=== PATIENT | male | born 1970 | race Caucasian/White ===

== ENCOUNTER 2016-12-29 19:25 | Emergency (ER) | payer OTHER ==
[~2016-12-29 19:25] MED LIST: LISI-363 PO; NOVOLOGP2 SQ
[2016-12-29 19:27] VITALS: BP 177/82; PULSE 109; RESP 16; TEMP 99; O2SAT 100
[2016-12-29] MEDS ORDERED: LISI-515 PO (21:55)
[2016-12-29] MEDS ORDERED: NOVOLOGSS (21:55)
[2016-12-29] MEDS ORDERED: CLINDAMYCIN INJ 600 MG in SODIUM CHLORIDE 0.9% INJ 100 ML IV ONE (22:00)
--- NOTE | 2016-12-29 22:10 | PD ---
HPI Chief Complaint: Injury Time Seen by Provider: 22:03 Travel History International Travel<30 days: No Contact w/Intl Traveler<30days: No Traveled to known affect area: No History of Present Illness HPI 46-year-old male that presents to the ED for evaluation of injury to the right leg. Per patient his been having swelling and redness on the right lower leg from the knee down for the past couple of days. Per patient he was initially small but now is progressively getting worse. Per patient he has pain on the area as well. 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 He states that he has not had any issues with the hand since. He denies any chest pain or shortness of breath. No fevers chills or sweats. Per patient the pain is 4 out of 10. Denies any numbness, tilling, weakness. Has no allergies to medication. Has not seen anybody for this. Hasn't taken anything for this. Per patient's his sugars are well-controlled secondary to using a pump. He denies any trauma. No falls. He does have multiple bumps to his legs that appear to be old. He denies any IV drug abuse. He denies any history of surgeries or injuries to the area. No recent travel. PFSH Past Medical History Asthma: No Blood Disorders: No Anxiety: No Depression: No Heart Rhythm Problems: No Cancer: No Cardiovascular Problems: No High Cholesterol: No Chest Pain: No Congestive Heart Failure: No COPD: No Diabetes: Yes Patient Takes Glucophage: No Diminished Hearing: No Endocrine: Yes Glaucoma: No Genitourinary: No Headaches: Yes Hepatitis: No Hiatal Hernia: No Hypertension: Yes Musculoskeletal: No Neurologic: No Psychiatric: No Reproductive: No Respiratory: No Sleep Apnea: No Thyroid Disease: No Tetanus Vaccination: > 5 Years Influenza Vaccination: No Past Surgical History Abdominal Surgery: No AICD: No Cardiac Surgery: No Endocrine Surgery: No Eye Surgery: Yes (CATARAC SX L EYE ) Genitourinary Surgery: No Gynecologic Surgery: No Insulin Pump: Yes Joint Replacement: No Oral Surgery: No Pacemaker: No Thoracic Surgery: No Other Surgery: Yes (CATARACT SURG LEFT EYE AND INC AND DRAINAGE LEFT HAND) Social History Alcohol Use: No (OCCASIONALLY ) Tobacco Use: No Substance Use: No Allergies-Medications (Allergen,Severity, Reaction): Coded Allergies: No Known Allergies (Verified , 12/29/16) Reported Meds & Prescriptions Reported Meds & Active Scripts Active Bactrim DS (Sulfamethoxazole-Trimethoprim) 800-160 Mg Tab 1 Tab PO BID 14 Days Clindamycin (Clindamycin HCl) 150 Mg Cap 300 Mg PO Q6H 10 Days Reported Lisinopril 20 Mg Tab 20 Mg PO BID Novolog Inj (Insulin Aspart) 100 Unit/Ml Inj Review of Systems General / Constitutional: No: Fever, Chills, Weight Gain, Weight Loss, Other Eyes: No: Diploplia, Blurred Vision, Photophobia, Drainage, Redness, Foreign Body Sensation, Pain, Tearing, Blind Spots, Visual changes, Blindness, Other HENT: No: Headaches, Vertigo, Lightheadedness, Sore Throat, Rhinitis, Rhinorrhea, Congestion, Nosebleed, Neck Stiffness, Neck Pain, Masses, Gingival Bleeding, Dental Difficulties, Ear Discharge, Earache, Other Cardiovascular: No: Chest Pain or Discomfort, Palpitations, Irregular Rhythm, Tachycardia, Diaphoresis, Syncope, Dyspnea on exertion, Varicosities, Edema, Cyanosis, Varicosities, Phlebitis, Claudication, Other Respiratory: No: Cough, Shortness of Breath, Wheezing, Sneezing, Orthopnea, Hemoptysis, Stridor, Night Sweats, Pleuritic Pain, Other Gastrointestinal: No: Nausea, Vomiting, Diarrhea, Abdominal Pain, Hematemesis, Hematochezia, Constipation, Changes in Bowel Habits, Indigestion, Dysphagia, Loss of Appetite, Other Genitourinary: No: Urgency, Frequency, Dysuria, Nocturia, Hematuria, Decreased Urinary Output, Oliguria, Hesitancy, Dribbling, Incontinence, Pelvic Pain, Flank Pain, Dyspareunia, Discharge, Dysmenorrhea, Menorrhagia, Metorrhagia, Vaginal Bleeding, Other Musculoskeletal: Positive: Edema, Pain, No: Myalgias, Arthralgias, Limited ROM , Weakness, Cramping, Atrophy, Other Skin: Positive Rash, No Itching, No Dryness, No Lumps, No Hives, No Change in Pigmentation, No Change in nails, No Alopecia, No Lesions, No Breast Lumps, No Breast Tenderness, No Breast Swelling, No Other Neurologic: No: Weakness, Dizziness, Syncope, Focal Abnormalities, Coordination Problem, Tremor, Ataxia, Headache, Change in Mentation, Slurred Speech, Paresthesia, Incontinence, Seizures, Sensory Disturbance, Other Psychiatric: No: Anxiety, Depression, Suicidal Ideations, Disorder of Thought, Mood Disorder, Substance Abuse, Homicidal Ideation, Other Endocrine: No: Heat Intolerance, Cold Intolerance, Polyuria, Polydipsia, Other Hematologic/Lymphatic: No: Easy Bruising, Lymph Node Enlargement, Other Physical Exam Narrative GENERAL: SKIN: Warm and dry. HEAD: Atraumatic. Normocephalic. EYES: Pupils equal and round. No scleral icterus. No injection or drainage. ENT: No nasal bleeding or discharge. Mucous membranes pink and moist. Tongue is midline. No uvula deviation. NECK: Trachea midline. No JVD. CARDIOVASCULAR: Regular rate and rhythm. No murmurs, S3, S4. RESPIRATORY: No accessory muscle use. Clear to auscultation. Breath sounds equal bilaterally. GASTROINTESTINAL: Abdomen soft, non-tender, nondistended. Hepatic and splenic margins not palpable. MUSCULOSKELETAL: Extremities without clubbing, cyanosis, or edema. No obvious deformities. Full range of motion of the lower extremities. Patient does have 1+ pitting edema on the right lower extremity. Erythema noted. Warm to touch. 2+ pulses bilaterally. NEUROLOGICAL: Awake and alert. No obvious cranial nerve deficits. Motor grossly within normal limits. Five out of 5 muscle strength in the arms and legs. Normal speech. PSYCHIATRIC: Appropriate mood and affect; insight and judgment normal. Data Data Last Documented VS Vital Signs Date Time Temp Pulse Resp B/P Pulse Ox O2 Delivery O2 Flow Rate FiO2 12/29/16 19:31 18 12/29/16 19:27 99.0 109 177/82 100 Orders Complete Blood Count With Diff (12/29/16 21:51) Basic Metabolic Panel (Bmp) (12/29/16 21:51) Blood Culture (12/29/16 21:51) Magnesium (Mg) (12/29/16 21:51) Iv Access Insert/Monitor (12/29/16 21:51) Tibia/Fibula (Ap/Lat) (12/29/16 ) Clindamycin Inj (Cleocin Inj) (12/29/16 22:00) Labs Laboratory Tests Test 12/29/16 22:00 White Blood Count 5.2 TH/MM3 Red Blood Count 3.44 MIL/MM3 Hemoglobin 10.9 GM/DL Hematocrit 31.4 % Mean Corpuscular Volume 91.2 FL Mean Corpuscular Hemoglobin 31.6 PG Mean Corpuscular Hemoglobin 34.7 % Concent Red Cell Distribution Width 13.0 % Platelet Count 233 TH/MM3 Mean Platelet Volume 9.0 FL Neutrophils (%) (Auto) 66.8 % Lymphocytes (%) (Auto) 18.5 % Monocytes (%) (Auto) 13.1 % Eosinophils (%) (Auto) 1.0 % Basophils (%) (Auto) 0.6 % Neutrophils # (Auto) 3.5 TH/MM3 Lymphocytes # (Auto) 1.0 TH/MM3 Monocytes # (Auto) 0.7 TH/MM3 Eosinophils # (Auto) 0.1 TH/MM3 Basophils # (Auto) 0.0 TH/MM3 CBC Comment DIFF FINAL Differential Comment Sodium Level 137 MEQ/L Potassium Level 4.3 MEQ/L Chloride Level 99 MEQ/L Carbon Dioxide Level 30.2 MEQ/L Anion Gap 8 MEQ/L Blood Urea Nitrogen 26 MG/DL Creatinine 1.70 MG/DL Estimat Glomerular Filtration 44 ML/MIN Rate Random Glucose 91 MG/DL Calcium Level 9.1 MG/DL Magnesium Level 1.7 MG/DL MDM Medical Decision Making Medical Screen Exam Complete: Yes Emergency Medical Condition: Yes Medical Record Reviewed: Yes Interpretation(s) CBC Diagram 12/29/16 22:00 BMP Diagram 12/29/16 22:00 Differential Diagnosis Cellulitis versus osteomyelitis versus skin infection Narrative Course 46-year-old male that presents to the ED for evaluation of right leg swelling and pain. Patient was properly examined and was found to have signs and symptoms consistent with cellulitis. Appears to be early. Patient does have a history of as to malaise with colitis in the past. Patient's diabetic. At this time I recommend labs and imaging. Patient is agreeable with plan. Patient was given IV dose of clindamycin. Labs and imaging showed no sign of acute disease. Well also and was unremarkable. No sign of osteomyelitis and exam. Slight dehydration, will give 1 L of fluids. At this time recommend trial of Bactrim and clindamycin prescriptions. Patient's ago with this. Patient was told take Tylenol or Motrin for pain. Follow with PCP. See ED for any worsening symptoms. Recheck in 48 hours if not better. Diagnosis Primary Impression: Cellulitis of right leg Patient Instructions: General Instructions Additional Instructions: Motrin or Tylenol for pain. Elevate the leg. Take medications as prescribed. See ED worsening symptoms. Recheck in 48 hrs if not better. Med/Other Pt SpecificInfo: Prescription(s) given Scripts Sulfamethoxazole-Trimethoprim (Bactrim DS)800-160 Mg Tab1 Tab PO BID 14 Days Prov:Cherie Choi MD 12/29/16 Clindamycin 150 Mg [id number] Mg PO Q6H 10 Days Prov:Cherie Choi MD 12/29/16 Disposition: 01 DISCHARGE HOME Condition: Stable Arnold Marte Dec 29, 2016 22:10
--- NOTE | 2016-12-29 22:18 | RADRPT ---
EXAM DATE/TIME: 12/29/2016 22:02 [facility] COMPARISON: No previous studies available for comparison. INDICATIONS : Swelling in right leg. MEDICAL HISTORY : None. SURGICAL HISTORY : None. ENCOUNTER: Initial ACUITY: 1 day PAIN SCORE: 10/10 LOCATION: Right tib-fib FINDINGS: Mild soft-tissue swelling is noted involving the medial and lateral malleoli. There is no acute frac ture or dislocation of the right tibia or fibula. There is slight cortical irregularity involving th e lateral aspect of the right distal tibia which may be related to previous trauma or arthritic davis e. CONCLUSION: 1. No acute fracture or dislocation of the right tibia or fibula. 2. Mild soft-tissue swelling involving the medial and lateral malleoli. 3. Slight cortical irregularity involving the lateral aspect of the right distal tibia which may be related to old trauma or possible arthritic change. Justin Donahue MD on December 29, 2016 at 22:10 Board Certified Radiologist. This report was verified electronically.
[2016-12-29 22:35] LABS: AUTOMATED NEUTROPHIL # 3.5 TH/MM3 (1.8-7.7); BASOPHIL % 0.6 % (0.0-2.0); EOSINOPHIL # 0.1 TH/MM3 (0-0.4); HEMATOCRIT 31.4 % (39.0-51.0); HEMO FLAGS DIFF FINAL; LYMPH % 18.5 % (9.0-44.0); MEAN CELL VOLUME 91.2 FL (80.0-100.0); MEAN CORPUSCULAR HEMOGLOBIN 31.6 PG (27.0-34.0); MEAN CORPUSCULAR HGB CONC 34.7 % (32.0-36.0); MONO % 13.1 % (0.0-8.0); NEUT % 66.8 % (16.0-70.0); PLATELET COUNT 233 TH/MM3 (150-450); RED BLOOD COUNT 3.44 MIL/MM3 (4.50-5.90); WHITE BLOOD COUNT 5.2 TH/MM3 (4.0-11.0)
[2016-12-29] MEDS ORDERED: CLIN1CAP5 PO (22:38)
[2016-12-29] MEDS ORDERED: BACT800T5 PO (22:38)
[2016-12-29 22:43] LABS: BICARBONATE 30.2 MEQ/L (21.0-32.0); MAGNESIUM 1.7 MG/DL (1.5-2.5); POTASSIUM 4.3 MEQ/L (3.5-5.1)
[2016-12-29] MEDS ORDERED: SODIUM CHLOR 0.9% 1000 ML INJ 1,000 ML IV ONE (22:53)
== END 2016-12-30 00:10 | disposition home or self-care (01) ==
LOC: NEPE 19:25
DX: L03.115 Cellulitis of right lower limb (principal); E11.9 Type 2 diabetes mellitus without complications; Z79.4 Long term (current) use of insulin; Z79.899 Other long term (current) drug therapy
CPT/HCPCS: 73590; 80048; 83735; 85025; 87040; 96365; 99283; J7030

== ENCOUNTER 2017-01-21 11:52 | Inpatient (IN) | payer OTHER ==
[~2017-01-21] VITALS: Ht 170.2 cm; Wt 66.0 kg
[~2017-01-21 11:52] MED LIST changes: +BACT800T5 PO; +CLIN1CAP5 PO; -LISI-363 PO; +LISI-515 PO; -NOVOLOGP2 SQ; +NOVOLOGSS
[2017-01-21 11:56] VITALS: BP 178/88; PULSE 114; RESP 17; TEMP 98; O2SAT 98
--- NOTE | 2017-01-21 12:05 | PD ---
Physical Exam Time Seen by Provider: 12:03 Narrative 46yo M w/ c/o RLE cellulitis [id number]. Seen here and was given antibx. Seen by PCP and given another antibx. Reports continues symptoms despite antibx therapy and onset of pain to RLE on Wednesday. Denies fever, vomiting. Patient stable. Patient seen in triage. Awaiting bed placement. Data Data Last Documented VS Vital Signs Date Time Temp Pulse Resp B/P Pulse Ox O2 Delivery O2 Flow Rate FiO2 01/21/17 11:56 98.0 114 17 178/88 98 MDM Supervised Visit with HOWARD: Luz Marina Kruger Jan 21, 2017 12:05
[2017-01-21 12:10] VITALS: BP 181/96; PULSE 105; RESP 18; O2SAT 99
[2017-01-21] MEDS ORDERED: VANCOMYCIN INJ 1,000 MG in SODIUM CHLOR 0.9% 250 ML INJ 250 ML IV ONE (12:15)
[2017-01-21] MEDS ORDERED: SODIUM CHLORIDE 0.9% FLUSH 10 ML FLUSH IVF PRN (12:15)
--- NOTE | 2017-01-21 12:34 | PD ---
HPI . Right lower extremity swelling and pain Chief Complaint: Skin Problem Time Seen by Provider: 12:04 Travel History International Travel<30 days: No Contact w/Intl Traveler<30days: No Traveled to known affect area: No History of Present Illness HPI Patient presents complaining with swelling and pain or extremity for the past 2 days. Pain is exacerbated by standing/walking. He states that the pain is a 12 /10. It is an aching pain. He denies any associated fevers. He denies any nausea or vomiting. He denies any trauma. Patient reports that he was seen here about a month ago for same and was treated with antibiotics. He states that he was subsequently seen by his primary care physician and given a second course of antibiotics. Unfortunately , he does not know the name of any of his antibiotics. Patient's medical history is significant for insulin-dependent diabetes. PFSH Past Medical History Asthma: No Blood Disorders: No Anxiety: No Depression: No Heart Rhythm Problems: No Cancer: No Cardiovascular Problems: No High Cholesterol: No Chest Pain: No Congestive Heart Failure: No COPD: No Diabetes: Yes (INSULIN PUMP, novolog) Patient Takes Glucophage: No Diminished Hearing: No Endocrine: Yes Gastrointestinal Disorders: No Glaucoma: No Genitourinary: No Headaches: Yes Hepatitis: No Hiatal Hernia: No Hypertension: Yes Medical other: No Musculoskeletal: No Neurologic: No Psychiatric: No Reproductive: No Respiratory: No Sleep Apnea: No Thyroid Disease: No Influenza Vaccination: No Past Surgical History Abdominal Surgery: No AICD: No Cardiac Surgery: No Endocrine Surgery: No Eye Surgery: Yes (CATARAC SX L EYE ) Genitourinary Surgery: No Gynecologic Surgery: No Insulin Pump: Yes Joint Replacement: No Neurologic Surgery: No Oral Surgery: No Pacemaker: No Thoracic Surgery: No Other Surgery: Yes (CATARACT SURG LEFT EYE AND INC AND DRAINAGE LEFT HAND) Social History Alcohol Use: Yes (OCCASIONALLY ) Tobacco Use: No Substance Use: No Allergies-Medications (Allergen,Severity, Reaction): Coded Allergies: No Known Allergies (Verified , 01/21/17) Reported Meds & Prescriptions Reported Meds & Active Scripts Active Bactrim DS (Sulfamethoxazole-Trimethoprim) 800-160 Mg Tab 1 Tab PO BID 14 Days Clindamycin (Clindamycin HCl) 150 Mg Cap 300 Mg PO Q6H 10 Days Reported Lisinopril 20 Mg Tab 20 Mg PO BID Novolog Inj (Insulin Aspart) 100 Unit/Ml Inj Review of Systems Except as stated in HPI: all other systems reviewed are Neg General / Constitutional: No: Fever, Chills Gastrointestinal: No: Nausea, Vomiting Musculoskeletal: Positive: Arthralgias Skin: Positive Change in Pigmentation Physical Exam Narrative GENERAL: Awake and alert and in no acute distress. SKIN: Warm and dry. He does have redness, warmth, swelling and tenderness in the right lower extremity especially around the right ankle. I don't see any breaks in the skin. HEAD: Atraumatic. Normocephalic. EYES: Pupils equal and round. Extraocular movements are intact. NECK: Trachea midline. Neck is supple. CARDIOVASCULAR: Regular rate and rhythm. RESPIRATORY: No accessory muscle use. MUSCULOSKELETAL: No obvious deformities. Tender around the right ankle. NEUROLOGICAL: Awake and alert. No obvious cranial nerve deficits. Motor grossly within normal limits. Normal speech. PSYCHIATRIC: Appropriate mood and affect; insight and judgment normal. Data Data Last Documented VS Vital Signs Date Time Temp Pulse Resp B/P Pulse Ox O2 Delivery O2 Flow Rate FiO2 01/21/17 12:50 92 18 156/82 100 Room Air 01/21/17 11:56 98.0 Orders Basic Metabolic Panel (Bmp) (01/21/17 12:13) Complete Blood Count With Diff (01/21/17 12:13) Blood Culture (01/21/17 12:13) Iv Access Insert/Monitor (01/21/17 12:13) Sodium Chloride 0.9% Flush (Ns Flush) (01/21/17 12:15) Ankle, Limited (Ap&Lat) (01/21/17 12:13) Westergren Sedimentation Rate (01/21/17 12:13) C-Reactive Protein (Crp) (01/21/17 12:13) Vancomycin Inj (Vancomycin Inj) (01/21/17 12:15) Labs Laboratory Tests Test 01/21/17 12:33 White Blood Count 5.9 TH/MM3 Red Blood Count 3.50 MIL/MM3 Hemoglobin 10.9 GM/DL Hematocrit 31.6 % Mean Corpuscular Volume 90.2 FL Mean Corpuscular Hemoglobin 31.1 PG Mean Corpuscular Hemoglobin 34.5 % Concent Red Cell Distribution Width 12.7 % Platelet Count 259 TH/MM3 Mean Platelet Volume 9.0 FL Neutrophils (%) (Auto) 68.0 % Lymphocytes (%) (Auto) 14.6 % Monocytes (%) (Auto) 15.2 % Eosinophils (%) (Auto) 1.9 % Basophils (%) (Auto) 0.3 % Neutrophils # (Auto) 4.0 TH/MM3 Lymphocytes # (Auto) 0.9 TH/MM3 Monocytes # (Auto) 0.9 TH/MM3 Eosinophils # (Auto) 0.1 TH/MM3 Basophils # (Auto) 0.0 TH/MM3 CBC Comment DIFF FINAL Differential Comment Sodium Level 135 MEQ/L Potassium Level 4.6 MEQ/L Chloride Level 99 MEQ/L Carbon Dioxide Level 28.8 MEQ/L Anion Gap 7 MEQ/L Blood Urea Nitrogen 20 MG/DL Creatinine 1.46 MG/DL Estimat Glomerular Filtration 52 ML/MIN Rate Random Glucose 113 MG/DL Calcium Level 9.0 MG/DL C-Reactive Protein 10.50 MG/DL MDM Medical Decision Making Medical Screen Exam Complete: Yes Emergency Medical Condition: Yes Medical Record Reviewed: Yes (patient was seen here on 12/29 for the same thing. He had a white blood count at that time of 5.2. He was discharged with prescriptions for Bactrim and Cleocin.) Differential Diagnosis My differential diagnosis includes but is not limited to localized wound infection, cellulitis, abscess Narrative Course Patient presents complaining with increased pain and swelling of the right lower extremity. He has recently been treated for cellulitis in his right lower extremity. Symptoms did improve with antibiotics but recurred approximately 2 days ago. He evaluated for possible osteomyelitis. Since we know for sure that he has been recently treated with Bactrim and Cleocin, I have ordered a dose of vancomycin. CBC & BMP Diagram 01/21/17 12:33 C-reactive protein is 10.5. Last Impressions Ankle X-Ray 01/21/17 1213 Signed Impressions: Service Date/Time: January 12:33 - CONCLUSION: 1. No acute fracture or dislocation. 2. Cortical irregularity involving the lateral aspect of the right distal tibia which may be related to old trauma or possible arthritic change. Clinical correlation is recommended. 3. Mild soft tissue swelling involving the medial lateral malleoli. Justin Donahue MD I will admit the patient for IV antibiotics. Diagnosis Primary Impression: Cellulitis of right leg Admitting Information Admitting Physician Requests: Admit Condition: Stable Oeters,Carlotta Adela MD Jan 21, 2017 12:33
--- NOTE | 2017-01-21 12:40 | RADRPT ---
EXAM DATE/TIME: 01/21/2017 12:33 [facility] COMPARISON: TIBIA/FIBULA RIGHT (AP/LAT), December 29, 2016, 22:02. INDICATIONS : Right ankle pain, no trauma. MEDICAL HISTORY : None. SURGICAL HISTORY : None. ENCOUNTER: Initial ACUITY: 2 days PAIN SCORE: 10/10 LOCATION: Right posterior pain. FINDINGS: No acute fracture or dislocation. Mild soft tissue swelling is noted involving the medial lateral mal leoli. Again, there is some cortical irregularity involving the lateral aspect of the right distal ti parminder which may be related to old trauma or possible arthritic change. Clinical correlation is recommen ded. The ankle mortise is intact. CONCLUSION: 1. No acute fracture or dislocation. 2. Cortical irregularity involving the lateral aspect of the right distal tibia which may be related to old trauma or possible arthritic change. Clinical correlation is recommended. 3. Mild soft tissue swelling involving the medial lateral malleoli. Justin Donahue MD on January 21, 2017 at 12:36 Board Certified Radiologist. This report was verified electronically.
[2017-01-21 12:50] VITALS: BP 156/82; PULSE 92; RESP 18; O2SAT 100
[2017-01-21 12:54] LABS: BASOPHIL % 0.3 % (0.0-2.0); EOSINOPHIL # 0.1 TH/MM3 (0-0.4); EOSINOPHIL % 1.9 % (0.0-4.0); HEMATOCRIT 31.6 % (39.0-51.0); HEMO FLAGS DIFF FINAL; LYMPH % 14.6 % (9.0-44.0); LYMPHOCYTE # 0.9 TH/MM3 (1.0-4.8); MEAN CELL VOLUME 90.2 FL (80.0-100.0); MEAN CORPUSCULAR HEMOGLOBIN 31.1 PG (27.0-34.0); MEAN CORPUSCULAR HGB CONC 34.5 % (32.0-36.0); MONO % 15.2 % (0.0-8.0); PLATELET COUNT 259 TH/MM3 (150-450); RED CELL DISTRIBUTION WIDTH 12.7 % (11.6-17.2); WHITE BLOOD COUNT 5.9 TH/MM3 (4.0-11.0)
[2017-01-21 13:12] LABS: BICARBONATE 28.8 MEQ/L (21.0-32.0); POTASSIUM 4.6 MEQ/L (3.5-5.1)
[2017-01-21] MEDS ORDERED: VITA1000 PO (13:46)
[2017-01-21] MEDS ORDERED: CEPH-460 PO (13:48)
[2017-01-21 15:50] VITALS: BP 169/86; PULSE 92; RESP 18; O2SAT 99
--- NOTE | 2017-01-21 15:59 | HHI.HP ---
HPI [facility] Primary Care Physician Ike Emery MD Admission Diagnosis CELLULITIS Chief Complaint: right leg/foot swelling. Travel History International Travel<30 Days: No Contact w/Intl Traveler <30 Da: No Traveled to Known Affected Are: No History of Present Illness Pt is 46 yo type 1 diabetic who says his last hgba1c is 8.1. pt reports that he has been on abx for over 3 weeks after developed some mild redness of right sherman and swelling of right ankle and foot. was initially placed on bactrim and clinda for up to 2 weeks then had keflex for 10more days. The soft tissue is really not tender but bottom of foot hurts to walk on it. no fevers. denies any pain behind the knee. given vanco in ED for cellulitis concern. Review of Systems Other swelling of rle and foot. 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 hx dka. Reported Medications Keflex (Cephalexin) 500 Mg Cap 500 Mg PO TID Vitamin D-1000 (Cholecalciferol) 1,000 Unit Tab 1,000 Units PO DAILY Lisinopril 20 Mg Tab 20 Mg PO BID Novolog Inj (Insulin Aspart) 100 Unit/Ml Inj VIA INSULIN PUMP Allergies: Coded Allergies: No Known Allergies (Verified , 01/21/17) Family History colon ca Social History no tob. quit 15yrs ago social etoh Physical Exam Vital Signs nad heart reg lung cta abd s/nt ext swelling from below the right knee down to ankle and foot. not very tender and minimal pinkish color to ant tib area. no palpable cords. 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 Vital Signs Date Time Temp Pulse Resp B/P Pulse Ox O2 Delivery O2 Flow Rate FiO2 01/21/17 15:50 92 18 169/86 99 Room Air 01/21/17 12:50 92 18 156/82 100 Room Air 01/21/17 12:10 105 18 181/96 99 Room Air 01/21/17 12:07 111 18 01/21/17 11:56 98.0 114 17 178/88 98 Laboratory Laboratory Tests Test 01/21/17 01/21/17 12:30 12:33 Erythrocyte Sedimentation Rate 54 White Blood Count 5.9 Red Blood Count 3.50 Hemoglobin 10.9 Hematocrit 31.6 Mean Corpuscular Volume 90.2 Mean Corpuscular Hemoglobin 31.1 Mean Corpuscular Hemoglobin 34.5 Concent Red Cell Distribution Width 12.7 Platelet Count 259 Mean Platelet Volume 9.0 Neutrophils (%) (Auto) 68.0 Lymphocytes (%) (Auto) 14.6 Monocytes (%) (Auto) 15.2 Eosinophils (%) (Auto) 1.9 Basophils (%) (Auto) 0.3 Neutrophils # (Auto) 4.0 Lymphocytes # (Auto) 0.9 Monocytes # (Auto) 0.9 Eosinophils # (Auto) 0.1 Basophils # (Auto) 0.0 CBC Comment DIFF FINAL Differential Comment Sodium Level 135 Potassium Level 4.6 Chloride Level 99 Carbon Dioxide Level 28.8 Anion Gap 7 Blood Urea Nitrogen 20 Creatinine 1.46 Estimat Glomerular Filtration 52 Rate Random Glucose 113 Calcium Level 9.0 C-Reactive Protein 10.50 Date/Time Procedure Status Source Growth 01/21/17 12:33 Aerobic Blood Culture Received Blood Peripheral Pending 01/21/17 12:33 Anaerobic Blood Culture Received Blood Peripheral Pending Result Diagram: 01/21/17 1233 01/21/17 1233 Assessment and Plan Problem List: (1) Leg swelling Status: Acute Plan: Pt developed some mild redness of rle and swelling over 3 weeks ago. has been treated with bactrim/clinda/keflex. leg still swollen from below the right knee down to foot. Not clearly just cellulitis. will exclude underlying dvt and osteo. esr elevated. u/s and mri ordered cont insulin pump given vanc in ED..will decide on further abx after above imaging. lower gfr noted. I'm not sure of his baseline but will look in cp records... could be from recent abx use if decompensated. (2) DM type 1 (diabetes mellitus, type 1) Status: Chronic Plan: cont insulin pump ssi. (3) Hypertension Status: Chronic Plan: cont shiva. Domenico Blackburn MD Jan 21, 2017 15:59
[2017-01-21 16:00] VITALS: BP 168/85; PULSE 90; RESP 20; TEMP 98.4; O2SAT 96
[2017-01-21] MEDS: INSULIN ASPART SUPPLEMENTAL SCALE SQ SCH ×2 (16:00→21:00)
[2017-01-21] MEDS ORDERED: DEXTROSE 50% IN WATER 50 ML VIAL(D50) IV PRN (16:00)
[2017-01-21] MEDS ORDERED: GLUCAGON 1 MG/ML VIAL OTHER PRN (16:00)
[2017-01-21] MEDS ORDERED: cloNIDine HCL 0.1 MG TAB PO PRN (16:15)
[2017-01-21] MEDS ORDERED: SODIUM CHLORID 0.9% 500 ML INJ 500 ML IV ONE (16:15)
--- NOTE | 2017-01-21 17:57 | RADRPT ---
EXAM DATE/TIME: 01/21/2017 16:37 [facility] COMPARISON: No previous studies available for comparison. INDICATIONS : Right leg swelling. MEDICAL HISTORY : Hypertension. Headaches. Diabetes. SURGICAL HISTORY : Left cataract removal. Right thumb surgery. Finger amutations. Left hand incision and drainage. ENCOUNTER: Initial ACUITY: 2 weeks PAIN SCORE: 3/10 LOCATION: Right leg. TECHNIQUE: Venous ultrasound of the leg was performed from the inguinal ligament to the proximal calf. Real-elijah e, color Doppler and spectral tracing, compression and augmentation techniques were used. FINDINGS: There is normal compressibility of the deep venous system from the inguinal region to the proximal ca lf. No echogenic clot is seen in the lumen of the common femoral, femoral, popliteal, and posterior tibial veins. There is a normal response of the venous system to proximal and distal augmentation an d respiration. Small lymph nodes are present in the patient's groin. CONCLUSION: No DVT. Nelly Lacey MD on January 21, 2017 at 17:52 Board Certified Radiologist. This report was verified electronically.
[2017-01-21 20:00] VITALS: BP 156/78; PULSE 85; RESP 18; TEMP 97.8; O2SAT 98
[2017-01-21] MEDS ORDERED: GADODIAMIDE PF 287 MG/ML 5 ML VIAL (for RAD MRI) IV ONE (21:02)
--- NOTE | 2017-01-21 21:30 | RADRPT ---
EXAM DATE/TIME: 01/21/2017 19:37 [facility] COMPARISON: No previous studies available for comparison. INDICATIONS : Cellulitis. Leg swelling from right knee down to foot. CONTRAST: 13 cc Omniscan (gadodiamide) IV MEDICAL HISTORY : Hypertension. Diabetes mellitus type 2. SURGICAL HISTORY : Cataracts and amputation of first and second digit left hand. ENCOUNTER: Initial ACUITY: 1 week PAIN SCORE: 4/10 LOCATION: Right Leg. TECHNIQUE: Multiplanar multisequence MRI examination of the lower leg was performed with and without contrast. FINDINGS: There is subcutaneous edema probably result of the patient's known cellulitis without abscess formati on. The marrow signal appears intact. CONCLUSION: No evidence of osteomyelitis. Nelly Lacey MD on January 21, 2017 at 21:27 Board Certified Radiologist. This report was verified electronically.
--- NOTE | 2017-01-21 21:36 | RADRPT ---
EXAM DATE/TIME: 01/21/2017 19:37 [facility] COMPARISON: ANKLE RIGHT LIMITED (AP&LAT), January 21, 2017, 12:33. INDICATIONS : Cellulitis. Foot swelling with redness. CONTRAST: 13 cc Omniscan (gadodiamide) IV MEDICAL HISTORY : Hypertension. Diabetes mellitus type 2. SURGICAL HISTORY : Cataracts and first and second digit of left hand amputation. ENCOUNTER: Initial ACUITY: 1 week PAIN SCORE: 3/10 LOCATION: Right Foot. TECHNIQUE: Multiplanar, multisequence MRI examination was performed without contrast and after the intravenous a dministration of gadolinium. FINDINGS: There is a linear line through the anterior portion of the calcaneus has the appearance of a fra cture. There is diffuse marrow edema towards the anterior half of the calcaneus. There is also signif icant edema involving the entire cuboid and partially involving the navicular bone, lateral cuneiform . There is amputation of the fourth digit at the level of the PIP joint. There is subcutaneous edema without evidence for focal abscess formation. The postcontrast portion demonstrates inhomogeneous enh ancement the calcaneus, lateral cuneiform, cuboid, parts of the navicular bone and parts of the secon d and third proximal metatarsal bones. CONCLUSION: Findings are suspicious for a fracture of the anterior portion of the calcaneus and there is marrow e ani involving multiple tarsal bones at the tarsometatarsal junctions may be due to Charcot's phenome non as well, however underlying osteomyelitis in any of these sites is difficult to exclude. Nelly Lacey MD on January 21, 2017 at 21:29 Board Certified Radiologist. This report was verified electronically.
[2017-01-21] MEDS: LISINOPRIL 20 MG TAB PO SCH (21:44)
[2017-01-21] MEDS ORDERED: SODIUM CHLORIDE FLUSH PRN IV FLUSH (23:00)
[2017-01-21] MEDS ORDERED: ACETAMINOPHEN 500 MG CPLT PO PRN (23:00)
[2017-01-22 00:04] VITALS: BP 159/83; PULSE 85; RESP 18; TEMP 98.9; O2SAT 98
[2017-01-22 06:19] LABS: BICARBONATE 30.3 MEQ/L (21.0-32.0); POTASSIUM 4.1 MEQ/L (3.5-5.1)
[2017-01-22] MEDS: INSULIN ASPART SUPPLEMENTAL SCALE SQ SCH ×3 (07:00→21:00)
[2017-01-22 08:00] VITALS: BP 165/96; PULSE 91; RESP 17; TEMP 97.3; O2SAT 99
[2017-01-22] MEDS: CHOLECALCIFEROL (VIT D3) 1000 UNIT TAB PO SCH (08:50)
[2017-01-22] MEDS: LISINOPRIL 20 MG TAB PO SCH ×2 (08:50→20:09)
[2017-01-22] MEDS: SODIUM CHLORIDE FLUSH BID IV FLUSH SCH ×2 (08:52→20:09)
--- NOTE | 2017-01-22 09:05 | HHI.PR ---
Subjective Remarks Pt feels that he has less swelling and erythema in the RLE today Afebrile. Objective Vitals Vital Signs Date Time Temp Pulse Resp B/P Pulse Ox O2 Delivery O2 Flow Rate FiO2 01/22/17 08:00 97.3 91 17 165/96 99 01/22/17 00:04 98.9 85 18 159/83 98 01/21/17 20:00 97.8 85 18 156/78 98 01/21/17 16:00 98.4 90 20 168/85 96 01/21/17 15:50 92 18 169/86 99 Room Air 01/21/17 12:50 92 18 156/82 100 Room Air 01/21/17 12:10 105 18 181/96 99 Room Air 01/21/17 12:07 111 18 01/21/17 11:56 98.0 114 17 178/88 98 01/21/17 01/21/17 01/22/17 15:00 23:00 07:00 Intake Total 580 ml 480 ml Balance 580 ml 480 ml Intake Oral 580 ml 480 ml # Voids 2 2 Result Diagram: 01/21/17 1233 01/22/17 0504 Other Results Laboratory Tests Test 01/21/17 01/21/17 01/22/17 12:30 12:33 05:04 Erythrocyte Sedimentation Rate 54 mm/hr White Blood Count 5.9 TH/MM3 Red Blood Count 3.50 MIL/MM3 Hemoglobin 10.9 GM/DL Hematocrit 31.6 % Mean Corpuscular Volume 90.2 FL Mean Corpuscular Hemoglobin 31.1 PG Mean Corpuscular Hemoglobin 34.5 % Concent Red Cell Distribution Width 12.7 % Platelet Count 259 TH/MM3 Mean Platelet Volume 9.0 FL Neutrophils (%) (Auto) 68.0 % Lymphocytes (%) (Auto) 14.6 % Monocytes (%) (Auto) 15.2 % Eosinophils (%) (Auto) 1.9 % Basophils (%) (Auto) 0.3 % Neutrophils # (Auto) 4.0 TH/MM3 Lymphocytes # (Auto) 0.9 TH/MM3 Monocytes # (Auto) 0.9 TH/MM3 Eosinophils # (Auto) 0.1 TH/MM3 Basophils # (Auto) 0.0 TH/MM3 CBC Comment DIFF FINAL Differential Comment Sodium Level 135 MEQ/L 137 MEQ/L Potassium Level 4.6 MEQ/L 4.1 MEQ/L Chloride Level 99 MEQ/L 100 MEQ/L Carbon Dioxide Level 28.8 MEQ/L 30.3 MEQ/L Anion Gap 7 MEQ/L 7 MEQ/L Blood Urea Nitrogen 20 MG/DL 17 MG/DL Creatinine 1.46 MG/DL 1.45 MG/DL Estimat Glomerular Filtration 52 ML/MIN 53 ML/MIN Rate Random Glucose 113 MG/DL 40 MG/DL Calcium Level 9.0 MG/DL 9.0 MG/DL C-Reactive Protein 10.50 MG/DL Imaging Last Impressions Ankle X-Ray 01/21/17 1213 Signed Impressions: Service Date/Time: January 12:33 - CONCLUSION: 1. No acute fracture or dislocation. 2. Cortical irregularity involving the lateral aspect of the right distal tibia which may be related to old trauma or possible arthritic change. Clinical correlation is recommended. 3. Mild soft tissue swelling involving the medial lateral malleoli. Justin Donahue MD Lower Extremity Ultrasound 01/21/17 0000 Signed Impressions: Service Date/Time: January 16:37 - CONCLUSION: No DVT. Nelly Lacey MD Lower Extremity MRI 01/21/17 0000 Signed Impressions: Service Date/Time: January 19:37 - CONCLUSION: No evidence of osteomyelitis. Nelly Lacey MD Foot MRI 01/21/17 0000 Signed Impressions: Service Date/Time: January 19:37 - CONCLUSION: Findings are suspicious for a fracture of the anterior portion of the calcaneus and there is marrow edema involving multiple tarsal bones at the tarsometatarsal junctions may be due to Charcot's phenomenon as well, however underlying osteomyelitis in any of these sites is difficult to exclude. Nelly Lacey MD Objective Remarks General: NAD, AAOx3 Chest: CTA Cardiac: Regular Abd: +BS, soft ND/NT Ext: RLE foot and ankle edema and erythema, less swelling in the right calf A/P Problem List: (1) Leg swelling Status: Acute Plan: - Pt was admitted with complaints of erythema and swelling of the RLE which began over 3 weeks ago. - He was treated outpt with Bactrim/Clinda/Keflex. - His leg has continued to be swollen from below the right knee down to foot. - Not clearly just cellulitis. - Foot MRI --> Findings are suspicious for a fracture of the anterior portion of the calcaneus and there is marrow edema involving multiple tarsal bones at the tarsometatarsal junctions may be due to Charcot's phenomenon as well, however underlying osteomyelitis in any of these sites is difficult to exclude. - LE MRI --> Negative for osteomyelitis - LE US --> Negative for DVT - Pt was given Vancomycin in the ED. This was held at admission. - He was noted to have a lower GFR, possibly from recent abx use. His GFR from and prior to that was in the 70-80's. Labs from 01/04/17 noted Cr 1.65 and GFR of 49. - Podiatry is consulted, await their evaluation. (2) DM type 1 (diabetes mellitus, type 1) Status: Chronic Plan: - Blood sugars were quite low this morning. - Pt has an insulin pump in place. - ssi. (3) Hypertension Status: Chronic Plan: - Cont shiva. - Clonidine PRN Assessment and Plan Patient examined. Assessment and plan formulated with Jaleesa Moody PA-C. I agree with the above. mri questioning fx and osteo right foot bones..unclear. podiatry consulted. hold on further abx until clarification. wbc tagged scan ordered. pt with insulin pump. Jaleesa Moody Jan 22, 2017 09:05 Domenico Blackburn MD Jan 22, 2017 18:23
[2017-01-22 12:00] VITALS: BP 149/84; PULSE 90; RESP 16; TEMP 97.8; O2SAT 100
[2017-01-22 16:00] VITALS: BP 152/85; PULSE 93; RESP 17; TEMP 98.6; O2SAT 100
[2017-01-22 20:02] VITALS: BP 134/73; PULSE 80; RESP 18; TEMP 97.5; O2SAT 98
[2017-01-22] MEDS: TEMAZEPAM 15 MG CAP PO PRN (23:15)
[2017-01-22 23:52] VITALS: BP 123/80; PULSE 82; RESP 18; TEMP 99; O2SAT 98
[2017-01-23 04:43] LABS: AUTOMATED NEUTROPHIL # 2.4 TH/MM3 (1.8-7.7); BASOPHIL % 0.6 % (0.0-2.0); EOSINOPHIL # 0.2 TH/MM3 (0-0.4); EOSINOPHIL % 4.1 % (0.0-4.0); HEMATOCRIT 29.5 % (39.0-51.0); HEMO FLAGS DIFF FINAL; LYMPH % 23.4 % (9.0-44.0); MEAN CELL VOLUME 91.7 FL (80.0-100.0); MEAN CORPUSCULAR HEMOGLOBIN 30.4 PG (27.0-34.0); MEAN CORPUSCULAR HGB CONC 33.1 % (32.0-36.0); MONO % 16.9 % (0.0-8.0); PLATELET COUNT 197 TH/MM3 (150-450); RED BLOOD COUNT 3.22 MIL/MM3 (4.50-5.90); RED CELL DISTRIBUTION WIDTH 12.5 % (11.6-17.2); WHITE BLOOD COUNT 4.3 TH/MM3 (4.0-11.0)
[2017-01-23 05:09] LABS: BICARBONATE 28.2 MEQ/L (21.0-32.0); MAGNESIUM 1.6 MG/DL (1.5-2.5); POTASSIUM 4.1 MEQ/L (3.5-5.1)
[2017-01-23] MEDS: INSULIN ASPART SUPPLEMENTAL SCALE SQ SCH ×4 (06:24→21:00)
[2017-01-23 08:00] VITALS: BP 126/80; PULSE 84; RESP 17; TEMP 97.2; O2SAT 98
[2017-01-23] MEDS: CHOLECALCIFEROL (VIT D3) 1000 UNIT TAB PO SCH (08:52)
[2017-01-23] MEDS: LISINOPRIL 20 MG TAB PO SCH ×2 (08:52→21:25)
[2017-01-23] MEDS: SODIUM CHLORIDE FLUSH BID IV FLUSH SCH ×2 (08:52→21:00)
--- NOTE | 2017-01-23 09:42 | PD.CONS ---
History of Present Illness Service podiatry Consult Requested By Reason for Consult R foot swelling/MRI findings of fractures Primary Care Physician Ike Emery MD Diagnoses: History of Present Illness 46 yo type 1 diabetic who says his last hgba1c was in the 7s, reports no wound to R foot. He has history of R toe amputation in the past, 4th toe, due to infection. He says the swelling and pain started about 3 weeks ago to R foot. No history of trauma. Past Family Social History Allergies: Coded Allergies: No Known Allergies (Verified , 01/21/17) Past Medical History DM type 1, h/x DKA HTN Past Surgical History s/p orif of 2nd and 3rd metacarpals..relocation of 4rth cmc joint and carpal tunnel release partial amputation left index and middle finger. amputation R 4th toe Active Ordered Medications Current Medications Medications (Trade) Dose Ordered Sig/Porsche Route Start Time Stop Time Status Last Admin (D50w (Vial) Inj) 25 ml UNSCH PRN IV 01/21/17 16:00 (Glucagon Inj) 1 mg UNSCH PRN OTHER 01/21/17 16:00 (Catapres) 0.1 mg Q4H PRN PO 01/21/17 16:15 (Vitamin D3) 1,000 units DAILY PO 01/22/17 09:00 01/23/17 08:52 (Prinivil) 20 mg BID PO 01/21/17 21:00 01/23/17 08:52 (Tylenol) 500 mg Q6H PRN PO 01/21/17 23:00 01/21/17 23:49 (NS Flush) 2 ml BID IV FLUSH 01/22/17 09:00 01/23/17 08:52 (NS Flush) 2 ml UNSCH PRN IV FLUSH 01/21/17 23:00 (Restoril) 15 mg HS PRN PO 01/22/17 21:45 01/22/17 23:15 Family History Colon cancer Social History States he quit smoking 15yrs ago social etoh Physical Exam Vital Signs Vital Signs Date Time Temp Pulse Resp B/P Pulse Ox O2 Delivery O2 Flow Rate FiO2 01/23/17 08:00 97.2 84 17 126/80 98 01/23/17 08:00 97.2 84 17 126/80 98 01/22/17 23:52 99.0 82 18 123/80 98 01/22/17 20:02 97.5 80 18 134/73 98 01/22/17 16:00 98.6 93 17 152/85 100 01/22/17 12:00 97.8 90 16 149/84 100 Physical Exam R foot with mild erythema and edema that appears localized to midfoot/rearfoot region. No open wound. Diminished pedal pulses. Warm skin temperature. Sensation diminished to light touch. Laboratory Laboratory Tests Test 01/23/17 03:54 White Blood Count 4.3 Red Blood Count 3.22 Hemoglobin 9.8 Hematocrit 29.5 Mean Corpuscular Volume 91.7 Mean Corpuscular Hemoglobin 30.4 Mean Corpuscular Hemoglobin 33.1 Concent Red Cell Distribution Width 12.5 Platelet Count 197 Mean Platelet Volume 9.6 Neutrophils (%) (Auto) 55.0 Lymphocytes (%) (Auto) 23.4 Monocytes (%) (Auto) 16.9 Eosinophils (%) (Auto) 4.1 Basophils (%) (Auto) 0.6 Neutrophils # (Auto) 2.4 Lymphocytes # (Auto) 1.0 Monocytes # (Auto) 0.7 Eosinophils # (Auto) 0.2 Basophils # (Auto) 0.0 CBC Comment DIFF FINAL Differential Comment Sodium Level 136 Potassium Level 4.1 Chloride Level 99 Carbon Dioxide Level 28.2 Anion Gap 9 Blood Urea Nitrogen 14 Creatinine 1.29 Estimat Glomerular Filtration 60 Rate Random Glucose 140 Calcium Level 8.9 Magnesium Level 1.6 Date/Time Procedure Status Source Growth 01/21/17 12:33 Aerobic Blood Culture - Preliminary Resulted Blood Peripheral NO GROWTH IN 1 DAY 01/21/17 12:33 Anaerobic Blood Culture - Preliminary Resulted Blood Peripheral NO GROWTH IN 1 DAY Result Diagram: 01/23/17 0354 01/23/17 0354 Imaging Last Impressions Ankle X-Ray 01/21/17 1213 Signed Impressions: Service Date/Time: January 12:33 - CONCLUSION: 1. No acute fracture or dislocation. 2. Cortical irregularity involving the lateral aspect of the right distal tibia which may be related to old trauma or possible arthritic change. Clinical correlation is recommended. 3. Mild soft tissue swelling involving the medial lateral malleoli. Justin Donahue MD Lower Extremity Ultrasound 01/21/17 0000 Signed Impressions: Service Date/Time: January 16:37 - CONCLUSION: No DVT. Nelly Lacey MD Lower Extremity MRI 01/21/17 0000 Signed Impressions: Service Date/Time: January 19:37 - CONCLUSION: No evidence of osteomyelitis. Nelly Lacey MD Foot MRI 01/21/17 0000 Signed Impressions: Service Date/Time: January 19:37 - CONCLUSION: Findings are suspicious for a fracture of the anterior portion of the calcaneus and there is marrow edema involving multiple tarsal bones at the tarsometatarsal junctions may be due to Charcot's phenomenon as well, however underlying osteomyelitis in any of these sites is difficult to exclude. Nelly Lacey MD Assessment and Plan Assessment and Plan Charcot foot RLE Strict nonweightbearing RLE. Ordered splint be placed and crutches for assistance per PT recommendations. Patient needs to be completely NWB RLE x several months. Discussed condition with patient and risk for foot deformity and further wounds/infection if he is noncompliant. Follow up in clinic in 2-3 weeks for serial xrays and clinical evaluation to determine when protected weightbearing will be allowed. Marcos Reeder DPM Jan 23, 2017 09:42
[2017-01-23 12:00] VITALS: BP 155/96; PULSE 87; RESP 17; TEMP 97.8; O2SAT 98
--- NOTE | 2017-01-23 12:17 | HHI.PR ---
Subjective Remarks doing ok. Objective Vitals heart reg lung cta abd s/nt ext right foot splinted. Vital Signs Date Time Temp Pulse Resp B/P Pulse Ox O2 Delivery O2 Flow Rate FiO2 01/23/17 08:00 97.2 84 17 126/80 98 01/23/17 08:00 97.2 84 17 126/80 98 01/22/17 23:52 99.0 82 18 123/80 98 01/22/17 20:02 97.5 80 18 134/73 98 01/22/17 16:00 98.6 93 17 152/85 100 01/22/17 01/22/17 01/23/17 15:00 23:00 07:00 Intake Total 1660 ml 450 ml 480 ml Balance 1660 ml 450 ml 480 ml Intake Oral 1660 ml 450 ml 480 ml IV Total 0 ml # Voids 4 3 2 # Bowel Movements 2 Result Diagram: 01/23/17 0354 01/23/17 0354 Imaging Last Impressions Ankle X-Ray 01/21/17 1213 Signed Impressions: Service Date/Time: January 12:33 - CONCLUSION: 1. No acute fracture or dislocation. 2. Cortical irregularity involving the lateral aspect of the right distal tibia which may be related to old trauma or possible arthritic change. Clinical correlation is recommended. 3. Mild soft tissue swelling involving the medial lateral malleoli. Justin Donahue MD Lower Extremity Ultrasound 01/21/17 0000 Signed Impressions: Service Date/Time: January 16:37 - CONCLUSION: No DVT. Nelly Lacey MD Lower Extremity MRI 01/21/17 0000 Signed Impressions: Service Date/Time: January 19:37 - CONCLUSION: No evidence of osteomyelitis. Nelly Lacey MD Foot MRI 01/21/17 0000 Signed Impressions: Service Date/Time: January 19:37 - CONCLUSION: Findings are suspicious for a fracture of the anterior portion of the calcaneus and there is marrow edema involving multiple tarsal bones at the tarsometatarsal junctions may be due to Charcot's phenomenon as well, however underlying osteomyelitis in any of these sites is difficult to exclude. Nelly Lacey MD A/P Problem List: (1) Leg swelling Status: Acute Plan: - Pt was admitted with complaints of erythema and swelling of the RLE which began over 3 weeks ago. - He was treated outpt with Bactrim/Clinda/Keflex. - His leg has continued to be swollen from below the right knee down to foot. - Not clearly just cellulitis. - Foot MRI --> Findings are suspicious for a fracture of the anterior portion of the calcaneus and there is marrow edema involving multiple tarsal bones at the tarsometatarsal junctions may be due to Charcot's phenomenon as well, however underlying osteomyelitis in any of these sites is difficult to exclude. - LE MRI --> Negative for osteomyelitis - LE US --> Negative for DVT - Pt was given Vancomycin in the ED. This was held at admission. I discussed case with podiatry Dr Reeder...Charcot foot plus calcaneal fx. but agrees with excluding osteo with wbc scan. foot splinted and weight bearing restriction discussed. d/c home today if wbc scan neg. if positive then consult ID. (2) DM type 1 (diabetes mellitus, type 1) Status: Chronic Plan: - Blood sugars were quite low this morning. - Pt has an insulin pump in place. - ssi. (3) Hypertension Status: Chronic Plan: - Cont shiva. - Clonidine Domenico Abdul MD Jan 23, 2017 12:17
--- NOTE | 2017-01-23 15:18 | RADRPT ---
EXAM DATE/TIME: 01/22/2017 15:37 [facility] COMPARISON: No previous studies available for comparison. INDICATIONS : DOSE: 21.3 mCi Tc99m Ceretec labeled white blood cells IV PLANAR IMAGIN min, 3 hrs, 20 hrs SPECT IMAGIN hrs, 20 hrs IMAGNG: SPECT/CT imaging with fusion was performed. RADIATION DOSE: 4.25 CTDIvol (mGy) ; Multiple Day Study MEDICAL HISTORY : Diabetes mellitus type 2. Hypertension. SURGICAL HISTORY : Right finger. ENCOUNTER: Initial ACUITY: 1 day PAIN SCALE: 0/10 LOCATION: Right lower extremity. TECHNIQUE: Following the in vitro labeling of autologous white cells and reinjection, whole body scan was perfor med at the specified times. Imaging was performed at specified times in sagittal, axial and coronal planes. Attenuation correction was performed with computed tomography and both the attenuation corre ction and non-attenuation corrected data sets were reviewed. FINDINGS: There is focal localization of white cells on the early phase SPECT images along the sclerotic fractu re line in the anterior calcaneus and in the region of the tibiotalar articulation. On the 20 hour S PECT images, there is some persistent white cell accumulation along the fracture line, but the intens ity is less. No persistent uptake in the tibiotalar articulation. No abnormal white cell accumulati on in the midfoot or forefoot. Whole body scan was also performed at 30 minutes demonstrating normal biodistribution of radiotracer. Planar spot imaging was performed at 30 minutes, 3 hours, and 20 hours. There is focal localizatio n of white cells on the planar images sequentially to the calcaneal region which correlates with the findings on this SPECT scan. CONCLUSION: 1. Moderate intensity white cell accumulation in the calcaneus about the posterior facet correspond s to an area of the sclerosis about a linear lucency which is vertically oriented. The white cell sc an is therefore nonspecific with regard to osteomyelitis because a healing fracture and osteomyelitis in both accumulate white cells. To help differentiate between the 2 possibilities, a marrow scan co uld be performed (if there is congruent marrow uptake seen, but this would argue against osteomyeliti s.) 2. No abnormal white cell accumulation about the midfoot or forefoot. Trever Garsia MD on January 23, 2017 at 15:03 Board Certified Radiologist. This report was verified electronically.
[2017-01-23 16:00] VITALS: BP 147/83; PULSE 91; RESP 17; TEMP 96.5; O2SAT 100
[2017-01-23 20:00] VITALS: BP 147/82; PULSE 86; RESP 21; TEMP 96.9; O2SAT 100
[2017-01-23] MEDS: TEMAZEPAM 15 MG CAP PO PRN (21:59)
[2017-01-23 23:38] VITALS: BP 155/78; PULSE 86; RESP 21; TEMP 98.6; O2SAT 98
[2017-01-24] MEDS: INSULIN ASPART SUPPLEMENTAL SCALE SQ SCH ×4 (06:27→21:00)
[2017-01-24 08:00] VITALS: BP 133/78; PULSE 83; RESP 18; TEMP 96.1; O2SAT 99
[2017-01-24] MEDS: SODIUM CHLORIDE FLUSH BID IV FLUSH SCH ×2 (08:18→21:17)
[2017-01-24] MEDS: CHOLECALCIFEROL (VIT D3) 1000 UNIT TAB PO SCH (08:18)
[2017-01-24] MEDS: LISINOPRIL 20 MG TAB PO SCH ×2 (08:18→21:17)
[2017-01-24 12:00] VITALS: BP 140/84; PULSE 85; RESP 18; TEMP 96.4; O2SAT 99
--- NOTE | 2017-01-24 15:32 | HHI.PR ---
Subjective Remarks pt doing ok.no new complaints Objective Vitals heart reg lung cta abd s/nt ext right foot splinted. Vital Signs Date Time Temp Pulse Resp B/P Pulse Ox O2 Delivery O2 Flow Rate FiO2 01/24/17 12:00 96.4 85 18 140/84 99 01/24/17 08:00 96.1 83 18 133/78 99 01/23/17 23:38 98.6 86 21 155/78 98 01/23/17 20:00 96.9 86 21 147/82 100 01/23/17 16:00 96.5 91 17 147/83 100 01/23/17 01/23/17 01/24/17 15:00 23:00 07:00 Intake Total 720 ml 360 ml 240 ml Balance 720 ml 360 ml 240 ml Intake Oral 720 ml 360 ml 240 ml IV Total 0 ml # Voids 2 2 2 # Bowel Movements 0 0 0 Result Diagram: 01/23/17 0354 01/23/17 0354 Imaging Last Impressions Ankle X-Ray 01/21/17 1213 Signed Impressions: Service Date/Time: January 12:33 - CONCLUSION: 1. No acute fracture or dislocation. 2. Cortical irregularity involving the lateral aspect of the right distal tibia which may be related to old trauma or possible arthritic change. Clinical correlation is recommended. 3. Mild soft tissue swelling involving the medial lateral malleoli. Justin Donahue MD Lower Extremity Ultrasound 01/21/17 0000 Signed Impressions: Service Date/Time: January 16:37 - CONCLUSION: No DVT. Nelly Lacey MD Lower Extremity MRI 01/21/17 0000 Signed Impressions: Service Date/Time: January 19:37 - CONCLUSION: No evidence of osteomyelitis. Nelly Lacey MD Foot MRI 01/21/17 0000 Signed Impressions: Service Date/Time: January 19:37 - CONCLUSION: Findings are suspicious for a fracture of the anterior portion of the calcaneus and there is marrow edema involving multiple tarsal bones at the tarsometatarsal junctions may be due to Charcot's phenomenon as well, however underlying osteomyelitis in any of these sites is difficult to exclude. Nelly Lacey MD A/P Problem List: (1) Leg swelling Status: Acute Plan: - Pt was admitted with complaints of erythema and swelling of the RLE which began over 3 weeks ago. - He was treated outpt with Bactrim/Clinda/Keflex. - His leg has continued to be swollen from below the right knee down to foot. - Not clearly just cellulitis. - Foot MRI --> Findings are suspicious for a fracture of the anterior portion of the calcaneus and there is marrow edema involving multiple tarsal bones at the tarsometatarsal junctions may be due to Charcot's phenomenon as well, however underlying osteomyelitis in any of these sites is difficult to exclude. - LE MRI --> Negative for osteomyelitis - LE US --> Negative for DVT - Pt was given Vancomycin in the ED. This was held at admission. I discussed case with podiatry Dr Reeder...Charcot foot plus calcaneal fx. The wbc tagged scan was negative aside from an area of uptake in calcaneal bone...which we feel clinically is related to the fx but again the radiologist says osteo and fx can look the same and so recommended marrow scan......This can't be done until Wednesday due to the recent wbc scan. I explained to the patient it is not really necessary to do it..but he says "I would rather be safe than sorry..prefer to get it done here" foot splinted and weight bearing restriction discussed. (2) Calcaneal fracture Status: Acute Plan: see above (3) Charcot foot due to diabetes mellitus Status: Acute Plan: see above (4) DM type 1 (diabetes mellitus, type 1) Status: Chronic Plan: - Blood sugars were quite low this morning. - Pt has an insulin pump in place. - ssi. (5) Hypertension Status: Chronic Plan: - Cont shiva. - Clonidine Domenico Abdul MD Jan 24, 2017 15:32
[2017-01-24 16:00] VITALS: BP 140/77; PULSE 88; RESP 18; TEMP 98.6; O2SAT 98
[2017-01-24 20:00] VITALS: BP 156/87; PULSE 84; RESP 21; TEMP 96; O2SAT 96
[2017-01-24 23:48] VITALS: BP 163/90; PULSE 77; RESP 20; TEMP 96.4; O2SAT 100
[2017-01-25 08:00] VITALS: BP 131/77; PULSE 84; RESP 17; TEMP 97; O2SAT 99
[2017-01-25] MEDS: LISINOPRIL 20 MG TAB PO SCH (10:49)
[2017-01-25] MEDS: CHOLECALCIFEROL (VIT D3) 1000 UNIT TAB PO SCH (10:49)
[2017-01-25] MEDS: SODIUM CHLORIDE FLUSH BID IV FLUSH SCH (10:50)
[2017-01-25] MEDS: INSULIN ASPART SUPPLEMENTAL SCALE SQ SCH (11:00)
[2017-01-25 12:00] VITALS: BP 151/84; PULSE 87; RESP 19; TEMP 96.8; O2SAT 100
--- NOTE | 2017-01-25 13:42 | RADRPT ---
EXAM DATE/TIME: 01/25/2017 10:47 [facility] COMPARISON: MRI FOOT RIGHT W & W/O CONTRAST, January 21, 2017, 19:37. WBC CERETEC, WB W SPECT, January 22, 2017, 15: 37. INDICATIONS : Osteomyelitis. DOSE: 10.1 mCi Tc99m Sulfur Colloid IMAGING: SPECT/CT imaging with fusion was performed. RADIATION DOSE: 2.55 CTDIvol (mGy) IMAGIN hr MEDICAL HISTORY : Diabetes mellitus type 2. SURGICAL HISTORY : Right hand surgery. ENCOUNTER: Initial ACUITY: 4 - 6 days PAIN SCALE: 3/10 LOCATION: Right Foot. TECHNIQUE: Delayed marrow scan images demonstrate homogeneous distribution of radiotracer without any focal area s of abnormal uptake. FINDINGS: The uptake on the marrow scan is similar to the white cell scan characteristic of healing fracture. T he mid foot and forefoot demonstrate no new malady CONCLUSION: 1. Congruent activity on the marrow and white cell scan characteristic of healing fracture Nick Craft MD on January 25, 2017 at 13:18 Board Certified Radiologist. This report was verified electronically.
--- NOTE | 2017-01-25 14:01 | HHI.DCPOC ---
Discharge Care Plan Diagnosis: (1) Calcaneal fracture (2) Charcot foot due to diabetes mellitus (3) Hypertension (4) DM type 1 (diabetes mellitus, type 1) Goals to Promote Your Health - Pt is to be strict nonweightbearing on the right lower extremity. - He will need to follow up with Dr. Reeder in the clinic in 2-3 weeks for serial X-rays and clinical evaluation to determine when protected weightbearing will be allowed. Call for an appt. - Pt will need to followup with his PCP, Dr. Emery, in 1 week, call for an appt. Directions to Meet Your Goals Take your medications as prescribed Follow your dietary instruction Follow activity as directed Keep your appointments as scheduled Take your immunizations and boosters as scheduled If your symptoms worsen call your PCP, if no PCP go to Urgent Care Center or Emergency Room Smoking is Dangerous to Your Health. Avoid second hand smoke Call the 24-hour hour crisis hotline for domestic abuse at Jaleesa Moody Jan 25, 2017 14:00 Jayden Cox DO February 05, 2017 13:49
--- NOTE | 2017-01-25 14:14 | HHI.DS ---
Discharge Summary Admission Date Jan 22, 2017 at 15:37 Discharge Date: Jan 25, 2017 Admitting Diagnosis CELLULITIS (1) Leg swelling Diagnosis: Secondary (2) Calcaneal fracture Diagnosis: Principal (3) Charcot foot due to diabetes mellitus Diagnosis: Principal (4) DM type 1 (diabetes mellitus, type 1) Diagnosis: Secondary (5) Hypertension Diagnosis: Secondary Consultants Dr. Marcos Reeder - Podiatry Brief History Pt is 46 yo type 1 diabetic who says his last hgba1c is 8.1. pt reports that he has been on abx for over 3 weeks after developed some mild redness of right sherman and swelling of right ankle and foot. was initially placed on bactrim and clinda for up to 2 weeks then had keflex for 10more days. The soft tissue is really not tender but bottom of foot hurts to walk on it. no fevers. denies any pain behind the knee. given vanco in ED for cellulitis concern. CBC/BMP: 01/23/17 0354 01/23/17 0354 Significant Findings Laboratory Tests Test 01/23/17 03:54 Red Blood Count 3.22 MIL/MM3 (4.50-5.90) Hemoglobin 9.8 GM/DL (13.0-17.0) Hematocrit 29.5 % (39.0-51.0) Monocytes (%) (Auto) 16.9 % (0.0-8.0) Eosinophils (%) (Auto) 4.1 % (0.0-4.0) Estimat Glomerular Filtration 60 ML/MIN (>89) Rate Random Glucose 140 MG/DL (74-106) Imaging Last Impressions Bone Marrow Scan Nuclear Medicine 01/25/17 0000 Signed Impressions: Service Date/Time: Wednesday, January 25, 2017 10:47 - CONCLUSION: 1. Congruent activity on the marrow and white cell scan characteristic of healing fracture Nick Craft MD Tumor Localization 01/22/17 0000 Signed Impressions: Service Date/Time: Sunday, January 22, 2017 15:37 - CONCLUSION: 1. Moderate intensity white cell accumulation in the calcaneus about the posterior facet corresponds to an area of the sclerosis about a linear lucency which is vertically oriented. The white cell scan is therefore nonspecific with regard to osteomyelitis because a healing fracture and osteomyelitis in both accumulate white cells. To help differentiate between the 2 possibilities, a marrow scan could be performed (if there is congruent marrow uptake seen, but this would argue against osteomyelitis.) 2. No abnormal white cell accumulation about the midfoot or forefoot. Trever Garsia MD Ankle X-Ray 01/21/17 1213 Signed Impressions: Service Date/Time: January 12:33 - CONCLUSION: 1. No acute fracture or dislocation. 2. Cortical irregularity involving the lateral aspect of the right distal tibia which may be related to old trauma or possible arthritic change. Clinical correlation is recommended. 3. Mild soft tissue swelling involving the medial lateral malleoli. Justin Donahue MD Lower Extremity Ultrasound 01/21/17 0000 Signed Impressions: Service Date/Time: January 16:37 - CONCLUSION: No DVT. Nelly Lacey MD Lower Extremity MRI 01/21/17 0000 Signed Impressions: Service Date/Time: January 19:37 - CONCLUSION: No evidence of osteomyelitis. Nelly Lacey MD Foot MRI 01/21/17 0000 Signed Impressions: Service Date/Time: January 19:37 - CONCLUSION: Findings are suspicious for a fracture of the anterior portion of the calcaneus and there is marrow edema involving multiple tarsal bones at the tarsometatarsal junctions may be due to Charcot's phenomenon as well, however underlying osteomyelitis in any of these sites is difficult to exclude. Nelly Lacey MD Hospital Course Pt was admitted with complaints of erythema and swelling of the RLE which began over 3 weeks ago. He was treated outpt with Bactrim/Clinda/Keflex. His leg has continued to be swollen from below the right knee down to foot, not clearly just cellulitis. Foot MRI (01/21) noted findings are suspicious for a fracture of the anterior portion of the calcaneus and there is marrow edema involving multiple tarsal bones at the tarsometatarsal junctions may be due to Charcot's phenomenon as well, however underlying osteomyelitis in any of these sites is difficult to exclude. LE MRI (01/21) was negative for osteomyelitis. LE US (01/21 ) was negative for DVT. Pt was given Vancomycin in the ED. This was held at admission. Podiatry was consulted. Pt was seen by Dr Reeder and it was felt that the pt has Charcot foot plus calcaneal fx. A Tagged WBC scan was negative aside from an area of uptake in calcaneal bone which was felt clinically to be related to the fx but the radiologist said osteo and fx can look the same and so the pt was recommended to have a sabrina marrow scan. The Bone marrow scan showed activity on the marrow and white cell scan characteristic of healing fracture. The pts RLE was splinted and podiatry requesting strict nonweightbearing to the RLE x several months. The pt will need to follow up with Dr. Reeder in the clinic in 2-3 weeks for serial X-rays and clinical evaluation to determine when protected weightbearing will be allowed. Pt will need to followup with his PCP, Dr. Emery, in 1 week. Pt Condition on Discharge: Stable Discharge Disposition: Discharge Home Discharge Instructions DIET: Follow Instructions for: Diabetic Diet Activities you can perform: Non Weight Bearing (RLE nonweight bearing until cleared by Podiatry) Follow up Referrals: PCP Follow-up - [address] Emery Podiatry - 2 Weeks with Marcos Reeder DPM Continued Medications: Cholecalciferol (Vitamin D-1000) 1,000 Unit Tab 1000 UNITS PO DAILY Nutritional Supplement #1 Ref 0 BOTTLE Insulin Aspart Inj (Novolog Inj) 100 Unit/Ml Inj VIA INSULIN PUMP Lisinopril (Lisinopril) 20 Mg Tab 20 MG PO BID #30 Ref 0 TAB Discontinued Medications: Cephalexin (Keflex) 500 Mg Cap 500 MG PO TID Infection #21 Ref 0 CAP Additional Information Patient examined. Assessment and plan formulated with Jaleesa Moody PA-C. I agree with the above. Jaleesa Moody Jan 25, 2017 14:14 Jayden Cox DO February 05, 2017 13:48
== END 2017-01-25 16:02 | disposition home or self-care (01) | DRG 74 ==
LOC: NEPD 11:52 → INTOOBSV 13:32 → NEDA 13:32 → N07A 17:05 → OBSVTOIN 01-22 15:37
PROVIDERS: ADMIT Hospitalist; ATTEND Hospitalist
DX: E10.610 Type 1 diabetes mellitus with diabetic neuropathic arthropathy (principal); L03.115 Cellulitis of right lower limb; S92.024A Nondisplaced fracture of anterior process of right calcaneus, initial encounter for closed fracture; I10 Essential (primary) hypertension; Z96.41 Presence of insulin pump (external) (internal); Z79.4 Long term (current) use of insulin; Z87.891 Personal history of nicotine dependence; X58.XXXA Exposure to other specified factors, initial encounter
CPT/HCPCS: 73600; 73720; 78102; 78806; 78807; 78999; 80048; 82948; 83735; 85025; 85652; 86140; 87040; 93971; 96374; A9541; A9569; A9579; E0113; G0378; J3370; J7040; J7050

== ENCOUNTER 2017-04-07 17:58 | Observation (INO) | payer OTHER ==
[~2017-04-07] VITALS: Ht 170.2 cm; Wt 66.7 kg
[~2017-04-07 17:58] MED LIST changes: -BACT800T5 PO; -CLIN1CAP5 PO; +VITA1000 PO
[2017-04-07 18:00] VITALS: BP 169/81; PULSE 113; RESP 20; TEMP 100.5; O2SAT 98
[2017-04-07] MEDS ORDERED: SODIUM CHLOR 0.9% 1000 ML INJ 1,000 ML IV SCH (22:01)
[2017-04-07 22:19] VITALS: RESP 18; O2SAT 99
--- NOTE | 2017-04-07 22:26 | RADRPT ---
EXAM DATE/TIME: 04/07/2017 22:00 [facility] COMPARISON: No previous studies available for comparison. INDICATIONS : Right lower leg pain and swelling. No known injury. MEDICAL HISTORY : Diabetes mellitus type II. Hypertension SURGICAL HISTORY : Unknown ENCOUNTER: Initial ACUITY: 4 - 6 months PAIN SCORE: 6/10 LOCATION: Right tibia/fibula. FINDINGS: Two view examination of the right tibia demonstrates no evidence of fracture or dislocation. Bony mi neralization is normal. The soft tissue structures are intact. CONCLUSION: 1. No acute findings. Small accessory ossicle adjacent to fibular head similar to December 2016. Ghanshyam Petty MD on April 07, 2017 at 22:22 Board Certified Radiologist. This report was verified electronically.
--- NOTE | 2017-04-07 22:29 | RADRPT ---
EXAM DATE/TIME: 04/07/2017 22:04 [facility] COMPARISON: ANKLE RIGHT LIMITED (AP&LAT), January 21, 2017, 12:33. INDICATIONS : Right foot pain and swelling. No known injury. MEDICAL HISTORY : Diabetes mellitus type II. SURGICAL HISTORY : None. ENCOUNTER: Initial ACUITY: 4 - 6 months PAIN SCORE: 6/10 LOCATION: Right foot. FINDINGS: There is abnormal sclerosis of the calcaneus beneath the subtalar joint. This has developed since Jan and is most characteristic of a chronic stress fracture. 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 Moderate osteoarthritis present in the right foot. Vascular calcifications noted. CONCLUSION: 1. Development of abnormal sclerosis and lucency in the calcaneus below the subtalar joint most adilia cteristic of a chronic stress fracture. Comparison is ankle radiograph from January 2017. Ghanshyam Petty MD on April 07, 2017 at 22:24 Board Certified Radiologist. This report was verified electronically.
--- NOTE | 2017-04-07 22:35 | PD ---
HPI Chief Complaint: Musculoskeletal Complaint Time Seen by Provider: 21:55 Travel History International Travel<30 days: No Contact w/Intl Traveler<30days: No Traveled to known affect area: No History of Present Illness HPI 46-year-old male with history of type 1 diabetes presents for evaluation of right leg redness, swelling and pain. Symptoms started 1 week ago. Pain is an aching pain, constant, worse when walking. He has a low-grade fever with tachycardia here in triage. He reports that he was diagnosed with Charcot's foot in January of this year. He has been minimally ambulatory in the right foot , primarily using crutches for ambulation. No history of DVT. No other complaints. PFSH Past Medical History Asthma: No Blood Disorders: No Anxiety: No Depression: No Heart Rhythm Problems: No Cancer: No Cardiovascular Problems: No High Cholesterol: No Chest Pain: No Congestive Heart Failure: No COPD: No Diabetes: Yes Patient Takes Glucophage: No Diminished Hearing: No Endocrine: Yes Gastrointestinal Disorders: No Glaucoma: No Genitourinary: No Headaches: Yes Hepatitis: No Hiatal Hernia: No Hypertension: Yes Musculoskeletal: No Neurologic: No Psychiatric: No Reproductive: No Respiratory: No Sleep Apnea: No Thyroid Disease: No Past Surgical History Abdominal Surgery: No AICD: No Cardiac Surgery: No Endocrine Surgery: No Eye Surgery: Yes (CATARAC SX L EYE ) Genitourinary Surgery: No Gynecologic Surgery: No Insulin Pump: Yes Joint Replacement: No Neurologic Surgery: No Oral Surgery: No Pacemaker: No Thoracic Surgery: No Other Surgery: Yes (CATARACT SURG LEFT EYE AND INC AND DRAINAGE LEFT HAND) Social History Alcohol Use: Yes (OCCASIONALLY ) Tobacco Use: No Substance Use: No Allergies-Medications (Allergen,Severity, Reaction): Coded Allergies: No Known Allergies (Verified , 01/21/17) Reported Meds & Prescriptions Reported Meds & Active Scripts Active Reported Vitamin D-1000 (Cholecalciferol) 1,000 Unit Tab 1,000 Units PO DAILY Lisinopril 20 Mg Tab 20 Mg PO BID Novolog Inj (Insulin Aspart) 100 Unit/Ml Inj VIA INSULIN PUMP Review of Systems Except as stated in HPI: all other systems reviewed are Neg Physical Exam Narrative GENERAL: Well-developed well-nourished male in no acute distress. Low-grade fever, tachycardia. SKIN: Warm and dry. Erythema, edema of the right foot, ankle and pretibial region. HEAD: Atraumatic. Normocephalic. EYES: Pupils equal and round. No scleral icterus. No injection or drainage. ENT: No nasal bleeding or discharge. Mucous membranes pink and moist. NECK: Trachea midline. No JVD. CARDIOVASCULAR: Regular rate and rhythm. No murmur appreciated. RESPIRATORY: No accessory muscle use. Clear to auscultation. Breath sounds equal bilaterally. GASTROINTESTINAL: Abdomen soft, non-tender, nondistended. Hepatic and splenic margins not palpable. MUSCULOSKELETAL: No obvious deformities. Skin as noted above with 1+ pitting edema to the right leg, tender to palpation right calf. There is no inguinal lymphadenopathy. NEUROLOGICAL: Awake and alert. No obvious cranial nerve deficits. Motor grossly within normal limits. Normal speech. Data Data Last Documented VS Vital Signs Date Time Temp Pulse Resp B/P Pulse Ox O2 Delivery O2 Flow Rate FiO2 04/07/17 22:19 18 99 04/07/17 18:00 100.5 113 169/81 Room Air Orders Complete Blood Count With Diff (04/07/17 22:01) Comprehensive Metabolic Panel (04/07/17 22:01) Lactic Acid Sepsis Protocol (04/07/17 22:01) Urinalysis - C+S If Indicated (04/07/17 22:01) Blood Culture (04/07/17 22:01) Blood Glucose (04/07/17 22:01) Ecg Monitoring (04/07/17 22:01) Iv Access Insert/Monitor (04/07/17 22:01) Oximetry (04/07/17 22:01) Oxygen Administration (04/07/17 22:01) Us Leg Venous Doppler (04/07/17 22:01) Tibia/Fibula (Ap/Lat) (04/07/17 ) Foot, Complete ([id number]) (04/07/17 ) Sodium Chlor 0.9% 1000 Ml Inj (Ns 1000 M (04/07/17 22:01) Westergren Sedimentation Rate (04/07/17 22:01) C-Reactive Protein (Crp) (04/07/17 22:01) Vancomycin Inj (Vancomycin Inj) (04/07/17 23:00) Piperacil-Tazo 3.375 Gm Premix (Zosyn 3. (04/07/17 23:00) Diet Diabetic (04/08/17 Breakfast) Labs Laboratory Tests Test 04/07/17 22:05 White Blood Count 9.0 TH/MM3 Red Blood Count 3.58 MIL/MM3 Hemoglobin 10.7 GM/DL Hematocrit 32.4 % Mean Corpuscular Volume 90.6 FL Mean Corpuscular Hemoglobin 30.0 PG Mean Corpuscular Hemoglobin 33.1 % Concent Red Cell Distribution Width 13.5 % Platelet Count 292 TH/MM3 Mean Platelet Volume 9.8 FL Neutrophils (%) (Auto) 78.0 % Lymphocytes (%) (Auto) 7.4 % Monocytes (%) (Auto) 14.1 % Eosinophils (%) (Auto) 0.1 % Basophils (%) (Auto) 0.4 % Neutrophils # (Auto) 7.0 TH/MM3 Lymphocytes # (Auto) 0.7 TH/MM3 Monocytes # (Auto) 1.3 TH/MM3 Eosinophils # (Auto) 0.0 TH/MM3 Basophils # (Auto) 0.0 TH/MM3 CBC Comment DIFF FINAL Differential Comment Sodium Level 129 MEQ/L Potassium Level 4.7 MEQ/L Chloride Level 92 MEQ/L Carbon Dioxide Level 25.4 MEQ/L Anion Gap 12 MEQ/L Blood Urea Nitrogen 14 MG/DL Creatinine 1.61 MG/DL Estimat Glomerular Filtration 47 ML/MIN Rate Random Glucose 53 MG/DL Lactic Acid Level 1.2 mmol/L Calcium Level 9.3 MG/DL Total Bilirubin 1.0 MG/DL Aspartate Amino Transf 46 U/L (AST/SGOT) Alanine Aminotransferase 34 U/L (ALT/SGPT) Alkaline Phosphatase 107 U/L C-Reactive Protein 14.50 MG/DL Total Protein 8.6 GM/DL Albumin 3.4 GM/DL [facility] Medical Decision Making Medical Screen Exam Complete: Yes Emergency Medical Condition: Yes Medical Record Reviewed: Yes Differential Diagnosis Cellulitis, osteomyelitis, DVT, sepsis Narrative Course Plan is for basic lab work, x-ray imaging the right tibia-fibula, foot, ultrasound of the right leg. Ultrasound is negative. Lab work is . Given the fever, low-grade tachycardia erythema, the concern is cellulitis. He has an elevated CRP as well. The patient is given broad-spectrum antibiotics and he will be admitted. Discussed with Dr. Verma would like the patient be admitted to Dr. Bright, would like an MRI of the ankle and foot to rule out osteomyelitis. These orders have been placed. Diagnosis Primary Impression: Cellulitis of right leg Admitting Information Admitting Physician Requests: Admit Rene Mcneil Apr 07, 2017 22:35
--- NOTE | 2017-04-07 22:41 | RADRPT ---
EXAM DATE/TIME: 04/07/2017 22:12 [facility] COMPARISON: No previous studies available for comparison. INDICATIONS : Right leg pain. MEDICAL HISTORY : Hypertension. Neuropathy. SURGICAL HISTORY : Cataract surgery left eye. Right trigger thumb released. ENCOUNTER: Initial ACUITY: 2 day PAIN SCORE: 10/10 LOCATION: Right leg. TECHNIQUE: Venous ultrasound of the leg was performed from the inguinal ligament to the proximal calf. Real-elijah e, color Doppler and spectral tracing, compression and augmentation techniques were used. FINDINGS: There is normal compressibility of the deep venous system from the inguinal region to the proximal ca lf. No echogenic clot is seen in the lumen of the common femoral, femoral, popliteal, and posterior tibial veins. There is a normal response of the venous system to proximal and distal augmentation an d respiration. CONCLUSION: Normal examination. Ghanshyam Petty MD on April 07, 2017 at 22:37 Board Certified Radiologist. This report was verified electronically.
[2017-04-07 22:44] LABS: BASOPHIL % 0.4 % (0.0-2.0); EOSINOPHIL % 0.1 % (0.0-4.0); HEMATOCRIT 32.4 % (39.0-51.0); HEMO FLAGS DIFF FINAL; LYMPH % 7.4 % (9.0-44.0); LYMPHOCYTE # 0.7 TH/MM3 (1.0-4.8); MEAN CELL VOLUME 90.6 FL (80.0-100.0); MEAN CORPUSCULAR HGB CONC 33.1 % (32.0-36.0); MONO % 14.1 % (0.0-8.0); PLATELET COUNT 292 TH/MM3 (150-450); RED BLOOD COUNT 3.58 MIL/MM3 (4.50-5.90); RED CELL DISTRIBUTION WIDTH 13.5 % (11.6-17.2)
[2017-04-07 22:59] LABS: ALT (GPT) 34 U/L (12-78); ANION GAP 12 MEQ/L (5-15); AST (GOT) 46 U/L (15-37); BICARBONATE 25.4 MEQ/L (21.0-32.0); BLOOD UREA NITROGEN 14 MG/DL (7-18); CHLORIDE 92 MEQ/L (98-107); GLOMERULAR FILTRATION RATE 47 ML/MIN (>89); POTASSIUM 4.7 MEQ/L (3.5-5.1); SODIUM (NA) 129 MEQ/L (136-145)
[2017-04-07] MEDS ORDERED: VANCOMYCIN INJ 1,000 MG in SODIUM CHLOR 0.9% 250 ML INJ 250 ML IV ONE (23:00)
[2017-04-07] MEDS ORDERED: PIPERACIL-TAZO 3.375 GM PREMIX 50 ML IV ONE (23:00)
[2017-04-07 23:01] LABS: ALKALINE PHOSPHATASE 107 U/L (45-117)
[2017-04-07 23:30] LABS: BLOOD, URINE NEG (NEG); GLUCOSE,URINE NEG (NEG); HYALINE CAST, URINE 1 /lpf (RARE); KETONE, URINE 10 mg/dL (NEG); NITRITE,URINE NEG (NEG); PH, URINE 5.5 (5.0-8.5); URINE COLOR LIGHT-YELLOW (YELLW/STRAW)
[2017-04-07] MEDS ORDERED: Vancomycin Consult Pharmacy 1 EA OTHER SCH (23:30)
[2017-04-07 23:31] LABS: COMMENT (UR) CATH-CULT NOT IND; CULTURE IF INDICATED CATH CULTURE NOT IND
[2017-04-07] MEDS ORDERED: NALOXONE HCL 0.4 MG/ML AMP IV PRN (23:45)
[2017-04-07] MEDS ORDERED: GLUCAGON 1 MG/ML VIAL OTHER PRN (23:45)
[2017-04-07] MEDS ORDERED: MAGNESIUM HYDROXIDE SUSP 30 ML CUP PO PRN (23:45)
[2017-04-07] MEDS ORDERED: DEXTROSE 50% IN WATER 50 ML VIAL(D50) IV PUSH PRN (23:45)
[2017-04-07] MEDS ORDERED: LACTULOSE SYRUP 20 GM/30 ML CUP PO PRN (23:45)
[2017-04-07] MEDS ORDERED: ACETAMINOPHEN 325 MG TAB PO PRN (23:45)
[2017-04-07] MEDS ORDERED: SODIUM CHLORIDE 0.9% FLUSH 10 ML FLUSH IV FLUSH PRN (23:45)
[2017-04-07] MEDS ORDERED: SENNOSIDES 8.6 MG TAB PO PRN (23:45)
[2017-04-07] MEDS ORDERED: BISACODYL 10 MG SUPP RECTAL PRN (23:45)
[2017-04-07] MEDS ORDERED: ONDANSETRON HCL 4 MG/2 ML VIAL IVP PRN (23:45)
--- NOTE | 2017-04-07 23:45 | HHI.HP ---
HPI Service [facility] Primary Care Physician Ike Emery MD Admission Diagnosis cellulitis right lower extremity Chief Complaint: 1 week increasing edema ,reddness rt lower extremity Travel History International Travel<30 Days: No Contact w/Intl Traveler <30 Da: No Traveled to Known Affected Are: No History of Present Illness 46-year-old male with history of type 1 diabetes presents for evaluation of right leg redness, swelling and pain. Symptoms started 1 week ago. Pain is an aching pain, constant, worse when walking. He has a low-grade fever with tachycardia here in triage. He reports that he was diagnosed with Charcot's foot in January of this year. He has been minimally ambulatory in the right foot , primarily using crutches for ambulation. Patient has been followed by podiatry. No history of DVT. No other complaints. Patient had problem with rt foot in january as well with similar presentation. Review of Systems Musculoskeletal: COMPLAINS OF: Joint Swelling Other rt leg swelling Past Family Social History Past Medical History type 1 dm ,cellulitis ,hypertension Past Surgical History s/p amp left index and middle finger ,cataract Reported Medications lisinopril 20 bid insulin pump,vit d Allergies: Coded Allergies: No Known Allergies (Verified , 01/21/17) Social History NS,ND Physical Exam Vital Signs Vital Signs Date Time Temp Pulse Resp B/P Pulse Ox O2 Delivery O2 Flow Rate FiO2 04/07/17 22:19 18 99 04/07/17 21:58 16 04/07/17 18:00 100.5 113 20 169/81 98 Room Air Physical Exam GENERAL: This is a well-nourished, well-developed patient, in no apparent distress. SKIN: No rashes, ecchymoses or lesions. Cool and dry. erythema edema rt lower leg HEAD: Atraumatic. Normocephalic. No temporal or scalp tenderness. EYES: Pupils equal round and reactive. Extraocular motions intact. No scleral icterus. No injection or drainage. ENT: Nose without bleeding, purulent drainage or septal hematoma. Throat without erythema, tonsillar hypertrophy or exudate. Uvula midline. Airway patent. NECK: Trachea midline. No JVD or lymphadenopathy. Supple, nontender, no meningeal signs. CARDIOVASCULAR: Regular rate and rhythm without murmurs, gallops, or rubs. RESPIRATORY: Clear to auscultation. Breath sounds equal bilaterally. No wheezes , rales, or rhonchi. GASTROINTESTINAL: Abdomen soft, non-tender, nondistended. No hepato-splenomegaly , or palpable masses. No guarding. MUSCULOSKELETAL: Extremities without clubbing, cyanosis, plus 1 edema. rt leg No joint tenderness, effusion, or edema noted.calf tenderness. Negative Homans sign bilaterally. NEUROLOGICAL: Awake and alert. Cranial nerves II through XII intact. Motor and sensory grossly within normal limits. Five out of 5 muscle strength in all muscle groups. Normal speech. Laboratory Laboratory Tests Test 04/07/17 04/07/17 22:05 23:15 White Blood Count 9.0 Red Blood Count 3.58 Hemoglobin 10.7 Hematocrit 32.4 Mean Corpuscular Volume 90.6 Mean Corpuscular Hemoglobin 30.0 Mean Corpuscular Hemoglobin 33.1 Concent Red Cell Distribution Width 13.5 Platelet Count 292 Mean Platelet Volume 9.8 Neutrophils (%) (Auto) 78.0 Lymphocytes (%) (Auto) 7.4 Monocytes (%) (Auto) 14.1 Eosinophils (%) (Auto) 0.1 Basophils (%) (Auto) 0.4 Neutrophils # (Auto) 7.0 Lymphocytes # (Auto) 0.7 Monocytes # (Auto) 1.3 Eosinophils # (Auto) 0.0 Basophils # (Auto) 0.0 CBC Comment DIFF FINAL Differential Comment Sodium Level 129 Potassium Level 4.7 Chloride Level 92 Carbon Dioxide Level 25.4 Anion Gap 12 Blood Urea Nitrogen 14 Creatinine 1.61 Estimat Glomerular Filtration 47 Rate Random Glucose 53 Lactic Acid Level 1.2 Calcium Level 9.3 Total Bilirubin 1.0 Aspartate Amino Transf 46 (AST/SGOT) Alanine Aminotransferase 34 (ALT/SGPT) Alkaline Phosphatase 107 C-Reactive Protein 14.50 Total Protein 8.6 Albumin 3.4 Urine Color LIGHT-YELLOW Urine Turbidity CLEAR Urine pH 5.5 Urine Specific [place] 1.003 Urine Protein TRACE Urine Glucose (UA) NEG Urine Ketones 10 Urine Occult Blood NEG Urine Nitrite NEG Urine Bilirubin NEG Urine Urobilinogen LESS THAN 2.0 Urine Leukocyte Esterase NEG Urine RBC LESS THAN 1 Urine WBC 1 Urine Hyaline Casts 1 Microscopic Urinalysis Comment CATH-CULT NOT IND Date/Time Procedure Status Source Growth 04/07/17 22:05 Aerobic Blood Culture Received Blood Peripheral Pending 04/07/17 22:05 Anaerobic Blood Culture Received Blood Peripheral Pending Result Diagram: 04/07/17220404/07/172204 Imaging Last 24 hours Impressions Lower Extremity Ultrasound 04/07/172200 Signed Impressions: Service Date/Time: Friday, April 07, 2017 22:12 - CONCLUSION: Normal examination. Ghanshyam Petty MD Tibia/Fibula X-Ray 04/07/17 0000 Signed Impressions: Service Date/Time: Friday, April 07, 2017 22:00 - CONCLUSION: 1. No acute findings. Small accessory ossicle adjacent to fibular head similar to December 2016. Ghanshyam Petty MD Foot X-Ray 04/07/17 0000 Signed Impressions: Service Date/Time: Friday, April 07, 2017 22:04 - CONCLUSION: 1. Development of abnormal sclerosis and lucency in the calcaneus below the subtalar joint most characteristic of a chronic stress fracture. Comparison is ankle radiograph from January 2017. Ghanshyam Petty MD Course in er started on IV antibiotics Assessment and Plan Problem List: (1) Cellulitis of right leg Status: Acute Plan: will start vancomycin and zoysn blood cultures obtain MRI foot to r/o osteomyelitis may need posiatry consult as well (2) Type 1 diabetes mellitus Status: Acute Plan: insulin pu,p add sliding scale (3) Hypertension Status: Chronic Plan: continue shiva inhibitor Assessment and Plan further plan as case develops patient has elevated crp and bun ,cr will follow up labs Code Status full Discussed Condition With patient Physician Certification 2 Midnight Certification Type: Admission for Inpatient Services Order for Inpatient Services The services are ordered in accordance with Medicare regulations or non- Medicare payer requirements, as applicable. In the case of services not specified as inpatient-only, they are appropriately provided as inpatient services in accordance with the 2-midnight benchmark. Estimated LOS (days): 3 3 days is the estimated time the patient will need to remain in the hospital, assuming treatment plan goals are met and no additional complications. Post-Hospital Plan: Not yet determined Ike Emery MD Apr 07, 2017 23:45
[2017-04-08] VITALS (8 sets, daily range): BP systolic 134–162; BP diastolic 72–90; PULSE 87–103; RESP 16–20; TEMP 97.4–99.1; O2SAT 95–100
[2017-04-08] MEDS: ENOXAPARIN SODIUM 30 MG/0.3 ML SYRINGE SQ SCH (00:37)
[2017-04-08] MEDS: HYDROmorphone HCL PF 1 MG/ML VIAL IV PUSH PRN ×2 (00:52→08:17)
[2017-04-08] MEDS: INSULIN ASPART SUPPLEMENTAL SCALE SQ SCH ×4 (05:40→20:52)
[2017-04-08] MEDS ORDERED: PIPERACIL-TAZO 3.375 GM PREMIX 50 ML IV SCH (08:00)
[2017-04-08] MEDS: DOCUSATE SODIUM 50 MG/SENNA 8.6 MG TAB PO SCH ×2 (08:16→20:48)
[2017-04-08] MEDS: LISINOPRIL 20 MG TAB PO SCH ×2 (08:16→20:48)
[2017-04-08] MEDS: CHOLECALCIFEROL (VIT D3) 1000 UNIT TAB PO SCH (08:16)
[2017-04-08] MEDS: SODIUM CHLORIDE 0.9% FLUSH 10 ML FLUSH IV FLUSH SCH ×2 (08:17→20:48)
--- NOTE | 2017-04-08 10:57 | HHI.PR ---
Subjective Remarks Pt reports that his pain in the RLE is about the same as admission The RLE is quite swollen and tender to the touch. Pt had a low grade fever last night of 100.5 Objective Vitals Vital Signs Date Time Temp Pulse Resp B/P Pulse Ox O2 Delivery O2 Flow Rate FiO2 04/08/17 08:47 16 04/08/17 08:30 99 18 140/90 04/08/17 04:30 99.0 97 20 160/87 97 04/08/17 00:50 98.4 103 20 162/83 98 04/08/17 00:38 90 18 160/86 99 04/07/17 22:19 18 99 04/07/17 21:58 16 04/07/17 18:00 100.5 113 20 169/81 98 Room Air Result Diagram: 04/07/17220404/07/172204 Other Results Laboratory Tests Test 04/07/17 04/07/17 22:05 23:15 White Blood Count 9.0 TH/MM3 Red Blood Count 3.58 MIL/MM3 Hemoglobin 10.7 GM/DL Hematocrit 32.4 % Mean Corpuscular Volume 90.6 FL Mean Corpuscular Hemoglobin 30.0 PG Mean Corpuscular Hemoglobin 33.1 % Concent Red Cell Distribution Width 13.5 % Platelet Count 292 TH/MM3 Mean Platelet Volume 9.8 FL Neutrophils (%) (Auto) 78.0 % Lymphocytes (%) (Auto) 7.4 % Monocytes (%) (Auto) 14.1 % Eosinophils (%) (Auto) 0.1 % Basophils (%) (Auto) 0.4 % Neutrophils # (Auto) 7.0 TH/MM3 Lymphocytes # (Auto) 0.7 TH/MM3 Monocytes # (Auto) 1.3 TH/MM3 Eosinophils # (Auto) 0.0 TH/MM3 Basophils # (Auto) 0.0 TH/MM3 CBC Comment DIFF FINAL Differential Comment Sodium Level 129 MEQ/L Potassium Level 4.7 MEQ/L Chloride Level 92 MEQ/L Carbon Dioxide Level 25.4 MEQ/L Anion Gap 12 MEQ/L Blood Urea Nitrogen 14 MG/DL Creatinine 1.61 MG/DL Estimat Glomerular Filtration 47 ML/MIN Rate Random Glucose 53 MG/DL Lactic Acid Level 1.2 mmol/L Calcium Level 9.3 MG/DL Total Bilirubin 1.0 MG/DL Aspartate Amino Transf 46 U/L (AST/SGOT) Alanine Aminotransferase 34 U/L (ALT/SGPT) Alkaline Phosphatase 107 U/L C-Reactive Protein 14.50 MG/DL Total Protein 8.6 GM/DL Albumin 3.4 GM/DL Erythrocyte Sedimentation Rate 99 mm/hr Urine Color LIGHT-YELLOW Urine Turbidity CLEAR Urine pH 5.5 Urine Specific [place] 1.003 Urine Protein TRACE mg/dL Urine Glucose (UA) NEG mg/dL Urine Ketones 10 mg/dL Urine Occult Blood NEG Urine Nitrite NEG Urine Bilirubin NEG Urine Urobilinogen LESS THAN 2.0 MG/DL Urine Leukocyte Esterase NEG Urine RBC LESS THAN 1 /hpf Urine WBC 1 /hpf Urine Hyaline Casts 1 /lpf Microscopic Urinalysis Comment CATH-CULT NOT IND Imaging Last 24 hours Impressions Lower Extremity Ultrasound 04/07/171 Signed Impressions: Service Date/Time: Friday, April 07, 2017 22:12 - CONCLUSION: Normal examination. Ghanshyam Petty MD Tibia/Fibula X-Ray 04/07/17 0000 Signed Impressions: Service Date/Time: Friday, April 07, 2017 22:00 - CONCLUSION: 1. No acute findings. Small accessory ossicle adjacent to fibular head similar to December 2016. Ghanshyam Petty MD Foot X-Ray 04/07/17 0000 Signed Impressions: Service Date/Time: Friday, April 07, 2017 22:04 - CONCLUSION: 1. Development of abnormal sclerosis and lucency in the calcaneus below the subtalar joint most characteristic of a chronic stress fracture. Comparison is ankle radiograph from January 2017. Ghanshyam Petty MD Objective Remarks General: NAD, AAOx3 Chest: CTA Cardiac: Regular Abd: +BS, soft ND/NT Ext: RLE swelling below the knee to the foot, tenderness to light touch, minimal erythema A/P Problem List: (1) Cellulitis of right leg Status: Acute Plan: - Pt is a 46 y/o male with type 1 diabetes mellitus and recent hx of Charcot foot and right calcaneal fracture. - Pt follows with Dr. Reeder regarding this. - He states that he started having RLE swelling and erythema 4 days ago. He presented to the ED on 04/07/17 with complaints of erythema and swelling of the RLE. He had not been on any outpt treatment prior to presentation to the ED. - In the ED, he was given Vancomycin and Zosyn - Pt was continued on Zosyn following admission. We will also continue Vancomycin with pharmacy consult. - LE US was negative for DVT - Foot Xray (04/07) --> Development of abnormal sclerosis and lucency in the calcaneus below the subtalar joint most characteristic of a chronic stress fracture. Comparison is ankle radiograph from January 2017. - Tib/Fib Xray (04/07) --> No acute findings. Small accessory ossicle adjacent to fibular head similar to December 2016. - Blood cultures (04/07/17) are pending. - MRI of the foot and ankle are pending. - ESR elevated to 99 and CRP elevated to 14.50 - Consult podiatry - Pain control PRN, add oral pain meds today - Supportive care - DVT prophylaxis with Lovenox (2) Type 1 diabetes mellitus Status: Acute Plan: - Check Hgb A1C - Pt has insulin pump - NovoLog SSI - Accu checks (3) Hypertension Status: Chronic Plan: - continue shiva inhibitor Assessment and Plan Patient examined. Assessment and plan formulated with Jaleesa Moody PA-C. I agree with the above. Jaleesa Moody Apr 08, 2017 10:57 Jayden Cox DO Apr 09, 2017 15:42
[2017-04-08] MEDS ORDERED: GADODIAMIDE PF 287 MG/ML 5 ML VIAL (for RAD MRI) IV ONE (12:15)
[2017-04-08] MEDS ORDERED: ACETAMINOPHEN/HYDROcodone 325 MG/5 MG TAB PO PRN (13:00)
--- NOTE | 2017-04-08 13:12 | RADRPT ---
EXAM DATE/TIME: 04/08/2017 11:23 [facility] COMPARISON: FOOT RIGHT COMPLETE ([id number]), April 07, 2017, 22:04. TIBIA/FIBULA RIGHT (AP/LAT), April 07, 2017, 22: 00. INDICATIONS : Right foot swelling that is traveling up the calf. CONTRAST: 13 cc Omniscan (gadodiamide) IV MEDICAL HISTORY : Diabetes mellitus type 1. Hypertension. SURGICAL HISTORY : amputation 4th rt digit and partial lt hand, wrist surgery ENCOUNTER: Subsequent ACUITY: 2 weeks PAIN SCORE: 3/10 LOCATION: Right leg TECHNIQUE: Multiplanar, multisequence MRI examination was performed without contrast and after the intravenous a dministration of gadolinium. FINDINGS: BONE/CARTILAGE: There is abnormal bone marrow edema throughout the entire body of the calcaneus. There is a fracture line also noted involving the anterior body of the calcaneus. There is nonspecific bone marrow edema involving the anterior talus bone without a definite fracture line. There is good alignment at the mo rtise joint. There is narrowing of the mortise joint. There is normal signal within the tibia and fib ant. There is a small joint effusion at the ankle. TENDONS: All of the visualized tendons are intact. MISCELLANEOUS: The plantar aponeurosis is intact. There is nonspecific edema and soft tissue swelling and subcutaneo us soft tissues at the ankle and extending into the lower left calf. There is some edema within the p osterior muscle bundles. No loculated fluid collections are demonstrated. POST-CONTRAST: No abnormal areas of enhancement on the post-contrast images. CONCLUSION: 1. There is a nondisplaced fracture through the body of the calcaneus with diffuse bone marrow edema throughout the entire calcaneus. 2. There is nonspecific bone marrow edema in the anterior talus without a definite fracture line. Thi s could be from microfracture or bone bruising. There is a small joint effusion at the ankle joint. 3. Mild primary degenerative type changes at the mortise joint. 4. Nonspecific soft tissue swelling in the subcutaneous soft tissues as well as some nonspecific jacinda a in the posterior muscle bundles of the lower calf. Tony Gee MD on April 08, 2017 at 13:00 Board Certified Radiologist. This report was verified electronically.
--- NOTE | 2017-04-08 13:19 | RADRPT ---
EXAM DATE/TIME: 04/08/2017 11:23 [facility] COMPARISON: MRI FOOT RIGHT W & W/O CONTRAST, January 21, 2017, 19:37. INDICATIONS : Right foot swelling that is traveling up the calf. CONTRAST: 13 cc Omniscan (gadodiamide) IV MEDICAL HISTORY : Diabetes mellitus type 1. Hypertension. SURGICAL HISTORY : amputation 4th rt digit and partial lt hand, wrist surgery ENCOUNTER: Subsequent ACUITY: 2 weeks PAIN SCORE: 3/10 LOCATION: Right leg TECHNIQUE: Multiplanar, multisequence MRI examination was performed without contrast and after the intravenous a dministration of gadolinium. FINDINGS: Today's examination is compared to the prior study. There is diffuse bone marrow edema with a fractur e line through the body of the calcaneus. The bone marrow edema through the calcaneus has increased o n today's examination compared to the prior study. On the prior exam there is diffuse bone marrow chuy ma throughout the cuboid bone. This has improved compared to the prior study. It continues to be some bone marrow edema but to a lesser extent. There was bone marrow edema in the third cuneiform which h as improved on today's examination. The metatarsals all demonstrate normal signal intensity. There ar e some degenerative changes at the first metacarpal phalangeal joint. There is nonspecific bone marro w edema in the anterior talus which appears to be new compared to the prior exam. There is a small paolo int effusion at the ankle. No loculated fluid collections are seen in the soft tissues. Nonspecific e ani is noted in the subcutaneous soft tissues throughout the foot. CONCLUSION: 1. There is a fracture line with diffuse bone marrow edema involving the body of the calcaneus. The b one marrow edema in the body the calcaneus has increased compared to the prior examination. 2. The previously noted diffuse bone marrow edema involving the cuboid bone has moderately improved o n today's examination. Also the previously noted edema in the third cuneiform bone has resolved. 3. There is nonspecific edema in the anterior talus bone which is new compared to the prior examinati on. 4. There continues to be nonspecific edema in the subcutaneous soft tissues. Tony Gee MD on April 08, 2017 at 13:09 Board Certified Radiologist. This report was verified electronically.
[2017-04-08 13:32] LABS: AUTOMATED NEUTROPHIL # 4.6 TH/MM3 (1.8-7.7); BASOPHIL # 0.1 TH/MM3 (0-0.2); BASOPHIL % 0.8 % (0.0-2.0); EOSINOPHIL # 0.1 TH/MM3 (0-0.4); EOSINOPHIL % 0.9 % (0.0-4.0); HEMATOCRIT 32.1 % (39.0-51.0); HEMO FLAGS DIFF FINAL; LYMPH % 10.7 % (9.0-44.0); LYMPHOCYTE # 0.7 TH/MM3 (1.0-4.8); MEAN CELL VOLUME 91.5 FL (80.0-100.0); MEAN CORPUSCULAR HEMOGLOBIN 29.8 PG (27.0-34.0); MEAN CORPUSCULAR HGB CONC 32.6 % (32.0-36.0); MONO % 17.2 % (0.0-8.0); NEUT % 70.4 % (16.0-70.0); PLATELET COUNT 278 TH/MM3 (150-450); RED BLOOD COUNT 3.51 MIL/MM3 (4.50-5.90); RED CELL DISTRIBUTION WIDTH 13.5 % (11.6-17.2); WHITE BLOOD COUNT 6.5 TH/MM3 (4.0-11.0)
[2017-04-08 14:08] LABS: ALKALINE PHOSPHATASE 106 U/L (45-117); ALT (GPT) 27 U/L (12-78); ANION GAP 10 MEQ/L (5-15); AST (GOT) 32 U/L (15-37); BICARBONATE 26.3 MEQ/L (21.0-32.0); BLOOD UREA NITROGEN 18 MG/DL (7-18); CHLORIDE 93 MEQ/L (98-107); GLOMERULAR FILTRATION RATE 53 ML/MIN (>89); POTASSIUM 4.7 MEQ/L (3.5-5.1); SODIUM (NA) 129 MEQ/L (136-145); TOTAL BILIRUBIN ADULT 0.8 MG/DL (0.2-1.0)
[2017-04-08] MEDS: ACETAMINOPHEN/HYDROcodone 325 MG/5 MG TAB PO PRN ×2 (15:28→21:00)
[2017-04-08 17:26] LABS: HEMOGLOBIN A1a 1.9 %; HEMOGLOBIN A1b 1.5 %; HEMOGLOBIN Ao 83.3 %; HEMOGLOBIN F 0.3 %; HEMOGLOBIN LA1C 2.1 %; HEMOGLOBIN P3 3.5 %
[2017-04-08] MEDS: PIPERACIL-TAZO 3.375 GM PREMIX 50 ML IV SCH (17:37)
--- NOTE | 2017-04-08 20:55 | MB ---
cc: MICHELINE INTERIANO DPM DATE OF CONSULTATION: 04/08/2017. REASON FOR CONSULTATION: HISTORY OF PRESENT ILLNESS: The patient is a 46-year-old male with a history of diabetes mellitus type 1 with a history of red-like swelling and pain and redness. The patient notes symptoms started one week ago with aching worse with walking. History of new onset diagnosis of Charcot's in January of 2017. He has been partial weightbearing on the right foot. He has seen Dr. Sharif in the past. REVIEW OF SYSTEMS: Right leg swelling. PAST MEDICAL HISTORY: 1. Diabetes mellitus type 2. 2. Cellulitis. 3. Hypertension. PAST SURGICAL HISTORY: 1. Left index finger and middle finger amputation. 2. Cataracts. REPORTED MEDICATIONS: 1. Insulin. 2. Lisinopril. 3. Vitamin D. ALLERGIES: NO KNOWN DRUG ALLERGIES. PHYSICAL EXAMINATION: Right lower extremity with edema. Mild erythema. No streaking. No warmth. No active drainage. Patient with no pain on range of motion or calf pain. Protective sensation grossly diminished. Dorsalis pedis pulse and posterior tibial pulse +1. Muscle strength intact +5/5 in all quadrants. LABS: WBCs on 04/08/17 of 6.5, RBCs of 3.51, hemoglobin 10.5 and hematocrit 32.1. IMAGING STUDIES: Right ankle MRI on 04/08/2017 completed. Evaluating this MRI, there is and fracture to the body with some increased signal intensity on T2. soft tissue swelling into the foot. Lower extremity ultrasound completed 04/07/2017 without any evidence of DVT noted. Right foot xrays completed April 07, 2017 with lucent line in the calcaneus, subtalar joint. ASSESSMENT AND PLAN: 1. Right leg edema. 2. Charcot's right foot. 3. Calcaneal fracture with talar stress reaction related to Charcot's deformity. The plan for this patient is to complete arterial Doppler. If this is within normal limits, the patient can be discharged with a walking boot, tall. However, he will be non-weightbearing on the right side. Unna boots can be applied and change every two to three days. Additionally, would recommend a bone stimulator for his calcaneal fracture. The patient already has an established visit with Dr. Sharif on 04/14/2017 and he will plan follow up with her. Micheline Interiano DPM SR/OLIVER /8:16 PM 8:23 PM
[2017-04-08] MEDS: TEMAZEPAM 15 MG CAP PO PRN (20:59)
[2017-04-08] MEDS ORDERED: VANCOMYCIN INJ 1,000 MG in SODIUM CHLOR 0.9% 250 ML INJ 250 ML IV SCH (23:00)
[2017-04-09] VITALS (8 sets, daily range): BP systolic 101–157; BP diastolic 63–100; PULSE 74–100; RESP 16–18; TEMP 96.9–98; O2SAT 97–100
[2017-04-09] MEDS: ENOXAPARIN SODIUM 30 MG/0.3 ML SYRINGE SQ SCH ×2 (00:33→23:31)
[2017-04-09] MEDS: VANCOMYCIN 1,000 MG/NS 250 ML IV SCH ×4 (00:34→23:29)
[2017-04-09] MEDS: PIPERACIL-TAZO 3.375 GM PREMIX 50 ML IV SCH ×3 (01:56→18:06)
[2017-04-09 05:54] LABS: AUTOMATED NEUTROPHIL # 2.6 TH/MM3 (1.8-7.7); BASOPHIL % 0.5 % (0.0-2.0); EOSINOPHIL # 0.1 TH/MM3 (0-0.4); EOSINOPHIL % 3.2 % (0.0-4.0); HEMATOCRIT 29.7 % (39.0-51.0); HEMO FLAGS DIFF FINAL; LYMPH % 19.1 % (9.0-44.0); LYMPHOCYTE # 0.8 TH/MM3 (1.0-4.8); MEAN CELL VOLUME 90.1 FL (80.0-100.0); MEAN CORPUSCULAR HGB CONC 33.3 % (32.0-36.0); MONO % 19.2 % (0.0-8.0); PLATELET COUNT 278 TH/MM3 (150-450); RED CELL DISTRIBUTION WIDTH 13.8 % (11.6-17.2); WHITE BLOOD COUNT 4.4 TH/MM3 (4.0-11.0)
[2017-04-09 06:27] LABS: BICARBONATE 26.9 MEQ/L (21.0-32.0); MAGNESIUM 1.4 MG/DL (1.5-2.5); POTASSIUM 3.8 MEQ/L (3.5-5.1)
[2017-04-09] MEDS: INSULIN ASPART SUPPLEMENTAL SCALE SQ SCH ×4 (07:00→23:41)
--- NOTE | 2017-04-09 09:43 | HHI.PR ---
Subjective Remarks No new complaints. Objective Vitals Vital Signs Date Time Temp Pulse Resp B/P Pulse Ox O2 Delivery O2 Flow Rate FiO2 04/09/17 08:00 97.2 78 16 141/74 100 04/09/17 05:00 97.3 74 16 136/79 98 04/09/17 00:00 97.1 78 16 138/77 98 04/08/17 22:00 16 04/08/17 20:00 97.4 87 18 154/85 100 04/08/17 16:00 98.2 91 18 153/72 04/08/17 13:00 99.1 90 18 134/78 95 04/08/17 04/08/17 04/09/17 15:00 23:00 07:00 Intake Total 480 ml 720 ml 600 ml Balance 480 ml 720 ml 600 ml Intake Oral 480 ml 720 ml 600 ml # Voids 2 2 2 # Bowel Movements 2 Result Diagram: 04/09/17 0521 04/09/17 0521 Imaging Last Impressions Foot MRI 04/08/17 0000 Signed Impressions: Service Date/Time: April 11:23 - CONCLUSION: 1. There is a fracture line with diffuse bone marrow edema involving the body of the calcaneus. The bone marrow edema in the body the calcaneus has increased compared to the prior examination. 2. The previously noted diffuse bone marrow edema involving the cuboid bone has moderately improved on today's examination. Also the previously noted edema in the third cuneiform bone has resolved. 3. There is nonspecific edema in the anterior talus bone which is new compared to the prior examination. 4. There continues to be nonspecific edema in the subcutaneous soft tissues. Tony Gee MD Ankle MRI 04/08/17 0000 Signed Impressions: Service Date/Time: April 11:23 - CONCLUSION: 1. There is a nondisplaced fracture through the body of the calcaneus with diffuse bone marrow edema throughout the entire calcaneus. 2. There is nonspecific bone marrow edema in the anterior talus without a definite fracture line. This could be from microfracture or bone bruising. There is a small joint effusion at the ankle joint. 3. Mild primary degenerative type changes at the mortise joint. 4. Nonspecific soft tissue swelling in the subcutaneous soft tissues as well as some nonspecific edema in the posterior muscle bundles of the lower calf. Tony Gee MD Lower Extremity Ultrasound 04/07/172200 Signed Impressions: Service Date/Time: Friday, April 07, 2017 22:12 - CONCLUSION: Normal examination. Ghanshyam Petty MD Tibia/Fibula X-Ray 04/07/17 0000 Signed Impressions: Service Date/Time: Friday, April 07, 2017 22:00 - CONCLUSION: 1. No acute findings. Small accessory ossicle adjacent to fibular head similar to December 2016. Ghanshyam Petty MD Foot X-Ray 04/07/17 0000 Signed Impressions: Service Date/Time: Friday, April 07, 2017 22:04 - CONCLUSION: 1. Development of abnormal sclerosis and lucency in the calcaneus below the subtalar joint most characteristic of a chronic stress fracture. Comparison is ankle radiograph from January 2017. Ghanshyam Petty MD Last 24 hours Impressions Lower Extremity Ultrasound 04/07/172200 Signed Impressions: Service Date/Time: Friday, April 07, 2017 22:12 - CONCLUSION: Normal examination. Ghanshyam Petty MD Tibia/Fibula X-Ray 04/07/17 0000 Signed Impressions: Service Date/Time: Friday, April 07, 2017 22:00 - CONCLUSION: 1. No acute findings. Small accessory ossicle adjacent to fibular head similar to December 2016. Ghanshyam Petty MD Foot X-Ray 04/07/17 0000 Signed Impressions: Service Date/Time: Friday, April 07, 2017 22:04 - CONCLUSION: 1. Development of abnormal sclerosis and lucency in the calcaneus below the subtalar joint most characteristic of a chronic stress fracture. Comparison is ankle radiograph from January 2017. Ghanshyam Petty MD Objective Remarks General: NAD, AAOx3 Chest: CTA Cardiac: Regular Abd: +BS, soft ND/NT Ext: RLE swelling below the knee to the foot, tenderness to light touch, minimal erythema A/P Problem List: (1) Cellulitis of right leg Status: Acute Plan: - Pt is a 46 y/o male with type 1 diabetes mellitus and recent hx of Charcot foot and right calcaneal fracture. - Pt follows with Dr. Reeder regarding this. - He states that he started having RLE swelling and erythema 4 days ago. He presented to the ED on 04/07/17 with complaints of erythema and swelling of the RLE. He had not been on any outpt treatment prior to presentation to the ED. - In the ED, he was given Vancomycin and Zosyn - Pt was continued on Zosyn following admission. We will also continue Vancomycin with pharmacy consult. - LE US was negative for DVT - Foot Xray (04/07) --> Development of abnormal sclerosis and lucency in the calcaneus below the subtalar joint most characteristic of a chronic stress fracture. Comparison is ankle radiograph from January 2017. - Tib/Fib Xray (04/07) --> No acute findings. Small accessory ossicle adjacent to fibular head similar to December 2016. - Blood cultures (04/07/17) with no growth x 1 day. - MRI right foot (04/08/17) --> There is a fracture line with diffuse bone marrow edema involving the body of the calcaneus. The bone marrow edema in the body the calcaneus has increased compared to the prior examination. The previously noted diffuse bone marrow edema involving the cuboid bone has moderately improved on today's examination. Also the previously noted edema in the third cuneiform bone has resolved. There is nonspecific edema in the anterior talus bone which is new compared to the prior examination. There continues to be nonspecific edema in the subcutaneous soft tissues. - MRI right ankle (04/08/17) --> There is a nondisplaced fracture through the body of the calcaneus with diffuse bone marrow edema throughout the entire calcaneus. There is nonspecific bone marrow edema in the anterior talus without a definite fracture line. This could be from microfracture or bone bruising. There is a small joint effusion at the ankle joint. Mild primary degenerative type changes at the mortise joint. Nonspecific soft tissue swelling in the subcutaneous soft tissues as well as some nonspecific edema in the posterior muscle bundles of the lower calf. - ESR elevated to 99 and CRP elevated to 14.50, repeat these today - Appreciate podiatry consult - Pt to have arterial Doppler today. - Podiatry has recommended patient be discharged with a walking boot, tall and will be non-weightbearing on the right side. Unna boots can be applied and change every two to three days. Additionally, recommended a bone stimulator for his calcaneal fracture. - The patient already has an followup visit scheduled with Dr. Sharif on 2016. - Pain control PRN - Supportive care - DVT prophylaxis with Lovenox (2) Type 1 diabetes mellitus Status: Acute Plan: - Hgb A1C 7.1% - Pt has insulin pump with NovoLog, continue on insulin pump - Accu checks (3) Hypertension Status: Chronic Plan: - continue shiva inhibitor Assessment and Plan Patient examined. Assessment and plan formulated with Jaleesa Moody PA-C. I agree with the above. Segmental Doppler study (04/09/17) --> b/l inflow disease c/w aortoiliac stenosis Obtain CTA with runoff Obtain Vascular Surgery Consult Per Podiatry recommendations - NO weight bearing at RLE - walking boot, tall, for RLE - apply unna boot q2-3d (outpt) Jaleesa Moody Apr 09, 2017 09:43 Jayden Cox DO Apr 09, 2017 15:42
[2017-04-09] MEDS: CHOLECALCIFEROL (VIT D3) 1000 UNIT TAB PO SCH (09:55)
[2017-04-09] MEDS: SODIUM CHLORIDE 0.9% FLUSH 10 ML FLUSH IV FLUSH SCH ×2 (09:56→20:00)
[2017-04-09] MEDS: LISINOPRIL 20 MG TAB PO SCH ×2 (09:56→20:00)
[2017-04-09] MEDS: DOCUSATE SODIUM 50 MG/SENNA 8.6 MG TAB PO SCH ×2 (09:56→20:02)
--- NOTE | 2017-04-09 10:35 | RADRPT ---
EXAM DATE/TIME: 04/08/2017 00:00 [facility] COMPARISON: No previous studies available for comparison. INDICATIONS : Cellulitis Right Lower Extremity TECHNIQUE: Five-station segmental examination of the lower extremities was performed. Pulsed-cuff waveform tracings and pressures were recorded. Ankle-brachial indices and toe-brachial indices were calculated. PRESSURES (mmHg): Brachial (arm): Right IV SITE Left 164 Lower Thigh: Right 181 Left 191 Calf: Right 193 Left 218 Ankle: Right 192 Left 199 Toe: Right 135 Left 199 CELINE: Right 1.17 Left 1.21 TBI: Right 0.82 Left 1.21 PULSED CUFF WAVEFORMS: Decreased waveforms in the thighs bilaterally with delayed systolic rise time and rounded systolic pe ak consistent with inflow stenosis. CONCLUSION: 1. Findings suggestive of bilateral inflow disease consistent with aortoiliac stenoses. Further evalu ation may be performed with MRA or CTA examination as indicated. Martin Bermeo MD on April 09, 2017 at 10:24 Board Certified Radiologist. This report was verified electronically.
[2017-04-09] MEDS: MAGNESIUM SULFATE 1 GM PREMIX 100 ML IV SCH ×2 (11:48→14:12)
[2017-04-09] MEDS ORDERED: CEPH-460 PO (13:18)
--- NOTE | 2017-04-09 13:19 | HHI.DCPOC ---
Discharge Care Plan Diagnosis: (1) Cellulitis of right leg (2) Charcot foot due to diabetes mellitus (3) Calcaneal fracture (4) Type 1 diabetes mellitus (5) Hypertension Goals to Promote Your Health * To prevent worsening of your condition and complications * To maintain your health at the optimal level Directions to Meet Your Goals Take your medications as prescribed Follow your dietary instruction Follow activity as directed Keep your appointments as scheduled Take your immunizations and boosters as scheduled If your symptoms worsen call your PCP, if no PCP go to Urgent Care Center or Emergency Room Smoking is Dangerous to Your Health. Avoid second hand smoke Call the 24-hour hour crisis hotline for domestic abuse at Jaleesa Moody Apr 09, 2017 13:19 Jayden Cox DO Apr 09, 2017 15:41
[2017-04-09] MEDS: ACETAMINOPHEN/HYDROcodone 325 MG/5 MG TAB PO PRN (16:20)
[2017-04-09] MEDS ORDERED: NS + KCL 20 MEQ INJ 1,000 ML IV SCH (17:00)
[2017-04-09] MEDS ORDERED: IOHEXOL 350 MG/ML 10 ML VIAL (for RAD DIAG) IV ONE (17:47)
--- NOTE | 2017-04-09 20:08 | RADRPT ---
EXAM DATE/TIME: 04/09/2017 17:27 [facility] COMPARISON: ARTERIAL SEGMENTAL DOPPLER COMP W/TBI, April 08, 2017, 0:00. INDICATIONS : Cellulitus right lower extremity. IV CONTRAST: 100 cc Omnipaque 350 (iohexol) IV RADIATION DOSE: 13.99 CTDIvol (mGy) MEDICAL HISTORY : Hypertension. Diabetes mellitus type 1. SURGICAL HISTORY : None. ENCOUNTER: Initial ACUITY: 1 week PAIN SCALE: 0/10 LOCATION: Right leg TECHNIQUE: Volumetric scanning was performed using a multi-row detector CT scanner. The data was post processed with a variety of visualization algorithms including full volume maximum intensity projection, multi -planar sliding thin slab reformation, curved planar reformation, and surface rendering techniques. Using automated exposure control and adjustment of the mA and/or kV according to patient size, radiat ion dose was kept as low as reasonably achievable to obtain optimal diagnostic quality images. DICO M format image data is available electronically for review and comparison. FINDINGS: ABDOMINAL AORTA: The lumen is smooth without significant narrowing or aneurysmal dilation. The proximal celiac and cheng perior mesenteric arteries are patent and normal in diameter. There are solitary renal arteries bila terally without gross abnormality. The distal femoral and popliteal arteries are patent without luminal irregularity. RIGHT LEG: The right common iliac, external iliac and common femoral artery widely patent. The superficial femo ral artery is widely patent. There is three-vessel trifurcation identified with 2 vessels at the ank le. LEFT LEG: The left common iliac, external and common femoral are widely patent. The superficial femoral artery is patent. There is large posterior tibial artery provides straight line run off to the right foot. The peroneal and anterior tibial reconstitute segments the dorsalis pedis at the ankle. Source data reveals calcific gallstones without mass or adenopathy. There is minimal angle adenopath y on the right with enlarged node measuring 2 cm. CONCLUSION: There is no significant inflow disease. Calcified gallstones. Izaiah Singh MD FACR on April 09, 2017 at 20:01 Board Certified Radiologist. This report was verified electronically.
[2017-04-09] MEDS: TEMAZEPAM 15 MG CAP PO PRN (23:30)
[2017-04-10] MEDS: PIPERACIL-TAZO 3.375 GM PREMIX 50 ML IV SCH ×2 (02:10→08:39)
[2017-04-10 04:00] VITALS: BP 153/86; PULSE 86; RESP 18; TEMP 97.2; O2SAT 100
[2017-04-10] MEDS: INSULIN ASPART SUPPLEMENTAL SCALE SQ SCH ×2 (06:30→11:00)
[2017-04-10] MEDS: DOCUSATE SODIUM 50 MG/SENNA 8.6 MG TAB PO SCH (08:39)
[2017-04-10] MEDS: CHOLECALCIFEROL (VIT D3) 1000 UNIT TAB PO SCH (08:39)
[2017-04-10] MEDS: LISINOPRIL 20 MG TAB PO SCH (08:39)
[2017-04-10 08:41] VITALS: BP 138/74; PULSE 90; RESP 16; TEMP 98.7; O2SAT 97
[2017-04-10] MEDS: SODIUM CHLORIDE 0.9% FLUSH 10 ML FLUSH IV FLUSH SCH (09:00)
--- NOTE | 2017-04-10 10:50 | PD.VS.CON ---
History of Present Illness Chief Complaint: Hx of right leg swelling and discomfort for about a week. Consult Requested by: History of Present Illness 46 year old with longstanding diabetes with swelling and discomfort of his right foot for about a week. Worse with ambulation. No previous hx of claudication. Past/Family/Social History Past Medical History Past Medical History type 1 dm ,cellulitis ,hypertension Past Surgical History s/p amp left index and middle finger ,cataract Reported Medications lisinopril 20 bid insulin pump,vit d Allergies: Coded Allergies: No Known Allergies (Verified , 01/21/17) Social History NS,ND Home Medications Reported Medications Cholecalciferol (Vitamin D-1000)1,000 Unit Tab1,000 Units PO DAILY #1 BOTTLE Ref 0 01/21/17 Lisinopril 20 Mg Tab20 Mg PO BID #30 TAB Ref 0 12/29/16 Insulin Aspart Inj (Novolog Inj)100 Unit/Ml Inj VIA INSULIN PUMP 12/29/16 Coded Allergies: No Known Allergies (Verified , 01/21/17) Review of Systems Integumentary: COMPLAINS OF: Rash (Right leg with swelling and induration.) Physical Exam Vitals/I&O Date Time Temp Pulse Resp B/P Pulse Ox O2 Delivery O2 Flow Rate FiO2 04/10/17 08:41 98.7 90 16 138/74 97 04/10/17 04:00 97.2 86 18 153/86 100 04/09/17 23:51 96.9 90 18 157/100 100 04/09/17 20:00 96.9 85 18 142/92 100 04/09/17 16:59 98.0 100 16 143/85 97 04/09/17 12:32 98.0 95 16 153/71 100 04/10/17 04/10/17 04/10/17 07:00 15:00 23:00 Intake Total 1318 ml Balance 1318 ml Neuro: A&Ox3 HEENT: midline trachea Neck: no carotid bruits Heart: regular Lungs: No wheezing Abdomen: soft and ND. Vascular: Left dp and pt Triphasic. Right DP palpable and PT triphasic Extremities: right calf swollen with mild skin color change. No aden erythema. Laboratory Tests Test 04/10/17 05:44 Creatinine 1.52 Estimat Glomerular Filtration 50 Rate Random Glucose 33 Date/Time Procedure Status Source Growth 04/07/17 22:05 Aerobic Blood Culture - Preliminary Resulted Blood Peripheral NO GROWTH IN 2 DAYS 04/07/17 22:05 Anaerobic Blood Culture - Preliminary Resulted Blood Peripheral NO GROWTH IN 2 DAYS Last 48 hours Impressions Aorta w/Runoff CTA 04/09/17 0000 Signed Impressions: Service Date/Time: Sunday, April 09, 2017 17:27 - CONCLUSION: There is no significant inflow disease. Calcified gallstones. Izaiah Singh MD FACR Assessment and Plan Assessment: (1) Charcot foot due to diabetes mellitus Status: Acute Plan This is a 46 year old male with long standing diabetes and charcot's foot. He has appropriate arterial supply to this extremity by exam, Arterial non- invasive study and by CTA. Continued control of his diabetes with avoidance of pressure to this extremity while healing. Consultation appreciated. Can follow up with us in office in a month. Parveen Harden DO, FACS [employer] Parveen Harden DO Apr 10, 2017 10:50
[2017-04-10 12:00] VITALS: BP 166/82; PULSE 92; RESP 16; TEMP 97.8; O2SAT 97
--- NOTE | 2017-04-10 12:42 | PD.POD ---
Subjective Podiatric Problems DM R Calcaneal fx with Charcot foot. R LE edema. Pain scale used: 0-10 numeric scale Past Med/Surg/Social History Past Medical History Endocrine: REPORTS HX OF: Diabetes mellitus (type 1) Cardiovascular: REPORTS HX OF: Hypertension Musculoskeletal: REPORTS HX OF: Fractures Infectious disease: REPORTS HX OF: Chickenpox Past Surgical History HEENT: REPORTS HX OF: Cataract extraction (left eye) Musculoskeletal: REPORTS HX OF: Other musculoskeletal srg (right trigger thumb release, left IF and MF tip amputations; multiple scars) Social History Smoking Status: Former Smoker Objective Vital Signs Vital Signs Date Time Temp Pulse Resp B/P Pulse Ox O2 Delivery O2 Flow Rate FiO2 04/10/17 08:41 98.7 90 16 138/74 97 04/10/17 04:00 97.2 86 18 153/86 100 04/09/17 23:51 96.9 90 18 157/100 100 04/09/17 20:00 96.9 85 18 142/92 100 04/09/17 16:59 98.0 100 16 143/85 97 Coded Allergies: No Known Allergies (Verified , 01/21/17) Other Results Last Impressions Aorta w/Runoff CTA 04/09/17 0000 Signed Impressions: Service Date/Time: Sunday, April 09, 2017 17:27 - CONCLUSION: There is no significant inflow disease. Calcified gallstones. Izaiah Singh MD FACR Foot MRI 04/08/17 0000 Signed Impressions: Service Date/Time: April 11:23 - CONCLUSION: 1. There is a fracture line with diffuse bone marrow edema involving the body of the calcaneus. The bone marrow edema in the body the calcaneus has increased compared to the prior examination. 2. The previously noted diffuse bone marrow edema involving the cuboid bone has moderately improved on today's examination. Also the previously noted edema in the third cuneiform bone has resolved. 3. There is nonspecific edema in the anterior talus bone which is new compared to the prior examination. 4. There continues to be nonspecific edema in the subcutaneous soft tissues. Tony Gee MD Ankle MRI 04/08/17 0000 Signed Impressions: Service Date/Time: April 11:23 - CONCLUSION: 1. There is a nondisplaced fracture through the body of the calcaneus with diffuse bone marrow edema throughout the entire calcaneus. 2. There is nonspecific bone marrow edema in the anterior talus without a definite fracture line. This could be from microfracture or bone bruising. There is a small joint effusion at the ankle joint. 3. Mild primary degenerative type changes at the mortise joint. 4. Nonspecific soft tissue swelling in the subcutaneous soft tissues as well as some nonspecific edema in the posterior muscle bundles of the lower calf. Tony Gee MD Lower Extremity Ultrasound 04/07/17 2201 Signed Impressions: Service Date/Time: Friday, April 07, 2017 22:12 - CONCLUSION: Normal examination. Ghanshyam Petty MD Tibia/Fibula X-Ray 04/07/17 0000 Signed Impressions: Service Date/Time: Friday, April 07, 2017 22:00 - CONCLUSION: 1. No acute findings. Small accessory ossicle adjacent to fibular head similar to December 2016. Ghanshyam Petty MD Foot X-Ray 04/07/17 0000 Signed Impressions: Service Date/Time: Friday, April 07, 2017 22:04 - CONCLUSION: 1. Development of abnormal sclerosis and lucency in the calcaneus below the subtalar joint most characteristic of a chronic stress fracture. Comparison is ankle radiograph from January 2017. Ghanshyam Petty MD Physical Exam Details RLE + decreased edema and no erythema. NO pain and no palpable cords. Muscle strength is intact + 5/5 Protective sensation is absent. Assessment & Plan Diagnosis: (1) Charcot foot due to diabetes mellitus Status: Acute (2) Calcaneal fracture Status: Acute (3) Leg swelling Status: Acute A/P OK to dc per Podiatry. F/U with Dr Davsi as scheduled. Recommend Bone stimulator: high risk patient with charcot/ calcaneal fx and DM. NWB R Tall CAM , right. Keep elevated. No interception per Vascular. Micheline Interiano DPM Apr 10, 2017 12:42
[2017-04-10] MEDS: ACETAMINOPHEN/HYDROcodone 325 MG/5 MG TAB PO PRN (12:58)
--- NOTE | 2017-04-10 14:21 | HHI.DS ---
Discharge Summary Admission Date Apr 07, 2017 at 23:06 Discharge Date: Apr 10, 2017 Admitting Diagnosis cellulitis right lower extremity (1) Cellulitis of right leg Diagnosis: Principal (2) Type 1 diabetes mellitus Diagnosis: Secondary (3) Hypertension Diagnosis: Secondary Consultants Dr. Harris, Vascular Surgery Dr. Interiano, Podiatry Brief History 46-year-old male with history of type 1 diabetes presents for evaluation of right leg redness, swelling and pain. Symptoms started 1 week ago. Pain is an aching pain, constant, worse when walking. He has a low-grade fever with tachycardia here in triage. He reports that he was diagnosed with Charcot's foot in January of this year. He has been minimally ambulatory in the right foot , primarily using crutches for ambulation. Patient has been followed by podiatry. No history of DVT. No other complaints. Patient had problem with rt foot in january as well with similar presentation. CBC/BMP: 04/09/17 0521 04/10/17 0544 Significant Findings Laboratory Tests Test 04/07/17 04/07/17 04/08/17 04/09/17 22:05 23:15 12:38 05:21 Red Blood Count 3.58 MIL/MM3 3.51 MIL/MM3 3.30 MIL/MM3 (4.50-5.90) (4.50-5.90) (4.50-5.90) Hemoglobin 10.7 GM/DL 10.5 GM/DL 9.9 GM/DL (13.0-17.0) (13.0-17.0) (13.0-17.0) Hematocrit 32.4 % 32.1 % 29.7 % (39.0-51.0) (39.0-51.0) (39.0-51.0) Neutrophils (%) (Auto) 78.0 % 70.4 % (16.0-70.0) (16.0-70.0) Lymphocytes (%) (Auto) 7.4 % (9.0-44.0) Monocytes (%) (Auto) 14.1 % 17.2 % 19.2 % (0.0-8.0) (0.0-8.0) (0.0-8.0) Lymphocytes # (Auto) 0.7 TH/MM3 0.7 TH/MM3 0.8 TH/MM3 (1.0-4.8) (1.0-4.8) (1.0-4.8) Monocytes # (Auto) 1.3 TH/MM3 1.1 TH/MM3 (0-0.9) (0-0.9) Sodium Level 129 MEQ/L 129 MEQ/L 132 MEQ/L (136-145) (136-145) (136-145) Chloride Level 92 MEQ/L 93 MEQ/L 97 MEQ/L (98-107) (98-107) (98-107) Creatinine 1.61 MG/DL 1.43 MG/DL 1.37 MG/DL (0.60-1.30) (0.60-1.30) (0.60-1.30) Estimat Glomerular Filtration 47 ML/MIN (>89) 53 ML/MIN (>89) 56 ML/MIN (>89) Rate Random Glucose 53 MG/DL 151 MG/DL 108 MG/DL (74-106) (74-106) (74-106) Aspartate Amino Transf 46 U/L (15-37) (AST/SGOT) C-Reactive Protein 14.50 MG/DL (0.00-0.30) Total Protein 8.6 GM/DL (6.4-8.2) Erythrocyte Sedimentation Rate 99 mm/hr (0-15) Urine Ketones 10 mg/dL (NEG) Hemoglobin A1c 7.1 % (4.3-6.0) Calcium Level 8.4 MG/DL (8.5-10.1) Albumin 2.9 GM/DL (3.4-5.0) Magnesium Level 1.4 MG/DL (1.5-2.5) Test 04/09/17 04/10/17 10:15 05:44 Erythrocyte Sedimentation Rate 68 mm/hr (0-15) C-Reactive Protein 11.00 MG/DL (0.00-0.30) Creatinine 1.52 MG/DL (0.60-1.30) Estimat Glomerular Filtration 50 ML/MIN (>89) Rate Random Glucose 33 MG/DL (74-106) PE at Discharge General: NAD, AAOx3 Chest: CTA Cardiac: Regular Abd: +BS, soft ND/NT Ext: RLE swelling below the knee to the foot, tenderness to light touch, minimal erythema Hospital Course 1) Cellulitis of right leg - comgmt with Podiatry and Vascular Surgery - Pt is a 46 y/o male with type 1 diabetes mellitus and recent hx of Charcot foot and right calcaneal fracture. - Pt follows with Dr. Reeder regarding this. - He states that he started having RLE swelling and erythema 4 days ago. He presented to the ED on 04/07/17 with complaints of erythema and swelling of the RLE. He had not been on any outpt treatment prior to presentation to the ED. - In the ED, he was given Vancomycin and Zosyn - Pt was continued on Zosyn following admission. We will also continue Vancomycin with pharmacy consult. (04/07 - 04/10/17) - will discharge on keflex 500mg TID x 5d - LE US was negative for DVT - Foot Xray (04/07) --> Development of abnormal sclerosis and lucency in the calcaneus below the subtalar joint most characteristic of a chronic stress fracture. Comparison is ankle radiograph from January 2017. - Tib/Fib Xray (04/07) --> No acute findings. Small accessory ossicle adjacent to fibular head similar to December 2016. - Blood cultures (04/07/17) with no growth x 1 day. - MRI right foot (04/08/17) --> There is a fracture line with diffuse bone marrow edema involving the body of the calcaneus. The bone marrow edema in the body the calcaneus has increased compared to the prior examination. The previously noted diffuse bone marrow edema involving the cuboid bone has moderately improved on today's examination. Also the previously noted edema in the third cuneiform bone has resolved. There is nonspecific edema in the anterior talus bone which is new compared to the prior examination. There continues to be nonspecific edema in the subcutaneous soft tissues. - MRI right ankle (04/08/17) --> There is a nondisplaced fracture through the body of the calcaneus with diffuse bone marrow edema throughout the entire calcaneus. There is nonspecific bone marrow edema in the anterior talus without a definite fracture line. This could be from microfracture or bone bruising. There is a small joint effusion at the ankle joint. Mild primary degenerative type changes at the mortise joint. Nonspecific soft tissue swelling in the subcutaneous soft tissues as well as some nonspecific edema in the posterior muscle bundles of the lower calf. - ESR elevated to 99 and CRP elevated to 14.50, repeat these today - Segmental Doppler (04/08/17) --> abnormal - CTA with runoff (04/09/17) --> NO significant inflow disease - Podiatry has recommended patient be discharged with a walking boot, tall and will be non-weightbearing on the right side. Additionally, recommended a bone stimulator calcaneal fracture. - The patient already has an followup visit scheduled with Dr. Sharif on 2016. - Pain control PRN - Case d/w Dr. Hardne (04/10/17). Okay to discharge today. F/u with Dr. Harden in 1 month. - Case d/w Dr. Interiano (04/10/17). Okay to discharge today. F/u with Dr. Reeder in 1 week (2) Type 1 diabetes mellitus Status: Acute Plan: - Hgb A1C 7.1% - Pt has insulin pump with NovoLog, continue on insulin pump - Accu checks (3) Hypertension Status: Chronic Plan: - continue shiva inhibitor Pt Condition on Discharge: Stable Discharge Disposition: Discharge Home Discharge Instructions DIET: Follow Instructions for: Heart Healthy Diet, Diabetic Diet Speech Therapy-Diet Recommends: Regular Activities you can perform: Partial Weight Bearing Other Activity Instructions: Pt is non-weight bearing for RLE Follow up Referrals: Podiatry - 04/14/17 with Marcos Reeder DPM New Medications: Cephalexin (Keflex) 500 Mg Cap 500 MG PO Q8H Infection #15 Ref 0 CAP Continued Medications: Cholecalciferol (Vitamin D-1000) 1,000 Unit Tab 1000 UNITS PO DAILY Nutritional Supplement #1 Ref 0 BOTTLE Insulin Aspart Inj (Novolog Inj) 100 Unit/Ml Inj VIA INSULIN PUMP Lisinopril (Lisinopril) 20 Mg Tab 20 MG PO BID #30 Ref 0 TAB Jayden Cox DO Apr 10, 2017 14:20 Jayden Cox DO Apr 10, 2017 14:20
[2017-04-10] MEDS ORDERED: HYDR-3516 PO (14:26)
[2017-04-10] MEDS ORDERED: PHARMACY ORDERED LAB ONE (22:45)
== END 2017-04-10 16:55 | disposition home or self-care (01) ==
LOC: NEPC 17:58 → INTOOBSV 23:06 → NEDA 23:06 → HOCB 04-08 00:45
PROVIDERS: ADMIT Hospitalist; ATTEND Hospitalist
DX: L03.115 Cellulitis of right lower limb (principal); R79.82 Elevated C-reactive protein (CRP); R50.9 Fever, unspecified; R00.0 Tachycardia, unspecified; M25.471 Effusion, right ankle; K80.20 Calculus of gallbladder without cholecystitis without obstruction; R60.0 Localized edema; M84.374A Stress fracture, right foot, initial encounter for fracture; I10 Essential (primary) hypertension; E10.9 Type 1 diabetes mellitus without complications; G62.9 Polyneuropathy, unspecified; M14.679 Charcot's joint, unspecified ankle and foot; M19.071 Primary osteoarthritis, right ankle and foot; Z87.891 Personal history of nicotine dependence; Z89.421 Acquired absence of other right toe(s); Z79.899 Other long term (current) drug therapy; X58.XXXA Exposure to other specified factors, initial encounter
CPT/HCPCS: 73590; 73630; 73720; 73723; 75635; 80048; 80053; 81001; 82565; 82947; 82948; 83036; 83605; 83735; 85025; 85652; 86140; 87040; 93923; 93971; 99285; A9579; G0378; J1170; J1650; J1815; J2543; J3370; J3475; J3480; J7030; J7050; L2114; Q9967

== ENCOUNTER 2017-05-27 10:24 | Emergency (ER) | payer OTHER ==
[~2017-05-27] VITALS: Ht 170.2 cm; Wt 65.0 kg
[~2017-05-27 10:24] MED LIST changes: +CEPH-460 PO; +HYDR-3516 PO
[2017-05-27 10:26] VITALS: BP 175/96; PULSE 84; RESP 15; TEMP 98.4; O2SAT 99
--- NOTE | 2017-05-27 11:41 | PD ---
HPI Chief Complaint: Skin Problem Time Seen by Provider: 11:40 Travel History International Travel<30 days: No Contact w/Intl Traveler<30days: No Traveled to known affect area: No History of Present Illness HPI 46-year-old male with history of Charcot foot and diabetes presents to the emergency Department with pressure sore to the right great toe status post recent ankle hairline fracture being treated by Dr. Reeder, top lift compresser. Patient currently is in a walking [employer] boot, but due to his toe deformity he is having a pressure sore develop under the right great toe. Is currently no signs of infection. He has no significant pain. He is not scheduled to see Dr. Reeder for another 2 weeks. He has no known drug allergies. PFSH Past Medical History Asthma: No Blood Disorders: No Anxiety: No Depression: No Heart Rhythm Problems: No Cancer: No Cardiovascular Problems: No High Cholesterol: No Chest Pain: No Congestive Heart Failure: No COPD: No Diabetes: Yes Diminished Hearing: No Endocrine: Yes Gastrointestinal Disorders: No Glaucoma: No Genitourinary: No Headaches: Yes Hepatitis: No Hiatal Hernia: No Hypertension: Yes Musculoskeletal: Yes (CHARCOT IN RIGHT FOOT) Neurologic: No Psychiatric: No Reproductive: No Respiratory: No Sleep Apnea: No Thyroid Disease: No Past Surgical History Abdominal Surgery: No AICD: No Cardiac Surgery: No Endocrine Surgery: No Eye Surgery: Yes (CATARAC SX L EYE ) Genitourinary Surgery: No Gynecologic Surgery: No Insulin Pump: Yes Joint Replacement: No Neurologic Surgery: No Oral Surgery: No Pacemaker: No Thoracic Surgery: No Other Surgery: Yes (CATARACT SURG LEFT EYE AND INC AND DRAINAGE LEFT HAND) Social History Alcohol Use: Yes (OCCASIONALLY ) Tobacco Use: No Substance Use: No Allergies-Medications (Allergen,Severity, Reaction): Coded Allergies: No Known Allergies (Verified , 01/21/17) Reported Meds & Prescriptions Reported Meds & Active Scripts Active Reported Vitamin D-1000 (Cholecalciferol) 1,000 Unit Tab 1,000 Units PO DAILY Lisinopril 20 Mg Tab 20 Mg PO BID Novolog Inj (Insulin Aspart) 100 Unit/Ml Inj VIA INSULIN PUMP Review of Systems Except as stated in HPI: all other systems reviewed are Neg General / Constitutional: No: Fever Eyes: No: Visual changes HENT: No: Headaches Cardiovascular: No: Chest Pain or Discomfort Respiratory: No: Shortness of Breath Gastrointestinal: No: Abdominal Pain Genitourinary: No: Dysuria Musculoskeletal: Positive: Arthralgias, Limited ROM (see history present illness ), No: Pain Skin: Positive Lesions (see history present illness), No Rash Neurologic: No: Weakness Psychiatric: No: Depression Endocrine: No: Polydipsia Hematologic/Lymphatic: No: Easy Bruising Physical Exam Narrative GENERAL: Patient appears normal distress. SKIN: Warm and dry. Normal color. Normal turgor. Patient has a quarter-sized pressure sore which is not quite full thickness of the skin to the right volar surface of the right great toe. No significant signs of infection are noted. HEAD: Atraumatic. Normocephalic. EYES: Pupils equal and round. No scleral icterus. No injection or drainage. ENT: No nasal bleeding or discharge. Mucous membranes pink and moist. NECK: Trachea midline. No JVD. CARDIOVASCULAR: Regular rate and rhythm. RESPIRATORY: No accessory muscle use. Clear to auscultation. Breath sounds equal bilaterally. GASTROINTESTINAL: Abdomen soft, non-tender, nondistended. Hepatic and splenic margins not palpable. MUSCULOSKELETAL: Extremities without clubbing, cyanosis, or edema. Patient is generalized deformities of the hands and feet consistent with Charcot deformity. NEUROLOGICAL: Awake and alert. No obvious cranial nerve deficits. Motor grossly within normal limits. Five out of 5 muscle strength in the arms and legs. Normal speech. PSYCHIATRIC: Appropriate mood and affect; insight and judgment normal. Data Data Last Documented VS Vital Signs Date Time Temp Pulse Resp B/P (MAP) Pulse Ox O2 Delivery O2 Flow Rate FiO2 05/27/17 10:26 98.4 84 15 175/96 (122) 99 Orders Orders Splinting (05/27/17 ) [facility] Medical Decision Making Medical Screen Exam Complete: Yes Emergency Medical Condition: Yes Differential Diagnosis Charcot foot deformity. Superficial pressure sore to the volar right great toe. Type 1 diabetes. Narrative Course Patient does not appear to have active infection at this time. The wound was cleansed and dressed by nursing staff. Also boot was modified with wedging under the MIP joints of the right foot to alleviate pressure to the right great toe. Call was placed to Dr. Reeder, and the patient was discussed. Patient will be covered with Bactrim. The rest twice a day 7 days. Recommend crutches with limited weightbearing on the right foot until seen by Dr. Reeder. Recommend follow-up with top lift compresser in the next week. Patient to follow up here if symptoms worsen as needed. Diagnosis Primary Impression: Superficial injury of right foot and one or more toes Qualified Codes: S90.921A - Unspecified superficial injury of right foot, initial encounter; S90.934A - Unspecified superficial injury of right lesser toe (s), initial encounter Additional Impression: Charcot foot due to diabetes mellitus Referrals: Marcos Reeder DPM call for appointment Patient Instructions: Chronic Wound Care (DC), General Instructions Additional Instructions: Patient does not appear to have active infection at this time. The wound was cleansed and dressed by nursing staff. Also boot was modified with wedging under the MIP joints of the right foot to alleviate pressure to the right great toe. Call was placed to Dr. Reeder, and the patient was discussed. Patient will be covered with Bactrim. The rest twice a day 7 days. Recommend crutches with limited weightbearing on the right foot until seen by Dr. Reeder. Recommend follow-up with top lift compresser in the next week. Patient to follow up here if symptoms worsen as needed. Disposition: 01 DISCHARGE HOME Condition: Stable Jay Shah May 27, 2017 11:41
[2017-05-27] MEDS ORDERED: BACT800T5 PO (12:35)
== END 2017-05-27 13:21 | disposition home or self-care (01) ==
LOC: NEPA 10:24
DX: E10.610 Type 1 diabetes mellitus with diabetic neuropathic arthropathy (principal); S90.921A Unspecified superficial injury of right foot, initial encounter; S90.934A Unspecified superficial injury of right lesser toe(s), initial encounter; I10 Essential (primary) hypertension; X58.XXXA Exposure to other specified factors, initial encounter
CPT/HCPCS: 99283; L6386

== ENCOUNTER 2017-10-15 21:56 | Emergency (ER) | payer OTHER ==
[~2017-10-15 21:56] MED LIST changes: +BACT800T5 PO; -CEPH-460 PO; -HYDR-3516 PO
[2017-10-15 21:58] VITALS: BP 164/98; PULSE 104; RESP 16; TEMP 98.5; O2SAT 99
[2017-10-16] MEDS ORDERED: SODIUM CHLORIDE 0.9% FLUSH 10 ML FLUSH IVF PRN (02:30)
[2017-10-16] MEDS ORDERED: CLINDAMYCIN INJ 900 MG in SODIUM CHLORIDE 0.9% INJ 100 ML IV ONE (02:30)
[2017-10-16 02:35] VITALS: BP 132/83; PULSE 83; RESP 18; O2SAT 99
[2017-10-16 02:51] LABS: AUTOMATED NEUTROPHIL # 3.1 TH/MM3 (1.8-7.7); BASOPHIL % 0.4 % (0.0-2.0); EOSINOPHIL # 0.2 TH/MM3 (0-0.4); EOSINOPHIL % 4.4 % (0.0-4.0); HEMATOCRIT 34.4 % (39.0-51.0); HEMOGLOBIN 11.5 GM/DL (13.0-17.0); LYMPH % 25.4 % (9.0-44.0); LYMPHOCYTE # 1.3 TH/MM3 (1.0-4.8); MEAN CELL VOLUME 87.9 FL (80.0-100.0); MEAN CORPUSCULAR HEMOGLOBIN 29.5 PG (27.0-34.0); MEAN CORPUSCULAR HGB CONC 33.6 % (32.0-36.0); MEAN PLATELET VOLUME 9.4 FL (7.0-11.0); MONO % 6.7 % (0.0-8.0); MONOCYTE # 0.3 TH/MM3 (0-0.9); NEUT % 63.1 % (16.0-70.0); PLATELET COUNT 238 TH/MM3 (150-450); RED BLOOD COUNT 3.91 MIL/MM3 (4.50-5.90); RED CELL DISTRIBUTION WIDTH 14.1 % (11.6-17.2); WHITE BLOOD COUNT 4.9 TH/MM3 (4.0-11.0)
--- NOTE | 2017-10-16 02:59 | RADRPT ---
EXAM DATE/TIME: 10/16/2017 02:35 [place] COMPARISON: No previous studies available for comparison. INDICATIONS : Ulcer on the right heel developing when patient was rehabbing from a left leg fracture. MEDICAL HISTORY : Diabetes mellitus type I. Hypertension SURGICAL HISTORY : None. ENCOUNTER: Initial ACUITY: 1 day PAIN SCORE: 0/10 LOCATION: Right heel FINDINGS: Two view examination of the right heel demonstrates the trabecula to be intact with no evidence of fr acture. No evidence of cortical erosion or bony destruction. The soft tissues are of normal thicknes s. There are some vascular calcifications in the soft tissues. CONCLUSION: Unremarkable examination. Tony Gee MD on October 16, 2017 at 2:56 Board Certified Radiologist. This report was verified electronically.
[2017-10-16 03:09] LABS: BICARBONATE 29.3 MEQ/L (21.0-32.0); CALCIUM 8.7 MG/DL (8.5-10.1); CREATININE 1.26 MG/DL (0.60-1.30)
[2017-10-16] MEDS ORDERED: CLINDAMYCIN 900 MG/NS PREMIX 50 ML IV ONE ×2 (03:15→05:00)
[2017-10-16] MEDS ORDERED: CLIN150C14 PO (04:58)
--- NOTE | 2017-10-16 04:59 | PD ---
HPI Chief Complaint: Skin Problem Time Seen by Provider: 02:16 Travel History International Travel<30 days: No Contact w/Intl Traveler<30days: No Traveled to known affect area: No History of Present Illness HPI 47-year-old male presents to the emergency department for complaint of ulcer and redness to the plantar surface of his right heel. Patient states that he thinks it might be getting a little bigger. Patient is been changing dressings over the day. Patient has not contacted his primary care provider regarding his heel redness. Patient's had no fever or chills. Patient is diabetic. Patient rates pain 0/10 in intensity does not report diabetic neuropathy. Patient states that over the past 2 days she's noted some drainage on the dressing gauze and thought he should be evaluated. Patient has not been on antibiotic recently. Patient denies any known foreign body or puncture wound. Patient states that he has been using crutches to assist ambulation. Patient sustained a fracture to his left lower extremity and has been attempting to avoid any weightbearing on the left lower extremity causing him to put increased pressure on the right foot. Patient is not established with a local orthopedist or mortician investigator has appointments but has not been seen by them. Patient denies other concerns or complaints. No ascending erythema. No right groin lymphadenopathy or tenderness. No fever chills no nausea or vomiting. Blood sugars have been well-controlled. [facility] Past Medical History Narrative Medical Diabetes, Charcot foot, cataract surgery; patient alcohol use; nursing notes reviewed Asthma: No Blood Disorders: No Anxiety: No Depression: No Heart Rhythm Problems: No Cancer: No Cardiovascular Problems: No High Cholesterol: No Chest Pain: No Congestive Heart Failure: No COPD: No Diabetes: Yes Patient Takes Glucophage: No Diminished Hearing: No Endocrine: Yes Gastrointestinal Disorders: No Glaucoma: No Genitourinary: No Headaches: Yes Hepatitis: No Hiatal Hernia: No Hypertension: Yes Musculoskeletal: Yes (CHARCOT IN RIGHT FOOT) Neurologic: No Psychiatric: No Reproductive: No Respiratory: No Sleep Apnea: No Thyroid Disease: No Past Surgical History Abdominal Surgery: No AICD: No Cardiac Surgery: No Endocrine Surgery: No Eye Surgery: Yes (CATARAC SX L EYE ) Genitourinary Surgery: No Gynecologic Surgery: No Insulin Pump: Yes Joint Replacement: No Neurologic Surgery: No Oral Surgery: No Pacemaker: No Thoracic Surgery: No Other Surgery: Yes (CATARACT SURG LEFT EYE) Social History Alcohol Use: Yes (OCCASIONALLY ) Tobacco Use: No Substance Use: No Allergies-Medications (Allergen,Severity, Reaction): Coded Allergies: No Known Allergies (Verified , 01/21/17) Reported Meds & Prescriptions Reported Meds & Active Scripts Active Clindamycin (Clindamycin HCl) 150 Mg Cap 300 Mg PO Q6H Bactrim DS (Sulfamethoxazole-Trimethoprim) 800-160 Mg Tab 1 Tab PO BID Reported Vitamin D-1000 (Cholecalciferol) 1,000 Unit Tab 1,000 Units PO DAILY Lisinopril 20 Mg Tab 20 Mg PO BID Novolog Inj (Insulin Aspart) 100 Unit/Ml Inj VIA INSULIN PUMP Review of Systems Except as stated in HPI: all other systems reviewed are Neg Physical Exam Narrative GENERAL: Well developed well-nourished female in acute distress no respiratory distress SKIN: Warm and dry. HEAD: Normocephalic. EYES: No scleral icterus. No injection or drainage. NECK: Supple, trachea midline. No JVD or lymphadenopathy. CARDIOVASCULAR: Regular rate and rhythm without murmurs, gallops, or rubs. RESPIRATORY: Breath sounds equal bilaterally. No accessory muscle use. GASTROINTESTINAL: Abdomen soft, non-tender, nondistended. MUSCULOSKELETAL: No cyanosis, or edema. Attention right heel plantar surface 2.5 cm x 1.5 cm superficial ulcer of the right heel with focal area of erythema without induration and mild warmth serous drainage noted. No puncture wound no obvious foreign body identified no ecchymosis capillary refill is brisk and less than 2 seconds per digit and dorsalis pedis pulses 2+ to palpation no sending erythema no right groin lymphadenopathy. BACK: Nontender without obvious deformity. No CVA tenderness. Data Data Last Documented VS Vital Signs Date Time Temp Pulse Resp B/P (MAP) Pulse Ox O2 Delivery O2 Flow Rate FiO2 10/16/17 05:23 10/16/17 02:35 83 18 99 Room Air 10/15/17 21:58 98.5 Orders Orders Basic Metabolic Panel (Bmp) (10/16/17 02:16) Complete Blood Count With Diff (10/16/17 02:16) Blood Culture (10/16/17 02:16) Wound Culture And Gram Stain (10/16/17 02:16) Iv Access Insert/Monitor (10/16/17 02:16) Wound Care (10/16/17 02:16) Sodium Chloride 0.9% Flush (Ns Flush) (10/16/17 02:30) Foot, Heel Only (Pyj1tgr) (10/16/17 ) Clindamycin 900 Mg/Ns Premix (Cleocin 90 (10/16/17 03:15) Ketorolac Inj (Toradol Inj) (10/16/17 05:00) Ed Discharge Order (10/16/17 05:02) Labs Laboratory Tests Test 10/16/17 02:34 White Blood Count 4.9 TH/MM3 Red Blood Count 3.91 MIL/MM3 Hemoglobin 11.5 GM/DL Hematocrit 34.4 % Mean Corpuscular Volume 87.9 FL Mean Corpuscular Hemoglobin 29.5 PG Mean Corpuscular Hemoglobin Concent 33.6 % Red Cell Distribution Width 14.1 % Platelet Count 238 TH/MM3 Mean Platelet Volume 9.4 FL Neutrophils (%) (Auto) 63.1 % Lymphocytes (%) (Auto) 25.4 % Monocytes (%) (Auto) 6.7 % Eosinophils (%) (Auto) 4.4 % Basophils (%) (Auto) 0.4 % Neutrophils # (Auto) 3.1 TH/MM3 Lymphocytes # (Auto) 1.3 TH/MM3 Monocytes # (Auto) 0.3 TH/MM3 Eosinophils # (Auto) 0.2 TH/MM3 Basophils # (Auto) 0.0 TH/MM3 CBC Comment DIFF FINAL Differential Comment Blood Urea Nitrogen 15 MG/DL Creatinine 1.26 MG/DL Random Glucose 108 MG/DL Calcium Level 8.7 MG/DL Sodium Level 134 MEQ/L Potassium Level 4.6 MEQ/L Chloride Level 99 MEQ/L Carbon Dioxide Level 29.3 MEQ/L Anion Gap 6 MEQ/L Estimat Glomerular Filtration Rate 62 ML/MIN MDM Medical Decision Making Medical Screen Exam Complete: Yes Emergency Medical Condition: Yes Medical Record Reviewed: Yes Interpretation(s) Last Impressions Foot X-Ray 10/16/17 0000 Signed Impressions: Service Date/Time: Monday, October 16, 2017 02:35 - CONCLUSION: Unremarkable examination. Tony Gee MD CBC & BMP Diagram 10/16/17 02:34 Calcium Level 8.7 Vital Signs Date Time Temp Pulse Resp B/P (MAP) Pulse Ox O2 Delivery O2 Flow Rate FiO2 10/16/17 02:35 83 18 132/83 (99) 99 Room Air 10/15/17 21:58 98.5 104 16 164/98 (120) 99 Differential Diagnosis Cellulitis abscess infected diabetic ulcer: Also to consider necrotizing fasciitis Narrative Course Well-developed well-nourished female in no acute distress no respiratory distress reports good control of blood sugars has seen his primary care provider as recently as 09/23/17 but states he has not followed up in the past few days when he thinks that the area of the ulcer might be somewhat worse. Patient is been changing dressings every other day instead of daily. Patient's had no fever chills.; IV access obtained specimens collected and sent for resulting imaging study order Imaging study reveals no acute abnormality no subcutaneous air no retained radiopaque foreign body Diagnosis Primary Impression: Cellulitis of heel, right Additional Impression: Diabetic ulcer of right foot Referrals: Housekeeping Manager 2 days Primary Care Physician 2 days Patient Instructions: General Instructions Additional Instructions: Follow-up with your primary care provider on Wednesday call office to schedule appointment Follow up with mortician investigator on Wednesday call office to schedule follow-up appointment instructor business education mortician investigator is Complete course of antibiotic as prescribed Elevate right foot Change dressing twice daily Monitor blood sugars closely Return to the emergency department for fever pain or any concerns Med/Other Pt SpecificInfo: Prescription(s) given Scripts Clindamycin (Clindamycin) 150 Mg Cap 300 MG PO Q6H for Infection, #7 CAP 0 Refills Prov: Didi Jerry MD 10/16/17 Disposition: 01 DISCHARGE HOME Condition: Stable Didi Jerry MD Oct 16, 2017 04:59
[2017-10-16] MEDS ORDERED: KETOROLAC TROMETHAMINE 30 MG/ML (IVP) VIAL IV PUSH ONE (05:00)
== END 2017-10-16 05:24 | disposition home or self-care (01) ==
LOC: NEPC 21:56
DX: L03.115 Cellulitis of right lower limb (principal); E11.621 Type 2 diabetes mellitus with foot ulcer; L97.411 Non-pressure chronic ulcer of right heel and midfoot limited to breakdown of skin; B96.5 Pseudomonas (aeruginosa) (mallei) (pseudomallei) as the cause of diseases classified elsewhere; I10 Essential (primary) hypertension; Z79.4 Long term (current) use of insulin; Z96.41 Presence of insulin pump (external) (internal)
CPT/HCPCS: 73650; 80048; 85025; 86403; 87040; 87070; 87077; 87186; 96365; 96366; 96375; 99284; J1885

== ENCOUNTER 2018-01-12 16:29 | Emergency (ER) | payer SELFPAY ==
[~2018-01-12] VITALS: Ht 170.2 cm; Wt 66.0 kg
[~2018-01-12 16:29] MED LIST changes: +CLIN150C14 PO
[2018-01-12 16:40] VITALS: BP 145/74; PULSE 109; RESP 16; TEMP 98.1; O2SAT 100
[2018-01-12] MEDS ORDERED: LIDOCAINE 1%/EPINEPHrine 1:100,000 SOLN 20 ML VIAL INFIL ONE (17:15)
--- NOTE | 2018-01-12 17:35 | PD ---
HPI Chief Complaint: Laceration/Skin Injury Time Seen by Provider: 16:48 Travel History International Travel<30 days: No Contact w/Intl Traveler<30days: No Traveled to known affect area: No History of Present Illness HPI 47-year-old type I diabetic since age of 4 presents emergency department with laceration to the dorsal left ring finger, secondary to a glass breaking while doing dishes. Patient is noted to have Dupuytren's contractures. He states he has some sensation in his fingers, but denies new numbness. There does not appear to be any new loss of function. Tetanus is up-to-date. Pain is minimal. Bleeding is minimal. He has no known drug allergies. PFSH Past Medical History Asthma: No Blood Disorders: No Anxiety: No Depression: No Heart Rhythm Problems: No Cancer: No Cardiovascular Problems: No High Cholesterol: No Chest Pain: No Congestive Heart Failure: No COPD: No Diabetes: Yes Patient Takes Glucophage: No Diminished Hearing: No Endocrine: Yes Gastrointestinal Disorders: No Glaucoma: No Genitourinary: No Headaches: Yes Hepatitis: No Hiatal Hernia: No Hypertension: Yes Musculoskeletal: Yes (CHARCOT IN RIGHT FOOT) Neurologic: No Psychiatric: No Reproductive: No Respiratory: No Sleep Apnea: No Thyroid Disease: No Tetanus Vaccination: < 5 Years Past Surgical History Abdominal Surgery: No AICD: No Cardiac Surgery: No Endocrine Surgery: No Eye Surgery: Yes (CATARAC SX L EYE ) Genitourinary Surgery: No Gynecologic Surgery: No Insulin Pump: Yes Joint Replacement: No Neurologic Surgery: No Oral Surgery: No Pacemaker: No Thoracic Surgery: No Other Surgery: Yes (CATARACT SURG LEFT EYE) Social History Alcohol Use: Yes (OCCASIONALLY ) Tobacco Use: No Substance Use: No Allergies-Medications (Allergen,Severity, Reaction): Coded Allergies: No Known Allergies (Verified Adverse Reaction, Unknown, 01/12/18) Reported Meds & Prescriptions Reported Meds & Active Scripts Active Reported Lisinopril 20 Mg Tab 20 Mg PO BID Novolog Inj (Insulin Aspart) 100 Unit/Ml Inj VIA INSULIN PUMP Review of Systems Except as stated in HPI: all other systems reviewed are Neg General / Constitutional: No: Fever Eyes: No: Visual changes HENT: No: Headaches Cardiovascular: No: Chest Pain or Discomfort Respiratory: No: Shortness of Breath Gastrointestinal: No: Abdominal Pain Genitourinary: No: Dysuria Musculoskeletal: No: Pain Skin: Positive Lesions, No Rash Neurologic: No: Weakness Psychiatric: No: Depression Endocrine: No: Polydipsia Hematologic/Lymphatic: No: Easy Bruising Physical Exam Narrative GENERAL: Patient is in no acute distress per SKIN: Warm and dry. Normal color. Normal turgor. Patient has 1.5 cm linear laceration to the dorsal surface of the left proximal ring finger. It does not involve tendons or knuckles. HEAD: Atraumatic. Normocephalic. EYES: Pupils equal and round. No scleral icterus. No injection or drainage. ENT: No nasal bleeding or discharge. Mucous membranes pink and moist. Pharynx is clear. Airways patent NECK: Trachea midline. Supple and nontender CARDIOVASCULAR: Regular rate and rhythm. RESPIRATORY: No accessory muscle use. Clear to auscultation. Breath sounds equal bilaterally. MUSCULOSKELETAL: Extremities without clubbing, cyanosis, or edema. Bilateral Dupuytren's contractures. No obvious acute loss of function. NEUROLOGICAL: Awake and alert. No obvious cranial nerve deficits. Motor grossly within normal limits. Five out of 5 muscle strength in the arms and legs. Normal speech. PSYCHIATRIC: Appropriate mood and affect; insight and judgment normal. Data Data Last Documented VS Vital Signs Date Time Temp Pulse Resp B/P (MAP) Pulse Ox O2 Delivery O2 Flow Rate FiO2 01/12/18 16:40 98.1 109 16 145/74 (97) 100 Orders Orders Lidocai-Epi 1%-1:100,000 Inj (Xylocaine- (01/12/18 17:15) MDM Medical Decision Making Medical Screen Exam Complete: Yes Emergency Medical Condition: Yes Differential Diagnosis Laceration. Finger injury. Need for sutures. type 1 diabetes. Narrative Course Laceration is repaired. Wound care is reviewed. Patient is placed on Keflex 500 mg 3 times daily for 5 days. Patient is to return in 7 days for suture removal. Patient to return sooner as needed. Procedures Procedure Narrative LACERATION LOCATION: Proximal dorsal left ring finger LENGTH: 1.57 NUMBER OF STITCHES/BABAK: 7 simple interrupted REPAIR: The area of the laceration was prepped with Betadine and sterilely draped. The laceration was infiltrated with 2.5 mL's 1% lidocaine. The wound was copiously irrigated and explored without evidence of foreign body, tendon injury or neurovascular injury. The wound was closed using 5-0 Prolene. This was a single layer repair. A sterile dressing was applied. The patient was advised to keep the dressing clean and dry. Patient tolerated the procedure well. Diagnosis Primary Impression: Laceration of left ring finger Qualified Codes: S61.215A - Laceration without foreign body of left ring finger without damage to nail, initial encounter Patient Instructions: Care For Your Stitches (ED), General Instructions Additional Instructions: Laceration is repaired. Wound care is reviewed. Patient is placed on Keflex 500 mg 3 times daily for 5 days. Patient is to return in 7 days for suture removal. Patient to return sooner as needed. Med/Other Pt SpecificInfo: Wound Care Disposition: DISCHARGE HOME Condition: Stable Jay Shah Jan 12, 2018 17:35
[2018-01-12] MEDS ORDERED: CEPH-460 PO (17:36)
== END 2018-01-12 19:01 | disposition home or self-care (01) ==
LOC: NEPK 16:29
DX: S61.215A Laceration without foreign body of left ring finger without damage to nail, initial encounter (principal); M72.0 Palmar fascial fibromatosis [Dupuytren]; E10.610 Type 1 diabetes mellitus with diabetic neuropathic arthropathy; I10 Essential (primary) hypertension; W25.XXXA Contact with sharp glass, initial encounter; Y93.G1 Activity, food preparation and clean up; Z79.4 Long term (current) use of insulin; Z79.899 Other long term (current) drug therapy
CPT/HCPCS: 12001

== ENCOUNTER 2018-01-13 13:27 | Emergency (ER) | payer SELFPAY ==
[~2018-01-13] VITALS: Ht 170.2 cm; Wt 65.0 kg
[~2018-01-13 13:27] MED LIST changes: +CEPH-460 PO
[2018-01-13 14:09] VITALS: BP 160/83; PULSE 114; RESP 18; TEMP 98.5; O2SAT 99
--- NOTE | 2018-01-13 14:25 | PD ---
HPI Chief Complaint: Medical Clearance Time Seen by Provider: 14:15 Travel History International Travel<30 days: No Contact w/Intl Traveler<30days: No Traveled to known affect area: No History of Present Illness HPI 47-year-old male patient here yesterday with laceration to the dorsal left ring finger, returns for wound check in Worker's Comp. note with restrictions. Patient states he tried to go to work today and was told he needed a note to return. He has no other complaints currently. Laceration still covered, with no obvious signs of infection noted. He has no known drug allergies. PFSH Past Medical History Asthma: No Blood Disorders: No Anxiety: No Depression: No Heart Rhythm Problems: No Cancer: No Cardiovascular Problems: No High Cholesterol: No Chest Pain: No Congestive Heart Failure: No COPD: No Diabetes: Yes Patient Takes Glucophage: No Diminished Hearing: No Endocrine: Yes Gastrointestinal Disorders: No Glaucoma: No Genitourinary: No Headaches: Yes Hepatitis: No Hiatal Hernia: No Hypertension: Yes Musculoskeletal: Yes (CHARCOT IN RIGHT FOOT) Neurologic: No Psychiatric: No Reproductive: No Respiratory: No Sleep Apnea: No Thyroid Disease: No ?: Not Past Surgical History Abdominal Surgery: No AICD: No Cardiac Surgery: No Endocrine Surgery: No Eye Surgery: Yes (CATARAC SX L EYE ) Genitourinary Surgery: No Gynecologic Surgery: No Insulin Pump: Yes Joint Replacement: No Neurologic Surgery: No Oral Surgery: No Pacemaker: No Thoracic Surgery: No Other Surgery: Yes (CATARACT SURG LEFT EYE) Social History Alcohol Use: Yes (OCCASIONALLY ) Tobacco Use: No Substance Use: No Allergies-Medications (Allergen,Severity, Reaction): Coded Allergies: No Known Allergies (Verified Adverse Reaction, Unknown, 01/12/18) Reported Meds & Prescriptions Reported Meds & Active Scripts Active Keflex (Cephalexin) 500 Mg Cap 500 Mg PO Q8H 5 Days Reported Lisinopril 20 Mg Tab 20 Mg PO BID Novolog Inj (Insulin Aspart) 100 Unit/Ml Inj VIA INSULIN PUMP Review of Systems Except as stated in HPI: all other systems reviewed are Neg General / Constitutional: No: Fever Eyes: No: Visual changes HENT: No: Headaches Cardiovascular: No: Chest Pain or Discomfort Respiratory: No: Shortness of Breath Gastrointestinal: No: Abdominal Pain Genitourinary: No: Dysuria Musculoskeletal: No: Pain Skin: No Rash Neurologic: No: Weakness Psychiatric: No: Depression Endocrine: No: Polydipsia Hematologic/Lymphatic: No: Easy Bruising Physical Exam Narrative GENERAL: Patient is in no acute distress per SKIN: Warm and dry. Normal color. Normal turgor. Wound site appears to be healing well with sutures in place. There is a small amount of ecchymosis noted , but no signs of erythema or increased warmth or wound dehiscence HEAD: Atraumatic. Normocephalic. EYES: Pupils equal and round. No scleral icterus. No injection or drainage. ENT: No nasal bleeding or discharge. Mucous membranes pink and moist. Pharynx is clear. NECK: Trachea midline. Supple CARDIOVASCULAR: Regular rate and rhythm. RESPIRATORY: No accessory muscle use. GASTROINTESTINAL: Abdomen soft, non-tender, nondistended. Hepatic and splenic margins not palpable. MUSCULOSKELETAL: Extremities without clubbing, cyanosis, or edema. No obvious deformities. NEUROLOGICAL: Awake and alert. No obvious cranial nerve deficits. Motor grossly within normal limits. Five out of 5 muscle strength in the arms and legs. Normal speech. PSYCHIATRIC: Appropriate mood and affect; insight and judgment normal. Data Data Last Documented VS Vital Signs Date Time Temp Pulse Resp B/P (MAP) Pulse Ox O2 Delivery O2 Flow Rate FiO2 01/13/18 14:09 98.5 114 18 160/83 (108) 99 MDM Medical Decision Making Medical Screen Exam Complete: Yes Emergency Medical Condition: Yes Differential Diagnosis Workplace injury. Laceration dorsal left ring finger. Work release. Narrative Course Patient is medically stable at time of exam. Workers comp forms are filled out with restrictions. Patient is to continue Keflex as previously prescribed. Patient to follow-up in 1 week for suture removal. Diagnosis Primary Impression: Work related injury Additional Impression: Laceration of left ring finger Qualified Codes: S61.215D - Laceration without foreign body of left ring finger without damage to nail, subsequent encounter Patient Instructions: Care For Your Stitches (ED), General Instructions Additional Instructions: Patient is medically stable at time of exam. Workers comp forms are filled out with restrictions. Patient is to continue Keflex as previously prescribed. Patient to follow-up in 1 week for suture removal. Med/Other Pt SpecificInfo: No Change to Meds Disposition: 01 DISCHARGE HOME Condition: Stable Jay Shah Jan 13, 2018 14:25
== END 2018-01-13 14:46 | disposition home or self-care (01) ==
LOC: NEPK 13:27
DX: S61.215D Laceration without foreign body of left ring finger without damage to nail, subsequent encounter (principal); X58.XXXD Exposure to other specified factors, subsequent encounter
CPT/HCPCS: 99281

== ENCOUNTER 2018-01-23 12:39 | Emergency (ER) | payer SELFPAY ==
[~2018-01-23] VITALS: Ht 170.2 cm; Wt 66.0 kg
[~2018-01-23 12:39] MED LIST changes: -BACT800T5 PO; -CLIN150C14 PO; -VITA1000 PO
[2018-01-23 12:56] VITALS: BP 159/87; PULSE 108; RESP 14; TEMP 98.5; O2SAT 99
[2018-01-23] MEDS ORDERED: BACT800T5 PO (13:58)
[2018-01-23] MEDS ORDERED: AMOX875T PO (13:58)
--- NOTE | 2018-01-23 13:59 | PD ---
HPI Chief Complaint: Skin Problem Time Seen by Provider: 13:17 Travel History International Travel<30 days: No Contact w/Intl Traveler<30days: No Traveled to known affect area: No History of Present Illness HPI Patient is a 47 year old male who comes in for suture removal. He had stitches place in his hand on January 12. He denies any issues with the wound. He denies any pain to the hand, oozing from the wound. He is also concerned about a chronic wound to his left heel which he says is a bedsore that has been healing. He is a diabetic and is concerned about infection. He denies any fever or chills. He says when he has a bandage on his wound there is always some fluid on it when it comes off. He is also concerned about running out of his insulin. Currently he still has insulin, but he is without insurance and cannot afford insulin going further. Severity is mild. PFSH Past Medical History Asthma: No Blood Disorders: No Anxiety: No Depression: No Heart Rhythm Problems: No Cancer: No Cardiovascular Problems: No High Cholesterol: No Chest Pain: No Congestive Heart Failure: No COPD: No Diabetes: Yes Patient Takes Glucophage: No Diminished Hearing: No Endocrine: Yes Gastrointestinal Disorders: No Glaucoma: No Genitourinary: No Headaches: Yes Hepatitis: No Hiatal Hernia: No Hypertension: Yes Musculoskeletal: Yes (CHARCOT IN RIGHT FOOT) Neurologic: No Psychiatric: No Reproductive: No Respiratory: No Integumentary: Yes (chronic wound right heel ) Sleep Apnea: No Thyroid Disease: No Tetanus Vaccination: < 5 Years Influenza Vaccination: No Past Surgical History Abdominal Surgery: No AICD: No Cardiac Surgery: No Endocrine Surgery: No Eye Surgery: Yes (CATARAC SX L EYE ) Genitourinary Surgery: No Gynecologic Surgery: No Insulin Pump: Yes Joint Replacement: No Neurologic Surgery: No Oral Surgery: No Pacemaker: No Thoracic Surgery: No Other Surgery: Yes (CATARACT SURG LEFT EYE) Social History Alcohol Use: Yes (OCCASIONALLY ) Tobacco Use: No Substance Use: No Allergies-Medications (Allergen,Severity, Reaction): Coded Allergies: No Known Allergies (Verified Adverse Reaction, Unknown, 01/23/18) Reported Meds & Prescriptions Reported Meds & Active Scripts Active Reported Lisinopril 20 Mg Tab 20 Mg PO BID Novolog Inj (Insulin Aspart) 100 Unit/Ml Inj VIA INSULIN PUMP Review of Systems General / Constitutional: No: Fever, Chills HENT: No: Headaches, Lightheadedness Cardiovascular: No: Chest Pain or Discomfort Respiratory: No: Shortness of Breath Musculoskeletal: No: Myalgias Skin: Positive Lesions, No Change in Pigmentation Neurologic: No: Weakness, Dizziness Physical Exam Narrative GENERAL: Awake and alert, in no acute distress. SKIN: Well-healed wound to the left hand, sutures in place. There is no bruising, warmth, signs of infection. Pressure ulcer to the left heel, about 1 cm in diameter. There are no signs of infection. HEAD: Atraumatic. Normocephalic. EYES: Pupils equal and round. No scleral icterus. No injection or drainage. ENT: Mucous membranes pink and moist. NECK: Trachea midline. No JVD. CARDIOVASCULAR: Regular rate and rhythm. No murmur appreciated. RESPIRATORY: No accessory muscle use. Clear to auscultation. Breath sounds equal bilaterally. MUSCULOSKELETAL: No obvious deformities. No clubbing. No cyanosis. No edema. NEUROLOGICAL: Awake and alert. No obvious cranial nerve deficits. Motor grossly within normal limits. Normal speech. Data Data Last Documented VS Vital Signs Date Time Temp Pulse Resp B/P (MAP) Pulse Ox O2 Delivery O2 Flow Rate FiO2 01/23/18 12:56 98.5 108 14 159/87 (111) 99 MDM Medical Decision Making Medical Screen Exam Complete: Yes Emergency Medical Condition: Yes Medical Record Reviewed: Yes Differential Diagnosis Suture removal versus cellulitis versus wound infection Narrative Course Patient is a 47-year-old male comes in for suture removal in due to concerns about a wound on his foot. Exam shows a well-healed wound to his hand. There is a pressure ulcer on his foot, without overt evidence of infection. Patient is very concerned due to his diabetes. He will be given prescriptions for amoxicillin and Bactrim, which are free at 2C2P. Advised return anytime for any worsening symptoms. Advised follow-up with the [facility]. Given information about patient assistance. Diagnosis Primary Impression: Visit for suture removal Additional Impression: Pressure ulcer Qualified Codes: L89.629 - Pressure ulcer of left heel, unspecified stage Referrals: [facility] call for appointment Patient Instructions: Acute Wound Care (GEN), General Instructions Additional Instructions: Take all of the antibiotic. Follow-up with the [facility]. Return anytime for any worsening symptoms. Scripts Sulfamethoxazole-Trimethoprim (Bactrim DS) 800-160 Mg Tab 1 TAB PO BID for Infection, #14 TAB 0 Refills Prov: Monique Gaitan MD 01/23/18 Amoxicillin (Amoxicillin) 875 Mg Tab 875 MG PO BID for Infection for 7 Days, #14 TAB 0 Refills Prov: Monique Gaitan MD 01/23/18 Disposition: 01 DISCHARGE HOME Condition: Stable Monique Gaitan MD Jan 23, 2018 13:58
== END 2018-01-23 14:07 | disposition home or self-care (01) ==
LOC: NEPD 12:39
DX: Z48.02 Encounter for removal of sutures (principal); L89.629 Pressure ulcer of left heel, unspecified stage; I10 Essential (primary) hypertension; E11.9 Type 2 diabetes mellitus without complications; Z79.4 Long term (current) use of insulin
CPT/HCPCS: 99283

== ENCOUNTER 2018-03-09 11:09 | Emergency (ER) | payer SELFPAY ==
[~2018-03-09] VITALS: Ht 170.2 cm; Wt 66.0 kg
[~2018-03-09 11:09] MED LIST changes: +AMOX875T PO; +BACT800T5 PO; -CEPH-460 PO
[2018-03-09 11:17] VITALS: BP 184/101; PULSE 103; RESP 20; TEMP 98.6; O2SAT 100
[2018-03-09 11:52] VITALS: BP 187/98; PULSE 96
[2018-03-09] MEDS ORDERED: SODIUM CHLORIDE 0.9% FLUSH 10 ML FLUSH IV FLUSH PRN (12:30)
[2018-03-09 12:45] VITALS: O2SAT 99
[2018-03-09 13:08] LABS: AUTOMATED NEUTROPHIL # 1.5 TH/MM3 (1.8-7.7); BASOPHIL % 0.5 % (0.0-2.0); EOSINOPHIL # 0.1 TH/MM3 (0-0.4); EOSINOPHIL % 2.9 % (0.0-4.0); HEMATOCRIT 34.5 % (39.0-51.0); HEMOGLOBIN 11.6 GM/DL (13.0-17.0); LYMPH % 38.8 % (9.0-44.0); LYMPHOCYTE # 1.4 TH/MM3 (1.0-4.8); MEAN CELL VOLUME 93.1 FL (80.0-100.0); MEAN CORPUSCULAR HEMOGLOBIN 31.4 PG (27.0-34.0); MEAN CORPUSCULAR HGB CONC 33.7 % (32.0-36.0); MEAN PLATELET VOLUME 9.4 FL (7.0-11.0); MONO % 14.9 % (0.0-8.0); MONOCYTE # 0.5 TH/MM3 (0-0.9); NEUT % 42.9 % (16.0-70.0); PLATELET COUNT 215 TH/MM3 (150-450); RED BLOOD COUNT 3.71 MIL/MM3 (4.50-5.90); RED CELL DISTRIBUTION WIDTH 13.9 % (11.6-17.2); WHITE BLOOD COUNT 3.6 TH/MM3 (4.0-11.0)
[2018-03-09 13:23] LABS: ALBUMIN 3.7 GM/DL (3.4-5.0); AST (GOT) 58 U/L (15-37); BICARBONATE 27.9 MEQ/L (21.0-32.0); BLOOD UREA NITROGEN 9 MG/DL (7-18); CHLORIDE 100 MEQ/L (98-107); CREATININE 1.21 MG/DL (0.60-1.30); GLOMERULAR FILTRATION RATE 65 ML/MIN (>89); GLUCOSE,RANDOM 93 MG/DL (74-106); SODIUM (NA) 137 MEQ/L (136-145)
[2018-03-09 13:24] LABS: ALT (GPT) 31 U/L (12-78)
[2018-03-09 13:27] LABS: ALKALINE PHOSPHATASE 146 U/L (45-117); TOTAL BILIRUBIN ADULT 0.5 MG/DL (0.2-1.0); TOTAL PROTEIN 7.7 GM/DL (6.4-8.2)
--- NOTE | 2018-03-09 13:28 | RADRPT ---
EXAM DATE: 03/09/2018 1:09 PM EDT AGE/SEX: 47 years / Male INDICATIONS: Right ankle pain on both medial and lateral malleoli. CLINICAL DATA: This is the patient's initial encounter. Patient reports that signs and symptoms have been present for 1 week and indicates a pain score of 8/10. MEDICAL/SURGICAL HISTORY: Diabetes mellitus type I. Charcot foot. . Right toe, 4th digit amput ation. COMPAR[place] [facility] [place] 04/07/2017. . FINDINGS: No definite fractures, or dislocations are identified. No definite lytic or sclerotic les ion is seen. Soft tissue swelling is seen. There is cortical irregularity of the distal fibula and t he lateral malleolus chronic in nature not significantly changed since 2017 probably due to old traum a. Chronic vascular calcifications are seen. CONCLUSION: Unremarkable study except for soft tissue swelling. Electronically signed by: Maira Lacey MD 03/09/2018 1:26 PM EDT
--- NOTE | 2018-03-09 13:59 | PD ---
HPI Chief Complaint: Injury Time Seen by Provider: 12:14 Travel History International Travel<30 days: No Contact w/Intl Traveler<30days: No Traveled to known affect area: No History of Present Illness HPI 47-year-old type I diabetic presented to the emergency department with pain and swelling in the right foot. Patient denies any significant injury history. Patient denies fever or chills. Patient states she had similar episode about a year ago, and was diagnosed with Charcot foot. Patient states he woke up with this a couple of days ago. Patient has diabetic neuropathy, with decreased sensation in the toes and feet, however he can feel the pain in the right ankle at this time. He rates the pain at about an 8 out of 10. He states it is worsened in the last 24 hours. He has no other acute complaints. No known drug allergies. PFSH Past Medical History Asthma: No Blood Disorders: No Anxiety: No Depression: No Heart Rhythm Problems: No Cancer: No Cardiovascular Problems: No High Cholesterol: No Chest Pain: No Congestive Heart Failure: No COPD: No Diabetes: Yes Patient Takes Glucophage: No Diminished Hearing: No Endocrine: Yes Gastrointestinal Disorders: No Glaucoma: No Genitourinary: No Headaches: Yes Hepatitis: No Hiatal Hernia: No Hypertension: Yes Medical other: No Musculoskeletal: Yes (CHARCOT IN RIGHT FOOT) Neurologic: No Psychiatric: No Reproductive: No Respiratory: No Integumentary: Yes (chronic wound right heel ) Sleep Apnea: No Thyroid Disease: No Influenza Vaccination: No Past Surgical History Abdominal Surgery: No AICD: No Cardiac Surgery: No Endocrine Surgery: No Eye Surgery: Yes (CATARAC SX L EYE ) Genitourinary Surgery: No Gynecologic Surgery: No Insulin Pump: Yes Joint Replacement: No Neurologic Surgery: No Oral Surgery: No Pacemaker: No Thoracic Surgery: No Other Surgery: Yes (CATARACT SURG LEFT EYE) Social History Alcohol Use: Yes (daily 3 mixed drinks) Tobacco Use: No Substance Use: No Allergies-Medications (Allergen,Severity, Reaction): Coded Allergies: No Known Allergies (Verified Adverse Reaction, Unknown, 03/09/18) Reported Meds & Prescriptions Reported Meds & Active Scripts Active Reported Lisinopril 20 Mg Tab 20 Mg PO BID Novolog Inj (Insulin Aspart) 100 Unit/Ml Inj VIA INSULIN PUMP Review of Systems Except as stated in HPI: all other systems reviewed are Neg General / Constitutional: No: Fever, Chills Eyes: No: Visual changes HENT: No: Headaches Cardiovascular: No: Chest Pain or Discomfort Respiratory: No: Shortness of Breath Gastrointestinal: No: Abdominal Pain Genitourinary: No: Dysuria Musculoskeletal: Positive: Arthralgias, Limited ROM, Pain, Other (Swelling.) Skin: No Rash Neurologic: No: Weakness Psychiatric: No: Depression Endocrine: No: Polydipsia Hematologic/Lymphatic: No: Easy Bruising Physical Exam Narrative GENERAL: Patient appears in no obvious distress per SKIN: Warm and dry. Normal color. Normal turgor. Patient does have some superficial abrasions to the right lateral foot, without any increased erythema , warmth, or other signs of cellulitis. The right foot and ankle do appear to be swollen, but without ecchymosis HEAD: Atraumatic. Normocephalic. EYES: Pupils equal and round. No scleral icterus. No injection or drainage. ENT: No nasal bleeding or discharge. Mucous membranes pink and moist. Pharynx is clear. Airways patent. NECK: Trachea midline. Supple and nontender. CARDIOVASCULAR: Regular rate and rhythm. RESPIRATORY: No accessory muscle use. Clear to auscultation. Breath sounds equal bilaterally. MUSCULOSKELETAL: Extremities without clubbing, cyanosis, or edema. No obvious deformities. Right foot and ankle appears swollen consistent with patient's history. Range of motion is intact. No crepitus is appreciated. NEUROLOGICAL: Awake and alert. No obvious cranial nerve deficits. Motor grossly within normal limits. Five out of 5 muscle strength in the arms and legs. Normal speech. Patient reports decreased sensation in all of his toes and bilateral distal feet. He states normal sensation just above both ankles. PSYCHIATRIC: Appropriate mood and affect; insight and judgment normal. Data Data Last Documented VS Vital Signs Date Time Temp Pulse Resp B/P (MAP) Pulse Ox O2 Delivery O2 Flow Rate FiO2 03/09/18 12:45 99 03/09/18 11:52 96 03/09/18 11:17 98.6 20 Orders Orders Complete Blood Count With Diff (03/09/18 12:22) Comprehensive Metabolic Panel (03/09/18 12:22) Iv Access Insert/Monitor (03/09/18 12:22) Ecg Monitoring (03/09/18 12:22) Oximetry (03/09/18 12:22) Sodium Chloride 0.9% Flush (Ns Flush) (03/09/18 12:30) Ankle, Complete ([id number]) (03/09/18 12:22) Foot, Complete ([id number]) (03/09/18 12:22) Labs Laboratory Tests Test 03/09/18 12:35 White Blood Count 3.6 TH/MM3 Red Blood Count 3.71 MIL/MM3 Hemoglobin 11.6 GM/DL Hematocrit 34.5 % Mean Corpuscular Volume 93.1 FL Mean Corpuscular Hemoglobin 31.4 PG Mean Corpuscular Hemoglobin Concent 33.7 % Red Cell Distribution Width 13.9 % Platelet Count 215 TH/MM3 Mean Platelet Volume 9.4 FL Neutrophils (%) (Auto) 42.9 % Lymphocytes (%) (Auto) 38.8 % Monocytes (%) (Auto) 14.9 % Eosinophils (%) (Auto) 2.9 % Basophils (%) (Auto) 0.5 % Neutrophils # (Auto) 1.5 TH/MM3 Lymphocytes # (Auto) 1.4 TH/MM3 Monocytes # (Auto) 0.5 TH/MM3 Eosinophils # (Auto) 0.1 TH/MM3 Basophils # (Auto) 0.0 TH/MM3 CBC Comment DIFF FINAL Differential Comment Blood Urea Nitrogen 9 MG/DL Creatinine 1.21 MG/DL Random Glucose 93 MG/DL Total Protein 7.7 GM/DL Albumin 3.7 GM/DL Calcium Level 9.0 MG/DL Alkaline Phosphatase 146 U/L Aspartate Amino Transf (AST/SGOT) 58 U/L Alanine Aminotransferase (ALT/SGPT) 31 U/L Total Bilirubin 0.5 MG/DL Sodium Level 137 MEQ/L Potassium Level 4.1 MEQ/L Chloride Level 100 MEQ/L Carbon Dioxide Level 27.9 MEQ/L Anion Gap 9 MEQ/L Estimat Glomerular Filtration Rate 65 ML/MIN MDM Medical Decision Making Medical Screen Exam Complete: Yes Emergency Medical Condition: Yes Medical Record Reviewed: Yes Differential Diagnosis Right ankle pain. Right ankle swelling. Right foot pain. Right foot swelling. Stress fractures. Cellulitis. Narrative Course Labs ordered including CBC, CMP. X-rays of the right foot are ordered. IV access is obtained. CBC showed WBC count of 3.6, RBCs of 3.71. Hemoglobin is 11.6, hematocrit is 34.4. Chemistries unremarkable, with a sugar of 93, normal BUN and creatinine, AST slightly elevated at 58, and alk phos is 146. Right foot x-ray shows: There is evidence for amputation of the fourth digit the level of the distal portion of the proximal phalanx. 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 No definite fractures, or dislocations are identified. No definite lytic or sclerotic lesion is seen. Slight osteopenia is seen. Right ankle x-ray shows: No definite fractures, or dislocations are identified. No definite lytic or sclerotic lesion is seen. Soft tissue swelling is seen. There is cortical irregularity of the distal fibula and the lateral malleolus chronic in nature not significantly changed since 2017 probably due to old trauma. Chronic vascular calcifications are seen. Patient is felt to be having a flare of his Charcot foot. Patient has crutches at home and is instructed to be nonweightbearing as much as possible until seen in follow-up with podiatry. Patient is given tramadol 50 mg 1 every 6 hours as needed pain #20. Patient to follow-up with Dr. Reeder, who is seen in the past for further evaluation and treatment. Diagnosis Primary Impression: Charcot foot due to diabetes mellitus Referrals: Marcos Reeder DPM call for appointment Patient Instructions: Crutch Instructions (ED), General Instructions Additional Instructions: CBC showed WBC count of 3.6, RBCs of 3.71. Hemoglobin is 11.6, hematocrit is 34.4. Chemistries unremarkable, with a sugar of 93, normal BUN and creatinine, AST slightly elevated at 58, and alk phos is 146. Right foot x-ray shows: There is evidence for amputation of the fourth digit the level of the distal portion of the proximal phalanx. 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 No definite fractures, or dislocations are identified. No definite lytic or sclerotic lesion is seen. Slight osteopenia is seen. Right ankle x-ray shows: No definite fractures, or dislocations are identified. No definite lytic or sclerotic lesion is seen. Soft tissue swelling is seen. There is cortical irregularity of the distal fibula and the lateral malleolus chronic in nature not significantly changed since 2017 probably due to old trauma. Chronic vascular calcifications are seen. Patient is felt to be having a flare of his Charcot foot. Patient has crutches at home and is instructed to be nonweightbearing as much as possible until seen in follow-up with podiatry. Patient is given tramadol 50 mg 1 every 6 hours as needed pain #20. Patient to follow-up with Dr. Reeder, who is seen in the past for further evaluation and treatment. Med/Other Pt SpecificInfo: Prescription(s) given Disposition: 01 DISCHARGE HOME Condition: Stable Jay Shah Mar 09, 2018 13:59
--- NOTE | 2018-03-09 14:14 | RADRPT ---
EXAM DATE: 03/09/2018 1:15 PM EDT AGE/SEX: 47 years / Male INDICATIONS: Right foot pain, no known injury. CLINICAL DATA: This is the patient's initial encounter. Patient reports that signs and symptoms have been present for 1 week and indicates a pain score of 0/10. MEDICAL/SURGICAL HISTORY: Diabetes mellitus type I. Charcot foot. . Right foot,4th digit amput ation. COMPARISON: No prior [facility] exams available for comparison. FINDINGS: There is evidence for amputation of the fourth digit the level of the distal portion of the proximal phalanx. Degenerative osteoarthritis is present within multiple interphalangeal joints and first meta tarsophalangeal joint worse involving the first metatarsophalangeal joint to a slight degree. No def inite fractures, or dislocations are identified. No definite lytic or sclerotic lesion is seen. Sli ght osteopenia is seen. CONCLUSION: Chronic changes and no definite fracture for technique. Electronically signed by: Maira Lacey MD 03/09/2018 2:13 PM EDT
[2018-03-09] MEDS ORDERED: TRAM50TA PO (14:36)
[2018-03-09] MEDS ORDERED: HYDR-3516 PO (14:40)
== END 2018-03-09 14:54 | disposition home or self-care (01) ==
LOC: NEPD 11:09
DX: E11.610 Type 2 diabetes mellitus with diabetic neuropathic arthropathy (principal); Z79.4 Long term (current) use of insulin
CPT/HCPCS: 73610; 73630; 80053; 85025; 99284

== ENCOUNTER 2018-06-23 22:51 | Inpatient (IN) ==
--- NOTE | 2018-06-24 00:01 | XR ---
EXAM DATE: 06/23/2018 11:55 PM EDT AGE/SEX: 47 years / Male INDICATIONS: Trauma to knee. CLINICAL DATA: This is the patient's initial encounter. Patient reports that signs and symptoms have been present for 1 day and indicates a pain score of 10/10. MEDICAL/SURGICAL HISTORY: Diabetes mellitus type I. Hypertension. . Right foot,4th digit amput ation. Right femur. Left eye. Right hand. COMPARISON: No prior exams available for comparison. FINDINGS: There is a nonacute appearing, oblique fracture in the distal metadiaphyseal region of the left femur . A very slight degree of posterior angulation is noted. Otherwise no significant displacement. No ot her fractures are seen. Articular surfaces are intact. No subluxations. There is a large lipohemarthrosis. There is an intramedullary rebecca of the left femur. The fracture is approximately 1.7 cm below the dist al tip of the rebecca. CONCLUSION: Minimally displaced distal metadiaphyseal fracture of the left femur with a large left knee lipohemar throsis. Electronically signed by: Daljit Guaman MD 06/24/2018 12:00 AM EDT
[2018-06-24] MEDS ORDERED: Morphine Inj 4 MG/ML Vial IV.PUSH ONE (00:02)
[2018-06-24] MEDS ORDERED: Bisacodyl 10 MG Supp RECTAL PRN (00:58)
[2018-06-24] MEDS ORDERED: Acetaminophen 325 MG Tablet PO PRN (00:58)
--- NOTE | 2018-06-24 01:05 | ED ---
HPI General Chief Complaint: Extremity Injury, Lower Stated Complaint: Evac/L Knee Complaint Time Seen by Provider: 06/23/18 23:00 Source: patient Mode of arrival: EMS Limitations: no limitations History of Present Illness MD complaint: knee injury Onset (ago): minute(s) Type of Injury: blunt Place: home Severity: moderate Severity scale (1-10): 6 Relieving factors: nothing Exacerbating factors: movement Context: fall Associated symptoms: swelling and unable to bear weight Other symptoms: none Related Data Allergies Allergy/AdvReac Type Severity Reaction Status Date / Time No Known Allergies AdvReac Unknown Uncoded 03/09/18 11:44 Review of Systems ROS: all other systems reviewed are negative [facility] Medical History Medical History Hypertension (Acute) Hypertension (Acute) Surgical History Surgical History History of cataract surgery (Acute) History of partial amputation of toe (Acute) Status post trigger finger release (Acute) Family History Family History Other CVA (cerebral vascular accident) Colon cancer Hypertension Social History Social History Second Hand Smoke Exposure: Yes Smoking Status: Current every day smoker Tobacco Type: Cigarettes How Often Do You Have a Drink Containing Alcohol: Monthly or less Recent Travel in [facility] within the Last 8 Weeks: No Recent Out of Country Travel within the Last 8 Weeks: No Immunization History Tetanus Immunization: Unsure Hx Influenza Vaccine This Season: No Exam Const General: cooperative, comfortable, no acute distress, well developed, well groomed and other (Chronically ill-appearing) Orientation: alert, awake and oriented x3 HENMT Head: normal to inspection, normocephalic and atraumatic Eyes Alignment and Position: alignment normal Conjunctivae: conjunctivae normal Sclera: sclerae normal EOM: EOM intact bilaterally Neck Neck: normal visual inspection and full ROM Chest Chest: normal inspection of the chest Resp Effort & Inspection: normal respiratory effort and able to speak in complete sentences Cardio Rate: regular rate Rhythm: regular rhythm Back/Spine/Pelvis Cervical Spine: cervical ROM normal Thoracic/Lumbar Spine: thoraco-lumbar ROM normal Skin General: no rashes or lesions noted, turgor normal and other (intact) Neuro General: alert, awake, oriented x3, moves all extremities and CN's II-XI intact bilaterally Extrem Right upper extremity: hand Left upper extremity: hand (Amputations of the distal aspect of most fingers) Left lower extremity: knee Details: abnormal to inspection (Effusion), tenderness, swelling and abnormal ROM Psych Appearance: grossly normal Mental Status: mental status grossly normal Speech and Movement: speech and movement normal Mood: congruent mood Affect: normal affect Attitude: cooperative Thought Process: normal Thought Content: normal Judgment: judgment good Course Consultations Consultation #1: Dr. Israel Time: 12:21 Initial Documented Vital Signs Temperature 98.5 F 06/23/18 23:00 Pulse Rate 101 H 06/23/18 23:00 Respiratory Rate 16 06/23/18 23:00 Blood Pressure 177/93 H 06/23/18 23:00 Pulse Oximetry 99 06/23/18 23:00 Last Documented Vital Signs Temperature 98.5 F 06/23/18 23:00 Pulse Rate 91 H 06/24/18 00:38 Respiratory Rate 16 06/24/18 00:53 Blood Pressure 153/80 H 06/24/18 00:38 Pulse Oximetry 99 06/24/18 00:38 Medical Decision Making [facility] Narrative Medical decision making narrative: This patient presents to us via [facility] following a slip and fall at home. He fell on a flexed left knee. He has had previous trauma to his left femur secondary to another slip and fall which occurred in August. He had a proximal femur fracture and is status post an IM rebecca. He did have pictures on his phone from that previous injury. That injury occurred in [place]. On exam, he has a left knee effusion with diffuse tenderness to palpation. He is distally neurovascularly intact. Medical Screen Exam Complete: Yes Emergency Medical Condition: Yes Differential Diagnosis Differential Diagnosis: Differential diagnosis of extremity trauma includes but is not limited to fracture, sprain or strain, dislocation, contusion Imaging Data Attestation: I personally reviewed and interpreted this imaging study as follows : Radiologist's impression: Knee X-Ray 06/23/18 23:01 CONCLUSION: Minimally displaced distal metadiaphyseal fracture of the left femur with a large left knee lipohemarthrosis. Discharge Plan Discharge Disposition Patient Disposition: 30 Still Patient Discharge Details Diagnosis: Closed fracture of left distal femur Physicians Team ED Provider: Carlotta Choe Primary Care Provider: Primary Care Physici,No Attending Provider: Jaleesa Israel Other Providers: Jaime Marte Discharge Interventions Interventions: Vital Signs Last Done: 06/24/18 00:38 Status ED Status: Admitted Patient
--- NOTE | 2018-06-24 01:06 | P.HP ---
History of Present Illness Service: [facility] Primary Care Physician: No Primary Care Physician History of Present Illness: 47-year-old male with a past medical history significant for type 1 diabetes mellitus with insulin pump and hypertension presents to the emergency department after suffering a fall. The patient reports he was walking on his linoleum kitchen floor when he slipped and fell and placed all of his weight on his left knee. He has a distal femur fracture. He denies any loss of consciousness or head trauma. No other injuries. No chest pain or shortness of breath. No abdominal pain. No nausea/vomiting/diarrhea. No fever/chills. Review of Systems All other systems reviewed negative except as stated in HPI [facility] - History History Provided By: Patient - Medical History Medical History: Medical History (Last Updated 06/24/18 @ 01:03 by Jaleesa Israel MD) Diabetes mellitus History of amputation of finger Hypertension - Surgical History Surgical History: Surgical History (Last Updated 06/24/18 @ 01:03 by Jaleesa Israel MD) History of cataract surgery History of partial amputation of toe Status post trigger finger release - Family History Family History: Family History (Last Updated 06/24/18 @ 01:04 by Jaleesa Israel MD) Other CVA (cerebral vascular accident) Colon cancer Hypertension - Tobacco History Second Hand Smoke Exposure: Yes Tobacco Use In Past 30 Days: Yes Smoking Status: Current every day smoker Tobacco Type: Cigarettes - Alcohol History How Often Do You Have a Drink Containing Alcohol: Monthly or less - Travel History Recent Travel in the [facility] Within the Last 8 Weeks: No Recent Travel Out of the Country Within the Last 8 Weeks: No - Immunization History Tetanus Immunization: Unsure Hx Influenza Vaccine This Season: No Medications and Allergies Allergies Allergy/AdvReac Type Severity Reaction Status Date / Time No Known Allergies AdvReac Unknown Uncoded 03/09/18 11:44 Exam Vital signs: Vital Signs 06/23/18 23:00 06/23/18 23:02 06/24/18 00:38 Temperature 98.5 F Pulse Rate 101 H 91 H Respiratory Rate 16 16 16 Blood Pressure 177/93 H 153/80 H Pulse Oximetry 99 99 06/24/18 00:53 Temperature Pulse Rate Respiratory Rate 16 Blood Pressure Pulse Oximetry Intake & Output 06/23/18 06/23/18 06/24/18 06:59 18:59 06:59 Weight 76 kg Narrative: Gen.: No acute distress Head: Normocephalic. Atraumatic. EENT: Pupils equal round and reactive to light. Nose without drainage. Airway intact. Throat without injection. Cardiovascular: Regular rate and rhythm. No murmurs, rubs or gallops. Respiratory: Lungs clear to auscultation bilaterally. No wheezes or rhonchi. Abdomen: Soft, nontender, nondistended. No peritoneal signs. Musculoskeletal: No gross deformities. No edema. Skin: No obvious rashes or erythema. Neuro: Sensory and motor grossly intact. Cranial nerves II through XII grossly intact. Results - Imaging Impressions Knee X-Ray 06/23/18 23:01 CONCLUSION: Minimally displaced distal metadiaphyseal fracture of the left femur with a large left knee lipohemarthrosis. Caprini VTE Risk Assessment Caprini VTE Risk Assessment: No/Low Risk (score <= 1) Caprini Risk Assessment Model: Point Value = 1 Point Value = 2 Point Value = 3 Point Value = 5 Age 41-60 Minor surgery BMI > 25 kg/m2 Swollen legs Varicose veins or History of unexplained or recurrent spontaneous Oral contraceptives or hormone replacement Sepsis (< 1 month) Serious lung disease, including pneumonia (< 1 month) Abnormal pulmonary function Acute myocardial infarction Congestive heart failure (< 1 month) History of inflammatory bowel disease Medical patient at bed rest Age 61-74 Arthroscopic surgery Major open surgery (> 45 min) Laparoscopic surgery (> 45 min) Malignancy Confined to bed (> 72 hours) Immobilizing plaster cast Central venous access Age >= 75 History of VTE Family history of VTE Factor V Leiden Prothrombin [id number] Lupus anticoagulant Anticardiolipin antibodies Elevated serum homocysteine Heparin-induced thrombocytopenia Other congenital or acquired thrombophilia Stroke (< 1 month) Elective arthroplasty Hip, pelvis, or leg fracture Acute spinal cord injury (< 1 month) Prophylaxis Regimen: Total Risk Factor Score Risk Level Prophylaxis Regimen 0-1 Low Early ambulation 2 Moderate Order ONE of the following: *Sequential Compression Device (SCD) *Heparin 5000 units SQ BID 3-4 Higher Order ONE of the following medications: *Heparin 5000 units SQ TID *Enoxaparin/Lovenox 40 mg SQ daily (WT < 150 kg, CrCl > 30 mL/min) *Enoxaparin/Lovenox 30 mg SQ daily (WT < 150 kg, CrCl > 10-29 mL/min) *Enoxaparin/Lovenox 30 mg SQ BID (WT < 150 kg, CrCl > 30 mL/min) AND/OR *Sequential Compression Device (SCD) 5 or more Highest Order ONE of the following medications: *Heparin 5000 units SQ TID (Preferred with Epidurals) *Enoxaparin/Lovenox 40 mg SQ daily (WT < 150 kg, CrCl > 30 mL/min) *Enoxaparin/Lovenox 30 mg SQ daily (WT < 150 kg, CrCl > 10-29 mL/min) *Enoxaparin/Lovenox 30 mg SQ BID (WT < 150 kg, CrCl > 30 mL/min) AND *Sequential Compression Device (SCD) Assessment and Plan - Plan Assessment/plan: 1. Distal femur fracture X-ray of the left knee significant for minimally displaced distal Metadiaphyseal fracture of the left femur Orthopedic surgery consulted, appreciate recommendations N.p.o. Morphine for pain 2. Diabetes mellitus Patient with insulin pump which he will leave on until the morning Accu-Cheks every 6 hours as patient n.p.o. 3. Hypertension Continue home lisinopril FEN N.p.o. Electrolytes: Pending
[2018-06-24] MEDS: Sod Chloride 0.9% Inj 1,000 ML IV.CONT SCH ×3 (01:10→19:27)
[2018-06-24 01:35] LABS: Baso % (Auto) 0.6 % (0.0-2.0); Eos # (Auto) 0.1 th/mm3 (0.0-0.4); Eos % (Auto) 1.8 % (0.0-4.0); Hematocrit 33.2 % (39.0-51.0); Hemoglobin 11.6 gm/dL (13.0-17.0); Lymph # (Auto) 1.1 th/mm3 (1.0-4.8); Lymph % (Auto) 22.2 % (9.0-44.0); Mean Corpuscular HGB Conc 34.9 % (32.0-36.0); Mean Corpuscular Hemoglobin 31.9 pg (27.0-34.0); Mean Corpuscular Volume 91.4 fL (80.0-100.0); Mean Platelet Volume 9.7 fL (7.0-11.0); Mono # (Auto) 0.5 th/mm3 (0.0-0.9); Mono % (Auto) 9.7 % (0.0-8.0); Neut # (Auto) 3.2 th/mm3 (1.8-7.7); Neut % (Auto) 65.7 % (16.0-70.0); Platelet Count 228 th/mm3 (150-450); Red Blood Count 3.63 mil/mm3 (4.50-5.90); Red Cell Distribution Width 13.1 % (11.6-17.2); White Blood Count 4.9 th/mm3 (4.0-11.0)
[2018-06-24 01:43] LABS: Activated Partial Thrombo Time 28.8 sec (24.3-30.1)
[2018-06-24 01:45] LABS: Calcium 8.8 mg/dL (8.5-10.1); Carbon Dioxide 28.7 meq/L (21.0-32.0); Potassium 4.3 meq/L (3.5-5.1)
[2018-06-24] MEDS ORDERED: Chlorhexidine Gluconate 2% 1 Pack (2 Cloths) TOPICAL ONE (02:21)
[2018-06-24] MEDS: Morphine Inj 4 MG/ML Vial IV.PUSH PRN ×5 (02:38→20:19)
[2018-06-24] MEDS ORDERED: Sodium Chlor 0.9% Inj 500 ML IV.SIG SCH (03:00)
[2018-06-24] MEDS: Lisinopril 20 MG Tablet PO SCH (08:41)
[2018-06-24] MEDS: Senna/Docusate Sodium 8.6/50 MG Tablet PO SCH ×2 (08:42→20:19)
--- NOTE | 2018-06-24 08:57 | P.PNOP ---
Subjective Interval history: Fracture approximately 1 year ago to left femur. Patient is a diabetic. He had a trip and fall in the bathtub with significant left knee pain. He was diagnosed with some minimally displaced supracondylar femur fracture distal to the intramedullary rebecca Physical Exam Vital signs: Vital Signs 06/23/18 23:00 06/23/18 23:02 06/24/18 00:38 Temperature 98.5 F Pulse Rate 101 H 91 H Respiratory Rate 16 16 16 Blood Pressure 177/93 H 153/80 H Pulse Oximetry 99 99 06/24/18 00:53 06/24/18 04:00 06/24/18 08:00 Temperature 98.4 F 98.2 F Pulse Rate 87 91 H Respiratory Rate 16 18 18 Blood Pressure 155/82 H 147/91 H Pulse Oximetry 96 98 Intake & Output 06/23/18 06/24/18 06/24/18 18:59 06:59 18:59 Output Total 900 / 900 Balance -900 / -900 Weight 76.1 kg Output: Urine 900 / 900 Other: Date of Last Bowel Movement 06/23/18 Weight On Admission 76 kg Narrative: Left lower extremity: No pain to palpation of hip or ankle. Distally intact distal pulses. He has neuropathy with minimal sensation over his foot. His pain to palpation of the knee. He has mild swelling. His knee is at 30 on a pillow with no knee immobilizer Results - Labs CBC & Chem 7: 06/24/18 01:15 06/24/18 01:15 Laboratory Results - last 24 hr 06/24/18 06/24/18 06/24/18 01:15 01:15 01:15 WBC 4.9 RBC 3.63 L Hgb 11.6 L Hct 33.2 L MCV 91.4 MCH 31.9 MCHC 34.9 RDW 13.1 Plt Count 228 MPV 9.7 Neut % (Auto) 65.7 Lymph % (Auto) 22.2 [place] % (Auto) 9.7 H Eos % (Auto) 1.8 Baso % (Auto) 0.6 Neut # (Auto) 3.2 Lymph # (Auto) 1.1 [place] # (Auto) 0.5 Eos # (Auto) 0.1 Baso # (Auto) 0.0 WBC Differential . Differential Comment Auto diff final PT 10.0 INR 1.0 APTT 28.8 Sodium 125 L Potassium 4.3 Chloride 87 L Carbon Dioxide 28.7 Anion Gap 9 BUN 12 Creatinine 1.24 Estimated GFR 63 L POC Glucose Random Glucose 137 H Calcium 8.8 06/24/18 06:28 WBC RBC Hgb Hct MCV MCH MCHC RDW Plt Count MPV Neut % (Auto) Lymph % (Auto) [place] % (Auto) Eos % (Auto) Baso % (Auto) Neut # (Auto) Lymph # (Auto) [place] # (Auto) Eos # (Auto) Baso # (Auto) WBC Differential Differential Comment PT INR APTT Sodium Potassium Chloride Carbon Dioxide Anion Gap BUN Creatinine Estimated GFR POC Glucose 79 Random Glucose Calcium - Imaging Impressions Knee X-Ray 06/23/18 23:01 CONCLUSION: Minimally displaced distal metadiaphyseal fracture of the left femur with a large left knee lipohemarthrosis. Assessment and Plan - Assessment and Plan Nondisplaced left supracondylar femur fracture We will treat this nonoperatively. [employer] will apply the immobilizer to the left lower extremity. He will be nonweightbearing on the left lower extremity They will avoid any active leg lifts or quad sets or flexion of the knee We will do repeat x-rays in approximately 1 week in office Is explained to the patient that if the fracture continue to maintain his position his knee will function well. If he puts weight on it or uses the leg he could displace the fracture. Any surgical intervention does pose a higher risk for wound complications due to his diabetes and if we are able to avoid surgery it is his best interest. Follow-up with Dr. Madrigal or EDGAR in 7-10 days Case management for discharge placement
--- NOTE | 2018-06-24 12:14 | P.CONOP ---
[facility] Orthopedics Consult Note - [facility] Consult date: 06/24/18 Requesting physician: Jaleesa Israel Consult reason: fracture Chief complaint: Distal Lt Femur Fx, Prev Prox Lt Femur Fx s/p Cash Narrative: 47-year-old male with a past medical history significant for type 1 diabetes mellitus with insulin pump and hypertension presents to the emergency department after suffering a fall. He had a previous fracture to his left femur with intramedullary cash fixation approximately a year ago. The patient reports he was walking on his linoleum kitchen floor when he slipped and fell and placed all of his weight on his left knee. He was brought to the emergency room and diagnosed with a distal femur fracture. He denies any loss of consciousness or head trauma. No other injuries. No chest pain or shortness of breath. No abdominal pain. No nausea/vomiting/diarrhea. No fever/chills <Charles Ziegler - Last Filed: 06/24/18 12:03> Review of Systems Constitutional: Denies fever(s), Denies headache(s), Denies weight loss Eyes: Denies blurry vision, Denies double vision, Denies loss of vision Ears, Nose, Mouth, and Throat: Denies hearing loss, Denies throat swelling Cardiovascular: Denies chest pain, Denies lightheadedness, Denies shortness of breath Respiratory: Denies pain on inspiration, Denies shortness of breath, Denies wheezing Gastrointestinal: Denies abdominal pain, Denies difficulty swallowing Genitourinary: Denies difficulty urinating, Denies urinary incontinence Musculoskeletal: Reports joint pain Skin/Breast: Denies lesions, Denies unusual bruising Neurologic: Denies behavioral changes Psychiatric: Denies anxiety, Denies behavioral changes, Denies change in appetite, Denies irritability Endocrine: Denies cold intolerance, Denies heat intolerance Hematologic/Lymphatic: Denies easy bleeding, Denies easy bruising Allergic/Immunologic: Denies GI upset with certain foods, Denies throat swelling <Charles Ziegler - Last Filed: 06/24/18 12:03> PMFSH - History History Provided By: Patient - Medical History Medical History: Medical History (Last Reviewed 06/24/18 @ 12:09 by EDGAR Huston) Diabetes mellitus History of amputation of finger Hypertension Neuropathy - Surgical History Surgical History: Surgical History (Last Reviewed 06/24/18 @ 12:09 by EDGAR Huston) History of cataract surgery History of partial amputation of toe Status post trigger finger release - Family History Family History: Family History (Last Reviewed 06/24/18 @ 12:09 by EDGAR Huston) Other CVA (cerebral vascular accident) Colon cancer Hypertension - Social History I have reviewed the patient's Social History: Yes - Tobacco History Second Hand Smoke Exposure: No Tobacco Use In Past 30 Days: No Smoking Status: Former smoker Tobacco Type: Cigarettes - Alcohol History How Often Do You Have a Drink Containing Alcohol: Monthly or less - Substance Use History Substance History: No History of Abuse - Travel History Recent Travel in the [place] Within the Last 8 Weeks: No Recent Travel Out of the Country Within the Last 8 Weeks: No - Immunization History Tetanus Immunization: >5 Years Hx Influenza Vaccine This Season: No <Charles Ziegler - Last Filed: 06/24/18 12:03> - Medical History Medical History: Medical History (Last Reviewed 06/24/18 @ 12:09 by EDGAR Huston) Diabetes mellitus History of amputation of finger Hypertension Neuropathy - Surgical History Surgical History: Surgical History (Last Reviewed 06/24/18 @ 12:09 by EDGAR Huston) History of cataract surgery History of partial amputation of toe Status post trigger finger release - Family History Family History: Family History (Last Reviewed 06/24/18 @ 12:09 by EDGAR Huston) Other CVA (cerebral vascular accident) Colon cancer Hypertension <Mauricio Madrigal - Last Filed: 06/28/18 12:49> Medications and Allergies Active Medications: Active Medications Acetaminophen (Tylenol) 650 mg PO Q4H PRN PRN Reason: Temp > 100.4 Last Admin: 06/24/18 08:44 Dose: 650 mg Al Hydroxide/Mg Hydroxide (Milk Of Bon Liq) 30 ml PO Q12H PRN PRN Reason: Mild Constipation Bisacodyl (Dulcolax Supp) 10 mg RECTAL DAILY PRN PRN Reason: SEVERE CONSITIPATION Sodium Chloride (Ns Inj) 1,000 mls @ 100 mls/hr IV.CONT .Q10H [facility] Last Admin: 06/24/18 01:10 Dose: 100 mls/hr Lactated Ringer's (Lr 1000 Ml Inj) 1,000 mls @ 30 mls/hr IV.SIG .Q24H [facility] Stop: 06/25/18 02:29 Last Admin: 06/24/18 07:35 Dose: Not Given Sodium Chloride (Ns Inj) 500 mls @ 30 mls/hr IV.SIG .Q10H [facility] Last Admin: 06/24/18 07:35 Dose: Not Given Lactulose (Lactulose Liq) 30 ml PO DAILY PRN PRN Reason: SEVERE CONSITIPATION Lisinopril (Prinivil) 20 mg PO DAILY [facility] Last Admin: 06/24/18 08:41 Dose: 20 mg Morphine Sulfate (Morphine Inj) 4 mg IV.PUSH Q4H PRN PRN Reason: pain 6-10 Last Admin: 06/24/18 10:43 Dose: 4 mg Ondansetron HCl (Zofran Inj) 4 mg IV.PUSH Q6H PRN PRN Reason: NAUSEA OR VOMITING Last Admin: 06/24/18 10:10 Dose: 4 mg Senna/Docusate Sodium (Dayna-Colace) 1 tab PO BID [facility] Last Admin: 06/24/18 08:42 Dose: 1 tab Sennosides (Senokot) 17.2 mg PO Q12H PRN PRN Reason: Moderate Constipation <Charles Ziegler - Last Filed: 06/24/18 12:03> Active Medications: Active Medications Acetaminophen (Tylenol) 650 mg PO Q4H PRN PRN Reason: Temp > 100.4 Last Admin: 06/24/18 08:44 Dose: 650 mg Al Hydroxide/Mg Hydroxide (Milk Of Magnesia Liq) 30 ml PO Q12H PRN PRN Reason: Mild Constipation Bisacodyl (Dulcolax Supp) 10 mg RECTAL DAILY PRN PRN Reason: SEVERE CONSITIPATION Dextrose (D50w Vial) 50 ml IV.PUSH UNSCH PRN PRN Reason: PER HYPOGLYCEMIA PROTOCOL Ferrous Sulfate (Ferosul) 325 mg PO BID [facility] Last Admin: 06/28/18 09:25 Dose: 325 mg Glucagon (Glucagon Inj) 1 mg OTHER UNSCH PRN PRN Reason: for Hypoglycemia Protocol Sodium Chloride (Ns Inj) 500 mls @ 30 mls/hr IV.SIG .Q10H [facility] Last Admin: 06/24/18 07:35 Dose: Not Given Sodium Chloride (Ns Inj) 1,000 mls @ 100 mls/hr IV.CONT .Q10H [facility] Last Admin: 06/28/18 07:14 Dose: Not Given Insulin Human Regular (Novolin R Correctional Sugar Inj) 0 units SQ [facility]; Protocol Last Admin: 06/28/18 12:37 Dose: Not Given Lactulose (Lactulose Liq) 30 ml PO DAILY PRN PRN Reason: SEVERE CONSITIPATION Last Admin: 06/27/18 08:56 Dose: 30 ml Lisinopril (Prinivil) 20 mg PO DAILY [facility] Last Admin: 06/28/18 09:25 Dose: 20 mg Miscellaneous (Pill Splitter) 1 each OTHER [facility] Morphine Sulfate (Morphine Inj) 4 mg IV.PUSH Q4H PRN PRN Reason: pain 6-10 Last Admin: 06/26/18 14:20 Dose: 4 mg Ondansetron HCl (Zofran Inj) 4 mg IV.PUSH Q6H PRN PRN Reason: NAUSEA OR VOMITING Last Admin: 06/24/18 10:10 Dose: 4 mg Oxycodone HCl (Roxicodone) 5 mg PO Q6H PRN PRN Reason: PAIN 1-10 AND/OR FEVER >101F Last Admin: 06/28/18 12:38 Dose: 5 mg Promethazine HCl (Phenergan) 12.5 mg PO Q6H PRN PRN Reason: NAUSEA Senna/Docusate Sodium (Dayna-Colace) 1 tab PO BID [facility] Last Admin: 06/28/18 09:25 Dose: 1 tab Sennosides (Senokot) 17.2 mg PO Q12H PRN PRN Reason: Moderate Constipation <Mauricio Madrigal - Last Filed: 06/28/18 12:49> Allergies Allergy/AdvReac Type Severity Reaction Status Date / Time No Known Allergies Allergy Verified 06/24/18 02:29 Home Medications Medication Instructions Recorded Confirmed Type insulin pump cartridge 06/24/18 06/24/18 History lisinopril 20 mg PO BID 06/24/18 06/24/18 History Exam Vital signs: Vital Signs 06/23/18 23:00 06/23/18 23:02 06/24/18 00:38 Temperature 98.5 F Pulse Rate 101 H 91 H Respiratory Rate 16 16 16 Blood Pressure 177/93 H 153/80 H Pulse Oximetry 99 99 06/24/18 00:53 06/24/18 04:00 06/24/18 08:00 Temperature 98.4 F 98.2 F Pulse Rate 87 91 H Respiratory Rate 16 18 18 Blood Pressure 155/82 H 147/91 H Pulse Oximetry 96 98 Intake & Output 06/23/18 06/24/18 06/24/18 18:59 06:59 18:59 Output Total 900 / 900 Balance -900 / -900 Weight 76.1 kg Output: Urine 900 / 900 Other: Date of Last Bowel Movement 06/23/18 06/23/18 Weight On Admission 76 kg - Constitutional no acute distress - Routine HEENT Exam Head: Present: normocephalic, atraumatic Eye: Present: EOMI - Routine Neck Exam Present: supple. Absent: lymphadenopathy - Routine Chest/Breast/Axilla Exam Chest wall: Absent: tenderness - Routine Respiratory Exam Absent: accessory muscle use, respiratory distress - Routine Cardiovascular Exam Present: RRR - Routine Abdominal Exam Present: soft. Absent: distended - Routine Extremities Exam Present: pulses intact Comments: Examination of bilateral upper extremities reveals no pain with shoulder elbow or wrist range of motion. He has contractures of bilateral hands and neuropathy of long distributions over the fingertips. He has intact distal pulses and good capillary refills Examination of the right lower extremity reveals no pain with hip or knee range of motion. He has intact distal pulses but has minimal sensation over his foot and toes. Examination of the left lower extremity reveals no pain with hip palpation. He has pain to palpation over the distal femur. Skin is intact. He has mild swelling over the knee. Distally he has intact distal pulses but has minimal small sensation due to chronic neuropathy - Routine Skin Exam Present: intact. Absent: cyanosis - Routine Neurological Exam Present: oriented X3, CN II-XII intact <Charles Ziegler - Last Filed: 06/24/18 12:03> Vital signs: Vital Signs 06/27/18 17:31 06/27/18 20:00 06/28/18 00:00 Temperature 98.2 F 99.2 F 98.6 F Pulse Rate 93 H 98 H 90 Respiratory Rate 15 16 16 Blood Pressure 162/86 H 153/75 H 148/88 H Pulse Oximetry 95 96 98 06/28/18 06:26 06/28/18 08:00 Temperature 98.1 F Pulse Rate 104 H Respiratory Rate 17 18 Blood Pressure 120/70 Pulse Oximetry 18 L Intake & Output 06/27/18 06/28/18 06/28/18 18:59 06:59 18:59 Intake Total 480 / 480 Balance 480 / 480 Weight 68.3 kg Intake: Oral 480 / 480 Other: # Voids 3 Date of Last Bowel Movement 06/27/18 06/27/18 06/26/18 <Mauricio Madrigal - Last Filed: 06/28/18 12:49> Results - Labs Result Diagrams: 06/24/18 01:15 06/24/18 01:15 Labs: Laboratory Results - last 24 hr 06/24/18 06/24/18 06/24/18 01:15 01:15 01:15 WBC 4.9 RBC 3.63 L Hgb 11.6 L Hct 33.2 L MCV 91.4 MCH 31.9 MCHC 34.9 RDW 13.1 Plt Count 228 MPV 9.7 Neut % (Auto) 65.7 Lymph % (Auto) 22.2 [place] % (Auto) 9.7 H Eos % (Auto) 1.8 Baso % (Auto) 0.6 Neut # (Auto) 3.2 Lymph # (Auto) 1.1 [place] # (Auto) 0.5 Eos # (Auto) 0.1 Baso # (Auto) 0.0 WBC Differential . Differential Comment Auto diff final PT 10.0 INR 1.0 APTT 28.8 Sodium 125 L Potassium 4.3 Chloride 87 L Carbon Dioxide 28.7 Anion Gap 9 BUN 12 Creatinine 1.24 Estimated GFR 63 L POC Glucose Random Glucose 137 H Calcium 8.8 06/24/18 06:28 WBC RBC Hgb Hct MCV MCH MCHC RDW Plt Count MPV Neut % (Auto) Lymph % (Auto) [place] % (Auto) Eos % (Auto) Baso % (Auto) Neut # (Auto) Lymph # (Auto) [place] # (Auto) Eos # (Auto) Baso # (Auto) WBC Differential Differential Comment PT INR APTT Sodium Potassium Chloride Carbon Dioxide Anion Gap BUN Creatinine Estimated GFR POC Glucose 79 Random Glucose Calcium - Diagnostic results Imaging: Impressions Knee X-Ray 06/23/18 23:01 CONCLUSION: Minimally displaced distal metadiaphyseal fracture of the left femur with a large left knee lipohemarthrosis. <Charles Ziegler - Last Filed: 06/24/18 12:03> - Labs Result Diagrams: 06/27/18 03:40 06/27/18 03:40 Labs: Laboratory Results - last 24 hr 06/27/18 06/27/18 06/27/18 03:40 17:33 20:58 POC Glucose 229 H 408 H Hemoglobin A1c 8.7 H 06/28/18 08:34 POC Glucose 129 H Hemoglobin A1c <Mauricio Madrigal - Last Filed: 06/28/18 12:49> Assessment and Plan - Problem List (1) Closed fracture of left distal femur Code(s): S72.402A - Unspecified fracture of lower end of left femur, initial encounter for closed fracture Status: Acute Qualifiers: Encounter type: initial encounter Fracture morphology: unspecified fracture morphology Qualified Code(s): S72.402A - Unspecified fracture of lower end of left femur, initial encounter for closed fracture - Assessment and Plan Nondisplaced left supracondylar femur fracture We will treat this nonoperatively. [employer] will apply the immobilizer to the left lower extremity. He will be nonweightbearing on the left lower extremity They will avoid any active leg lifts or quad sets or flexion of the knee We will do repeat x-rays in approximately 1 week in office Is explained to the patient that if the fracture continue to maintain his position his knee will function well. If he puts weight on it or uses the leg he could displace the fracture. Any surgical intervention does pose a higher risk for wound complications due to his diabetes and if we are able to avoid surgery it is his best interest. Follow-up with Dr. Madrigal or PA in 7-10 days Case management for discharge placement <Charles Ziegler - Last Filed: 06/24/18 12:03> - Problem List (1) Closed fracture of left distal femur Code(s): S72.402A - Unspecified fracture of lower end of left femur, initial encounter for closed fracture Status: Acute Qualifiers: Encounter type: initial encounter Fracture morphology: unspecified fracture morphology Qualified Code(s): S72.402A - Unspecified fracture of lower end of left femur, initial encounter for closed fracture - Assessment and Plan I also saw and examined this patient. History, past medical history, social history, review of systems, physical exam, radiographs, assessment, and plan were reviewed. Plan of care was discussed and established. Plan on nonoperative treatment. A mid-level provider in my office (nurse practitioner or physician assistant at surgery) may see this patient on follow-up visits and continue to implement the objectives of this plan including: Starting or adjusting medications, injections, cast application, orthotics, brace application, physical therapy, radiological studies (including x-ray, MRI, CT, ultrasound, bone scan), vascular studies, neurologic studies, specialist consultation, and proceeding with surgical management, as appropriate. <Mauricio Madrigal - Last Filed: 06/28/18 12:49>
--- NOTE | 2018-06-24 12:36 | P.PN ---
Subjective Interval history: Patient doing well, reports that he is feeling improved pain with pain meds, tolerating PO. No overnight concerns. Physical Exam Vital signs: Vital Signs 06/23/18 23:00 06/23/18 23:02 06/24/18 00:38 Temperature 98.5 F Pulse Rate 101 H 91 H Respiratory Rate 16 16 16 Blood Pressure 177/93 H 153/80 H Pulse Oximetry 99 99 06/24/18 00:53 06/24/18 04:00 06/24/18 08:00 Temperature 98.4 F 98.2 F Pulse Rate 87 91 H Respiratory Rate 16 18 18 Blood Pressure 155/82 H 147/91 H Pulse Oximetry 96 98 Intake & Output 06/23/18 06/24/18 06/24/18 18:59 06:59 18:59 Output Total 900 / 900 120 / 120 Balance -900 / -900 -120 / -120 Weight 76.1 kg Output: Urine 900 / 900 Emesis 120 / 120 Other: Date of Last Bowel Movement 06/23/18 06/23/18 # Emeses 1 Weight On Admission 76 kg Narrative: GENERAL: well nourished male, in NAD. SKIN: Warm and dry. HEAD: Normocephalic. EYES: No scleral icterus. No injection or drainage. NECK: Supple, trachea midline. No JVD or lymphadenopathy. CARDIOVASCULAR: Regular rate and rhythm without murmurs, gallops, or rubs. RESPIRATORY: Breath sounds equal bilaterally. No accessory muscle use. GASTROINTESTINAL: Abdomen soft, non-tender, nondistended. MUSCULOSKELETAL: No cyanosis, or edema. BACK: Nontender without obvious deformity. No CVA tenderness. EXTREMITIES: Left immobilizer in place. Distally intact distal pulses. He has neuropathy with minimal sensation over his foot. Results - Labs CBC & Chem 7: 06/24/18 01:15 06/24/18 01:15 Laboratory Results - last 24 hr 06/24/18 06/24/18 06/24/18 01:15 01:15 01:15 WBC 4.9 RBC 3.63 L Hgb 11.6 L Hct 33.2 L MCV 91.4 MCH 31.9 MCHC 34.9 RDW 13.1 Plt Count 228 MPV 9.7 Neut % (Auto) 65.7 Lymph % (Auto) 22.2 Hand % (Auto) 9.7 H Eos % (Auto) 1.8 Baso % (Auto) 0.6 Neut # (Auto) 3.2 Lymph # (Auto) 1.1 Hand # (Auto) 0.5 Eos # (Auto) 0.1 Baso # (Auto) 0.0 WBC Differential . Differential Comment Auto diff final PT 10.0 INR 1.0 APTT 28.8 Sodium 125 L Potassium 4.3 Chloride 87 L Carbon Dioxide 28.7 Anion Gap 9 BUN 12 Creatinine 1.24 Estimated GFR 63 L POC Glucose Random Glucose 137 H Calcium 8.8 06/24/18 06:28 WBC RBC Hgb Hct MCV MCH MCHC RDW Plt Count MPV Neut % (Auto) Lymph % (Auto) Hand % (Auto) Eos % (Auto) Baso % (Auto) Neut # (Auto) Lymph # (Auto) Hand # (Auto) Eos # (Auto) Baso # (Auto) WBC Differential Differential Comment PT INR APTT Sodium Potassium Chloride Carbon Dioxide Anion Gap BUN Creatinine Estimated GFR POC Glucose 79 Random Glucose Calcium - Imaging Impressions Knee X-Ray 06/23/18 23:01 CONCLUSION: Minimally displaced distal metadiaphyseal fracture of the left femur with a large left knee lipohemarthrosis. Assessment and Plan - Assessment (1) Closed fracture of left distal femur Code(s): S72.402A - Unspecified fracture of lower end of left femur, initial encounter for closed fracture Status: Acute (2) Hypertension Code(s): I10 - Essential (primary) hypertension Status: Chronic (3) Hyponatremia Code(s): E87.1 - Hypo-osmolality and hyponatremia Status: Acute - Plan 47 y/o CM with PMHX of IDDM Type I with insulin pump admitted for IP mgmt of L femur fx, managed non-operatively, HD#1 1. Distal femur fracture X-ray of the left knee significant for minimally displaced distal Metadiaphyseal fracture of the left femur Orthopedic surgery consulted- per reccs nonsurgical mgmt Morphine PRN pain PT/OT Leg immobilizer to the left lower extremity placed Repeat x-rays in approximately 1 week in office Follow-up with Dr. Madrigal or PA in 7-10 days Case management for discharge placement likely rehab 2. Diabetes mellitus Patient with insulin pump and SSI, BS AC/HS 3. Hypertension: stable Continue home Lisinopril 4. Hyponatremia- Na 125 on NS Recheck BMP in AM 6. DVT PPX: Heparin 7. Dispo: F/U BMP and likely rehab for placement, case mgmt on board Code Status: full Discussed Condition With: patient (1) Closed fracture of left distal femur Qualifiers: Encounter type: initial encounter Fracture morphology: unspecified fracture morphology Qualified Code(s): S72.402A - Unspecified fracture of lower end of left femur, initial encounter for closed fracture
[2018-06-25] MEDS: Morphine Inj 4 MG/ML Vial IV.PUSH PRN ×6 (00:35→20:23)
[2018-06-25] MEDS: Sod Chloride 0.9% Inj 1,000 ML IV.CONT SCH ×3 (02:18→20:21)
[2018-06-25 05:04] LABS: Hemoglobin 10.6 gm/dL (13.0-17.0); Mean Corpuscular HGB Conc 34.2 % (32.0-36.0); Mean Corpuscular Hemoglobin 31.8 pg (27.0-34.0); Mean Corpuscular Volume 92.9 fL (80.0-100.0); Mean Platelet Volume 10.3 fL (7.0-11.0); Platelet Count 181 th/mm3 (150-450); Red Blood Count 3.33 mil/mm3 (4.50-5.90); Red Cell Distribution Width 13.1 % (11.6-17.2); White Blood Count 4.5 th/mm3 (4.0-11.0)
[2018-06-25 05:30] LABS: Calcium 8.8 mg/dL (8.5-10.1); Potassium 5.3 meq/L (3.5-5.1)
--- NOTE | 2018-06-25 07:16 | P.PNOP ---
Subjective Interval history: pt states his left leg is quite painful otherwise no complaints, no chest pain, no SOB Physical Exam Vital signs: Vital Signs 06/24/18 08:00 06/24/18 12:00 06/24/18 16:00 Temperature 98.2 F 98.4 F Pulse Rate 91 H 99 H 90 Respiratory Rate 18 16 16 Blood Pressure 147/91 H 163/83 H 134/75 Pulse Oximetry 98 98 06/24/18 20:00 06/25/18 00:00 06/25/18 05:47 Temperature 97.9 F 97.8 F Pulse Rate 83 88 Respiratory Rate 18 18 16 Blood Pressure 145/82 H 147/79 H Pulse Oximetry 98 99 Intake & Output 06/24/18 06/25/18 06/25/18 18:59 06:59 18:59 Intake Total 1000 / 1000 Output Total 170 / 170 Balance 830 / 830 Weight 70.1 kg Intake: IV 1000 / 1000 NS Inj 1,000 ML @ 100 mls/hr IV 1000 / 1000 .CONT .Q10H MARK Rx#:[id number] Output: Emesis 170 / 170 Other: # Voids 750 Date of Last Bowel Movement 06/23/18 06/23/18 # Emeses 1 Narrative: also seen and examined by Dr. Patrice Jarrett left lower extremity in immobilizer +NVI Results - Labs CBC & Chem 7: 06/25/18 03:30 06/25/18 03:30 Laboratory Results - last 24 hr 06/24/18 06/25/18 06/25/18 20:32 00:48 03:30 WBC RBC Hgb Hct MCV MCH MCHC RDW Plt Count MPV Sodium 134 L Potassium 5.3 H D Chloride 95 L D Carbon Dioxide 31.0 Anion Gap 8 BUN 10 Creatinine 1.24 Estimated GFR 63 L POC Glucose 100 84 Random Glucose 89 Calcium 8.8 06/25/18 06/25/18 03:30 06:54 WBC 4.5 RBC 3.33 L Hgb 10.6 L Hct 31.0 L MCV 92.9 MCH 31.8 MCHC 34.2 RDW 13.1 Plt Count 181 MPV 10.3 Sodium Potassium Chloride Carbon Dioxide Anion Gap BUN Creatinine Estimated GFR POC Glucose 221 H Random Glucose Calcium Assessment and Plan - Problem List (1) Closed fracture of left distal femur Code(s): S72.402A - Unspecified fracture of lower end of left femur, initial encounter for closed fracture Status: Acute Qualifiers: Encounter type: initial encounter Fracture morphology: unspecified fracture morphology Qualified Code(s): S72.402A - Unspecified fracture of lower end of left femur, initial encounter for closed fracture - Assessment and Plan Nondisplaced left supracondylar femur fracture - non-operative care maintain immobilizer to the left lower extremity NWB LLE No active leg lifts or quad sets or flexion of the knee [facility] team will f/u with pt in 1 week for repeat x-raysWe will do repeat x- rays in approximately 1 week in office Case management for discharge placement
[2018-06-25] MEDS: Lisinopril 20 MG Tablet PO SCH (08:16)
[2018-06-25] MEDS: Senna/Docusate Sodium 8.6/50 MG Tablet PO SCH ×2 (08:16→20:21)
[2018-06-25] MEDS ORDERED: Dextrose 50% in Water 50 ML Vial IV.PUSH PRN (08:55)
--- NOTE | 2018-06-25 09:10 | P.PN ---
Subjective Interval history: Patient doing well overnight. Patient is feeding, voiding, stooling well. Patient reports that his insulin pump was removed accidentally yesterday but that he plans on replacing it today. Patient states that this happens frequently at home. No overnight concerns. Physical Exam Vital signs: Vital Signs 06/24/18 12:00 06/24/18 16:00 06/24/18 20:00 Temperature 98.4 F 97.9 F Pulse Rate 99 H 90 83 Respiratory Rate 18 Blood Pressure 163/83 H 134/75 145/82 H Pulse Oximetry 98 98 06/25/18 00:00 06/25/18 05:47 06/25/18 08:00 Temperature 97.8 F 98.8 F Pulse Rate 88 97 H Respiratory Rate 18 Blood Pressure 147/79 H 149/81 H Pulse Oximetry 99 97 Intake & Output 06/24/18 06/25/18 06/25/18 18:59 06:59 18:59 Intake Total 1000 / 1000 Output Total 170 / 170 950 / 950 Balance 830 / 830 -950 / -950 Weight 70.1 kg Intake: IV 1000 / 1000 NS Inj 1,000 ML @ 100 mls/hr IV 1000 / 1000 .CONT .Q10H MAKR Rx#:[id number] Output: Urine 950 / 950 Emesis 170 / 170 Other: # Voids 750 Date of Last Bowel Movement 06/23/18 06/23/18 # Emeses 1 Narrative: GENERAL: well nourished male, in NAD. SKIN: Warm and dry. HEAD: Normocephalic. EYES: No scleral icterus. No injection or drainage. NECK: Supple, trachea midline. No JVD or lymphadenopathy. CARDIOVASCULAR: Regular rate and rhythm without murmurs, gallops, or rubs. RESPIRATORY: Breath sounds equal bilaterally. No accessory muscle use. GASTROINTESTINAL: Abdomen soft, non-tender, nondistended. MUSCULOSKELETAL: No cyanosis, or edema. BACK: Nontender without obvious deformity. No CVA tenderness. EXTREMITIES: Left LE immobilizer in place. Distally intact distal pulses. He has neuropathy with minimal sensation over his foot. Contractures of BL hands noted, chronic per patient. Results - Labs CBC & Chem 7: 06/25/18 03:30 06/25/18 03:30 Laboratory Results - last 24 hr 06/24/18 06/25/18 06/25/18 20:32 00:48 03:30 WBC RBC Hgb Hct MCV MCH MCHC RDW Plt Count MPV Sodium 134 L Potassium 5.3 H D Chloride 95 L D Carbon Dioxide 31.0 Anion Gap 8 BUN 10 Creatinine 1.24 Estimated GFR 63 L POC Glucose 100 84 Random Glucose 89 Calcium 8.8 06/25/18 06/25/18 03:30 06:54 WBC 4.5 RBC 3.33 L Hgb 10.6 L Hct 31.0 L MCV 92.9 MCH 31.8 MCHC 34.2 RDW 13.1 Plt Count 181 MPV 10.3 Sodium Potassium Chloride Carbon Dioxide Anion Gap BUN Creatinine Estimated GFR POC Glucose 221 H Random Glucose Calcium Assessment and Plan - Assessment (1) Closed fracture of left distal femur Code(s): S72.402A - Unspecified fracture of lower end of left femur, initial encounter for closed fracture Status: Acute (2) Hypertension Code(s): I10 - Essential (primary) hypertension Status: Chronic (3) Hyponatremia Code(s): E87.1 - Hypo-osmolality and hyponatremia Status: Resolved - Plan 47 y/o CM with PMHX of IDDM Type I with insulin pump admitted for IP mgmt of L femur fx, managed non-operatively, HD#2 1. Distal femur fracture X-ray of the left knee significant for minimally displaced distal Metadiaphyseal fracture of the left femur Orthopedic surgery consulted- per reccs nonsurgical mgmt Oxycodone PRN pain PT/OT Leg immobilizer to the left lower extremity placed Repeat x-rays in approximately 1 week in office Follow-up with Dr. Madrigal or PA in 7-10 days Case management for discharge placement, rehab 2. Diabetes mellitus Insulin pump accidently removed overnight, on SSI AC/HS BS 221, 100, 79 Insulin pump will be replaced today, patient states this occurs at home and he replaces it without difficulty 3. Hypertension: stable Continue home Lisinopril 4. Hyponatremia- Na 134 from 125 yesterday on NS Recheck BMP in AM 5. Anemia- Hgb 10.6, in FeSulfate. 6. Hyperkalemia: K5.3, F/U BMP in AM. 7. DVT PPX: Heparin 8. Dispo: Pending rehab placement, case mgmt on board Code Status: full Discussed Condition With: patient and meter installer Planning: pending rehab placement (1) Closed fracture of left distal femur Qualifiers: Encounter type: initial encounter Fracture morphology: unspecified fracture morphology Qualified Code(s): S72.402A - Unspecified fracture of lower end of left femur, initial encounter for closed fracture
[2018-06-25] MEDS: Ferrous Sulfate 325 MG Tablet PO SCH ×2 (11:46→20:21)
[2018-06-25] MEDS: Insulin NovoLIN Regular Correctional Sugar Inj SQ SCH ×3 (12:37→20:39)
[2018-06-26] MEDS: Sod Chloride 0.9% Inj 1,000 ML IV.CONT SCH ×2 (04:59→15:24)
[2018-06-26 05:31] LABS: Hematocrit 29.8 % (39.0-51.0); Hemoglobin 10.3 gm/dL (13.0-17.0); Mean Corpuscular HGB Conc 34.6 % (32.0-36.0); Mean Corpuscular Hemoglobin 31.8 pg (27.0-34.0); Mean Platelet Volume 10.2 fL (7.0-11.0); Platelet Count 199 th/mm3 (150-450); Red Blood Count 3.24 mil/mm3 (4.50-5.90); Red Cell Distribution Width 13.1 % (11.6-17.2); White Blood Count 6.9 th/mm3 (4.0-11.0)
[2018-06-26 06:10] LABS: Alanine Aminotransferase 27 U/L (12-78); Albumin 3.4 g/dL (3.4-5.0); Alkaline Phosphatase 80 U/L (45-117); Anion Gap 8 meq/L (5-15); Aspartate Aminotransferase 27 U/L (15-37); Blood Urea Nitrogen 21 mg/dL (7-18); Calcium 8.6 mg/dL (8.5-10.1); Carbon Dioxide 30.6 meq/L (21.0-32.0); Chloride 87 meq/L (98-107); Glomerular Filtration Rate 43 mL/min (>89); Glucose,Random 79 mg/dL (74-106); Potassium 4.6 meq/L (3.5-5.1); Sodium 126 meq/L (136-145); Total Protein 7.4 g/dL (6.4-8.2)
[2018-06-26] MEDS: Ferrous Sulfate 325 MG Tablet PO SCH ×2 (08:32→21:36)
[2018-06-26] MEDS: Lisinopril 20 MG Tablet PO SCH (08:32)
[2018-06-26] MEDS: Senna/Docusate Sodium 8.6/50 MG Tablet PO SCH ×2 (08:32→21:35)
[2018-06-26] MEDS: Insulin NovoLIN Regular Correctional Sugar Inj SQ SCH ×4 (09:24→21:40)
--- NOTE | 2018-06-26 11:05 | P.PNIM ---
Subjective Interval history: 47-year-old male with a past medical history significant for type 1 diabetes mellitus with insulin pump and hypertension presents to the emergency department after suffering a fall. The patient reports he was walking on his linoleum kitchen floor when he slipped and fell and placed all of his weight on his left knee. He has a distal femur fracture. He denies any loss of consciousness or head trauma. No other injuries. No chest pain or shortness of breath. No abdominal pain. No nausea/vomiting/diarrhea. No fever/chills. Patient doing well, reports that he is feeling improved pain with pain meds, tolerating PO. No overnight concerns. 06-25 Patient doing well overnight. Patient is feeding, voiding, stooling well. Patient reports that his insulin pump was removed accidentally yesterday but that he plans on replacing it today. Patient states that this happens frequently at home. No overnight concerns. 06-26 still not very mobile sugars better controlled dw RN AND PT AND CM HOPEFULLY HOME NEXT 24 TO 48 HOURS Physical Exam Vital signs: Vital Signs 06/25/18 12:32 06/25/18 14:04 06/25/18 20:00 Temperature 98.6 F 98.6 F 98.3 F Pulse Rate 114 H 101 H 103 H Respiratory Rate 18 18 18 Blood Pressure 130/65 122/59 L 101/57 L Pulse Oximetry 96 95 97 06/26/18 00:00 06/26/18 08:00 Temperature 97.9 F 98.7 F Pulse Rate 93 H 97 H Respiratory Rate 16 16 Blood Pressure 141/74 H 128/64 Pulse Oximetry 98 Intake & Output 06/25/18 06/26/18 06/26/18 18:59 06:59 18:59 Intake Total 240 / 240 Output Total 1400 / 1400 475 / 475 Balance -1160 / -1160 -475 / -475 Weight 70.1 kg Intake: Oral 240 / 240 Output: Urine 1400 / 1400 475 / 475 Other: Date of Last Bowel Movement 06/23/18 06/23/18 06/22/18 Narrative: GENERAL: well nourished male, in NAD. SKIN: Warm and dry. HEAD: Normocephalic. EYES: No scleral icterus. No injection or drainage. NECK: Supple, trachea midline. No JVD or lymphadenopathy. CARDIOVASCULAR: Regular rate and rhythm without murmurs, gallops, or rubs. RESPIRATORY: Breath sounds equal bilaterally. No accessory muscle use. GASTROINTESTINAL: Abdomen soft, non-tender, nondistended. MUSCULOSKELETAL: No cyanosis, or edema. BACK: Nontender without obvious deformity. No CVA tenderness. EXTREMITIES: Left LE immobilizer in place. Distally intact distal pulses. He has neuropathy with minimal sensation over his foot. Contractures of BL hands noted, chronic per patient. Results - Labs CBC & Chem 7: 06/26/18 04:00 06/26/18 04:10 Laboratory Results - last 24 hr 06/25/18 06/25/18 06/25/18 11:39 16:59 20:20 WBC RBC Hgb Hct MCV MCH MCHC RDW Plt Count MPV Sodium Potassium Chloride Carbon Dioxide Anion Gap BUN Creatinine Estimated GFR POC Glucose 417 H 442 H 353 H Random Glucose Calcium Total Bilirubin AST ALT Alkaline Phosphatase Total Protein Albumin 06/26/18 06/26/18 06/26/18 04:00 04:10 08:49 WBC 6.9 RBC 3.24 L Hgb 10.3 L Hct 29.8 L MCV 92.0 MCH 31.8 MCHC 34.6 RDW 13.1 Plt Count 199 MPV 10.2 Sodium 126 L Potassium 4.6 Chloride 87 L D Carbon Dioxide 30.6 Anion Gap 8 BUN 21 H Creatinine 1.71 H Estimated GFR 43 L POC Glucose 197 H Random Glucose 79 Calcium 8.6 Total Bilirubin 0.7 AST 27 ALT 27 Alkaline Phosphatase 80 Total Protein 7.4 Albumin 3.4 - Imaging ITS Impressions Knee X-Ray 06/23/18 23:01 CONCLUSION: Minimally displaced distal metadiaphyseal fracture of the left femur with a large left knee lipohemarthrosis. - Procedures NONE Assessment and Plan - Assessment (1) Closed fracture of left distal femur Code(s): S72.402A - Unspecified fracture of lower end of left femur, initial encounter for closed fracture Status: Acute (2) Hypertension Code(s): I10 - Essential (primary) hypertension Status: Chronic (3) Hyponatremia Code(s): E87.1 - Hypo-osmolality and hyponatremia Status: Resolved - Plan 47 y/o CM with PMHX of IDDM Type I with insulin pump admitted for IP mgmt of L femur fx, managed non-operatively, HD#2 1. Distal femur fracture X-ray of the left knee significant for minimally displaced distal Metadiaphyseal fracture of the left femur Orthopedic surgery consulted- per reccs nonsurgical mgmt Oxycodone PRN pain PT/OT Leg immobilizer to the left lower extremity placed Repeat x-rays in approximately 1 week in office Follow-up with Dr. Madrigal or [place] in 7-10 days Case management for discharge placement, PATIENT DOES NOT HAVE OPTION FOR REHAB FACILITY POSSIBLE OUTPT PT 2. Diabetes mellitus Insulin pump accidently removed overnight, on SSI AC/HS BS 221, 100, 79 Insulin pump will be replaced today, patient states this occurs at home and he replaces it without difficulty 3. Hypertension: stable Continue home Lisinopril 4. Hyponatremia- Na 134 from 125 yesterday on NS Recheck BMP in AM WILL RECHECK AM LABS 5. Anemia- Hgb 10.6, in FeSulfate. 6. Hyperkalemia: K5.3, F/U BMP in AM. 7. DVT PPX: Heparin 8. Dispo: Pending IMPROVED MOBILITY, case mgmt on board Code Status: FULL CODE Discussed Condition With: RN AND PT AND CM Discharge Planning: INCREASE ACTIVITY (1) Closed fracture of left distal femur Qualifiers: Encounter type: initial encounter Fracture morphology: unspecified fracture morphology Qualified Code(s): S72.402A - Unspecified fracture of lower end of left femur, initial encounter for closed fracture
[2018-06-26] MEDS: Morphine Inj 4 MG/ML Vial IV.PUSH PRN (14:20)
[2018-06-27] MEDS: Sod Chloride 0.9% Inj 1,000 ML IV.CONT SCH ×3 (02:29→23:50)
[2018-06-27 05:01] LABS: Baso % (Auto) 0.4 % (0.0-2.0); Eos # (Auto) 0.1 th/mm3 (0.0-0.4); Eos % (Auto) 3.1 % (0.0-4.0); Hematocrit 31.6 % (39.0-51.0); Hemoglobin 10.7 gm/dL (13.0-17.0); Lymph # (Auto) 1.3 th/mm3 (1.0-4.8); Lymph % (Auto) 27.3 % (9.0-44.0); Mean Corpuscular HGB Conc 33.8 % (32.0-36.0); Mean Corpuscular Hemoglobin 31.8 pg (27.0-34.0); Mean Corpuscular Volume 94.1 fL (80.0-100.0); Mean Platelet Volume 10.3 fL (7.0-11.0); Mono # (Auto) 0.6 th/mm3 (0.0-0.9); Mono % (Auto) 13.5 % (0.0-8.0); Neut # (Auto) 2.6 th/mm3 (1.8-7.7); Neut % (Auto) 55.7 % (16.0-70.0); Platelet Count 201 th/mm3 (150-450); Red Blood Count 3.36 mil/mm3 (4.50-5.90); White Blood Count 4.6 th/mm3 (4.0-11.0)
[2018-06-27 05:35] LABS: Alanine Aminotransferase 26 U/L (12-78); Albumin 3.3 g/dL (3.4-5.0); Alkaline Phosphatase 76 U/L (45-117); Anion Gap 9 meq/L (5-15); Aspartate Aminotransferase 40 U/L (15-37); Blood Urea Nitrogen 17 mg/dL (7-18); Calcium 8.7 mg/dL (8.5-10.1); Carbon Dioxide 28.8 meq/L (21.0-32.0); Chloride 88 meq/L (98-107); Free T4 (Free Thyroxine) 1.36 ng/dL (0.76-1.46); Glomerular Filtration Rate 53 mL/min (>89); Glucose,Random 212 mg/dL (74-106); Magnesium 1.2 mg/dL (1.5-2.5); Phosphorus 3.6 mg/dL (2.5-4.9); Sodium 126 meq/L (136-145); Thyroid Stimulating Hormone 0.825 uIU/mL (0.358-3.740); Total Protein 7.1 g/dL (6.4-8.2)
--- NOTE | 2018-06-27 06:39 | P.PNOP ---
Subjective Interval history: s/p left periprosthetic distal femur fx doing well. improving. states pain better. reports has been using walker Physical Exam Vital signs: Vital Signs 06/26/18 08:00 06/26/18 12:00 06/26/18 16:55 Temperature 98.7 F 98.6 F 98.1 F Pulse Rate 97 H 98 H 89 Respiratory Rate 16 18 16 Blood Pressure 128/64 129/63 141/72 H Pulse Oximetry 96 99 06/26/18 20:00 06/27/18 00:00 Temperature 98.5 F 97.1 F L Pulse Rate 88 86 Respiratory Rate 17 17 Blood Pressure 125/63 129/79 Pulse Oximetry 97 95 Intake & Output 06/26/18 06/26/18 06/27/18 06:59 18:59 06:59 Intake Total 240 / 240 Output Total 475 / 475 1150 / 1150 Balance -475 / -475 240 / 240 -1150 / -1150 Weight 70.1 kg 70 kg Intake: Oral 240 / 240 Output: Urine 475 / 475 1150 / 1150 Other: # Voids 1 Date of Last Bowel Movement 06/23/18 06/22/18 06/23/18 Narrative: LLE: NVI. +CKS. Results - Labs CBC & Chem 7: 06/27/18 03:40 06/27/18 03:40 Laboratory Results - last 24 hr 06/26/18 06/26/18 06/26/18 08:49 12:05 17:36 WBC RBC Hgb Hct MCV MCH MCHC RDW Plt Count MPV Neut % (Auto) Lymph % (Auto) [place] % (Auto) Eos % (Auto) Baso % (Auto) Neut # (Auto) Lymph # (Auto) [place] # (Auto) Eos # (Auto) Baso # (Auto) WBC Differential Differential Comment Sodium Potassium Chloride Carbon Dioxide Anion Gap BUN Creatinine Estimated GFR POC Glucose 197 H 162 H 113 H Random Glucose Calcium Phosphorus Magnesium Total Bilirubin AST ALT Alkaline Phosphatase Total Protein Albumin TSH Free T4 06/26/18 06/27/18 06/27/18 21:35 03:40 03:40 WBC 4.6 RBC 3.36 L Hgb 10.7 L Hct 31.6 L MCV 94.1 MCH 31.8 MCHC 33.8 RDW 13.0 Plt Count 201 MPV 10.3 Neut % (Auto) 55.7 Lymph % (Auto) 27.3 [place] % (Auto) 13.5 H Eos % (Auto) 3.1 Baso % (Auto) 0.4 Neut # (Auto) 2.6 Lymph # (Auto) 1.3 [place] # (Auto) 0.6 Eos # (Auto) 0.1 Baso # (Auto) 0.0 WBC Differential . Differential Comment Auto diff final Sodium 126 L Potassium 4.0 Chloride 88 L Carbon Dioxide 28.8 Anion Gap 9 BUN 17 Creatinine 1.43 H Estimated GFR 53 L POC Glucose 190 H Random Glucose 212 H D Calcium 8.7 Phosphorus 3.6 Magnesium 1.2 L Total Bilirubin 0.5 AST 40 H ALT 26 Alkaline Phosphatase 76 Total Protein 7.1 Albumin 3.3 L TSH 0.825 Free T4 1.36 - Procedures NONE Assessment and Plan - Problem List (1) Closed fracture of left distal femur Code(s): S72.402A - Unspecified fracture of lower end of left femur, initial encounter for closed fracture Status: Acute Qualifiers: Encounter type: initial encounter Fracture morphology: unspecified fracture morphology Qualified Code(s): S72.402A - Unspecified fracture of lower end of left femur, initial encounter for closed fracture - Assessment and Plan Nondisplaced left supracondylar femur fracture - non-operative care maintain immobilizer to the left lower extremity NWB LLE No active leg lifts or quad sets or flexion of the knee will re-order xrays today to eval fx alignment
[2018-06-27] MEDS: Lisinopril 20 MG Tablet PO SCH (08:55)
[2018-06-27] MEDS: Senna/Docusate Sodium 8.6/50 MG Tablet PO SCH ×2 (08:55→20:14)
[2018-06-27] MEDS: Ferrous Sulfate 325 MG Tablet PO SCH ×2 (08:55→20:14)
[2018-06-27] MEDS: Insulin NovoLIN Regular Correctional Sugar Inj SQ SCH ×4 (08:56→21:02)
--- NOTE | 2018-06-27 10:30 | XR ---
EXAM DATE: 06/27/2018 10:21 AM EDT AGE/SEX: 47 years / Male INDICATIONS: Left femur pain, post op CLINICAL DATA: This is the patient's subsequent encounter. Patient reports that signs and symptoms h ave been present for 4 - 6 days and indicates a pain score of 4/10. MEDICAL/SURGICAL HISTORY: Diabetes mellitus type I. . Orif left femur. Fourth toe rt amputation COMPARISON: [facility] – [place], KNEE COMPLETE LEFT 4V, 06/23/2018. . FINDINGS: Compression screw and intramedullary rebecca fixation of the left femur with cerclage wires proximally. H ardware appears intact. Prominent heterotopic bone formation and bony remodeling in the proximal femu r. Distal metaphyseal fracture is again noted and is less well defined. Osseous structures are otherw ise intact. Remainder of the exam is unchanged. CONCLUSION: 1. Redemonstration of distal femoral metaphyseal fracture with intact hardware, as above. Electronically signed by: Martin Bermeo MD 06/27/2018 10:29 AM EDT
--- NOTE | 2018-06-27 11:46 | P.PNIM ---
Subjective Interval history: 47-year-old male with a past medical history significant for type 1 diabetes mellitus with insulin pump and hypertension presents to the emergency department after suffering a fall. The patient reports he was walking on his linoleum kitchen floor when he slipped and fell and placed all of his weight on his left knee. He has a distal femur fracture. He denies any loss of consciousness or head trauma. No other injuries. No chest pain or shortness of breath. No abdominal pain. No nausea/vomiting/diarrhea. No fever/chills. Patient doing well, reports that he is feeling improved pain with pain meds, tolerating PO. No overnight concerns. 06-25 Patient doing well overnight. Patient is feeding, voiding, stooling well. Patient reports that his insulin pump was removed accidentally yesterday but that he plans on replacing it today. Patient states that this happens frequently at home. No overnight concerns. 06-26 still not very mobile sugars better controlled dw RN AND PT AND CM HOPEFULLY HOME NEXT 24 TO 48 HOURS 06-27 PATIENT CONTINUES TO WORK WITH PT AND OT NONWEIGHT BEARING ON LEFT LEG STILL NOT VERY MOBILE BLOOD SUGARS A LITTLE BETTER ON PUMP DW RN AND PT AND CM XRAY OF LEG IS STABLE Physical Exam Vital signs: Vital Signs 06/26/18 12:00 06/26/18 16:55 06/26/18 20:00 Temperature 98.6 F 98.1 F 98.5 F Pulse Rate 98 H 89 88 Respiratory Rate 18 16 17 Blood Pressure 129/63 141/72 H 125/63 Pulse Oximetry 96 99 97 06/27/18 00:00 06/27/18 08:00 Temperature 97.1 F L 98 F Pulse Rate 86 112 H Respiratory Rate 17 18 Blood Pressure 129/79 188/95 H Pulse Oximetry 95 96 Intake & Output 06/26/18 06/27/18 06/27/18 18:59 06:59 18:59 Intake Total 240 / 240 Output Total 1150 / 1150 Balance 240 / 240 -1150 / -1150 Weight 70 kg Intake: Oral 240 / 240 Output: Urine 1150 / 1150 Other: # Voids 1 Date of Last Bowel Movement 06/22/18 06/23/18 Narrative: GENERAL: well nourished male, in NAD. SKIN: Warm and dry. HEAD: Normocephalic. EYES: No scleral icterus. No injection or drainage. NECK: Supple, trachea midline. No JVD or lymphadenopathy. CARDIOVASCULAR: Regular rate and rhythm without murmurs, gallops, or rubs. RESPIRATORY: Breath sounds equal bilaterally. No accessory muscle use. GASTROINTESTINAL: Abdomen soft, non-tender, nondistended. MUSCULOSKELETAL: No cyanosis, or edema. BACK: Nontender without obvious deformity. No CVA tenderness. EXTREMITIES: Left LE immobilizer in place. Distally intact distal pulses. He has neuropathy with minimal sensation over his foot. Contractures of BL hands noted, chronic per patient. Results - Labs CBC & Chem 7: 06/27/18 03:40 06/27/18 03:40 Laboratory Results - last 24 hr 06/26/18 06/26/18 06/26/18 12:05 17:36 21:35 WBC RBC Hgb Hct MCV MCH MCHC RDW Plt Count MPV Neut % (Auto) Lymph % (Auto) [place] % (Auto) Eos % (Auto) Baso % (Auto) Neut # (Auto) Lymph # (Auto) [place] # (Auto) Eos # (Auto) Baso # (Auto) WBC Differential Differential Comment Sodium Potassium Chloride Carbon Dioxide Anion Gap BUN Creatinine Estimated GFR POC Glucose 162 H 113 H 190 H Random Glucose Calcium Phosphorus Magnesium Total Bilirubin AST ALT Alkaline Phosphatase Total Protein Albumin TSH Free T4 06/27/18 06/27/18 06/27/18 03:40 03:40 08:55 WBC 4.6 RBC 3.36 L Hgb 10.7 L Hct 31.6 L MCV 94.1 MCH 31.8 MCHC 33.8 RDW 13.0 Plt Count 201 MPV 10.3 Neut % (Auto) 55.7 Lymph % (Auto) 27.3 [place] % (Auto) 13.5 H Eos % (Auto) 3.1 Baso % (Auto) 0.4 Neut # (Auto) 2.6 Lymph # (Auto) 1.3 [place] # (Auto) 0.6 Eos # (Auto) 0.1 Baso # (Auto) 0.0 WBC Differential . Differential Comment Auto diff final Sodium 126 L Potassium 4.0 Chloride 88 L Carbon Dioxide 28.8 Anion Gap 9 BUN 17 Creatinine 1.43 H Estimated GFR 53 L POC Glucose 265 H Random Glucose 212 H D Calcium 8.7 Phosphorus 3.6 Magnesium 1.2 L Total Bilirubin 0.5 AST 40 H ALT 26 Alkaline Phosphatase 76 Total Protein 7.1 Albumin 3.3 L TSH 0.825 Free T4 1.36 - Imaging Impressions Femur X-Ray 06/27/18 00:00 CONCLUSION: 1. Redemonstration of distal femoral metaphyseal fracture with intact hardware , as above. - Procedures NONE Assessment and Plan - Assessment (1) Closed fracture of left distal femur Code(s): S72.402A - Unspecified fracture of lower end of left femur, initial encounter for closed fracture Status: Acute (2) Hypertension Code(s): I10 - Essential (primary) hypertension Status: Chronic (3) Hyponatremia Code(s): E87.1 - Hypo-osmolality and hyponatremia Status: Resolved - Plan 47 y/o CM with PMHX of IDDM Type I with insulin pump admitted for IP mgmt of L femur fx, managed non-operatively, HD#2 1. Distal femur fracture X-ray of the left knee significant for minimally displaced distal Metadiaphyseal fracture of the left femur Orthopedic surgery consulted- per reccs nonsurgical mgmt Oxycodone PRN pain PT/OT Leg immobilizer to the left lower extremity placed Repeat x-rays in approximately 1 week in office Follow-up with Dr. Madrigal or [place] in 7-10 days Case management for discharge placement, PATIENT DOES NOT HAVE OPTION FOR REHAB FACILITY POSSIBLE OUTPT PT 2. Diabetes mellitus Insulin pump accidently removed overnight, on SSI AC/HS BS 221, 100, 79 Insulin pump will be replaced today, patient states this occurs at home and he replaces it without difficulty 3. Hypertension: stable Continue home Lisinopril 4. Hyponatremia- Na 134 from 125 yesterday on NS Recheck BMP in AM WILL RECHECK AM LABS 5. Anemia- Hgb 10.6, in FeSulfate. 6. Hyperkalemia: K5.3, F/U BMP in AM. 7. DVT PPX: Heparin 8. Dispo: Pending IMPROVED MOBILITY, case mgmt on board Code Status: FULL CODE Discussed Condition With: RN AND PT AND CM Discharge Planning: INCREASE ACTIVITY (1) Closed fracture of left distal femur Qualifiers: Encounter type: initial encounter Fracture morphology: unspecified fracture morphology Qualified Code(s): S72.402A - Unspecified fracture of lower end of left femur, initial encounter for closed fracture
[2018-06-27 15:48] LABS: Hemoglobin A1c 8.7 % (4.3-6.0)
--- NOTE | 2018-06-28 06:27 | P.PNOP ---
Subjective Interval history: Resting comfortably. No new complaints Physical Exam Vital signs: Vital Signs 06/27/18 08:00 06/27/18 12:00 06/27/18 17:31 Temperature 98 F 98 F 98.2 F Pulse Rate 112 H 118 H 93 H Respiratory Rate 18 16 15 Blood Pressure 188/95 H 163/92 H 162/86 H Pulse Oximetry 96 16 L 95 06/27/18 20:00 06/28/18 00:00 Temperature 99.2 F 98.6 F Pulse Rate 98 H 90 Respiratory Rate 16 16 Blood Pressure 153/75 H 148/88 H Pulse Oximetry 96 98 Intake & Output 06/27/18 06/27/18 06/28/18 06:59 18:59 06:59 Output Total 1150 / 1150 Balance -1150 / -1150 Weight 70 kg Output: Urine 1150 / 1150 Other: Date of Last Bowel Movement 06/23/18 06/27/18 06/27/18 Narrative: Left lower extremity: Knee immobilizer in place. Mild swelling of her knee. Distally good capillary refills decreased sensation over the plantar surface of dorsum of the foot. Results - Labs CBC & Chem 7: 06/27/18 03:40 06/27/18 03:40 Laboratory Results - last 24 hr 06/27/18 06/27/18 06/27/18 03:40 08:55 11:55 POC Glucose 265 H 181 H Hemoglobin A1c 8.7 H 06/27/18 06/27/18 17:33 20:58 POC Glucose 229 H 408 H Hemoglobin A1c - Imaging Impressions Femur X-Ray 06/27/18 00:00 CONCLUSION: 1. Redemonstration of distal femoral metaphyseal fracture with intact hardware , as above. - Procedures NONE Assessment and Plan - Problem List (1) Closed fracture of left distal femur Code(s): S72.402A - Unspecified fracture of lower end of left femur, initial encounter for closed fracture Status: Acute Qualifiers: Encounter type: initial encounter Fracture morphology: unspecified fracture morphology Qualified Code(s): S72.402A - Unspecified fracture of lower end of left femur, initial encounter for closed fracture - Assessment and Plan Nondisplaced left supracondylar femur fracture - non-operative care maintain immobilizer to the left lower extremity NWB LLE No active leg lifts or quad sets or flexion of the knee X-rays confirm maintained alignment of fracture. Follow-up x-rays will be performed in approximately 2 weeks Case management for discharge plan-orthopedically cleared for discharge Follow-up with Dr. Madrigal or EDGAR in 2 weeks
[2018-06-28] MEDS: Sod Chloride 0.9% Inj 1,000 ML IV.CONT SCH ×2 (07:14→17:24)
[2018-06-28] MEDS: Insulin NovoLIN Regular Correctional Sugar Inj SQ SCH ×3 (09:24→17:24)
[2018-06-28] MEDS: Lisinopril 20 MG Tablet PO SCH (09:25)
[2018-06-28] MEDS: Ferrous Sulfate 325 MG Tablet PO SCH (09:25)
[2018-06-28] MEDS: Senna/Docusate Sodium 8.6/50 MG Tablet PO SCH (09:25)
--- NOTE | 2018-06-28 14:30 | P.PNIM ---
Subjective Interval history: 47-year-old male with a past medical history significant for type 1 diabetes mellitus with insulin pump and hypertension presents to the emergency department after suffering a fall. The patient reports he was walking on his linoleum kitchen floor when he slipped and fell and placed all of his weight on his left knee. He has a distal femur fracture. He denies any loss of consciousness or head trauma. No other injuries. No chest pain or shortness of breath. No abdominal pain. No nausea/vomiting/diarrhea. No fever/chills. Patient doing well, reports that he is feeling improved pain with pain meds, tolerating PO. No overnight concerns. 06-25 Patient doing well overnight. Patient is feeding, voiding, stooling well. Patient reports that his insulin pump was removed accidentally yesterday but that he plans on replacing it today. Patient states that this happens frequently at home. No overnight concerns. 06-26 still not very mobile sugars better controlled dw RN AND PT AND CM HOPEFULLY HOME NEXT 24 TO 48 HOURS 06-27 PATIENT CONTINUES TO WORK WITH PT AND OT NONWEIGHT BEARING ON LEFT LEG STILL NOT VERY MOBILE BLOOD SUGARS A LITTLE BETTER ON PUMP DW RN AND PT AND CM XRAY OF LEG IS STABLE 06-28 CAN BE DCED TO HOME TODAY DW RN AND PT AND CM WILL GIVE WALKER Physical Exam Vital signs: Vital Signs 06/27/18 17:31 06/27/18 20:00 06/28/18 00:00 Temperature 98.2 F 99.2 F 98.6 F Pulse Rate 93 H 98 H 90 Respiratory Rate 15 16 16 Blood Pressure 162/86 H 153/75 H 148/88 H Pulse Oximetry 95 96 98 06/28/18 06:26 06/28/18 08:00 Temperature 98.1 F Pulse Rate 104 H Respiratory Rate 17 18 Blood Pressure 120/70 Pulse Oximetry 18 L Intake & Output 06/27/18 06/28/18 06/28/18 18:59 06:59 18:59 Intake Total 480 / 480 Balance 480 / 480 Weight 68.3 kg Intake: Oral 480 / 480 Other: # Voids 3 Date of Last Bowel Movement 06/27/18 06/27/18 06/26/18 Narrative: GENERAL: well nourished male, in NAD. SKIN: Warm and dry. HEAD: Normocephalic. EYES: No scleral icterus. No injection or drainage. NECK: Supple, trachea midline. No JVD or lymphadenopathy. CARDIOVASCULAR: Regular rate and rhythm without murmurs, gallops, or rubs. RESPIRATORY: Breath sounds equal bilaterally. No accessory muscle use. GASTROINTESTINAL: Abdomen soft, non-tender, nondistended. MUSCULOSKELETAL: No cyanosis, or edema. BACK: Nontender without obvious deformity. No CVA tenderness. EXTREMITIES: Left LE immobilizer in place. Distally intact distal pulses. He has neuropathy with minimal sensation over his foot. Contractures of BL hands noted, chronic per patient. Results - Labs CBC & Chem 7: 06/27/18 03:40 06/27/18 03:40 Laboratory Results - last 24 hr 06/27/18 06/27/18 06/27/18 03:40 17:33 20:58 POC Glucose 229 H 408 H Hemoglobin A1c 8.7 H 06/28/18 06/28/18 06/28/18 08:34 12:41 12:43 POC Glucose 129 H 57 L 54 L Hemoglobin A1c 06/28/18 13:06 POC Glucose 102 Hemoglobin A1c - Imaging ITS Impressions Knee X-Ray 06/23/18 23:01 CONCLUSION: Minimally displaced distal metadiaphyseal fracture of the left femur with a large left knee lipohemarthrosis. Femur X-Ray 06/27/18 00:00 CONCLUSION: 1. Redemonstration of distal femoral metaphyseal fracture with intact hardware , as above. - Procedures NONE Assessment and Plan - Assessment (1) Closed fracture of left distal femur Code(s): S72.402A - Unspecified fracture of lower end of left femur, initial encounter for closed fracture Status: Acute (2) Hypertension Code(s): I10 - Essential (primary) hypertension Status: Chronic (3) Hyponatremia Code(s): E87.1 - Hypo-osmolality and hyponatremia Status: Resolved - Plan 47 y/o CM with PMHX of IDDM Type I with insulin pump admitted for IP mgmt of L femur fx, managed non-operatively, HD#2 1. Distal femur fracture X-ray of the left knee significant for minimally displaced distal Metadiaphyseal fracture of the left femur Orthopedic surgery consulted- per reccs nonsurgical mgmt Oxycodone PRN pain PT/OT Leg immobilizer to the left lower extremity placed Repeat x-rays in approximately 1 week in office Follow-up with Dr. Madrigal or PA in 7-10 days Case management for discharge placement, PATIENT DOES NOT HAVE OPTION FOR REHAB FACILITY POSSIBLE OUTPT PT 2. Diabetes mellitus Insulin pump accidently removed overnight, on SSI AC/HS BS 221, 100, 79 Insulin pump will be replaced today, patient states this occurs at home and he replaces it without difficulty 3. Hypertension: stable Continue home Lisinopril 4. Hyponatremia- Na 134 from 125 yesterday on NS Recheck BMP in AM WILL RECHECK AM LABS RENAL INSUFFICIENCY- CHRONIC SUSPECT DUE TO DM 5. Anemia- Hgb 10.6, in FeSulfate. 6. Hyperkalemia: K5.3, F/U BMP in AM. 7. DVT PPX: Heparin 8. Dispo: Pending IMPROVED MOBILITY, case mgmt on board Code Status: FULL CODE Discussed Condition With: RN AND PT AND CM Discharge Planning: DC TO TODAY (1) Closed fracture of left distal femur Qualifiers: Encounter type: initial encounter Fracture morphology: unspecified fracture morphology Qualified Code(s): S72.402A - Unspecified fracture of lower end of left femur, initial encounter for closed fracture
--- NOTE | 2018-06-28 14:46 | P.DS ---
Date of admission: 06/24/18 00:59 Primary care physician: No Primary Care Physician Attending physician on discharge: Izaiah Childress Anticipated date of discharge: 06/28/18 Brief History from admission: 47-year-old male with a past medical history significant for type 1 diabetes mellitus with insulin pump and hypertension presents to the emergency department after suffering a fall. The patient reports he was walking on his linoleum kitchen floor when he slipped and fell and placed all of his weight on his left knee. He has a distal femur fracture. He denies any loss of consciousness or head trauma. No other injuries. No chest pain or shortness of breath. No abdominal pain. No nausea/vomiting/diarrhea. No fever/chills. Patient update on day of discharge: 47-year-old male with a past medical history significant for type 1 diabetes mellitus with insulin pump and hypertension presents to the emergency department after suffering a fall. The patient reports he was walking on his linoleum kitchen floor when he slipped and fell and placed all of his weight on his left knee. He has a distal femur fracture. He denies any loss of consciousness or head trauma. No other injuries. No chest pain or shortness of breath. No abdominal pain. No nausea/vomiting/diarrhea. No fever/chills. Patient doing well, reports that he is feeling improved pain with pain meds, tolerating PO. No overnight concerns. 06-25 Patient doing well overnight. Patient is feeding, voiding, stooling well. Patient reports that his insulin pump was removed accidentally yesterday but that he plans on replacing it today. Patient states that this happens frequently at home. No overnight concerns. 06-26 still not very mobile sugars better controlled dw RN AND PT AND CM HOPEFULLY HOME NEXT 24 TO 48 HOURS 06-27 PATIENT CONTINUES TO WORK WITH PT AND OT NONWEIGHT BEARING ON LEFT LEG STILL NOT VERY MOBILE BLOOD SUGARS A LITTLE BETTER ON PUMP DW RN AND PT AND CM XRAY OF LEG IS STABLE 06-28 CAN BE DCED TO HOME TODAY DW RN AND PT AND CM WILL GIVE WALKER DS: Diagnosis - Discharge Diagnosis (1) Closed fracture of left distal femur Status: Acute (2) Hypertension Status: Chronic (3) Hyponatremia Status: Resolved DS: Medications - Discharge Medications Prescriptions: ferrous sulfate [FeroSul] 325 mg PO BID #60 tab hydrocodone-acetaminophen [[place]] 1 tab PO Q4-6H PRN #40 tab PRN Reason: Acute Pain lisinopril 20 mg PO DAILY #30 tab rivaroxaban [Xarelto] 10 mg PO DAILY #14 tab sennosides-docusate sodium [Senna Plus] 2 tab PO BID #120 tab DS: Summary Hospital Course: 47-year-old male with a past medical history significant for type 1 diabetes mellitus with insulin pump and hypertension presents to the emergency department after suffering a fall. The patient reports he was walking on his linoleum kitchen floor when he slipped and fell and placed all of his weight on his left knee. He has a distal femur fracture. He denies any loss of consciousness or head trauma. No other injuries. No chest pain or shortness of breath. No abdominal pain. No nausea/vomiting/diarrhea. No fever/chills. Patient doing well, reports that he is feeling improved pain with pain meds, tolerating PO. No overnight concerns. 9 Patient doing well overnight. Patient is feeding, voiding, stooling well. Patient reports that his insulin pump was removed accidentally yesterday but that he plans on replacing it today. Patient states that this happens frequently at home. No overnight concerns. 06-26 still not very mobile sugars better controlled dw RN AND PT AND CM HOPEFULLY HOME NEXT 24 TO 48 HOURS 06-27 PATIENT CONTINUES TO WORK WITH PT AND OT NONWEIGHT BEARING ON LEFT LEG STILL NOT VERY MOBILE BLOOD SUGARS A LITTLE BETTER ON PUMP DW RN AND PT AND CM XRAY OF LEG IS STABLE 06-28 CAN BE DCED TO HOME TODAY DW RN AND PT AND CM WILL GIVE WALKER - Time Spent with Patient Total time spent providing and/or coordinating discharge services: Greater than 30 minutes - Quality: VTE Deep Vein Thrombosis/Pulmonary Embolism Present on Admission: No Exam Vital signs: Vital Signs 06/27/18 17:31 06/27/18 20:00 06/28/18 00:00 Temperature 98.2 F 99.2 F 98.6 F Pulse Rate 93 H 98 H 90 Respiratory Rate 15 16 16 Blood Pressure 162/86 H 153/75 H 148/88 H Pulse Oximetry 95 96 98 06/28/18 06:26 06/28/18 08:00 Temperature 98.1 F Pulse Rate 104 H Respiratory Rate 17 18 Blood Pressure 120/70 Pulse Oximetry 18 L Intake & Output 06/27/18 06/28/18 06/28/18 18:59 06:59 18:59 Intake Total 480 / 480 Balance 480 / 480 Weight 68.3 kg Intake: Oral 480 / 480 Other: # Voids 3 Date of Last Bowel Movement 06/27/18 06/27/18 06/26/18 Narrative: 47-year-old male with a past medical history significant for type 1 diabetes mellitus with insulin pump and hypertension presents to the emergency department after suffering a fall. The patient reports he was walking on his linoleum kitchen floor when he slipped and fell and placed all of his weight on his left knee. He has a distal femur fracture. He denies any loss of consciousness or head trauma. No other injuries. No chest pain or shortness of breath. No abdominal pain. No nausea/vomiting/diarrhea. No fever/chills. Patient doing well, reports that he is feeling improved pain with pain meds, tolerating PO. No overnight concerns. 06-25 Patient doing well overnight. Patient is feeding, voiding, stooling well. Patient reports that his insulin pump was removed accidentally yesterday but that he plans on replacing it today. Patient states that this happens frequently at home. No overnight concerns. 06-26 still not very mobile sugars better controlled dw RN AND PT AND CM HOPEFULLY HOME NEXT 24 TO 48 HOURS 06-27 PATIENT CONTINUES TO WORK WITH PT AND OT NONWEIGHT BEARING ON LEFT LEG STILL NOT VERY MOBILE BLOOD SUGARS A LITTLE BETTER ON PUMP DW RN AND PT AND CM XRAY OF LEG IS STABLE 06-28 CAN BE DCED TO HOME TODAY DW RN AND PT AND CM WILL GIVE WALKER Results Procedures completed during hospitalization: NONE Completed studies during hospitalization: Laboratory Results WBC 4.6 th/mm3 (4.0-11.0) 06/27/18 03:40 RBC 3.36 mil/mm3 (4.50-5.90) L 06/27/18 03:40 Hgb 10.7 gm/dL (13.0-17.0) L 06/27/18 03:40 Hct 31.6 % (39.0-51.0) L 06/27/18 03:40 MCV 94.1 fL (80.0-100.0) 06/27/18 03:40 MCH 31.8 pg (27.0-34.0) 06/27/18 03:40 MCHC 33.8 % (32.0-36.0) 06/27/18 03:40 RDW 13.0 % (11.6-17.2) 06/27/18 03:40 Plt Count 201 th/mm3 (150-450) 06/27/18 03:40 MPV 10.3 fL (7.0-11.0) 06/27/18 03:40 Neut % (Auto) 55.7 % (16.0-70.0) 06/27/18 03:40 Lymph % (Auto) 27.3 % (9.0-44.0) 06/27/18 03:40 Antelope % (Auto) 13.5 % (0.0-8.0) H 06/27/18 03:40 Eos % (Auto) 3.1 % (0.0-4.0) 06/27/18 03:40 Baso % (Auto) 0.4 % (0.0-2.0) 06/27/18 03:40 Neut # (Auto) 2.6 th/mm3 (1.8-7.7) 06/27/18 03:40 Lymph # (Auto) 1.3 th/mm3 (1.0-4.8) 06/27/18 03:40 Antelope # (Auto) 0.6 th/mm3 (0.0-0.9) 06/27/18 03:40 Eos # (Auto) 0.1 th/mm3 (0.0-0.4) 06/27/18 03:40 Baso # (Auto) 0.0 th/mm3 (0.0-0.2) 06/27/18 03:40 WBC Differential . 06/27/18 03:40 Differential Comment Auto diff final 06/27/18 03:40 PT 10.0 sec (9.8-11.6) 06/24/18 01:15 INR 1.0 Ratio 06/24/18 01:15 APTT 28.8 sec (24.3-30.1) 06/24/18 01:15 Sodium 126 meq/L (136-145) L 06/27/18 03:40 Potassium 4.0 meq/L (3.5-5.1) 06/27/18 03:40 Chloride 88 meq/L (98-107) L 06/27/18 03:40 Carbon Dioxide 28.8 meq/L (21.0-32.0) 06/27/18 03:40 Anion Gap 9 meq/L (5-15) 06/27/18 03:40 BUN 17 mg/dL (7-18) 06/27/18 03:40 Creatinine 1.43 mg/dL (0.60-1.30) H 06/27/18 03:40 Estimated GFR 53 mL/min (>89) L 06/27/18 03:40 POC Glucose 102 mg/dl (68-110) 06/28/18 13:06 Random Glucose 212 mg/dL (74-106) H D 06/27/18 03:40 Hemoglobin A1c 8.7 % (4.3-6.0) H 06/27/18 03:40 Calcium 8.7 mg/dL (8.5-10.1) 06/27/18 03:40 Phosphorus 3.6 mg/dL (2.5-4.9) 06/27/18 03:40 Magnesium 1.2 mg/dL (1.5-2.5) L 06/27/18 03:40 Total Bilirubin 0.5 mg/dL (0.2-1.0) 06/27/18 03:40 AST 40 U/L (15-37) H 06/27/18 03:40 ALT 26 U/L (12-78) 06/27/18 03:40 Alkaline Phosphatase 76 U/L (45-117) 06/27/18 03:40 Total Protein 7.1 g/dL (6.4-8.2) 06/27/18 03:40 Albumin 3.3 g/dL (3.4-5.0) L 06/27/18 03:40 TSH 0.825 uIU/mL (0.358-3.740) 06/27/18 03:40 Free T4 1.36 ng/dL (0.76-1.46) 06/27/18 03:40 Impressions Knee X-Ray 06/23/18 23:01 CONCLUSION: Minimally displaced distal metadiaphyseal fracture of the left femur with a large left knee lipohemarthrosis. Femur X-Ray 06/27/18 00:00 CONCLUSION: 1. Redemonstration of distal femoral metaphyseal fracture with intact hardware , as above. Labs on day of discharge: Labs from last 24 hours 06/28/18 06/28/18 06/28/18 13:06 12:43 12:41 POC Glucose 102 54 L 57 L Hemoglobin A1c 06/28/18 06/27/18 06/27/18 08:34 20:58 17:33 POC Glucose 129 H 408 H 229 H Hemoglobin A1c 06/27/18 03:40 POC Glucose Hemoglobin A1c 8.7 H - Impressions ITS Impressions Knee X-Ray 06/23/18 23:01 CONCLUSION: Minimally displaced distal metadiaphyseal fracture of the left femur with a large left knee lipohemarthrosis. Femur X-Ray 06/27/18 00:00 CONCLUSION: 1. Redemonstration of distal femoral metaphyseal fracture with intact hardware , as above. Discharge Plan - Discharge Disposition Patient Disposition: 01 Discharge Home - Discharge Condition Condition: Good - Discharge Order Discharge Orders: Discharge Order (Routine); Ordered 06/28/18 Ordered By: Izaiah Childress Orthopedic Clear for Discharge (Routine); Ordered 06/28/18 Ordered By: Charles Ziegler - Discharge Details Anticipated Discharge Date: 06/28/18 Discharge Comment: DC TO HOME TODAY - Physicians Team Primary Care Provider: Primary Care Physici,No Attending Provider: Izaiah Childress Other Providers: Jaime Marte MD ; Mauricio Marinelli MD
[2018-06-28 17:41] VITALS: BP 166/95; PULSE 98; RESP 15; TEMP 97.8; O2SAT 97
== END 2018-06-28 18:55 | disposition home or self-care (01) ==
LOC: NEPE 22:51 → NEDA 06-24 00:59 → N06 06-24 01:20
PROVIDERS: ADMIT Hospitalist; ATTEND Hospitalist

== ENCOUNTER 2018-11-13 21:09 | Inpatient (IN) ==
[2018-11-13 21:46] LABS: Hematocrit 37.9 % (39.0-51.0); Mean Corpuscular HGB Conc 31.6 % (32.0-36.0); Mean Corpuscular Hemoglobin 32.1 pg (27.0-34.0); Mean Corpuscular Volume 101.7 fL (80.0-100.0); Mean Platelet Volume 9.8 fL (7.0-11.0); Platelet Count 190 th/mm3 (150-450); Red Blood Count 3.73 mil/mm3 (4.50-5.90); Red Cell Distribution Width 15.6 % (11.6-17.2); White Blood Count 17.7 th/mm3 (4.0-11.0)
[2018-11-13 22:07] LABS: Calcium 8.6 mg/dL (8.5-10.1); Carbon Dioxide 7.8 meq/L (21.0-32.0); Potassium 4.9 meq/L (3.5-5.1)
[2018-11-13] MEDS ORDERED: Dextrose 50% in Water 50 ML Vial IV.PUSH PRN (22:11)
[2018-11-13] MEDS ORDERED: Insulin Human-R 100 UNIT/100ML 100 UNIT/100 ML BAG IV.CONT ONE (22:11)
[2018-11-13] MEDS: Sod Chloride 0.9% Inj 1,000 ML IV.SIG SCH (22:39)
--- NOTE | 2018-11-13 22:46 | ED ---
HPI General Chief complaint: Diabetic Stated complaint: High blood sugar Time Seen by Provider: 11/13/18 22:11 Source: patient Mode of arrival: EMS Limitations: no limitations History of Present Illness HPI narrative: 48-year-old male came to the emergency room brought by EMS for possible DKA. Patient is an insulin-dependent diabetic and says that there is a stomach bug going around in his household. He caught it yesterday and has been vomiting. He tried to stay caught up with his blood sugar and insulin but today he continued to have nonstop vomiting and finally got extremely tired and called 911. His blood glucose level was in the 400s by EMS. Patient is tachycardic upon arrival. He says that he has had multiple times DKA and knows that he feels as if he is currently having DKA as well. No diarrhea. No blood in his vomit. No history of fever or chills. Related Data Home Medications Medication Instructions Recorded Confirmed insulin pump cartridge 06/24/18 11/13/18 insulin glargine [Lantus U-100 50 unit SUBCUT DAILY 11/13/18 11/13/18 Insulin] insulin regular human [Novolin R 1 sliding scale dose SUBCUT UD 11/13/18 Regular U-100 Insuln] Previous Rx's Medication Instructions Recorded lisinopril 20 mg PO DAILY #30 tab 06/28/18 Allergies Allergy/AdvReac Type Severity Reaction Status Date / Time No Known Allergies Allergy Verified 11/13/18 21:34 Review of Systems ROS: all other systems reviewed are negative [facility] Medical History Medical History Diabetes mellitus (Acute) History of amputation of finger (Acute) Hypertension (Acute) Neuropathy (Acute) Surgical History Surgical History History of cataract surgery (Acute) History of partial amputation of toe (Acute) Status post trigger finger release (Acute) Family History Family History Other CVA (cerebral vascular accident) Colon cancer Hypertension Social History Social History Substance History: No History of Abuse Second Hand Smoke Exposure: No Smoking Status: Former smoker Tobacco Type: Cigarettes How Often Do You Have a Drink Containing Alcohol: 2 to 3 times a week [facility] within the Last 8 Weeks: No Immunization History Tetanus Immunization: >5 Years Exam Narrative Exam Narrative: GENERAL: Awake, alert, moderate distress SKIN: Focused skin assessment warm/dry. HEAD: Atraumatic. Normocephalic. EYES: Pupils equal and round. No scleral icterus. No injection or drainage. ENT: No nasal bleeding or discharge. Dry mucous membrane and coated NECK: Trachea midline. No JVD. CARDIOVASCULAR: Regular rate and rhythm. Tachycardia. No murmur appreciated. RESPIRATORY: No accessory muscle use. Clear to auscultation. Breath sounds equal bilaterally. GASTROINTESTINAL: Abdomen soft, non-tender, nondistended. Hepatic and splenic margins not palpable. MUSCULOSKELETAL: No obvious deformities. No clubbing. No cyanosis. No edema. Dupytren's contracture. NEUROLOGICAL: Awake and alert. No obvious cranial nerve deficits. Motor grossly within normal limits. Normal speech. PSYCHIATRIC: Appropriate mood and affect; insight and judgment normal. Course Initial Documented Vital Signs Temperature 97.7 F 11/13/18 21:26 Pulse Rate 135 H 11/13/18 21:26 Respiratory Rate 30 H 11/13/18 21:26 Blood Pressure 122/51 L 11/13/18 21:26 Pulse Oximetry 100 11/13/18 21:26 Last Documented Vital Signs Temperature 99.7 F H 11/16/18 16:00 Pulse Rate 79 11/16/18 19:00 Respiratory Rate 19 11/16/18 19:00 Blood Pressure 129/70 11/16/18 19:00 Pulse Oximetry 96 11/16/18 19:00 Critical Care Time Critical Care Time: Yes Total Critical Care Time: 30 Attestation: Aggregate critical care time was 30 minutes. Time to perform other separately billable procedures was not included in the critical care time. My time did not include minutes spent treating any other patients simultaneously or on activities that did not directly contribute to the patient's treatment. The services I provided to this patient were to treat and/or prevent clinically significant deterioration that could result in: DKA, insulin drip I provided critical care services requiring my management, as noted below: Chart data review, documentation time, medication orders and management, vital sign assessments/reviewing monitor data, ordering and reviewing lab tests, ordering and interpreting/reviewing x-rays and diagnostic studies, care of the patient and discussion of the patient with the admitting physicians. Medical Decision Making MDM Narrative Medical decision making narrative: 10:44 PM CBC and chemistry is back. Patient has significant metabolic acidosis based on the bicarb and elevated anion gap. Blood glucose is in 400s which probably is from the fact that patient has been taking his insulin. I am giving him 2 L of IV fluid bolus in addition to 1 L that he is received from EMS. I have ordered an insulin drip. Awaiting for a VBG. Patient will require admission Medical Screen Exam Complete: Yes Emergency Medical Condition: Yes Lab Data Result diagrams: 11/15/18 05:44 11/16/18 07:01 Lab Results 11/13/18 11/13/18 11/13/18 Range/Units 21:30 21:30 21:30 WBC 17.7 H (4.0-11.0) th/mm3 RBC 3.73 L (4.50-5.90) mil/mm3 Hgb 12.0 L (13.0-17.0) gm/dL Hct 37.9 L (39.0-51.0) % MCV 101.7 H (80.0-100.0) fL MCH 32.1 (27.0-34.0) pg MCHC 31.6 L (32.0-36.0) % RDW 15.6 (11.6-17.2) % Plt Count 190 (150-450) th/mm3 MPV 9.8 (7.0-11.0) fL Neut % (Auto) (16.0-70.0) % Lymph % (Auto) (9.0-44.0) % [place] % (Auto) (0.0-8.0) % Eos % (Auto) (0.0-4.0) % Baso % (Auto) (0.0-2.0) % Neut # (Auto) (1.8-7.7) th/mm3 Lymph # (Auto) (1.0-4.8) th/mm3 [place] # (Auto) (0.0-0.9) th/mm3 Eos # (Auto) (0.0-0.4) th/mm3 Baso # (Auto) (0.0-0.2) th/mm3 WBC Differential Differential Comment PT (9.8-11.6) sec INR Ratio APTT (23.4-31.7) sec Puncture Site Patient Temperature VBG pH (7.360-7.400) VBG pCO2 (44-48) mmHG VBG pO2 (35-40) mmHG VBG HCO3 (22-26) mmol/L VBG O2 Saturation (70-76) % VBG O2 Content (9.0-17.0) Vol % VBG Base Excess (-2-2) mmol/L VBG Carboxyhemoglobin (0-4) % VBG Methemoglobin (0-2) % Hemoglobin (12.0-16.0) G/DL O2 Delivery Device Inspired O2 % Critical Value Sodium 135 L 137 (136-145) meq/L Potassium 4.9 5.0 (3.5-5.1) meq/L Chloride 91 L 91 L (98-107) meq/L Carbon Dioxide 7.8 L Less than 5.0 L (21.0-32.0) meq/L Anion Gap 36 H 41 H (5-15) meq/L BUN 26 H 26 H (7-18) mg/dL Creatinine 3.53 H 3.53 H (0.60-1.30) mg/dL Estimated GFR 19 L 19 L (>89) mL/min POC Glucose (68-110) mg/dl Random Glucose 402 H 414 H (74-106) mg/dL Hemoglobin A1c (4.3-6.0) % Lactic Acid (0.4-2.0) mmol/L Calcium 8.6 8.5 (8.5-10.1) mg/dL Calcium Adj for Albumin (8.5-10.1) mg/dL Phosphorus (2.5-4.9) mg/dL Magnesium (1.5-2.5) mg/dL Total Bilirubin 1.0 (0.2-1.0) mg/dL AST 90 H (15-37) U/L ALT 34 (12-78) U/L Alkaline Phosphatase 100 (45-117) U/L Total Creatine Kinase (39-308) U/L CK-MB (CK-2) (0.5-3.6) ng/mL Troponin I (0.02-0.05) ng/mL Total Protein 7.4 (6.4-8.2) g/dL Albumin 3.5 (3.4-5.0) g/dL Triglycerides (42-150) mg/dL Cholesterol (120-200) mg/dL LDL Cholesterol, Calc (0-99) mg/dL HDL Cholesterol (40.0-60.0) mg/dL Cholesterol/HDL Ratio Ratio Beta-Hydroxybutyric Acd 9.04 H (0.00-0.39) mmol/L Urine Color (Yellw/Straw) Urine Clarity (Clear) Urine pH (5.0-8.5) Ur Specific [place] (1.002-1.035) Urine Protein (Neg-Trace) mg/dL Urine Glucose (UA) (Negative) mg/dL Urine Ketones (Negative) mg/dL Urine Occult Blood (Negative) Urine Nitrate (Negative) Urine Bilirubin (Negative) Urine Urobilinogen (Less than 2) mg/dL Ur Leukocyte Esterase (Negative) Urine RBC (0-3) /hpf Urine WBC (0-5) /hpf Urine Bacteria (None) /hpf Hyaline Casts (0-3) /lpf Urine Mucus (Occasional) /lpf Micro UA Comment Ur Microscopic Review Urine Culture Comments Urine Osmolality (300-1300) mosm/kg Ur Random Creatinine (27-300) mg/dL Ur Random Sodium meq/L Nasal Screen MRSA (PCR) (Negative) [place] Screen (Neg) Complement C3 (90-180) mg/dL Complement C4 (10-40) mg/dL 11/13/18 11/13/18 11/13/18 Range/Units 22:45 22:45 23:52 WBC (4.0-11.0) th/mm3 RBC (4.50-5.90) mil/mm3 Hgb (13.0-17.0) gm/dL Hct (39.0-51.0) % MCV (80.0-100.0) fL MCH (27.0-34.0) pg MCHC (32.0-36.0) % RDW (11.6-17.2) % Plt Count (150-450) th/mm3 MPV (7.0-11.0) fL Neut % (Auto) (16.0-70.0) % Lymph % (Auto) (9.0-44.0) % [place] % (Auto) (0.0-8.0) % Eos % (Auto) (0.0-4.0) % Baso % (Auto) (0.0-2.0) % Neut # (Auto) (1.8-7.7) th/mm3 Lymph # (Auto) (1.0-4.8) th/mm3 [place] # (Auto) (0.0-0.9) th/mm3 Eos # (Auto) (0.0-0.4) th/mm3 Baso # (Auto) (0.0-0.2) th/mm3 WBC Differential Differential Comment PT (9.8-11.6) sec INR Ratio APTT (23.4-31.7) sec Puncture Site Iv Patient Temperature 98.6 VBG pH 7.10 L* (7.360-7.400) VBG pCO2 22 L (44-48) mmHG VBG pO2 57 H (35-40) mmHG VBG HCO3 6 L* (22-26) mmol/L VBG O2 Saturation 79 H (70-76) % VBG O2 Content 11.9 (9.0-17.0) Vol % VBG Base Excess -21.5 L (-2-2) mmol/L VBG Carboxyhemoglobin 0.9 (0-4) % VBG Methemoglobin 0.9 (0-2) % Hemoglobin 10.7 L (12.0-16.0) G/DL O2 Delivery Device Room air Inspired O2 21 % Critical Value Yes Sodium (136-145) meq/L Potassium (3.5-5.1) meq/L Chloride (98-107) meq/L Carbon Dioxide (21.0-32.0) meq/L Anion Gap (5-15) meq/L BUN (7-18) mg/dL Creatinine (0.60-1.30) mg/dL Estimated GFR (>89) mL/min POC Glucose 440 H 393 H (68-110) mg/dl Random Glucose (74-106) mg/dL Hemoglobin A1c (4.3-6.0) % Lactic Acid (0.4-2.0) mmol/L Calcium (8.5-10.1) mg/dL Calcium Adj for Albumin (8.5-10.1) mg/dL Phosphorus (2.5-4.9) mg/dL Magnesium (1.5-2.5) mg/dL Total Bilirubin (0.2-1.0) mg/dL AST (15-37) U/L ALT (12-78) U/L Alkaline Phosphatase (45-117) U/L Total Creatine Kinase (39-308) U/L CK-MB (CK-2) (0.5-3.6) ng/mL Troponin I (0.02-0.05) ng/mL Total Protein (6.4-8.2) g/dL Albumin (3.4-5.0) g/dL Triglycerides (42-150) mg/dL Cholesterol (120-200) mg/dL LDL Cholesterol, Calc (0-99) mg/dL HDL Cholesterol (40.0-60.0) mg/dL Cholesterol/HDL Ratio Ratio Beta-Hydroxybutyric Acd (0.00-0.39) mmol/L Urine Color (Yellw/Straw) Urine Clarity (Clear) Urine pH (5.0-8.5) Ur Specific [place] (1.002-1.035) Urine Protein (Neg-Trace) mg/dL Urine Glucose (UA) (Negative) mg/dL Urine Ketones (Negative) mg/dL Urine Occult Blood (Negative) Urine Nitrate (Negative) Urine Bilirubin (Negative) Urine Urobilinogen (Less than 2) mg/dL Ur Leukocyte Esterase (Negative) Urine RBC (0-3) /hpf Urine WBC (0-5) /hpf Urine Bacteria (None) /hpf Hyaline Casts (0-3) /lpf Urine Mucus (Occasional) /lpf Micro UA Comment Ur Microscopic Review Urine Culture Comments Urine Osmolality (300-1300) mosm/kg Ur Random Creatinine (27-300) mg/dL Ur Random Sodium meq/L Nasal Screen MRSA (PCR) (Negative) [place] Screen (Neg) Complement C3 (90-180) mg/dL Complement C4 (10-40) mg/dL 11/14/18 11/14/18 11/14/18 Range/Units 00:05 00:56 01:49 WBC (4.0-11.0) th/mm3 RBC (4.50-5.90) mil/mm3 Hgb (13.0-17.0) gm/dL Hct (39.0-51.0) % MCV (80.0-100.0) fL MCH (27.0-34.0) pg MCHC (32.0-36.0) % RDW (11.6-17.2) % Plt Count (150-450) th/mm3 MPV (7.0-11.0) fL Neut % (Auto) (16.0-70.0) % Lymph % (Auto) (9.0-44.0) % [place] % (Auto) (0.0-8.0) % Eos % (Auto) (0.0-4.0) % Baso % (Auto) (0.0-2.0) % Neut # (Auto) (1.8-7.7) th/mm3 Lymph # (Auto) (1.0-4.8) th/mm3 [place] # (Auto) (0.0-0.9) th/mm3 Eos # (Auto) (0.0-0.4) th/mm3 Baso # (Auto) (0.0-0.2) th/mm3 WBC Differential Differential Comment PT (9.8-11.6) sec INR Ratio APTT (23.4-31.7) sec Puncture Site Patient Temperature VBG pH (7.360-7.400) VBG pCO2 (44-48) mmHG VBG pO2 (35-40) mmHG VBG HCO3 (22-26) mmol/L VBG O2 Saturation (70-76) % VBG O2 Content (9.0-17.0) Vol % VBG Base Excess (-2-2) mmol/L VBG Carboxyhemoglobin (0-4) % VBG Methemoglobin (0-2) % Hemoglobin (12.0-16.0) G/DL O2 Delivery Device Inspired O2 % Critical Value Sodium 139 (136-145) meq/L Potassium 4.7 (3.5-5.1) meq/L Chloride 98 (98-107) meq/L Carbon Dioxide 8.5 L (21.0-32.0) meq/L Anion Gap 33 H (5-15) meq/L BUN 28 H (7-18) mg/dL Creatinine 3.75 H (0.60-1.30) mg/dL Estimated GFR 17 L (>89) mL/min POC Glucose 340 H 269 H (68-110) mg/dl Random Glucose 375 H (74-106) mg/dL Hemoglobin A1c (4.3-6.0) % Lactic Acid (0.4-2.0) mmol/L Calcium 7.2 L* D (8.5-10.1) mg/dL Calcium Adj for Albumin 7.8 L (8.5-10.1) mg/dL Phosphorus (2.5-4.9) mg/dL Magnesium (1.5-2.5) mg/dL Total Bilirubin (0.2-1.0) mg/dL AST (15-37) U/L ALT (12-78) U/L Alkaline Phosphatase (45-117) U/L Total Creatine Kinase (39-308) U/L CK-MB (CK-2) (0.5-3.6) ng/mL Troponin I 0.11 H (0.02-0.05) ng/mL Total Protein (6.4-8.2) g/dL Albumin 3.3 L (3.4-5.0) g/dL Triglycerides (42-150) mg/dL Cholesterol (120-200) mg/dL LDL Cholesterol, Calc (0-99) mg/dL HDL Cholesterol (40.0-60.0) mg/dL Cholesterol/HDL Ratio Ratio Beta-Hydroxybutyric Acd (0.00-0.39) mmol/L Urine Color (Yellw/Straw) Urine Clarity (Clear) Urine pH (5.0-8.5) Ur Specific [place] (1.002-1.035) Urine Protein (Neg-Trace) mg/dL Urine Glucose (UA) (Negative) mg/dL Urine Ketones (Negative) mg/dL Urine Occult Blood (Negative) Urine Nitrate (Negative) Urine Bilirubin (Negative) Urine Urobilinogen (Less than 2) mg/dL Ur Leukocyte Esterase (Negative) Urine RBC (0-3) /hpf Urine WBC (0-5) /hpf Urine Bacteria (None) /hpf Hyaline Casts (0-3) /lpf Urine Mucus (Occasional) /lpf Micro UA Comment Ur Microscopic Review Urine Culture Comments Urine Osmolality (300-1300) mosm/kg Ur Random Creatinine (27-300) mg/dL Ur Random Sodium meq/L Nasal Screen MRSA (PCR) (Negative) [place] Screen (Neg) Complement C3 (90-180) mg/dL Complement C4 (10-40) mg/dL 11/14/18 11/14/18 11/14/18 Range/Units 02:05 02:56 03:20 WBC 10.5 (4.0-11.0) th/mm3 RBC 3.32 L (4.50-5.90) mil/mm3 Hgb 11.2 L (13.0-17.0) gm/dL Hct 32.1 L (39.0-51.0) % MCV 96.7 D (80.0-100.0) fL MCH 33.7 (27.0-34.0) pg MCHC 34.8 (32.0-36.0) % RDW 14.7 (11.6-17.2) % Plt Count 132 L D (150-450) th/mm3 MPV 9.2 (7.0-11.0) fL Neut % (Auto) 89.6 H (16.0-70.0) % Lymph % (Auto) 4.0 L (9.0-44.0) % [place] % (Auto) 6.3 (0.0-8.0) % Eos % (Auto) 0.1 (0.0-4.0) % Baso % (Auto) 0.0 (0.0-2.0) % Neut # (Auto) 9.4 H (1.8-7.7) th/mm3 Lymph # (Auto) 0.4 L (1.0-4.8) th/mm3 [place] # (Auto) 0.7 (0.0-0.9) th/mm3 Eos # (Auto) 0.0 (0.0-0.4) th/mm3 Baso # (Auto) 0.0 (0.0-0.2) th/mm3 WBC Differential . Differential Comment Auto diff final PT (9.8-11.6) sec INR Ratio APTT (23.4-31.7) sec Puncture Site Patient Temperature VBG pH (7.360-7.400) VBG pCO2 (44-48) mmHG VBG pO2 (35-40) mmHG VBG HCO3 (22-26) mmol/L VBG O2 Saturation (70-76) % VBG O2 Content (9.0-17.0) Vol % VBG Base Excess (-2-2) mmol/L VBG Carboxyhemoglobin (0-4) % VBG Methemoglobin (0-2) % Hemoglobin (12.0-16.0) G/DL O2 Delivery Device Inspired O2 % Critical Value Sodium (136-145) meq/L Potassium (3.5-5.1) meq/L Chloride (98-107) meq/L Carbon Dioxide (21.0-32.0) meq/L Anion Gap (5-15) meq/L BUN (7-18) mg/dL Creatinine (0.60-1.30) mg/dL Estimated GFR (>89) mL/min POC Glucose 220 H (68-110) mg/dl Random Glucose (74-106) mg/dL Hemoglobin A1c (4.3-6.0) % Lactic Acid (0.4-2.0) mmol/L Calcium (8.5-10.1) mg/dL Calcium Adj for Albumin (8.5-10.1) mg/dL Phosphorus (2.5-4.9) mg/dL Magnesium (1.5-2.5) mg/dL Total Bilirubin (0.2-1.0) mg/dL AST (15-37) U/L ALT (12-78) U/L Alkaline Phosphatase (45-117) U/L Total Creatine Kinase (39-308) U/L CK-MB (CK-2) (0.5-3.6) ng/mL Troponin I (0.02-0.05) ng/mL Total Protein (6.4-8.2) g/dL Albumin (3.4-5.0) g/dL Triglycerides (42-150) mg/dL Cholesterol (120-200) mg/dL LDL Cholesterol, Calc (0-99) mg/dL HDL Cholesterol (40.0-60.0) mg/dL Cholesterol/HDL Ratio Ratio Beta-Hydroxybutyric Acd (0.00-0.39) mmol/L Urine Color (Yellw/Straw) Urine Clarity (Clear) Urine pH (5.0-8.5) Ur Specific [place] (1.002-1.035) Urine Protein (Neg-Trace) mg/dL Urine Glucose (UA) (Negative) mg/dL Urine Ketones (Negative) mg/dL Urine Occult Blood (Negative) Urine Nitrate (Negative) Urine Bilirubin (Negative) Urine Urobilinogen (Less than 2) mg/dL Ur Leukocyte Esterase (Negative) Urine RBC (0-3) /hpf Urine WBC (0-5) /hpf Urine Bacteria (None) /hpf Hyaline Casts (0-3) /lpf Urine Mucus (Occasional) /lpf Micro UA Comment Ur Microscopic Review Urine Culture Comments Urine Osmolality (300-1300) mosm/kg Ur Random Creatinine (27-300) mg/dL Ur Random Sodium meq/L Nasal Screen MRSA (PCR) Not detected (Negative) [place] Screen (Neg) Complement C3 (90-180) mg/dL Complement C4 (10-40) mg/dL 11/14/18 11/14/18 11/14/18 Range/Units 03:20 03:20 03:20 WBC (4.0-11.0) th/mm3 RBC (4.50-5.90) mil/mm3 Hgb (13.0-17.0) gm/dL Hct (39.0-51.0) % MCV (80.0-100.0) fL MCH (27.0-34.0) pg MCHC (32.0-36.0) % RDW (11.6-17.2) % Plt Count (150-450) th/mm3 MPV (7.0-11.0) fL Neut % (Auto) (16.0-70.0) % Lymph % (Auto) (9.0-44.0) % [place] % (Auto) (0.0-8.0) % Eos % (Auto) (0.0-4.0) % Baso % (Auto) (0.0-2.0) % Neut # (Auto) (1.8-7.7) th/mm3 Lymph # (Auto) (1.0-4.8) th/mm3 [place] # (Auto) (0.0-0.9) th/mm3 Eos # (Auto) (0.0-0.4) th/mm3 Baso # (Auto) (0.0-0.2) th/mm3 WBC Differential Differential Comment PT 10.7 (9.8-11.6) sec INR 1.1 Ratio APTT 27.5 (23.4-31.7) sec Puncture Site Patient Temperature VBG pH (7.360-7.400) VBG pCO2 (44-48) mmHG VBG pO2 (35-40) mmHG VBG HCO3 (22-26) mmol/L VBG O2 Saturation (70-76) % VBG O2 Content (9.0-17.0) Vol % VBG Base Excess (-2-2) mmol/L VBG Carboxyhemoglobin (0-4) % VBG Methemoglobin (0-2) % Hemoglobin (12.0-16.0) G/DL O2 Delivery Device Inspired O2 % Critical Value Sodium 142 (136-145) meq/L Potassium 4.0 (3.5-5.1) meq/L Chloride 103 (98-107) meq/L Carbon Dioxide 24.1 D (21.0-32.0) meq/L Anion Gap 15 (5-15) meq/L BUN 29 H (7-18) mg/dL Creatinine 3.35 H (0.60-1.30) mg/dL Estimated GFR 20 L (>89) mL/min POC Glucose (68-110) mg/dl Random Glucose 204 H D (74-106) mg/dL Hemoglobin A1c (4.3-6.0) % Lactic Acid 4.3 H* (0.4-2.0) mmol/L Calcium 7.2 L* (8.5-10.1) mg/dL Calcium Adj for Albumin 8.0 L (8.5-10.1) mg/dL Phosphorus 1.4 L (2.5-4.9) mg/dL Magnesium 1.4 L (1.5-2.5) mg/dL Total Bilirubin 0.6 (0.2-1.0) mg/dL AST 84 H (15-37) U/L ALT 34 (12-78) U/L Alkaline Phosphatase 78 (45-117) U/L Total Creatine Kinase (39-308) U/L CK-MB (CK-2) (0.5-3.6) ng/mL Troponin I 1.85 H* (0.02-0.05) ng/mL Total Protein 6.7 D (6.4-8.2) g/dL Albumin 3.0 L (3.4-5.0) g/dL Triglycerides (42-150) mg/dL Cholesterol (120-200) mg/dL LDL Cholesterol, Calc (0-99) mg/dL HDL Cholesterol (40.0-60.0) mg/dL Cholesterol/HDL Ratio Ratio Beta-Hydroxybutyric Acd (0.00-0.39) mmol/L Urine Color (Yellw/Straw) Urine Clarity (Clear) Urine pH (5.0-8.5) Ur Specific [place] (1.002-1.035) Urine Protein (Neg-Trace) mg/dL Urine Glucose (UA) (Negative) mg/dL Urine Ketones (Negative) mg/dL Urine Occult Blood (Negative) Urine Nitrate (Negative) Urine Bilirubin (Negative) Urine Urobilinogen (Less than 2) mg/dL Ur Leukocyte Esterase (Negative) Urine RBC (0-3) /hpf Urine WBC (0-5) /hpf Urine Bacteria (None) /hpf Hyaline Casts (0-3) /lpf Urine Mucus (Occasional) /lpf Micro UA Comment Ur Microscopic Review Urine Culture Comments Urine Osmolality (300-1300) mosm/kg Ur Random Creatinine (27-300) mg/dL Ur Random Sodium meq/L Nasal Screen MRSA (PCR) (Negative) [place] Screen (Neg) Complement C3 (90-180) mg/dL Complement C4 (10-40) mg/dL 11/14/18 11/14/18 11/14/18 Range/Units 04:00 04:04 05:07 WBC (4.0-11.0) th/mm3 RBC (4.50-5.90) mil/mm3 Hgb (13.0-17.0) gm/dL Hct (39.0-51.0) % MCV (80.0-100.0) fL MCH (27.0-34.0) pg MCHC (32.0-36.0) % RDW (11.6-17.2) % Plt Count (150-450) th/mm3 MPV (7.0-11.0) fL Neut % (Auto) (16.0-70.0) % Lymph % (Auto) (9.0-44.0) % [place] % (Auto) (0.0-8.0) % Eos % (Auto) (0.0-4.0) % Baso % (Auto) (0.0-2.0) % Neut # (Auto) (1.8-7.7) th/mm3 Lymph # (Auto) (1.0-4.8) th/mm3 [place] # (Auto) (0.0-0.9) th/mm3 Eos # (Auto) (0.0-0.4) th/mm3 Baso # (Auto) (0.0-0.2) th/mm3 WBC Differential Differential Comment PT (9.8-11.6) sec INR Ratio APTT (23.4-31.7) sec Puncture Site Patient Temperature VBG pH (7.360-7.400) VBG pCO2 (44-48) mmHG VBG pO2 (35-40) mmHG VBG HCO3 (22-26) mmol/L VBG O2 Saturation (70-76) % VBG O2 Content (9.0-17.0) Vol % VBG Base Excess (-2-2) mmol/L VBG Carboxyhemoglobin (0-4) % VBG Methemoglobin (0-2) % Hemoglobin (12.0-16.0) G/DL O2 Delivery Device Inspired O2 % Critical Value Sodium (136-145) meq/L Potassium (3.5-5.1) meq/L Chloride (98-107) meq/L Carbon Dioxide (21.0-32.0) meq/L Anion Gap (5-15) meq/L BUN (7-18) mg/dL Creatinine (0.60-1.30) mg/dL Estimated GFR (>89) mL/min POC Glucose 163 H 127 H (68-110) mg/dl Random Glucose (74-106) mg/dL Hemoglobin A1c (4.3-6.0) % Lactic Acid (0.4-2.0) mmol/L Calcium (8.5-10.1) mg/dL Calcium Adj for Albumin (8.5-10.1) mg/dL Phosphorus (2.5-4.9) mg/dL Magnesium (1.5-2.5) mg/dL Total Bilirubin (0.2-1.0) mg/dL AST (15-37) U/L ALT (12-78) U/L Alkaline Phosphatase (45-117) U/L Total Creatine Kinase (39-308) U/L CK-MB (CK-2) (0.5-3.6) ng/mL Troponin I (0.02-0.05) ng/mL Total Protein (6.4-8.2) g/dL Albumin (3.4-5.0) g/dL Triglycerides (42-150) mg/dL Cholesterol (120-200) mg/dL LDL Cholesterol, Calc (0-99) mg/dL HDL Cholesterol (40.0-60.0) mg/dL Cholesterol/HDL Ratio Ratio Beta-Hydroxybutyric Acd (0.00-0.39) mmol/L Urine Color Yellow (Yellw/Straw) Urine Clarity Hazy H (Clear) Urine pH 5.0 (5.0-8.5) Ur Specific [place] 1.009 (1.002-1.035) Urine Protein 30 H (Neg-Trace) mg/dL Urine Glucose (UA) 500 or greater (Negative) mg/dL Urine Ketones Trace H (Negative) mg/dL Urine Occult Blood Small H (Negative) Urine Nitrate Negative (Negative) Urine Bilirubin Negative (Negative) Urine Urobilinogen Less than 2 (Less than 2) mg/dL Ur Leukocyte Esterase Negative (Negative) Urine RBC 1 (0-3) /hpf Urine WBC 10 H (0-5) /hpf Urine Bacteria Occasional H (None) /hpf Hyaline Casts 61 (0-3) /lpf Urine Mucus Few H (Occasional) /lpf Micro UA Comment Culture indicated Ur Microscopic Review Not Reportable Urine Culture Comments Culture indicated Urine Osmolality (300-1300) mosm/kg Ur Random Creatinine (27-300) mg/dL Ur Random Sodium meq/L Nasal Screen MRSA (PCR) (Negative) [place] Screen (Neg) Complement C3 (90-180) mg/dL Complement C4 (10-40) mg/dL 11/14/18 11/14/18 11/14/18 Range/Units 05:32 06:14 06:17 WBC (4.0-11.0) th/mm3 RBC (4.50-5.90) mil/mm3 Hgb (13.0-17.0) gm/dL Hct (39.0-51.0) % MCV (80.0-100.0) fL MCH (27.0-34.0) pg MCHC (32.0-36.0) % RDW (11.6-17.2) % Plt Count (150-450) th/mm3 MPV (7.0-11.0) fL Neut % (Auto) (16.0-70.0) % Lymph % (Auto) (9.0-44.0) % [place] % (Auto) (0.0-8.0) % Eos % (Auto) (0.0-4.0) % Baso % (Auto) (0.0-2.0) % Neut # (Auto) (1.8-7.7) th/mm3 Lymph # (Auto) (1.0-4.8) th/mm3 [place] # (Auto) (0.0-0.9) th/mm3 Eos # (Auto) (0.0-0.4) th/mm3 Baso # (Auto) (0.0-0.2) th/mm3 WBC Differential Differential Comment PT (9.8-11.6) sec INR Ratio APTT (23.4-31.7) sec Puncture Site Patient Temperature VBG pH (7.360-7.400) VBG pCO2 (44-48) mmHG VBG pO2 (35-40) mmHG VBG HCO3 (22-26) mmol/L VBG O2 Saturation (70-76) % VBG O2 Content (9.0-17.0) Vol % VBG Base Excess (-2-2) mmol/L VBG Carboxyhemoglobin (0-4) % VBG Methemoglobin (0-2) % Hemoglobin (12.0-16.0) G/DL O2 Delivery Device Inspired O2 % Critical Value Sodium 143 (136-145) meq/L Potassium 3.7 (3.5-5.1) meq/L Chloride 107 (98-107) meq/L Carbon Dioxide 28.3 (21.0-32.0) meq/L Anion Gap 8 (5-15) meq/L BUN 30 H (7-18) mg/dL Creatinine 3.11 H (0.60-1.30) mg/dL Estimated GFR 22 L (>89) mL/min POC Glucose 94 73 (68-110) mg/dl Random Glucose 74 D (74-106) mg/dL Hemoglobin A1c (4.3-6.0) % Lactic Acid (0.4-2.0) mmol/L Calcium 7.4 L* (8.5-10.1) mg/dL Calcium Adj for Albumin 8.2 L (8.5-10.1) mg/dL Phosphorus (2.5-4.9) mg/dL Magnesium (1.5-2.5) mg/dL Total Bilirubin (0.2-1.0) mg/dL AST (15-37) U/L ALT (12-78) U/L Alkaline Phosphatase (45-117) U/L Total Creatine Kinase (39-308) U/L CK-MB (CK-2) (0.5-3.6) ng/mL Troponin I (0.02-0.05) ng/mL Total Protein (6.4-8.2) g/dL Albumin 3.0 L (3.4-5.0) g/dL Triglycerides (42-150) mg/dL Cholesterol (120-200) mg/dL LDL Cholesterol, Calc (0-99) mg/dL HDL Cholesterol (40.0-60.0) mg/dL Cholesterol/HDL Ratio Ratio Beta-Hydroxybutyric Acd (0.00-0.39) mmol/L Urine Color (Yellw/Straw) Urine Clarity (Clear) Urine pH (5.0-8.5) Ur Specific [place] (1.002-1.035) Urine Protein (Neg-Trace) mg/dL Urine Glucose (UA) (Negative) mg/dL Urine Ketones (Negative) mg/dL Urine Occult Blood (Negative) Urine Nitrate (Negative) Urine Bilirubin (Negative) Urine Urobilinogen (Less than 2) mg/dL Ur Leukocyte Esterase (Negative) Urine RBC (0-3) /hpf Urine WBC (0-5) /hpf Urine Bacteria (None) /hpf Hyaline Casts (0-3) /lpf Urine Mucus (Occasional) /lpf Micro UA Comment Ur Microscopic Review Urine Culture Comments Urine Osmolality (300-1300) mosm/kg Ur Random Creatinine (27-300) mg/dL Ur Random Sodium meq/L Nasal Screen MRSA (PCR) (Negative) [place] Screen (Neg) Complement C3 (90-180) mg/dL Complement C4 (10-40) mg/dL 11/14/18 11/14/18 11/14/18 Range/Units 06:31 06:53 07:05 WBC (4.0-11.0) th/mm3 RBC (4.50-5.90) mil/mm3 Hgb (13.0-17.0) gm/dL Hct (39.0-51.0) % MCV (80.0-100.0) fL MCH (27.0-34.0) pg MCHC (32.0-36.0) % RDW (11.6-17.2) % Plt Count (150-450) th/mm3 MPV (7.0-11.0) fL Neut % (Auto) (16.0-70.0) % Lymph % (Auto) (9.0-44.0) % [place] % (Auto) (0.0-8.0) % Eos % (Auto) (0.0-4.0) % Baso % (Auto) (0.0-2.0) % Neut # (Auto) (1.8-7.7) th/mm3 Lymph # (Auto) (1.0-4.8) th/mm3 [place] # (Auto) (0.0-0.9) th/mm3 Eos # (Auto) (0.0-0.4) th/mm3 Baso # (Auto) (0.0-0.2) th/mm3 WBC Differential Differential Comment PT (9.8-11.6) sec INR Ratio APTT (23.4-31.7) sec Puncture Site Patient Temperature VBG pH (7.360-7.400) VBG pCO2 (44-48) mmHG VBG pO2 (35-40) mmHG VBG HCO3 (22-26) mmol/L VBG O2 Saturation (70-76) % VBG O2 Content (9.0-17.0) Vol % VBG Base Excess (-2-2) mmol/L VBG Carboxyhemoglobin (0-4) % VBG Methemoglobin (0-2) % Hemoglobin (12.0-16.0) G/DL O2 Delivery Device Inspired O2 % Critical Value Sodium (136-145) meq/L Potassium (3.5-5.1) meq/L Chloride (98-107) meq/L Carbon Dioxide (21.0-32.0) meq/L Anion Gap (5-15) meq/L BUN (7-18) mg/dL Creatinine (0.60-1.30) mg/dL Estimated GFR (>89) mL/min POC Glucose 88 74 66 L (68-110) mg/dl Random Glucose (74-106) mg/dL Hemoglobin A1c (4.3-6.0) % Lactic Acid (0.4-2.0) mmol/L Calcium (8.5-10.1) mg/dL Calcium Adj for Albumin (8.5-10.1) mg/dL Phosphorus (2.5-4.9) mg/dL Magnesium (1.5-2.5) mg/dL Total Bilirubin (0.2-1.0) mg/dL AST (15-37) U/L ALT (12-78) U/L Alkaline Phosphatase (45-117) U/L Total Creatine Kinase (39-308) U/L CK-MB (CK-2) (0.5-3.6) ng/mL Troponin I (0.02-0.05) ng/mL Total Protein (6.4-8.2) g/dL Albumin (3.4-5.0) g/dL Triglycerides (42-150) mg/dL Cholesterol (120-200) mg/dL LDL Cholesterol, Calc (0-99) mg/dL HDL Cholesterol (40.0-60.0) mg/dL Cholesterol/HDL Ratio Ratio Beta-Hydroxybutyric Acd (0.00-0.39) mmol/L Urine Color (Yellw/Straw) Urine Clarity (Clear) Urine pH (5.0-8.5) Ur Specific [place] (1.002-1.035) Urine Protein (Neg-Trace) mg/dL Urine Glucose (UA) (Negative) mg/dL Urine Ketones (Negative) mg/dL Urine Occult Blood (Negative) Urine Nitrate (Negative) Urine Bilirubin (Negative) Urine Urobilinogen (Less than 2) mg/dL Ur Leukocyte Esterase (Negative) Urine RBC (0-3) /hpf Urine WBC (0-5) /hpf Urine Bacteria (None) /hpf Hyaline Casts (0-3) /lpf Urine Mucus (Occasional) /lpf Micro UA Comment Ur Microscopic Review Urine Culture Comments Urine Osmolality (300-1300) mosm/kg Ur Random Creatinine (27-300) mg/dL Ur Random Sodium meq/L Nasal Screen MRSA (PCR) (Negative) [place] Screen (Neg) Complement C3 (90-180) mg/dL Complement C4 (10-40) mg/dL 11/14/18 11/14/18 11/14/18 Range/Units 07:18 07:47 08:19 WBC (4.0-11.0) th/mm3 RBC (4.50-5.90) mil/mm3 Hgb (13.0-17.0) gm/dL Hct (39.0-51.0) % MCV (80.0-100.0) fL MCH (27.0-34.0) pg MCHC (32.0-36.0) % RDW (11.6-17.2) % Plt Count (150-450) th/mm3 MPV (7.0-11.0) fL Neut % (Auto) (16.0-70.0) % Lymph % (Auto) (9.0-44.0) % [place] % (Auto) (0.0-8.0) % Eos % (Auto) (0.0-4.0) % Baso % (Auto) (0.0-2.0) % Neut # (Auto) (1.8-7.7) th/mm3 Lymph # (Auto) (1.0-4.8) th/mm3 [place] # (Auto) (0.0-0.9) th/mm3 Eos # (Auto) (0.0-0.4) th/mm3 Baso # (Auto) (0.0-0.2) th/mm3 WBC Differential Differential Comment PT (9.8-11.6) sec INR Ratio APTT (23.4-31.7) sec Puncture Site Patient Temperature VBG pH (7.360-7.400) VBG pCO2 (44-48) mmHG VBG pO2 (35-40) mmHG VBG HCO3 (22-26) mmol/L VBG O2 Saturation (70-76) % VBG O2 Content (9.0-17.0) Vol % VBG Base Excess (-2-2) mmol/L VBG Carboxyhemoglobin (0-4) % VBG Methemoglobin (0-2) % Hemoglobin (12.0-16.0) G/DL O2 Delivery Device Inspired O2 % Critical Value Sodium (136-145) meq/L Potassium (3.5-5.1) meq/L Chloride (98-107) meq/L Carbon Dioxide (21.0-32.0) meq/L Anion Gap (5-15) meq/L BUN (7-18) mg/dL Creatinine (0.60-1.30) mg/dL Estimated GFR (>89) mL/min POC Glucose 185 H 137 H 125 H (68-110) mg/dl Random Glucose (74-106) mg/dL Hemoglobin A1c (4.3-6.0) % Lactic Acid (0.4-2.0) mmol/L Calcium (8.5-10.1) mg/dL Calcium Adj for Albumin (8.5-10.1) mg/dL Phosphorus (2.5-4.9) mg/dL Magnesium (1.5-2.5) mg/dL Total Bilirubin (0.2-1.0) mg/dL AST (15-37) U/L ALT (12-78) U/L Alkaline Phosphatase (45-117) U/L Total Creatine Kinase (39-308) U/L CK-MB (CK-2) (0.5-3.6) ng/mL Troponin I (0.02-0.05) ng/mL Total Protein (6.4-8.2) g/dL Albumin (3.4-5.0) g/dL Triglycerides (42-150) mg/dL Cholesterol (120-200) mg/dL LDL Cholesterol, Calc (0-99) mg/dL HDL Cholesterol (40.0-60.0) mg/dL Cholesterol/HDL Ratio Ratio Beta-Hydroxybutyric Acd (0.00-0.39) mmol/L Urine Color (Yellw/Straw) Urine Clarity (Clear) Urine pH (5.0-8.5) Ur Specific [place] (1.002-1.035) Urine Protein (Neg-Trace) mg/dL Urine Glucose (UA) (Negative) mg/dL Urine Ketones (Negative) mg/dL Urine Occult Blood (Negative) Urine Nitrate (Negative) Urine Bilirubin (Negative) Urine Urobilinogen (Less than 2) mg/dL Ur Leukocyte Esterase (Negative) Urine RBC (0-3) /hpf Urine WBC (0-5) /hpf Urine Bacteria (None) /hpf Hyaline Casts (0-3) /lpf Urine Mucus (Occasional) /lpf Micro UA Comment Ur Microscopic Review Urine Culture Comments Urine Osmolality (300-1300) mosm/kg Ur Random Creatinine (27-300) mg/dL Ur Random Sodium meq/L Nasal Screen MRSA (PCR) (Negative) [place] Screen (Neg) Complement C3 (90-180) mg/dL Complement C4 (10-40) mg/dL 11/14/18 11/14/18 11/14/18 Range/Units 08:51 10:31 10:31 WBC (4.0-11.0) th/mm3 RBC (4.50-5.90) mil/mm3 Hgb (13.0-17.0) gm/dL Hct (39.0-51.0) % MCV (80.0-100.0) fL MCH (27.0-34.0) pg MCHC (32.0-36.0) % RDW (11.6-17.2) % Plt Count (150-450) th/mm3 MPV (7.0-11.0) fL Neut % (Auto) (16.0-70.0) % Lymph % (Auto) (9.0-44.0) % [place] % (Auto) (0.0-8.0) % Eos % (Auto) (0.0-4.0) % Baso % (Auto) (0.0-2.0) % Neut # (Auto) (1.8-7.7) th/mm3 Lymph # (Auto) (1.0-4.8) th/mm3 [place] # (Auto) (0.0-0.9) th/mm3 Eos # (Auto) (0.0-0.4) th/mm3 Baso # (Auto) (0.0-0.2) th/mm3 WBC Differential Differential Comment PT (9.8-11.6) sec INR Ratio APTT (23.4-31.7) sec Puncture Site Patient Temperature VBG pH (7.360-7.400) VBG pCO2 (44-48) mmHG VBG pO2 (35-40) mmHG VBG HCO3 (22-26) mmol/L VBG O2 Saturation (70-76) % VBG O2 Content (9.0-17.0) Vol % VBG Base Excess (-2-2) mmol/L VBG Carboxyhemoglobin (0-4) % VBG Methemoglobin (0-2) % Hemoglobin (12.0-16.0) G/DL O2 Delivery Device Inspired O2 % Critical Value Sodium (136-145) meq/L Potassium (3.5-5.1) meq/L Chloride (98-107) meq/L Carbon Dioxide (21.0-32.0) meq/L Anion Gap (5-15) meq/L BUN (7-18) mg/dL Creatinine (0.60-1.30) mg/dL Estimated GFR (>89) mL/min POC Glucose 132 H (68-110) mg/dl Random Glucose (74-106) mg/dL Hemoglobin A1c (4.3-6.0) % Lactic Acid (0.4-2.0) mmol/L Calcium (8.5-10.1) mg/dL Calcium Adj for Albumin (8.5-10.1) mg/dL Phosphorus (2.5-4.9) mg/dL Magnesium (1.5-2.5) mg/dL Total Bilirubin (0.2-1.0) mg/dL AST (15-37) U/L ALT (12-78) U/L Alkaline Phosphatase (45-117) U/L Total Creatine Kinase 164 (39-308) U/L CK-MB (CK-2) 10.6 H (0.5-3.6) ng/mL Troponin I 6.56 H* (0.02-0.05) ng/mL Total Protein (6.4-8.2) g/dL Albumin (3.4-5.0) g/dL Triglycerides (42-150) mg/dL Cholesterol (120-200) mg/dL LDL Cholesterol, Calc (0-99) mg/dL HDL Cholesterol (40.0-60.0) mg/dL Cholesterol/HDL Ratio Ratio Beta-Hydroxybutyric Acd (0.00-0.39) mmol/L Urine Color (Yellw/Straw) Urine Clarity (Clear) Urine pH (5.0-8.5) Ur Specific [place] (1.002-1.035) Urine Protein (Neg-Trace) mg/dL Urine Glucose (UA) (Negative) mg/dL Urine Ketones (Negative) mg/dL Urine Occult Blood (Negative) Urine Nitrate (Negative) Urine Bilirubin (Negative) Urine Urobilinogen (Less than 2) mg/dL Ur Leukocyte Esterase (Negative) Urine RBC (0-3) /hpf Urine WBC (0-5) /hpf Urine Bacteria (None) /hpf Hyaline Casts (0-3) /lpf Urine Mucus (Occasional) /lpf Micro UA Comment Ur Microscopic Review Urine Culture Comments Urine Osmolality (300-1300) mosm/kg Ur Random Creatinine (27-300) mg/dL Ur Random Sodium meq/L Nasal Screen MRSA (PCR) (Negative) [place] Screen (Neg) Complement C3 (90-180) mg/dL Complement C4 (10-40) mg/dL 11/14/18 11/14/18 11/14/18 Range/Units 11:35 11:58 11:58 WBC (4.0-11.0) th/mm3 RBC (4.50-5.90) mil/mm3 Hgb (13.0-17.0) gm/dL Hct (39.0-51.0) % MCV (80.0-100.0) fL MCH (27.0-34.0) pg MCHC (32.0-36.0) % RDW (11.6-17.2) % Plt Count (150-450) th/mm3 MPV (7.0-11.0) fL Neut % (Auto) (16.0-70.0) % Lymph % (Auto) (9.0-44.0) % [place] % (Auto) (0.0-8.0) % Eos % (Auto) (0.0-4.0) % Baso % (Auto) (0.0-2.0) % Neut # (Auto) (1.8-7.7) th/mm3 Lymph # (Auto) (1.0-4.8) th/mm3 [place] # (Auto) (0.0-0.9) th/mm3 Eos # (Auto) (0.0-0.4) th/mm3 Baso # (Auto) (0.0-0.2) th/mm3 WBC Differential Differential Comment PT (9.8-11.6) sec INR Ratio APTT (23.4-31.7) sec Puncture Site Patient Temperature VBG pH (7.360-7.400) VBG pCO2 (44-48) mmHG VBG pO2 (35-40) mmHG VBG HCO3 (22-26) mmol/L VBG O2 Saturation (70-76) % VBG O2 Content (9.0-17.0) Vol % VBG Base Excess (-2-2) mmol/L VBG Carboxyhemoglobin (0-4) % VBG Methemoglobin (0-2) % Hemoglobin (12.0-16.0) G/DL O2 Delivery Device Inspired O2 % Critical Value Sodium (136-145) meq/L Potassium (3.5-5.1) meq/L Chloride (98-107) meq/L Carbon Dioxide (21.0-32.0) meq/L Anion Gap (5-15) meq/L BUN (7-18) mg/dL Creatinine (0.60-1.30) mg/dL Estimated GFR (>89) mL/min POC Glucose 181 H (68-110) mg/dl Random Glucose (74-106) mg/dL Hemoglobin A1c (4.3-6.0) % Lactic Acid (0.4-2.0) mmol/L Calcium (8.5-10.1) mg/dL Calcium Adj for Albumin (8.5-10.1) mg/dL Phosphorus (2.5-4.9) mg/dL Magnesium (1.5-2.5) mg/dL Total Bilirubin (0.2-1.0) mg/dL AST (15-37) U/L ALT (12-78) U/L Alkaline Phosphatase (45-117) U/L Total Creatine Kinase (39-308) U/L CK-MB (CK-2) (0.5-3.6) ng/mL Troponin I (0.02-0.05) ng/mL Total Protein (6.4-8.2) g/dL Albumin (3.4-5.0) g/dL Triglycerides (42-150) mg/dL Cholesterol (120-200) mg/dL LDL Cholesterol, Calc (0-99) mg/dL HDL Cholesterol (40.0-60.0) mg/dL Cholesterol/HDL Ratio Ratio Beta-Hydroxybutyric Acd (0.00-0.39) mmol/L Urine Color (Yellw/Straw) Urine Clarity (Clear) Urine pH (5.0-8.5) Ur Specific [place] (1.002-1.035) Urine Protein (Neg-Trace) mg/dL Urine Glucose (UA) (Negative) mg/dL Urine Ketones (Negative) mg/dL Urine Occult Blood (Negative) Urine Nitrate (Negative) Urine Bilirubin (Negative) Urine Urobilinogen (Less than 2) mg/dL Ur Leukocyte Esterase (Negative) Urine RBC (0-3) /hpf Urine WBC (0-5) /hpf Urine Bacteria (None) /hpf Hyaline Casts (0-3) /lpf Urine Mucus (Occasional) /lpf Micro UA Comment Ur Microscopic Review Urine Culture Comments Urine Osmolality 385 (300-1300) mosm/kg Ur Random Creatinine 123 (27-300) mg/dL Ur Random Sodium 45 meq/L Nasal Screen MRSA (PCR) (Negative) [place] Screen (Neg) Complement C3 (90-180) mg/dL Complement C4 (10-40) mg/dL 11/14/18 11/14/18 11/14/18 Range/Units 16:25 17:05 21:21 WBC (4.0-11.0) th/mm3 RBC (4.50-5.90) mil/mm3 Hgb (13.0-17.0) gm/dL Hct (39.0-51.0) % MCV (80.0-100.0) fL MCH (27.0-34.0) pg MCHC (32.0-36.0) % RDW (11.6-17.2) % Plt Count (150-450) th/mm3 MPV (7.0-11.0) fL Neut % (Auto) (16.0-70.0) % Lymph % (Auto) (9.0-44.0) % [place] % (Auto) (0.0-8.0) % Eos % (Auto) (0.0-4.0) % Baso % (Auto) (0.0-2.0) % Neut # (Auto) (1.8-7.7) th/mm3 Lymph # (Auto) (1.0-4.8) th/mm3 [place] # (Auto) (0.0-0.9) th/mm3 Eos # (Auto) (0.0-0.4) th/mm3 Baso # (Auto) (0.0-0.2) th/mm3 WBC Differential Differential Comment PT (9.8-11.6) sec INR Ratio APTT (23.4-31.7) sec Puncture Site Patient Temperature VBG pH (7.360-7.400) VBG pCO2 (44-48) mmHG VBG pO2 (35-40) mmHG VBG HCO3 (22-26) mmol/L VBG O2 Saturation (70-76) % VBG O2 Content (9.0-17.0) Vol % VBG Base Excess (-2-2) mmol/L VBG Carboxyhemoglobin (0-4) % VBG Methemoglobin (0-2) % Hemoglobin (12.0-16.0) G/DL O2 Delivery Device Inspired O2 % Critical Value Sodium 140 (136-145) meq/L Potassium 4.2 (3.5-5.1) meq/L Chloride 105 (98-107) meq/L Carbon Dioxide 27.8 (21.0-32.0) meq/L Anion Gap 7 (5-15) meq/L BUN 29 H (7-18) mg/dL Creatinine 2.61 H (0.60-1.30) mg/dL Estimated GFR 26 L (>89) mL/min POC Glucose 180 H 130 H (68-110) mg/dl Random Glucose 158 H (74-106) mg/dL Hemoglobin A1c (4.3-6.0) % Lactic Acid (0.4-2.0) mmol/L Calcium 6.9 L* (8.5-10.1) mg/dL Calcium Adj for Albumin 7.9 L (8.5-10.1) mg/dL Phosphorus (2.5-4.9) mg/dL Magnesium (1.5-2.5) mg/dL Total Bilirubin (0.2-1.0) mg/dL AST (15-37) U/L ALT (12-78) U/L Alkaline Phosphatase (45-117) U/L Total Creatine Kinase (39-308) U/L CK-MB (CK-2) (0.5-3.6) ng/mL Troponin I 4.45 H* (0.02-0.05) ng/mL Total Protein (6.4-8.2) g/dL Albumin 2.7 L (3.4-5.0) g/dL Triglycerides 96 (42-150) mg/dL Cholesterol 145 (120-200) mg/dL LDL Cholesterol, Calc 16 (0-99) mg/dL HDL Cholesterol 109.7 H (40.0-60.0) mg/dL Cholesterol/HDL Ratio 1.32 Ratio Beta-Hydroxybutyric Acd (0.00-0.39) mmol/L Urine Color (Yellw/Straw) Urine Clarity (Clear) Urine pH (5.0-8.5) Ur Specific [place] (1.002-1.035) Urine Protein (Neg-Trace) mg/dL Urine Glucose (UA) (Negative) mg/dL Urine Ketones (Negative) mg/dL Urine Occult Blood (Negative) Urine Nitrate (Negative) Urine Bilirubin (Negative) Urine Urobilinogen (Less than 2) mg/dL Ur Leukocyte Esterase (Negative) Urine RBC (0-3) /hpf Urine WBC (0-5) /hpf Urine Bacteria (None) /hpf Hyaline Casts (0-3) /lpf Urine Mucus (Occasional) /lpf Micro UA Comment Ur Microscopic Review Urine Culture Comments Urine Osmolality (300-1300) mosm/kg Ur Random Creatinine (27-300) mg/dL Ur Random Sodium meq/L Nasal Screen MRSA (PCR) (Negative) [place] Screen (Neg) Complement C3 (90-180) mg/dL Complement C4 (10-40) mg/dL 11/14/18 11/15/18 11/15/18 Range/Units 22:50 05:44 05:44 WBC 12.6 H (4.0-11.0) th/mm3 RBC 3.28 L (4.50-5.90) mil/mm3 Hgb 10.7 L (13.0-17.0) gm/dL Hct 32.4 L (39.0-51.0) % MCV 98.8 (80.0-100.0) fL MCH 32.7 (27.0-34.0) pg MCHC 33.1 (32.0-36.0) % RDW 14.9 (11.6-17.2) % Plt Count 111 L (150-450) th/mm3 MPV 9.7 (7.0-11.0) fL Neut % (Auto) 83.0 H (16.0-70.0) % Lymph % (Auto) 9.2 (9.0-44.0) % [place] % (Auto) 7.5 (0.0-8.0) % Eos % (Auto) 0.1 (0.0-4.0) % Baso % (Auto) 0.2 (0.0-2.0) % Neut # (Auto) 10.5 H (1.8-7.7) th/mm3 Lymph # (Auto) 1.2 (1.0-4.8) th/mm3 [place] # (Auto) 0.9 (0.0-0.9) th/mm3 Eos # (Auto) 0.0 (0.0-0.4) th/mm3 Baso # (Auto) 0.0 (0.0-0.2) th/mm3 WBC Differential . Differential Comment Auto diff final PT (9.8-11.6) sec INR Ratio APTT (23.4-31.7) sec Puncture Site Patient Temperature VBG pH (7.360-7.400) VBG pCO2 (44-48) mmHG VBG pO2 (35-40) mmHG VBG HCO3 (22-26) mmol/L VBG O2 Saturation (70-76) % VBG O2 Content (9.0-17.0) Vol % VBG Base Excess (-2-2) mmol/L VBG Carboxyhemoglobin (0-4) % VBG Methemoglobin (0-2) % Hemoglobin (12.0-16.0) G/DL O2 Delivery Device Inspired O2 % Critical Value Sodium 136 (136-145) meq/L Potassium 4.2 (3.5-5.1) meq/L Chloride 102 (98-107) meq/L Carbon Dioxide 19.8 L (21.0-32.0) meq/L Anion Gap 14 (5-15) meq/L BUN 26 H (7-18) mg/dL Creatinine 2.11 H (0.60-1.30) mg/dL Estimated GFR 34 L (>89) mL/min POC Glucose (68-110) mg/dl Random Glucose 362 H D (74-106) mg/dL Hemoglobin A1c (4.3-6.0) % Lactic Acid (0.4-2.0) mmol/L Calcium 7.4 L* (8.5-10.1) mg/dL Calcium Adj for Albumin (8.5-10.1) mg/dL Phosphorus 1.8 L (2.5-4.9) mg/dL Magnesium (1.5-2.5) mg/dL Total Bilirubin (0.2-1.0) mg/dL AST (15-37) U/L ALT (12-78) U/L Alkaline Phosphatase (45-117) U/L Total Creatine Kinase (39-308) U/L CK-MB (CK-2) (0.5-3.6) ng/mL Troponin I 3.21 H* (0.02-0.05) ng/mL Total Protein (6.4-8.2) g/dL Albumin 2.7 L (3.4-5.0) g/dL Triglycerides (42-150) mg/dL Cholesterol (120-200) mg/dL LDL Cholesterol, Calc (0-99) mg/dL HDL Cholesterol (40.0-60.0) mg/dL Cholesterol/HDL Ratio Ratio Beta-Hydroxybutyric Acd (0.00-0.39) mmol/L Urine Color (Yellw/Straw) Urine Clarity (Clear) Urine pH (5.0-8.5) Ur Specific [place] (1.002-1.035) Urine Protein (Neg-Trace) mg/dL Urine Glucose (UA) (Negative) mg/dL Urine Ketones (Negative) mg/dL Urine Occult Blood (Negative) Urine Nitrate (Negative) Urine Bilirubin (Negative) Urine Urobilinogen (Less than 2) mg/dL Ur Leukocyte Esterase (Negative) Urine RBC (0-3) /hpf Urine WBC (0-5) /hpf Urine Bacteria (None) /hpf Hyaline Casts (0-3) /lpf Urine Mucus (Occasional) /lpf Micro UA Comment Ur Microscopic Review Urine Culture Comments Urine Osmolality (300-1300) mosm/kg Ur Random Creatinine (27-300) mg/dL Ur Random Sodium meq/L Nasal Screen MRSA (PCR) (Negative) [place] Screen (Neg) Complement C3 54 L (90-180) mg/dL Complement C4 16 (10-40) mg/dL 11/15/18 11/15/18 11/15/18 Range/Units 05:44 07:27 07:54 WBC (4.0-11.0) th/mm3 RBC (4.50-5.90) mil/mm3 Hgb (13.0-17.0) gm/dL Hct (39.0-51.0) % MCV (80.0-100.0) fL MCH (27.0-34.0) pg MCHC (32.0-36.0) % RDW (11.6-17.2) % Plt Count (150-450) th/mm3 MPV (7.0-11.0) fL Neut % (Auto) (16.0-70.0) % Lymph % (Auto) (9.0-44.0) % [place] % (Auto) (0.0-8.0) % Eos % (Auto) (0.0-4.0) % Baso % (Auto) (0.0-2.0) % Neut # (Auto) (1.8-7.7) th/mm3 Lymph # (Auto) (1.0-4.8) th/mm3 [place] # (Auto) (0.0-0.9) th/mm3 Eos # (Auto) (0.0-0.4) th/mm3 Baso # (Auto) (0.0-0.2) th/mm3 WBC Differential Differential Comment PT (9.8-11.6) sec INR Ratio APTT (23.4-31.7) sec Puncture Site Patient Temperature VBG pH (7.360-7.400) VBG pCO2 (44-48) mmHG VBG pO2 (35-40) mmHG VBG HCO3 (22-26) mmol/L VBG O2 Saturation (70-76) % VBG O2 Content (9.0-17.0) Vol % VBG Base Excess (-2-2) mmol/L VBG Carboxyhemoglobin (0-4) % VBG Methemoglobin (0-2) % Hemoglobin (12.0-16.0) G/DL O2 Delivery Device Inspired O2 % Critical Value Sodium (136-145) meq/L Potassium (3.5-5.1) meq/L Chloride (98-107) meq/L Carbon Dioxide (21.0-32.0) meq/L Anion Gap (5-15) meq/L BUN (7-18) mg/dL Creatinine (0.60-1.30) mg/dL Estimated GFR (>89) mL/min POC Glucose 455 H* 470 H* (68-110) mg/dl Random Glucose (74-106) mg/dL Hemoglobin A1c (4.3-6.0) % Lactic Acid (0.4-2.0) mmol/L Calcium (8.5-10.1) mg/dL Calcium Adj for Albumin (8.5-10.1) mg/dL Phosphorus (2.5-4.9) mg/dL Magnesium (1.5-2.5) mg/dL Total Bilirubin (0.2-1.0) mg/dL AST (15-37) U/L ALT (12-78) U/L Alkaline Phosphatase (45-117) U/L Total Creatine Kinase (39-308) U/L CK-MB (CK-2) (0.5-3.6) ng/mL Troponin I (0.02-0.05) ng/mL Total Protein (6.4-8.2) g/dL Albumin (3.4-5.0) g/dL Triglycerides (42-150) mg/dL Cholesterol (120-200) mg/dL LDL Cholesterol, Calc (0-99) mg/dL HDL Cholesterol (40.0-60.0) mg/dL Cholesterol/HDL Ratio Ratio Beta-Hydroxybutyric Acd (0.00-0.39) mmol/L Urine Color (Yellw/Straw) Urine Clarity (Clear) Urine pH (5.0-8.5) Ur Specific [place] (1.002-1.035) Urine Protein (Neg-Trace) mg/dL Urine Glucose (UA) (Negative) mg/dL Urine Ketones (Negative) mg/dL Urine Occult Blood (Negative) Urine Nitrate (Negative) Urine Bilirubin (Negative) Urine Urobilinogen (Less than 2) mg/dL Ur Leukocyte Esterase (Negative) Urine RBC (0-3) /hpf Urine WBC (0-5) /hpf Urine Bacteria (None) /hpf Hyaline Casts (0-3) /lpf Urine Mucus (Occasional) /lpf Micro UA Comment Ur Microscopic Review Urine Culture Comments Urine Osmolality (300-1300) mosm/kg Ur Random Creatinine (27-300) mg/dL Ur Random Sodium meq/L Nasal Screen MRSA (PCR) (Negative) [place] Screen Pos H (Neg) Complement C3 (90-180) mg/dL Complement C4 (10-40) mg/dL 11/15/18 11/15/18 11/15/18 Range/Units 08:12 08:23 09:40 WBC (4.0-11.0) th/mm3 RBC (4.50-5.90) mil/mm3 Hgb (13.0-17.0) gm/dL Hct (39.0-51.0) % MCV (80.0-100.0) fL MCH (27.0-34.0) pg MCHC (32.0-36.0) % RDW (11.6-17.2) % Plt Count (150-450) th/mm3 MPV (7.0-11.0) fL Neut % (Auto) (16.0-70.0) % Lymph % (Auto) (9.0-44.0) % [place] % (Auto) (0.0-8.0) % Eos % (Auto) (0.0-4.0) % Baso % (Auto) (0.0-2.0) % Neut # (Auto) (1.8-7.7) th/mm3 Lymph # (Auto) (1.0-4.8) th/mm3 [place] # (Auto) (0.0-0.9) th/mm3 Eos # (Auto) (0.0-0.4) th/mm3 Baso # (Auto) (0.0-0.2) th/mm3 WBC Differential Differential Comment PT (9.8-11.6) sec INR Ratio APTT (23.4-31.7) sec Puncture Site Patient Temperature VBG pH (7.360-7.400) VBG pCO2 (44-48) mmHG VBG pO2 (35-40) mmHG VBG HCO3 (22-26) mmol/L VBG O2 Saturation (70-76) % VBG O2 Content (9.0-17.0) Vol % VBG Base Excess (-2-2) mmol/L VBG Carboxyhemoglobin (0-4) % VBG Methemoglobin (0-2) % Hemoglobin (12.0-16.0) G/DL O2 Delivery Device Inspired O2 % Critical Value Sodium (136-145) meq/L Potassium (3.5-5.1) meq/L Chloride (98-107) meq/L Carbon Dioxide (21.0-32.0) meq/L Anion Gap (5-15) meq/L BUN (7-18) mg/dL Creatinine (0.60-1.30) mg/dL Estimated GFR (>89) mL/min POC Glucose 424 H 427 H 316 H (68-110) mg/dl Random Glucose (74-106) mg/dL Hemoglobin A1c (4.3-6.0) % Lactic Acid (0.4-2.0) mmol/L Calcium (8.5-10.1) mg/dL Calcium Adj for Albumin (8.5-10.1) mg/dL Phosphorus (2.5-4.9) mg/dL Magnesium (1.5-2.5) mg/dL Total Bilirubin (0.2-1.0) mg/dL AST (15-37) U/L ALT (12-78) U/L Alkaline Phosphatase (45-117) U/L Total Creatine Kinase (39-308) U/L CK-MB (CK-2) (0.5-3.6) ng/mL Troponin I (0.02-0.05) ng/mL Total Protein (6.4-8.2) g/dL Albumin (3.4-5.0) g/dL Triglycerides (42-150) mg/dL Cholesterol (120-200) mg/dL LDL Cholesterol, Calc (0-99) mg/dL HDL Cholesterol (40.0-60.0) mg/dL Cholesterol/HDL Ratio Ratio Beta-Hydroxybutyric Acd (0.00-0.39) mmol/L Urine Color (Yellw/Straw) Urine Clarity (Clear) Urine pH (5.0-8.5) Ur Specific [place] (1.002-1.035) Urine Protein (Neg-Trace) mg/dL Urine Glucose (UA) (Negative) mg/dL Urine Ketones (Negative) mg/dL Urine Occult Blood (Negative) Urine Nitrate (Negative) Urine Bilirubin (Negative) Urine Urobilinogen (Less than 2) mg/dL Ur Leukocyte Esterase (Negative) Urine RBC (0-3) /hpf Urine WBC (0-5) /hpf Urine Bacteria (None) /hpf Hyaline Casts (0-3) /lpf Urine Mucus (Occasional) /lpf Micro UA Comment Ur Microscopic Review Urine Culture Comments Urine Osmolality (300-1300) mosm/kg Ur Random Creatinine (27-300) mg/dL Ur Random Sodium meq/L Nasal Screen MRSA (PCR) (Negative) [place] Screen (Neg) Complement C3 (90-180) mg/dL Complement C4 (10-40) mg/dL 11/15/18 11/15/18 11/15/18 Range/Units 11:30 17:00 20:52 WBC (4.0-11.0) th/mm3 RBC (4.50-5.90) mil/mm3 Hgb (13.0-17.0) gm/dL Hct (39.0-51.0) % MCV (80.0-100.0) fL MCH (27.0-34.0) pg MCHC (32.0-36.0) % RDW (11.6-17.2) % Plt Count (150-450) th/mm3 MPV (7.0-11.0) fL Neut % (Auto) (16.0-70.0) % Lymph % (Auto) (9.0-44.0) % [place] % (Auto) (0.0-8.0) % Eos % (Auto) (0.0-4.0) % Baso % (Auto) (0.0-2.0) % Neut # (Auto) (1.8-7.7) th/mm3 Lymph # (Auto) (1.0-4.8) th/mm3 [place] # (Auto) (0.0-0.9) th/mm3 Eos # (Auto) (0.0-0.4) th/mm3 Baso # (Auto) (0.0-0.2) th/mm3 WBC Differential Differential Comment PT (9.8-11.6) sec INR Ratio APTT (23.4-31.7) sec Puncture Site Patient Temperature VBG pH (7.360-7.400) VBG pCO2 (44-48) mmHG VBG pO2 (35-40) mmHG VBG HCO3 (22-26) mmol/L VBG O2 Saturation (70-76) % VBG O2 Content (9.0-17.0) Vol % VBG Base Excess (-2-2) mmol/L VBG Carboxyhemoglobin (0-4) % VBG Methemoglobin (0-2) % Hemoglobin (12.0-16.0) G/DL O2 Delivery Device Inspired O2 % Critical Value Sodium (136-145) meq/L Potassium (3.5-5.1) meq/L Chloride (98-107) meq/L Carbon Dioxide (21.0-32.0) meq/L Anion Gap (5-15) meq/L BUN (7-18) mg/dL Creatinine (0.60-1.30) mg/dL Estimated GFR (>89) mL/min POC Glucose 258 H 160 H 78 (68-110) mg/dl Random Glucose (74-106) mg/dL Hemoglobin A1c (4.3-6.0) % Lactic Acid (0.4-2.0) mmol/L Calcium (8.5-10.1) mg/dL Calcium Adj for Albumin (8.5-10.1) mg/dL Phosphorus (2.5-4.9) mg/dL Magnesium (1.5-2.5) mg/dL Total Bilirubin (0.2-1.0) mg/dL AST (15-37) U/L ALT (12-78) U/L Alkaline Phosphatase (45-117) U/L Total Creatine Kinase (39-308) U/L CK-MB (CK-2) (0.5-3.6) ng/mL Troponin I (0.02-0.05) ng/mL Total Protein (6.4-8.2) g/dL Albumin (3.4-5.0) g/dL Triglycerides (42-150) mg/dL Cholesterol (120-200) mg/dL LDL Cholesterol, Calc (0-99) mg/dL HDL Cholesterol (40.0-60.0) mg/dL Cholesterol/HDL Ratio Ratio Beta-Hydroxybutyric Acd (0.00-0.39) mmol/L Urine Color (Yellw/Straw) Urine Clarity (Clear) Urine pH (5.0-8.5) Ur Specific [place] (1.002-1.035) Urine Protein (Neg-Trace) mg/dL Urine Glucose (UA) (Negative) mg/dL Urine Ketones (Negative) mg/dL Urine Occult Blood (Negative) Urine Nitrate (Negative) Urine Bilirubin (Negative) Urine Urobilinogen (Less than 2) mg/dL Ur Leukocyte Esterase (Negative) Urine RBC (0-3) /hpf Urine WBC (0-5) /hpf Urine Bacteria (None) /hpf Hyaline Casts (0-3) /lpf Urine Mucus (Occasional) /lpf Micro UA Comment Ur Microscopic Review Urine Culture Comments Urine Osmolality (300-1300) mosm/kg Ur Random Creatinine (27-300) mg/dL Ur Random Sodium meq/L Nasal Screen MRSA (PCR) (Negative) CORNELIA Screen (Neg) Complement C3 (90-180) mg/dL Complement C4 (10-40) mg/dL 11/16/18 11/16/18 11/16/18 Range/Units 03:10 07:01 08:54 WBC (4.0-11.0) th/mm3 RBC (4.50-5.90) mil/mm3 Hgb (13.0-17.0) gm/dL Hct (39.0-51.0) % MCV (80.0-100.0) fL MCH (27.0-34.0) pg MCHC (32.0-36.0) % RDW (11.6-17.2) % Plt Count (150-450) th/mm3 MPV (7.0-11.0) fL Neut % (Auto) (16.0-70.0) % Lymph % (Auto) (9.0-44.0) % [place] % (Auto) (0.0-8.0) % Eos % (Auto) (0.0-4.0) % Baso % (Auto) (0.0-2.0) % Neut # (Auto) (1.8-7.7) th/mm3 Lymph # (Auto) (1.0-4.8) th/mm3 [place] # (Auto) (0.0-0.9) th/mm3 Eos # (Auto) (0.0-0.4) th/mm3 Baso # (Auto) (0.0-0.2) th/mm3 WBC Differential Differential Comment PT (9.8-11.6) sec INR Ratio APTT (23.4-31.7) sec Puncture Site Patient Temperature VBG pH (7.360-7.400) VBG pCO2 (44-48) mmHG VBG pO2 (35-40) mmHG VBG HCO3 (22-26) mmol/L VBG O2 Saturation (70-76) % VBG O2 Content (9.0-17.0) Vol % VBG Base Excess (-2-2) mmol/L VBG Carboxyhemoglobin (0-4) % VBG Methemoglobin (0-2) % Hemoglobin (12.0-16.0) G/DL O2 Delivery Device Inspired O2 % Critical Value Sodium 141 (136-145) meq/L Potassium 3.3 L D (3.5-5.1) meq/L Chloride 107 (98-107) meq/L Carbon Dioxide 25.1 (21.0-32.0) meq/L Anion Gap 9 (5-15) meq/L BUN 14 (7-18) mg/dL Creatinine 1.38 H (0.60-1.30) mg/dL Estimated GFR 55 L (>89) mL/min POC Glucose 59 L 49 L* (68-110) mg/dl Random Glucose 70 L D (74-106) mg/dL Hemoglobin A1c (4.3-6.0) % Lactic Acid (0.4-2.0) mmol/L Calcium 7.2 L* (8.5-10.1) mg/dL Calcium Adj for Albumin (8.5-10.1) mg/dL Phosphorus 1.6 L (2.5-4.9) mg/dL Magnesium (1.5-2.5) mg/dL Total Bilirubin (0.2-1.0) mg/dL AST (15-37) U/L ALT (12-78) U/L Alkaline Phosphatase (45-117) U/L Total Creatine Kinase (39-308) U/L CK-MB (CK-2) (0.5-3.6) ng/mL Troponin I (0.02-0.05) ng/mL Total Protein (6.4-8.2) g/dL Albumin 2.8 L (3.4-5.0) g/dL Triglycerides (42-150) mg/dL Cholesterol (120-200) mg/dL LDL Cholesterol, Calc (0-99) mg/dL HDL Cholesterol (40.0-60.0) mg/dL Cholesterol/HDL Ratio Ratio Beta-Hydroxybutyric Acd (0.00-0.39) mmol/L Urine Color (Yellw/Straw) Urine Clarity (Clear) Urine pH (5.0-8.5) Ur Specific [place] (1.002-1.035) Urine Protein (Neg-Trace) mg/dL Urine Glucose (UA) (Negative) mg/dL Urine Ketones (Negative) mg/dL Urine Occult Blood (Negative) Urine Nitrate (Negative) Urine Bilirubin (Negative) Urine Urobilinogen (Less than 2) mg/dL Ur Leukocyte Esterase (Negative) Urine RBC (0-3) /hpf Urine WBC (0-5) /hpf Urine Bacteria (None) /hpf Hyaline Casts (0-3) /lpf Urine Mucus (Occasional) /lpf Micro UA Comment Ur Microscopic Review Urine Culture Comments Urine Osmolality (300-1300) mosm/kg Ur Random Creatinine (27-300) mg/dL Ur Random Sodium meq/L Nasal Screen MRSA (PCR) (Negative) CORNELIA Screen (Neg) Complement C3 (90-180) mg/dL Complement C4 (10-40) mg/dL 11/16/18 11/16/18 11/16/18 Range/Units 08:57 10:30 13:05 WBC (4.0-11.0) th/mm3 RBC (4.50-5.90) mil/mm3 Hgb (13.0-17.0) gm/dL Hct (39.0-51.0) % MCV (80.0-100.0) fL MCH (27.0-34.0) pg MCHC (32.0-36.0) % RDW (11.6-17.2) % Plt Count (150-450) th/mm3 MPV (7.0-11.0) fL Neut % (Auto) (16.0-70.0) % Lymph % (Auto) (9.0-44.0) % [place] % (Auto) (0.0-8.0) % Eos % (Auto) (0.0-4.0) % Baso % (Auto) (0.0-2.0) % Neut # (Auto) (1.8-7.7) th/mm3 Lymph # (Auto) (1.0-4.8) th/mm3 [place] # (Auto) (0.0-0.9) th/mm3 Eos # (Auto) (0.0-0.4) th/mm3 Baso # (Auto) (0.0-0.2) th/mm3 WBC Differential Differential Comment PT (9.8-11.6) sec INR Ratio APTT (23.4-31.7) sec Puncture Site Patient Temperature VBG pH (7.360-7.400) VBG pCO2 (44-48) mmHG VBG pO2 (35-40) mmHG VBG HCO3 (22-26) mmol/L VBG O2 Saturation (70-76) % VBG O2 Content (9.0-17.0) Vol % VBG Base Excess (-2-2) mmol/L VBG Carboxyhemoglobin (0-4) % VBG Methemoglobin (0-2) % Hemoglobin (12.0-16.0) G/DL O2 Delivery Device Inspired O2 % Critical Value Sodium (136-145) meq/L Potassium (3.5-5.1) meq/L Chloride (98-107) meq/L Carbon Dioxide (21.0-32.0) meq/L Anion Gap (5-15) meq/L BUN (7-18) mg/dL Creatinine (0.60-1.30) mg/dL Estimated GFR (>89) mL/min POC Glucose 47 L* 197 H (68-110) mg/dl Random Glucose (74-106) mg/dL Hemoglobin A1c 8.1 H (4.3-6.0) % Lactic Acid (0.4-2.0) mmol/L Calcium (8.5-10.1) mg/dL Calcium Adj for Albumin (8.5-10.1) mg/dL Phosphorus (2.5-4.9) mg/dL Magnesium (1.5-2.5) mg/dL Total Bilirubin (0.2-1.0) mg/dL AST (15-37) U/L ALT (12-78) U/L Alkaline Phosphatase (45-117) U/L Total Creatine Kinase (39-308) U/L CK-MB (CK-2) (0.5-3.6) ng/mL Troponin I (0.02-0.05) ng/mL Total Protein (6.4-8.2) g/dL Albumin (3.4-5.0) g/dL Triglycerides (42-150) mg/dL Cholesterol (120-200) mg/dL LDL Cholesterol, Calc (0-99) mg/dL HDL Cholesterol (40.0-60.0) mg/dL Cholesterol/HDL Ratio Ratio Beta-Hydroxybutyric Acd (0.00-0.39) mmol/L Urine Color (Yellw/Straw) Urine Clarity (Clear) Urine pH (5.0-8.5) Ur Specific [place] (1.002-1.035) Urine Protein (Neg-Trace) mg/dL Urine Glucose (UA) (Negative) mg/dL Urine Ketones (Negative) mg/dL Urine Occult Blood (Negative) Urine Nitrate (Negative) Urine Bilirubin (Negative) Urine Urobilinogen (Less than 2) mg/dL Ur Leukocyte Esterase (Negative) Urine RBC (0-3) /hpf Urine WBC (0-5) /hpf Urine Bacteria (None) /hpf Hyaline Casts (0-3) /lpf Urine Mucus (Occasional) /lpf Micro UA Comment Ur Microscopic Review Urine Culture Comments Urine Osmolality (300-1300) mosm/kg Ur Random Creatinine (27-300) mg/dL Ur Random Sodium meq/L Nasal Screen MRSA (PCR) (Negative) [place] Screen (Neg) Complement C3 (90-180) mg/dL Complement C4 (10-40) mg/dL 11/16/18 11/16/18 Range/Units 13:11 18:04 WBC (4.0-11.0) th/mm3 RBC (4.50-5.90) mil/mm3 Hgb (13.0-17.0) gm/dL Hct (39.0-51.0) % MCV (80.0-100.0) fL MCH (27.0-34.0) pg MCHC (32.0-36.0) % RDW (11.6-17.2) % Plt Count (150-450) th/mm3 MPV (7.0-11.0) fL Neut % (Auto) (16.0-70.0) % Lymph % (Auto) (9.0-44.0) % [place] % (Auto) (0.0-8.0) % Eos % (Auto) (0.0-4.0) % Baso % (Auto) (0.0-2.0) % Neut # (Auto) (1.8-7.7) th/mm3 Lymph # (Auto) (1.0-4.8) th/mm3 [place] # (Auto) (0.0-0.9) th/mm3 Eos # (Auto) (0.0-0.4) th/mm3 Baso # (Auto) (0.0-0.2) th/mm3 WBC Differential Differential Comment PT (9.8-11.6) sec INR Ratio APTT (23.4-31.7) sec Puncture Site Patient Temperature VBG pH (7.360-7.400) VBG pCO2 (44-48) mmHG VBG pO2 (35-40) mmHG VBG HCO3 (22-26) mmol/L VBG O2 Saturation (70-76) % VBG O2 Content (9.0-17.0) Vol % VBG Base Excess (-2-2) mmol/L VBG Carboxyhemoglobin (0-4) % VBG Methemoglobin (0-2) % Hemoglobin (12.0-16.0) G/DL O2 Delivery Device Inspired O2 % Critical Value Sodium (136-145) meq/L Potassium (3.5-5.1) meq/L Chloride (98-107) meq/L Carbon Dioxide (21.0-32.0) meq/L Anion Gap (5-15) meq/L BUN (7-18) mg/dL Creatinine (0.60-1.30) mg/dL Estimated GFR (>89) mL/min POC Glucose 256 H 191 H (68-110) mg/dl Random Glucose (74-106) mg/dL Hemoglobin A1c (4.3-6.0) % Lactic Acid (0.4-2.0) mmol/L Calcium (8.5-10.1) mg/dL Calcium Adj for Albumin (8.5-10.1) mg/dL Phosphorus (2.5-4.9) mg/dL Magnesium (1.5-2.5) mg/dL Total Bilirubin (0.2-1.0) mg/dL AST (15-37) U/L ALT (12-78) U/L Alkaline Phosphatase (45-117) U/L Total Creatine Kinase (39-308) U/L CK-MB (CK-2) (0.5-3.6) ng/mL Troponin I (0.02-0.05) ng/mL Total Protein (6.4-8.2) g/dL Albumin (3.4-5.0) g/dL Triglycerides (42-150) mg/dL Cholesterol (120-200) mg/dL LDL Cholesterol, Calc (0-99) mg/dL HDL Cholesterol (40.0-60.0) mg/dL Cholesterol/HDL Ratio Ratio Beta-Hydroxybutyric Acd (0.00-0.39) mmol/L Urine Color (Yellw/Straw) Urine Clarity (Clear) Urine pH (5.0-8.5) Ur Specific [place] (1.002-1.035) Urine Protein (Neg-Trace) mg/dL Urine Glucose (UA) (Negative) mg/dL Urine Ketones (Negative) mg/dL Urine Occult Blood (Negative) Urine Nitrate (Negative) Urine Bilirubin (Negative) Urine Urobilinogen (Less than 2) mg/dL Ur Leukocyte Esterase (Negative) Urine RBC (0-3) /hpf Urine WBC (0-5) /hpf Urine Bacteria (None) /hpf Hyaline Casts (0-3) /lpf Urine Mucus (Occasional) /lpf Micro UA Comment Ur Microscopic Review Urine Culture Comments Urine Osmolality (300-1300) mosm/kg Ur Random Creatinine (27-300) mg/dL Ur Random Sodium meq/L Nasal Screen MRSA (PCR) (Negative) [place] Screen (Neg) Complement C3 (90-180) mg/dL Complement C4 (10-40) mg/dL Imaging Data Radiologist's impression: Abdomen/Bladder Ultrasound 11/14/18 00:00 CONCLUSION: 1. Mild dilatation upper pole calyx without obvious stone otherwise normal kidneys 2. Multiple gallstones. Chest X-Ray 11/14/18 00:00 CONCLUSION: Mild diffuse symmetric interstitial thickening Myocardial Perfusion Scan Nuc Med 11/15/18 00:00 CONCLUSION: 1. No evidence of stress-induced ischemia. 2. Intact wall motion with 62% ejection fraction. Discharge Plan Discharge Disposition Patient Disposition: ED Admit(ED Internal Use Only) Discharge Order Discharge Orders: ED Use Only Admit Order (Routine); Ordered 11/13/18 Ordered By: Greta Melendrez Physicians Team ED Provider: Greta Melendrez Primary Care Provider: Nannette Benjamin, Attending Provider: Ángel Nath Other Providers: Dorcas Emmanuel Vance E Status ED Status: Left Department Discharge Information Discharge Date/Time: 11/14/18 01:35
[2018-11-13 22:55] LABS: VBG Base Excess -21.5 mmol/L (-2-2); VBG Blood Gas Oxygen Content 11.9 Vol % (9.0-17.0); VBG PCO2 22 mmHG (44-48); VBG PO2 57 mmHG (35-40)
[2018-11-13] MEDS ORDERED: Sodium Chlor 0.9% Inj 500 ML IV.SIG SCH (23:00)
[2018-11-13 23:03] LABS: Alanine Aminotransferase 34 U/L (12-78); Albumin 3.5 g/dL (3.4-5.0); Anion Gap 41 meq/L (5-15); Aspartate Aminotransferase 90 U/L (15-37); Blood Urea Nitrogen 26 mg/dL (7-18); Calcium 8.5 mg/dL (8.5-10.1); Chloride 91 meq/L (98-107); Glomerular Filtration Rate 19 mL/min (>89); Glucose,Random 414 mg/dL (74-106); Sodium 137 meq/L (136-145)
[2018-11-13 23:17] LABS: Alkaline Phosphatase 100 U/L (45-117); Beta Hydroxybutyric Acid 9.04 mmol/L (0.00-0.39); Total Protein 7.4 g/dL (6.4-8.2)
--- NOTE | 2018-11-13 23:42 | P.HPCC ---
History of Present Illness Primary Care Physician: Nannette Benjamin History of Present Illness: 48-year-old male came to the emergency room brought by EMS for possible DKA. Patient is an insulin-dependent diabetic and says that there is a stomach bug going around in his household. He caught it yesterday and has been vomiting since. He tried to stay caught up with his blood sugar and insulin but today he continued to have nonstop vomiting and finally got extremely tired and called 911. His blood glucose level was in the 400s by EMS. Patient is tachycardic upon arrival. He says that he has had multiple times DKA and knows that he feels as if he is currently having DKA as well. No diarrhea. No blood in his vomit. No history of fever or chills. Inpatient Certification: I certify that the inpatient services were ordered in accordance with Medicare regulations governing the order. This includes certification that hospital inpatient services are reasonable and necessary and in the case of services not specified as inpatient-only under 42 CFR 419.22(n), that they are appropriately provided as inpatient services in accordance to with the 2-midnight benchmark under 43 CFR 412.3(e) Review of Systems All other systems reviewed negative except as stated in HPI PMFSH - History History Provided By: Patient - Medical History Medical History: Medical History (Last Reviewed 11/13/18 @ 22:44 by Greta Melendrez MD) Diabetes mellitus History of amputation of finger Hypertension Neuropathy - Surgical History Surgical History: Surgical History (Last Reviewed 11/13/18 @ 22:44 by Greta Melendrez MD) History of cataract surgery History of partial amputation of toe Status post trigger finger release - Family History Family History: Family History (Last Reviewed 11/13/18 @ 22:44 by Greta Melendrez MD) Other CVA (cerebral vascular accident) Colon cancer Hypertension - Tobacco History Second Hand Smoke Exposure: No Tobacco Use In Past 30 Days: No Smoking Status: Former smoker Tobacco Type: Cigarettes - Alcohol History How Often Do You Have a Drink Containing Alcohol: 2 to 3 times a week - Substance Use History Substance History: No History of Abuse - Travel History Recent Travel in the [facility] Within the Last 8 Weeks: No - Immunization History Tetanus Immunization: >5 Years Medications and Allergies Active Medications: Active Medications Dextrose (D50w Vial) 50 ml IV.PUSH UNSCH PRN PRN Reason: PER HYPOGLYCEMIA PROTOCOL Sodium Chloride (Ns Flush) 2 ml IV.FLUSH PRN PRN PRN Reason: FLUSH AFTER USING IV ACCESS Current Medications Acetaminophen (Tylenol) 650 mg PO Q6H PRN PRN Reason: PAIN 1-5 AND/OR FEVER >101F Al Hydroxide/Mg Hydroxide (Milk Of Magnteresa Liq) 30 ml PO Q12H PRN PRN Reason: Mild Constipation Albuterol (Duoneb Neb (Prn)) 1 ampul NEB Q2HR NEB PRN PRN Reason: WHEEZING Bisacodyl (Dulcolax Supp) 10 mg RECTAL DAILY PRN PRN Reason: SEVERE CONSITIPATION Chlorhexidine Gluconate (Chlorhexidine 2% Cloth) 3 pack TOPICAL DAILY@0400 MARK Stop: 11/19/18 03:59 Chlorhexidine Gluconate (Chlorhexidine 2% Cloth) 3 pack TOPICAL DAILY@0400 PRN PRN Reason: Extra cloth needed Stop: 11/19/18 03:59 Dextrose (D50w Vial) 50 ml IV.PUSH UNSCH PRN PRN Reason: PER HYPOGLYCEMIA PROTOCOL Enoxaparin Sodium (Lovenox Inj) 40 mg SQ Q24H [facility] Dextrose/Sodium Chloride (D5w/Normal Saline Inj) 1,000 mls @ 200 mls/hr IV.CONT .Q5H [facility] Insulin Human Regular 100 unit (/ Sodium Chloride) 100 mls @ 0 mls/hr IV.CONT TITRATE PRN; Protocol PRN Reason: Per Protocol Sodium Chloride (Ns Inj) 1,000 mls @ 250 mls/hr IV.CONT .Q4H [facility] Last Admin: 11/14/18 00:57 Dose: 250 mls/hr Potassium Chloride (Kcl 40 Meq Premix Inj) 40 meq in 100 mls @ 100 mls/hr IV.SIG Q1H PRN PRN Reason: for Initial K+ ONLY < 3.5 Potassium Chloride (Kcl 40 Meq Premix Inj) 40 meq in 100 mls @ 50 mls/hr IV.SIG Q2H PRN PRN Reason: for Subsequent K+ < 3.5 Potassium Chloride (Kcl 20 Meq Premix Inj) 20 meq in 100 mls @ 100 mls/hr IV.SIG Q1H PRN PRN Reason: for K+ 4.5 to 5 Potassium Chloride (Kcl 20 Meq Premix Inj) 20 meq in 100 mls @ 50 mls/hr IV.SIG Q2H PRN PRN Reason: for Initial K+ ONLY < 3.5 Potassium Chloride (Kcl 20 Meq Premix Inj) 20 meq in 100 mls @ 50 mls/hr IV.SIG Q2H PRN PRN Reason: for Subsequent K+ < 3.5 Potassium Chloride (Kcl 20 Meq Premix Inj) 20 meq in 100 mls @ 50 mls/hr IV.SIG Q2H PRN PRN Reason: for K+ 3.5 to 4.4 Potassium Chloride (Kcl 20 Meq Premix Inj) 20 meq in 100 mls @ 50 mls/hr IV.SIG Q2H PRN PRN Reason: for K+ 4.5 to 5 Last Admin: 11/14/18 00:57 Dose: 50 mls/hr Potassium Chloride (Kcl 20 Meq Premix Inj) 20 meq in 100 mls @ 100 mls/hr IV.SIG Q1H PRN PRN Reason: for K+ 3.5 to 4.4 Sodium Phosphate 15 mmol/ (Sodium Chloride) 105 mls @ 25 mls/hr IV.SIG UNSCH PRN PRN Reason: for Phosphate Level < 1.0 Lactulose (Lactulose Liq) 30 ml PO DAILY PRN PRN Reason: SEVERE CONSITIPATION Lisinopril (Prinivil) 20 mg PO DAILY [facility] Morphine Sulfate (Morphine Inj) 2 mg IV.PUSH Q2H PRN PRN Reason: PAIN SCALE 6 TO 10 Ondansetron HCl (Zofran Inj) 4 mg IV.PUSH Q6H PRN PRN Reason: NAUSEA OR VOMITING Senna/Docusate Sodium (Dayna-Colace) 1 tab PO BID [facility] Sennosides (Senokot) 17.2 mg PO Q12H PRN PRN Reason: Moderate Constipation Sodium Bicarbonate (Sodium Bicarbonate 8.4% Inj) 50 meq IV.PUSH UNSCH PRN PRN Reason: for pH 6.9 to 7.0 Sodium Bicarbonate (Sodium Bicarbonate 8.4% Inj) 100 meq IV.PUSH UNSCH PRN PRN Reason: for pH less than 6.9 Sodium Chloride (Ns Flush) 2 ml IV.FLUSH PRN PRN PRN Reason: FLUSH AFTER USING IV ACCESS Sodium Chloride (Ns Flush) 2 ml IV.FLUSH BID MARK Sodium Chloride (Ns Flush) 2 ml IV.FLUSH PRN PRN PRN Reason: FLUSH AFTER USING IV ACCESS Temazepam (Restoril) 15 mg PO HS PRN PRN Reason: INSOMNIA Allergies Allergy/AdvReac Type Severity Reaction Status Date / Time No Known Allergies Allergy Verified 11/13/18 21:34 Home Medications Medication Instructions Recorded Confirmed Type insulin pump cartridge 06/24/18 11/13/18 History insulin glargine [Lantus U-100 50 unit SUBCUT DAILY 11/13/18 11/13/18 History Insulin] insulin regular human [Novolin R 1 sliding scale dose SUBCUT UD 11/13/18 History Regular U-100 Insuln] Results - Labs CBC & Chem 7: 11/14/18 03:20 11/14/18 00:05 Labs: Short CBC 11/13/18 Range/Units 21:30 WBC 17.7 H (4.0-11.0) th/mm3 Hgb 12.0 L (13.0-17.0) gm/dL Hct 37.9 L (39.0-51.0) % Plt Count 190 (150-450) th/mm3 BMP 11/13/18 11/13/18 21:30 21:30 Sodium 135 L 137 Potassium 4.9 5.0 Chloride 91 L 91 L Carbon Dioxide 7.8 L Less than 5.0 L BUN 26 H 26 H Creatinine 3.53 H 3.53 H Calcium 8.6 8.5 Liver Function 11/13/18 Range/Units 21:30 Total Bilirubin 1.0 (0.2-1.0) mg/dL AST 90 H (15-37) U/L ALT 34 (12-78) U/L Alkaline Phosphatase 100 (45-117) U/L Albumin 3.5 (3.4-5.0) g/dL Exam Vital signs: Vital Signs 11/13/18 21:26 11/13/18 21:59 Temperature 97.7 F Pulse Rate 135 H 130 H Respiratory Rate 30 H 18 Blood Pressure 122/51 L 103/51 L Pulse Oximetry 100 99 - Constitutional moderate distress - Routine HEENT Exam Head: Present: normocephalic, atraumatic Eye: Present: PERRL, normal accommodation ENT: Present: mucous membranes dry - Routine Neck Exam Present: supple, full ROM. Absent: JVD, carotid bruit - Routine Respiratory Exam Absent: accessory muscle use, wheezes, crackles - Routine Cardiovascular Exam Present: RRR, S1, S2 - Routine Abdominal Exam Present: soft, normoactive bowel sounds, tenderness. Absent: distended, rebound - Routine Extremities Exam Absent: cyanosis, clubbing, edema - Routine Skin Exam Present: intact. Absent: cyanosis, erythema - Routine Neurological Exam Present: alert, oriented X3, moving all extremities Septic Shock Reassessment Septic shock perfusion: reassessment completed Caprini VTE Risk Assessment Caprini VTE Risk Assessment: Moderate/High Risk (score >= 2) Caprini Risk Assessment Model: Point Value = 1 Point Value = 2 Point Value = 3 Point Value = 5 Age 41-60 Minor surgery BMI > 25 kg/m2 Swollen legs Varicose veins or History of unexplained or recurrent spontaneous Oral contraceptives or hormone replacement Sepsis (< 1 month) Serious lung disease, including pneumonia (< 1 month) Abnormal pulmonary function Acute myocardial infarction Congestive heart failure (< 1 month) History of inflammatory bowel disease Medical patient at bed rest Age 61-74 Arthroscopic surgery Major open surgery (> 45 min) Laparoscopic surgery (> 45 min) Malignancy Confined to bed (> 72 hours) Immobilizing plaster cast Central venous access Age >= 75 History of VTE Family history of VTE Factor V Leiden Prothrombin [id number] Lupus anticoagulant Anticardiolipin antibodies Elevated serum homocysteine Heparin-induced thrombocytopenia Other congenital or acquired thrombophilia Stroke (< 1 month) Elective arthroplasty Hip, pelvis, or leg fracture Acute spinal cord injury (< 1 month) Prophylaxis Regimen: Total Risk Factor Score Risk Level Prophylaxis Regimen 0-1 Low Early ambulation 2 Moderate Order ONE of the following: *Sequential Compression Device (SCD) *Heparin 5000 units SQ BID 3-4 Higher Order ONE of the following medications: *Heparin 5000 units SQ TID *Enoxaparin/Lovenox 40 mg SQ daily (WT < 150 kg, CrCl > 30 mL/min) *Enoxaparin/Lovenox 30 mg SQ daily (WT < 150 kg, CrCl > 10-29 mL/min) *Enoxaparin/Lovenox 30 mg SQ BID (WT < 150 kg, CrCl > 30 mL/min) AND/OR *Sequential Compression Device (SCD) 5 or more Highest Order ONE of the following medications: *Heparin 5000 units SQ TID (Preferred with Epidurals) *Enoxaparin/Lovenox 40 mg SQ daily (WT < 150 kg, CrCl > 30 mL/min) *Enoxaparin/Lovenox 30 mg SQ daily (WT < 150 kg, CrCl > 10-29 mL/min) *Enoxaparin/Lovenox 30 mg SQ BID (WT < 150 kg, CrCl > 30 mL/min) AND *Sequential Compression Device (SCD) Assessment and Plan - Assessment and Plan Plan: DKA -Insulin drip per ICU protocol -Frequent labs -Monitor BMP for anion gap -IV hydration -N.p.o. -Infectious and cardiac workup to rule out underlying condition Hypertension -Lisinopril Neuropathy -Gabapentin as needed DVT GI prophylaxis -Teds SCDs -Lovenox -1800 ADA diet 35 minutes of critical care
[2018-11-13] MEDS ORDERED: Sodium Phosphate Inj 15 MMOL in Sodium Chlor 0.9% Inj 100 ML IV.SIG PRN (23:52)
[2018-11-13] MEDS ORDERED: Bisacodyl 10 MG Supp RECTAL PRN (23:52)
[2018-11-13] MEDS ORDERED: Potassium Chlor 40 mEq Premix 40 MEQ/100 ML PIGGYBACK IV.SIG PRN ×2 (23:52)
[2018-11-13] MEDS ORDERED: Potassium Chlor 20 mEq Premix 20 MEQ/100 ML PIGGYBACK IV.SIG PRN ×3 (23:52)
[2018-11-13] MEDS ORDERED: Acetaminophen 325 MG Tablet PO PRN (23:52)
[2018-11-13] MEDS ORDERED: Temazepam 15 MG Capsule PO PRN (23:52)
[2018-11-13] MEDS ORDERED: Morphine Sulfate Inj 2 MG/ML Vial IV.PUSH PRN (23:52)
[2018-11-14] MEDS: Sod Chloride 0.9% Inj 1,000 ML IV.SIG SCH (00:01)
[2018-11-14 00:55] LABS: Calcium 7.2 mg/dL (8.5-10.1); Carbon Dioxide 8.5 meq/L (21.0-32.0); Potassium 4.7 meq/L (3.5-5.1); Troponin I 0.11 ng/mL (0.02-0.05)
[2018-11-14] MEDS: Sod Chloride 0.9% Inj 1,000 ML IV.CONT SCH ×5 (00:57→16:34)
[2018-11-14 01:02] LABS: Albumin 3.3 g/dL (3.4-5.0); Calcium-Albumin Corrected 7.8 mg/dL (8.5-10.1)
--- NOTE | 2018-11-14 01:27 | XR ---
EXAM DATE: 11/14/2018 12:38 AM EST AGE/SEX: 48 years / Male INDICATIONS: Shortness of breath. CLINICAL DATA: This is the patient's initial encounter. Patient reports that signs and symptoms have been present for 1 day and indicates a pain score of 0/10. MEDICAL/SURGICAL HISTORY: Diabetes. . . Orif left femur. Fourth toe rt amputation COMPARISON: [facility] [place], 06/17/2012. . FINDINGS: Mild symmetric nodular interstitial infiltrate. No evidence of alveolar consolidation or pleural effu niko. Cardiac contours are unchanged CONCLUSION: Mild diffuse symmetric interstitial thickening Electronically signed by: Daljit Larry MD Board Certified Radiologist 11/14/2018 1:25 AM EST
[2018-11-14] MEDS: Insulin Regular (For Infusion) 100 UNIT in Sodium Chlor 0.9% Inj 99 ML IV.CONT PRN ×2 (02:05→08:00)
[2018-11-14] MEDS ORDERED: Chlorhexidine Gluconate 2% 1 Pack (2 Cloths) TOPICAL PRN (04:00)
[2018-11-14] MEDS: Chlorhexidine Gluconate 2% 1 Pack (2 Cloths) TOPICAL SCH (04:28)
[2018-11-14 04:41] LABS: Bacteria,Urine Occasional /hpf; Bilirubin,Urine Negative (Negative); Clarity,Urine Hazy (Clear); Color,Urine Yellow (Yellw/Straw); Glucose,Urine (UA) 500 or Greater mg/dL (Negative); Hyaline Casts,Urine 61 /lpf (0-3); Leukocyte Esterase,Urine Negative (Negative); Mucus,Urine Few /lpf (Occasional); Nitrite,Urine Negative (Negative); Specific Gravity,Urine 1.009 (1.002-1.035)
[2018-11-14 04:46] LABS: Eos % (Auto) 0.1 % (0.0-4.0); Hematocrit 32.1 % (39.0-51.0); Hemoglobin 11.2 gm/dL (13.0-17.0); Lymph # (Auto) 0.4 th/mm3 (1.0-4.8); Mean Corpuscular HGB Conc 34.8 % (32.0-36.0); Mean Corpuscular Hemoglobin 33.7 pg (27.0-34.0); Mean Corpuscular Volume 96.7 fL (80.0-100.0); Mean Platelet Volume 9.2 fL (7.0-11.0); Mono # (Auto) 0.7 th/mm3 (0.0-0.9); Mono % (Auto) 6.3 % (0.0-8.0); Neut # (Auto) 9.4 th/mm3 (1.8-7.7); Neut % (Auto) 89.6 % (16.0-70.0); Platelet Count 132 th/mm3 (150-450); Red Blood Count 3.32 mil/mm3 (4.50-5.90); Red Cell Distribution Width 14.7 % (11.6-17.2); White Blood Count 10.5 th/mm3 (4.0-11.0)
[2018-11-14 04:56] LABS: Activated Partial Thrombo Time 27.5 sec (23.4-31.7); INR 1.1 Ratio; Prothrombin Time 10.7 sec (9.8-11.6)
[2018-11-14 05:20] LABS: Calcium 7.2 mg/dL (8.5-10.1); Carbon Dioxide 24.1 meq/L (21.0-32.0); Magnesium 1.4 mg/dL (1.5-2.5); Phosphorus 1.4 mg/dL (2.5-4.9); Total Protein 6.7 g/dL (6.4-8.2)
[2018-11-14 05:29] LABS: Troponin I 1.85 ng/mL (0.02-0.05)
[2018-11-14 06:51] LABS: Calcium 7.4 mg/dL (8.5-10.1); Carbon Dioxide 28.3 meq/L (21.0-32.0); Potassium 3.7 meq/L (3.5-5.1)
[2018-11-14 07:14] LABS: Calcium-Albumin Corrected 8.2 mg/dL (8.5-10.1)
[2018-11-14] MEDS: Dextrose 5%/NaCl 0.9% Inj 1,000 ML IV.CONT SCH ×3 (07:43→16:31)
[2018-11-14] MEDS: Senna/Docusate Sodium 8.6/50 MG Tablet PO SCH ×3 (08:45→22:38)
[2018-11-14] MEDS ORDERED: Dextrose 50% in Water 50 ML Vial IV.PUSH PRN (08:46)
--- NOTE | 2018-11-14 08:51 | P.PNIM ---
Subjective Interval history: f/u; DKA in no acute distress. denies pain. no sob. had a fever earlier. insulin drip currently on hold. blood sugar trend noted. d/w the RN. Physical Exam Vital signs: Vital Signs 11/13/18 21:26 11/13/18 21:59 11/14/18 01:56 Temperature 97.7 F Pulse Rate 135 H 130 H Respiratory Rate 30 H 18 Blood Pressure 122/51 L 103/51 L 119/58 L Pulse Oximetry 100 99 11/14/18 01:58 11/14/18 02:00 11/14/18 03:00 Temperature 101.0 F H 101.0 F H Pulse Rate 122 H 122 H 118 H Respiratory Rate 22 23 29 H Blood Pressure 119/58 L Pulse Oximetry 98 98 98 11/14/18 03:29 11/14/18 04:00 11/14/18 04:32 Temperature Pulse Rate 122 H 118 H 113 H Respiratory Rate 29 H 24 26 H Blood Pressure 119/66 119/66 124/61 Pulse Oximetry 98 98 98 11/14/18 05:00 11/14/18 05:32 11/14/18 06:00 Temperature Pulse Rate 112 H 111 H 107 H Respiratory Rate 28 H 18 23 Blood Pressure 123/73 Pulse Oximetry 96 97 96 Intake & Output 11/13/18 11/14/18 11/14/18 18:59 06:59 18:59 Intake Total 1100 / 1100 1100 / 1100 Output Total 400 / 400 Balance 700 / 700 1100 / 1100 Weight 61.2 kg Intake: IV 1100 / 1100 1100 / 1100 NovoLIN R (IV Infusion) 100 100 / 100 UNIT In NS Inj 99 ML @ Per Protocol IV.CONT TITRATE PRN Rx #:[id number] NS Inj 1,000 ML @ 250 mls/hr IV 1000 / 1000 .CONT .Q4H MARK Rx#:[id number] KCl 20 mEq Premix Inj 20 meq In 100 / 100 100 ml @ 50 mls/hr IV.SIG Q2H PRN Rx#:[id number] NS Inj 1,000 ML @ 2000 mls/hr 1000 / 1000 IV.SIG Q30M MARK Rx#:[id number] Oral 0 / 0 Output: Urine 400 / 400 Other: Date of Last Bowel Movement 11/13/18 # Bowel Movements 0 Weight On Admission 61.2 kg Constitutional no acute distress Routine Respiratory Exam Present CTA bilaterally Routine Cardiovascular Exam Present RRR Routine Abdominal Exam Present soft Routine Extremities Exam Comments: no pedal edema. Routine Neurological Exam Present alert and oriented X3 Results Labs CBC & Chem 7: 11/14/18 03:20 11/14/18 06:17 Imaging Imaging: Impressions Chest X-Ray 11/14/18 00:00 CONCLUSION: Mild diffuse symmetric interstitial thickening Assessment and Plan Plan A/P DKA- resolved. - stop the insulin drip -start on diabetic diet. -start on Levemir along with SSI -unit educator consulted. -check A1c. fever -UA and CXR not impressive and the patient asymptomatic - will follow the blood and urine cultures and monitor temps. -will consider starting on empiric antibiotics and ID evaluation if the fever persists. elevated troponin -EKG with no acute St-T changes and the patient denies pain. -suspect due to renal insufficiency and DKA - will repeat the cardiac enzymes and consult cardiology if trending up. -check echo acute kidney injury - continue IV fluid -check kidney US -consult nephrology. Hypertension -hold Lisinopril for now due to CYNTHIA -continue to monitor BP. Neuropathy -Gabapentin as needed DVT GI prophylaxis -Teds SCDs -Lovenox transfer to floor within the next 24 hrs if stable. Discharge Planning: home - pending the clinical course and work-up. Progress Note: Quality VTE Deep Vein Thrombosis/Pulmonary Embolism Present on Admission: No
[2018-11-14] MEDS ORDERED: Lisinopril 20 MG Tablet PO SCH (09:00)
[2018-11-14] MEDS ORDERED: Enoxaparin Inj 40 MG/0.4 ML Syringe SQ SCH (09:00)
[2018-11-14] MEDS: Insulin Detemir Inj 1,000 UNIT/10 ML Vial SQ SCH (09:39)
--- NOTE | 2018-11-14 10:21 | US ---
EXAM DATE: 11/14/2018 9:45 AM EST AGE/SEX: 48 years / Male INDICATIONS: Increased BUN/Creatinine. CLINICAL DATA: This is the patient's initial encounter. Patient reports that signs and symptoms have been present for 1 day and indicates a pain score of 0/10. MEDICAL/SURGICAL HISTORY: Diabetes. Hypertension. Neuropathy. . Finger amputation. Partial t oe amputation. Trigger finger release. Cataract removal. COMPARISON: No prior exams available for comparison. MEASUREMENTS: Right Kidney:__11.2 x 5.7 x 5.4 cm Left Kidney:__11.0 x 6.8 x 6.0 cm FINDINGS: Right Kidney: Mild dilatation of an upper pole calyx without obvious stone. Left Kidney: Normal echogenicity and cortical thickness. No mass or hydronephrosis. Bladder: Within normal limits given the degree of distension. Other: Multiple stones present in the gallbladder CONCLUSION: 1. Mild dilatation upper pole calyx without obvious stone otherwise normal kidneys 2. Multiple gallstones. Electronically signed by: Izaiah Singh MD Board Certified Radiologist 11/14/2018 10:19 AM EST
[2018-11-14 11:12] LABS: Creatine Kinase 164 U/L (39-308)
[2018-11-14 11:27] LABS: Creatine Kinase MB 10.6 ng/mL (0.5-3.6)
[2018-11-14] MEDS: Insulin NovoLOG Aspart Correctional Sugar Inj SQ SCH ×3 (11:56→21:23)
--- NOTE | 2018-11-14 14:14 | ECG ---
Date Performed: 11/14/2018 Time Performed: 00:29:52 PTAGE: 48 years EKG: SINUS TACHYCARDIA NONSPECIFIC ST & T-WAVE ABNORMALITY ABNORMAL RHYTHM ECG WARNING: DATA AJ LITY MAY AFFECT INTERPRETATION Since the PREVIOUS TRACING , no significant change noted PREVIOUS TRACIN05/01/2014 11.04 DOCTOR: Devin Cabrera Interpretating Date/Time 11/14/2018 14:10:24
--- NOTE | 2018-11-14 14:14 | ECG ---
Date Performed: 11/14/2018 Time Performed: 07:09:28 PTAGE: 48 years EKG: Sinus tachycardia. Normal ECG except for rate Since the PREVIOUS TRACING , no significant change noted PREVIOUS TRACIN11/14/2018 00.29 DOCTOR: Devin Cabrera Interpretating Date/Time 11/14/2018 14:10:14
--- NOTE | 2018-11-14 14:20 | MB ---
cc: Delbert Choi MD DATE: 11/14/2018 CARDIOLOGY CONSULTATION REASON FOR CONSULTATION: Evaluation of elevated troponin and abnormal EKG. HISTORY OF PRESENT ILLNESS: This is a 48-year-old man admitted to the hospital with diabetic ketoacidosis with a pH of 7.10 on admission. He is feeling much better now that he has been treated with insulin and is no longer acidotic. The patient has ruled in for an SC by his enzymes. He does not have any chest pain that we can elicit. He had some shortness of breath before came into the hospital last night. Denies any chest tightness in the chest, pressure. His EKG was abnormal last night, but has normalized this morning. He says 2-3 years ago, he had a cardiac catheterization. I cannot see of records of that here in the old records. He says his heart catheterization was fine and he had a stress test about a year after that. He lost his insurance and has not been back to [facility] since then. 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 PAST SURGICAL HISTORY: Cataract surgery, partial amputation of a toe, trigger finger surgery. FAMILY HISTORY: He had a brother with two myocardial infarctions and a bypass operation. Father of colon cancer at a young age; hypertension and stroke is also in the family. SOCIAL HISTORY: He is single. He smoked from age 21 to age 31; has not smoked since the. He has 2-3 drinks 2-4 times a week. REVIEW OF SYSTEMS: Denies any bleeding. Remaining review of systems negative. PHYSICAL EXAMINATION: GENERAL: Reveals a well-developed, well-nourished man, in no acute distress. VITAL SIGNS: Charted. His heart rate is mildly elevated. HEENT: Unremarkable. NECK: No JVD or bruits. CHEST: Clear to auscultation. CARDIOVASCULAR: S1, S2, regular rate and rhythm. There is a 1/6 systolic ejection murmur. ABDOMEN: Soft, nontender. EXTREMITIES: Reveal diminished pedal pulses. Femoral pulses are strong. Radial pulses are intact. DIAGNOSTIC DATA: Initial EKG last night showed sinus rhythm with ST depression V3 through V6, which were resolved on the second EKG. LABORATORY DATA: Troponin went from 0.11-6.56. Creatinine is elevated at 3.11. Hematocrit is 32. IMPRESSION: Suspect the type 2 non-ST segment elevation myocardial infarction secondary to diabetic ketoacidosis; high likelihood of significant underlying coronary artery disease. He is asymptomatic at this time. Creatinine severely elevated and renal has not seen him yet. RECOMMENDATIONS: He might benefit from a cardiac catheterization prior to discharge, but would like to see if his renal function can be improved and stabilized. For now, we will manage this medically. I am adding low dose nitroglycerin, upping his metoprolol 25 b.i.d., and continuing aspirin. I am also checking lipids and ordering a statin. Also checking LV function with an echo. Further therapy to be determined. MD JERSON Zee/mu , 01:11 PM , 01:17 PM
[2018-11-14 14:36] LABS: Creatinine,Urine Random 123 mg/dL (27-300); Sodium,Urine Random 45 meq/L
--- NOTE | 2018-11-14 16:19 | P.CONNP ---
<JazminechenBetzaida medrano - Last Filed: 11/14/18 16:22> History of Present Illness Service: Nephrology Consult date: 11/14/18 Requesting Physician: Ángel Nath Reason for Consult: Acute kidney injury Primary Care Provider: Nannette Benjamin History of Present Illness: Patient is a 48-year-old male with past medical history of insulin dependent diabetes and hypertension. Presented to the emergency room brought by EMS for possible DKA. His blood glucose level was in the 400s by EMS. Patient reports that stomach bug going around in his household and he has had a poor intake for over 3 day. He vomited all day yesterday. He tried to stay caught up with his blood sugar and insulin but today he continued to have nonstop vomiting and finally got extremely tired and called 911. Nephrology is consulted of acute kidney injury with a creatinine of 3.1 which has improved from admission creatinine of 3.5. Baseline creatinine 06/25/18 at 1.24. Renal ultrasound with Right Kidney: Mild dilatation of an upper pole calyx without obvious stone.Left Kidney: Normal echogenicity and cortical thickness. No mass or hydronephrosis. No shortness of breath, nausea and vomiting has resolved today, no diarrhea. Review of Systems All other systems reviewed negative except as stated in HPI PMFSH - History History Provided By: Patient - Medical History Medical History: Medical History (Last Reviewed 11/13/18 @ 22:44 by Greta Melendrez MD) Diabetes mellitus History of amputation of finger Hypertension Neuropathy - Surgical History Surgical History: Surgical History (Last Reviewed 11/13/18 @ 22:44 by Greta Melendrez MD) History of cataract surgery History of partial amputation of toe Status post trigger finger release - Family History Family History: Family History (Last Reviewed 11/13/18 @ 22:44 by Greta Melendrez MD) Other CVA (cerebral vascular accident) Colon cancer Hypertension - Tobacco History Second Hand Smoke Exposure: No Tobacco Use In Past 30 Days: No Smoking Status: Former smoker Tobacco Type: Cigarettes - Alcohol History How Often Do You Have a Drink Containing Alcohol: 2 to 3 times a week - Substance Use History Substance History: No History of Abuse - Travel History Recent Travel in the [facility] Within the Last 8 Weeks: No - Immunization History Tetanus Immunization: >5 Years Hx Influenza Vaccine This Season: No Medications and Allergies Allergies Allergy/AdvReac Type Severity Reaction Status Date / Time No Known Allergies Allergy Verified 11/13/18 21:34 Home Medications Medication Instructions Recorded Confirmed Type insulin pump cartridge 06/24/18 11/13/18 History insulin glargine [Lantus U-100 50 unit SUBCUT DAILY 11/13/18 11/13/18 History Insulin] insulin regular human [Novolin R 1 sliding scale dose SUBCUT UD 11/13/18 History Regular U-100 Insuln] Active Medications: Active Medications Acetaminophen (Tylenol) 650 mg PO Q6H PRN PRN Reason: PAIN 1-5 AND/OR FEVER >101F Al Hydroxide/Mg Hydroxide (Milk Of [place] Liq) 30 ml PO Q12H PRN PRN Reason: Mild Constipation Albuterol (Duoneb Neb (Prn)) 1 ampul NEB Q2HR NEB PRN PRN Reason: WHEEZING Aspirin (Ecotrin) 162 mg PO DAILY [facility] Last Admin: 11/14/18 13:21 Dose: 162 mg Atorvastatin Calcium (Lipitor) 40 mg PO DAILY [facility] Bisacodyl (Dulcolax Supp) 10 mg RECTAL DAILY PRN PRN Reason: SEVERE CONSITIPATION Chlorhexidine Gluconate (Chlorhexidine 2% Cloth) 3 pack TOPICAL DAILY@0400 [facility] Stop: 11/19/18 03:59 Last Admin: 11/14/18 04:28 Dose: Not Given Chlorhexidine Gluconate (Chlorhexidine 2% Cloth) 3 pack TOPICAL DAILY@0400 PRN PRN Reason: Extra cloth needed Stop: 11/19/18 03:59 Dextrose (D50w Vial) 50 ml IV.PUSH UNSCH PRN PRN Reason: PER HYPOGLYCEMIA PROTOCOL Enoxaparin Sodium (Lovenox Inj) 40 mg SQ Q24H [facility] Last Admin: 11/14/18 08:45 Dose: 40 mg Glucagon (Glucagon Inj) 1 mg OTHER UNSCH PRN PRN Reason: for Hypoglycemia Protocol Sodium Chloride (Ns Inj) 1,000 mls @ 250 mls/hr IV.CONT .Q4H [facility] Last Admin: 11/14/18 13:41 Dose: Not Given Potassium Chloride (Kcl 40 Meq Premix Inj) 40 meq in 100 mls @ 100 mls/hr IV.SIG Q1H PRN PRN Reason: for Initial K+ ONLY < 3.5 Potassium Chloride (Kcl 40 Meq Premix Inj) 40 meq in 100 mls @ 50 mls/hr IV.SIG Q2H PRN PRN Reason: for Subsequent K+ < 3.5 Potassium Chloride (Kcl 20 Meq Premix Inj) 20 meq in 100 mls @ 100 mls/hr IV.SIG Q1H PRN PRN Reason: for K+ 4.5 to 5 Potassium Chloride (Kcl 20 Meq Premix Inj) 20 meq in 100 mls @ 50 mls/hr IV.SIG Q2H PRN PRN Reason: for Initial K+ ONLY < 3.5 Potassium Chloride (Kcl 20 Meq Premix Inj) 20 meq in 100 mls @ 50 mls/hr IV.SIG Q2H PRN PRN Reason: for Subsequent K+ < 3.5 Potassium Chloride (Kcl 20 Meq Premix Inj) 20 meq in 100 mls @ 50 mls/hr IV.SIG Q2H PRN PRN Reason: for K+ 3.5 to 4.4 Potassium Chloride (Kcl 20 Meq Premix Inj) 20 meq in 100 mls @ 50 mls/hr IV.SIG Q2H PRN PRN Reason: for K+ 4.5 to 5 Last Infusion: 11/14/18 08:01 Dose: Infused Potassium Chloride (Kcl 20 Meq Premix Inj) 20 meq in 100 mls @ 100 mls/hr IV.SIG Q1H PRN PRN Reason: for K+ 3.5 to 4.4 Sodium Phosphate 15 mmol/ (Sodium Chloride) 105 mls @ 25 mls/hr IV.SIG UNSCH PRN PRN Reason: for Phosphate Level < 1.0 Dextrose/Sodium Chloride (D5w/Normal Saline Inj) 1,000 mls @ 100 mls/hr IV.CONT .Q10H [facility] Insulin Aspart (Novolog Insulin Correctional Sugar Inj) 0 unit SQ ACHS [facility]; Protocol Last Admin: 11/14/18 11:56 Dose: Not Given Insulin Detemir (Levemir Inj) 10 unit SQ DAILY [facility] Last Admin: 11/14/18 09:39 Dose: 10 unit Lactulose (Lactulose Liq) 30 ml PO DAILY PRN PRN Reason: SEVERE CONSITIPATION Lisinopril (Prinivil) 20 mg PO DAILY [facility] Last Admin: 11/14/18 08:45 Dose: 20 mg Metoprolol Tartrate (Lopressor) 25 mg PO BID [facility] Morphine Sulfate (Morphine Inj) 2 mg IV.PUSH Q2H PRN PRN Reason: PAIN SCALE 6 TO 10 Nitroglycerin (Nitro-Bid 2% Oint) 0.5 inch TOPICAL Q6HR [facility] Ondansetron HCl (Zofran Inj) 4 mg IV.PUSH Q6H PRN PRN Reason: NAUSEA OR VOMITING Senna/Docusate Sodium (Dayna-Colace) 1 tab PO BID [facility] Last Admin: 11/14/18 08:45 Dose: 1 tab Sennosides (Senokot) 17.2 mg PO Q12H PRN PRN Reason: Moderate Constipation Sodium Bicarbonate (Sodium Bicarbonate 8.4% Inj) 50 meq IV.PUSH UNSCH PRN PRN Reason: for pH 6.9 to 7.0 Sodium Bicarbonate (Sodium Bicarbonate 8.4% Inj) 100 meq IV.PUSH UNSCH PRN PRN Reason: for pH less than 6.9 Sodium Chloride (Ns Flush) 2 ml IV.FLUSH BID [facility] Last Admin: 11/14/18 08:45 Dose: 2 ml Sodium Chloride (Ns Flush) 2 ml IV.FLUSH PRN PRN PRN Reason: FLUSH AFTER USING IV ACCESS Temazepam (Restoril) 15 mg PO HS PRN PRN Reason: INSOMNIA Exam Vital signs: Vital Signs 11/13/18 21:26 11/13/18 21:59 11/14/18 01:56 Temperature 97.7 F Pulse Rate 135 H 130 H Respiratory Rate 30 H 18 Blood Pressure 122/51 L 103/51 L 119/58 L Pulse Oximetry 100 99 11/14/18 01:58 11/14/18 02:00 11/14/18 03:00 Temperature 101.0 F H 101.0 F H Pulse Rate 122 H 122 H 118 H Respiratory Rate 22 23 29 H Blood Pressure 119/58 L Pulse Oximetry 98 98 98 11/14/18 03:29 11/14/18 04:00 11/14/18 04:32 Temperature Pulse Rate 122 H 118 H 113 H Respiratory Rate 29 H 24 26 H Blood Pressure 119/66 119/66 124/61 Pulse Oximetry 98 98 98 11/14/18 05:00 11/14/18 05:32 11/14/18 06:00 Temperature Pulse Rate 112 H 111 H 107 H Respiratory Rate 28 H 18 23 Blood Pressure 123/73 Pulse Oximetry 96 97 96 11/14/18 06:32 11/14/18 07:00 11/14/18 07:32 Temperature 100.2 F H Pulse Rate 106 H 111 H 102 H Respiratory Rate 32 H 39 H 21 Blood Pressure 119/70 125/71 Pulse Oximetry 98 99 96 11/14/18 08:00 11/14/18 08:32 11/14/18 08:47 Temperature Pulse Rate 102 H 99 H 99 H Respiratory Rate 18 17 17 Blood Pressure 102/55 L 147/75 H Pulse Oximetry 98 98 97 11/14/18 09:00 11/14/18 09:32 11/14/18 10:00 Temperature Pulse Rate 99 H 104 H 103 H Respiratory Rate 18 30 H 25 H Blood Pressure 127/73 Pulse Oximetry 98 93 L 98 11/14/18 10:32 11/14/18 11:00 11/14/18 11:32 Temperature Pulse Rate 108 H 104 H 103 H Respiratory Rate 28 H 26 H 32 H Blood Pressure 133/85 118/62 Pulse Oximetry 96 100 98 11/14/18 12:00 11/14/18 12:32 11/14/18 13:00 Temperature Pulse Rate 101 H 94 H 100 H Respiratory Rate 26 H 26 H 26 H Blood Pressure 100/62 Pulse Oximetry 100 98 100 11/14/18 13:32 Temperature Pulse Rate 96 H Respiratory Rate 23 Blood Pressure 139/75 Pulse Oximetry 99 Intake & Output 11/13/18 11/14/18 11/14/18 18:59 06:59 18:59 Intake Total 1100 / 1100 3000 / 3000 Output Total 400 / 400 Balance 700 / 700 3000 / 3000 Weight 61.2 kg Intake: IV 1100 / 1100 3000 / 3000 D5W/Normal Saline Inj 1,000 ML 200 / 200 @ 200 mls/hr IV.CONT .Q5H [facility] Rx#:[id number] NovoLIN-R 100 UNITS/NS 100 ML ( 100 / 100 for ED) 100 unit In 100 ml @ Per Protocol IV.CONT TITRATE ONE Rx#:[id number] NovoLIN R (IV Infusion) 100 100 / 100 100 / 100 UNIT In NS Inj 99 ML @ Per Protocol IV.CONT TITRATE PRN Rx #:[id number] NS Inj 1,000 ML @ 250 mls/hr IV 1000 / 1000 .CONT .Q4H [facility] Rx#:[id number] KCl 20 mEq Premix Inj 20 meq In 100 / 100 100 ml @ 50 mls/hr IV.SIG Q2H PRN Rx#:[id number] NS Inj 1,000 ML @ 2000 mls/hr 1000 / 1000 1000 / 1000 IV.SIG Q30M [facility] Rx#:[id number] NS Inj 500 ML @ 1000 mls/hr IV. 500 / 500 SIG BOLUS MARK Rx#:[id number] Oral 0 / 0 Output: Urine 400 / 400 Other: Date of Last Bowel Movement 11/13/18 # Bowel Movements 0 Weight On Admission 61.2 kg Narrative: GENERAL: Alert and oriented. SKIN: Warm and dry. NECK: Supple, trachea midline. No JVD or lymphadenopathy. CARDIOVASCULAR: Regular rate and rhythm without murmurs, gallops, or rubs. RESPIRATORY: Breath sounds equal bilaterally. No accessory muscle use. GASTROINTESTINAL: Abdomen soft, non-tender, nondistended. +BS MUSCULOSKELETAL: No cyanosis, or edema. BACK: Nontender without obvious deformity. No CVA tenderness. Results - Lab Results 11/14/18 03:20 11/14/18 06:17 Most recent lab results Calcium 7.4 mg/dL (8.5-10.1) L* 11/14/18 06:17 Phosphorus 1.4 mg/dL (2.5-4.9) L 11/14/18 03:20 Magnesium 1.4 mg/dL (1.5-2.5) L 11/14/18 03:20 - Image Kidney/bladder ultrasound: report reviewed Assessment and Plan - Assessment (1) Acute kidney injury Code(s): N17.9 - Acute kidney failure, unspecified Status: Acute Plan: Acute kidney injury with a creatinine of 3.1 which has improved from admission creatinine of 3.5. Non oliguric CYNTHIA with FeNA of 0.8 % suggestive of prerenal azotemia. Baseline creatinine 06/25/18 at 1.24. Renal ultrasound with Right Kidney: Mild dilatation of an upper pole calyx without obvious stone.Left Kidney: Normal echogenicity and cortical thickness. No mass or hydronephrosis. No shortness of breath, nausea and vomiting has resolved today, no diarrhea. Continue IVF, oral fluids encouraged Avoid nephrotoxins including NSAIDS and IV contrast Serology ordered for AM. Only mild proteinuria on UA Will follow urinary output and BMP (2) Hypertension Code(s): I10 - Essential (primary) hypertension Status: Chronic Plan: Well controlled. On metoprolol. JEFFREY on hold. (3) Diabetes mellitus, insulin dependent (IDDM), controlled Code(s): E11.9 - Type 2 diabetes mellitus without complications; Z79.4 - skilled nursing (current) use of insulin Status: Acute Plan: Maintain blood sugars between 140 mg/dl to 180 mg/dl while hospitalized. Well controlled today. (4) Elevated troponin Code(s): R74.8 - Abnormal levels of other serum enzymes Status: Acute Plan: Cardiology consulted. Per cardiology may need heart cath prior to discharge. At high risk for contrast nephropathy. <Dorcas Emmanuel - Last Filed: 11/14/18 17:46> History of Present Illness Primary Care Provider: Nannette Benjamin [facility] - Medical History Medical History: Medical History (Last Reviewed 11/13/18 @ 22:44 by Greta Melendrez MD) Diabetes mellitus History of amputation of finger Hypertension Neuropathy - Surgical History Surgical History: Surgical History (Last Reviewed 11/13/18 @ 22:44 by Greta Melendrez MD) History of cataract surgery History of partial amputation of toe Status post trigger finger release - Family History Family History: Family History (Last Reviewed 11/13/18 @ 22:44 by Greta Melendrez MD) Other CVA (cerebral vascular accident) Colon cancer Hypertension Medications and Allergies Active Medications: Active Medications Acetaminophen (Tylenol) 650 mg PO Q6H PRN PRN Reason: PAIN 1-5 AND/OR FEVER >101F Al Hydroxide/Mg Hydroxide (Milk Of [place]) 30 ml PO Q12H PRN PRN Reason: Mild Constipation Albuterol (Duoneb Neb (Prn)) 1 ampul NEB Q2HR NEB PRN PRN Reason: WHEEZING Aspirin (Ecotrin) 162 mg PO DAILY [facility] Last Admin: 11/14/18 13:21 Dose: 162 mg Atorvastatin Calcium (Lipitor) 40 mg PO DAILY [facility] Bisacodyl (Dulcolax Supp) 10 mg RECTAL DAILY PRN PRN Reason: SEVERE CONSITIPATION Chlorhexidine Gluconate (Chlorhexidine 2% Cloth) 3 pack TOPICAL DAILY@0400 [facility] Stop: 11/19/18 03:59 Last Admin: 11/14/18 04:28 Dose: Not Given Chlorhexidine Gluconate (Chlorhexidine 2% Cloth) 3 pack TOPICAL DAILY@0400 PRN PRN Reason: Extra cloth needed Stop: 11/19/18 03:59 Dextrose (D50w Vial) 50 ml IV.PUSH UNSCH PRN PRN Reason: PER HYPOGLYCEMIA PROTOCOL Enoxaparin Sodium (Lovenox Inj) 40 mg SQ Q24H [facility] Last Admin: 11/14/18 08:45 Dose: 40 mg Glucagon (Glucagon Inj) 1 mg OTHER UNSCH PRN PRN Reason: for Hypoglycemia Protocol Sodium Chloride (Ns Inj) 1,000 mls @ 250 mls/hr IV.CONT .Q4H [facility] Last Admin: 11/14/18 16:34 Dose: Not Given Potassium Chloride (Kcl 40 Meq Premix Inj) 40 meq in 100 mls @ 100 mls/hr IV.SIG Q1H PRN PRN Reason: for Initial K+ ONLY < 3.5 Potassium Chloride (Kcl 40 Meq Premix Inj) 40 meq in 100 mls @ 50 mls/hr IV.SIG Q2H PRN PRN Reason: for Subsequent K+ < 3.5 Potassium Chloride (Kcl 20 Meq Premix Inj) 20 meq in 100 mls @ 100 mls/hr IV.SIG Q1H PRN PRN Reason: for K+ 4.5 to 5 Potassium Chloride (Kcl 20 Meq Premix Inj) 20 meq in 100 mls @ 50 mls/hr IV.SIG Q2H PRN PRN Reason: for Initial K+ ONLY < 3.5 Potassium Chloride (Kcl 20 Meq Premix Inj) 20 meq in 100 mls @ 50 mls/hr IV.SIG Q2H PRN PRN Reason: for Subsequent K+ < 3.5 Potassium Chloride (Kcl 20 Meq Premix Inj) 20 meq in 100 mls @ 50 mls/hr IV.SIG Q2H PRN PRN Reason: for K+ 3.5 to 4.4 Potassium Chloride (Kcl 20 Meq Premix Inj) 20 meq in 100 mls @ 50 mls/hr IV.SIG Q2H PRN PRN Reason: for K+ 4.5 to 5 Last Infusion: 11/14/18 08:01 Dose: Infused Potassium Chloride (Kcl 20 Meq Premix Inj) 20 meq in 100 mls @ 100 mls/hr IV.SIG Q1H PRN PRN Reason: for K+ 3.5 to 4.4 Sodium Phosphate 15 mmol/ (Sodium Chloride) 105 mls @ 25 mls/hr IV.SIG UNSCH PRN PRN Reason: for Phosphate Level < 1.0 Dextrose/Sodium Chloride (D5w/Normal Saline Inj) 1,000 mls @ 100 mls/hr IV.CONT .Q10H [facility] Last Admin: 11/14/18 16:31 Dose: 100 mls/hr Insulin Aspart (Novolog Insulin Correctional Sugar Inj) 0 unit SQ ACHS [facility]; Protocol Last Admin: 11/14/18 16:30 Dose: 1 unit Insulin Detemir (Levemir Inj) 10 unit SQ DAILY [facility] Last Admin: 11/14/18 09:39 Dose: 10 unit Lactulose (Lactulose Liq) 30 ml PO DAILY PRN PRN Reason: SEVERE CONSITIPATION Lisinopril (Prinivil) 20 mg PO DAILY [facility] Last Admin: 11/14/18 08:45 Dose: 20 mg Metoprolol Tartrate (Lopressor) 25 mg PO BID [facility] Morphine Sulfate (Morphine Inj) 2 mg IV.PUSH Q2H PRN PRN Reason: PAIN SCALE 6 TO 10 Nitroglycerin (Nitro-Bid 2% Oint) 0.5 inch TOPICAL Q6HR [facility] Ondansetron HCl (Zofran Inj) 4 mg IV.PUSH Q6H PRN PRN Reason: NAUSEA OR VOMITING Senna/Docusate Sodium (Dayna-Colace) 1 tab PO BID [facility] Last Admin: 11/14/18 08:45 Dose: 1 tab Sennosides (Senokot) 17.2 mg PO Q12H PRN PRN Reason: Moderate Constipation Sodium Bicarbonate (Sodium Bicarbonate 8.4% Inj) 50 meq IV.PUSH UNSCH PRN PRN Reason: for pH 6.9 to 7.0 Sodium Bicarbonate (Sodium Bicarbonate 8.4% Inj) 100 meq IV.PUSH UNSCH PRN PRN Reason: for pH less than 6.9 Sodium Chloride (Ns Flush) 2 ml IV.FLUSH BID [facility] Last Admin: 11/14/18 08:45 Dose: 2 ml Sodium Chloride (Ns Flush) 2 ml IV.FLUSH PRN PRN PRN Reason: FLUSH AFTER USING IV ACCESS Temazepam (Restoril) 15 mg PO HS PRN PRN Reason: INSOMNIA Exam Vital signs: Vital Signs 11/13/18 21:26 11/13/18 21:59 11/14/18 01:56 Temperature 97.7 F Pulse Rate 135 H 130 H Respiratory Rate 30 H 18 Blood Pressure 122/51 L 103/51 L 119/58 L Pulse Oximetry 100 99 11/14/18 01:58 11/14/18 02:00 11/14/18 03:00 Temperature 101.0 F H 101.0 F H Pulse Rate 122 H 122 H 118 H Respiratory Rate 22 23 29 H Blood Pressure 119/58 L Pulse Oximetry 98 98 98 11/14/18 03:29 11/14/18 04:00 11/14/18 04:32 Temperature Pulse Rate 122 H 118 H 113 H Respiratory Rate 29 H 24 26 H Blood Pressure 119/66 119/66 124/61 Pulse Oximetry 98 98 98 11/14/18 05:00 11/14/18 05:32 11/14/18 06:00 Temperature Pulse Rate 112 H 111 H 107 H Respiratory Rate 28 H 18 23 Blood Pressure 123/73 Pulse Oximetry 96 97 96 11/14/18 06:32 11/14/18 07:00 11/14/18 07:32 Temperature 100.2 F H Pulse Rate 106 H 111 H 102 H Respiratory Rate 32 H 39 H 21 Blood Pressure 119/70 125/71 Pulse Oximetry 98 99 96 11/14/18 08:00 11/14/18 08:32 11/14/18 08:47 Temperature Pulse Rate 102 H 99 H 99 H Respiratory Rate 18 17 17 Blood Pressure 102/55 L 147/75 H Pulse Oximetry 98 98 97 11/14/18 09:00 11/14/18 09:32 11/14/18 10:00 Temperature Pulse Rate 99 H 104 H 103 H Respiratory Rate 18 30 H 25 H Blood Pressure 127/73 Pulse Oximetry 98 93 L 98 11/14/18 10:32 11/14/18 11:00 11/14/18 11:32 Temperature Pulse Rate 108 H 104 H 103 H Respiratory Rate 28 H 26 H 32 H Blood Pressure 133/85 118/62 Pulse Oximetry 96 100 98 11/14/18 12:00 11/14/18 12:32 11/14/18 13:00 Temperature Pulse Rate 101 H 94 H 100 H Respiratory Rate 26 H 26 H 26 H Blood Pressure 100/62 Pulse Oximetry 100 98 100 11/14/18 13:32 11/14/18 14:00 11/14/18 14:32 Temperature Pulse Rate 96 H 96 H 101 H Respiratory Rate 23 23 37 H Blood Pressure 139/75 120/66 Pulse Oximetry 99 92 L 98 11/14/18 15:00 11/14/18 15:32 11/14/18 16:00 Temperature Pulse Rate 102 H 93 H 94 H Respiratory Rate 29 H 16 17 Blood Pressure 98/55 L Pulse Oximetry 96 99 99 11/14/18 16:32 Temperature Pulse Rate 95 H Respiratory Rate 12 Blood Pressure 119/65 Pulse Oximetry 99 Intake & Output 11/13/18 11/14/18 11/14/18 18:59 06:59 18:59 Intake Total 1100 / 1100 4000 / 4000 Output Total 400 / 400 Balance 700 / 700 4000 / 4000 Weight 61.2 kg Intake: IV 1100 / 1100 4000 / 4000 D5W/Normal Saline Inj 1,000 ML 200 / 200 @ 200 mls/hr IV.CONT .Q5H [facility] Rx#:[id number] NovoLIN-R 100 UNITS/NS 100 ML ( 100 / 100 for ED) 100 unit In 100 ml @ Per Protocol IV.CONT TITRATE ONE Rx#:[id number] NovoLIN R (IV Infusion) 100 100 / 100 100 / 100 UNIT In NS Inj 99 ML @ Per Protocol IV.CONT TITRATE PRN Rx #:[id number] NS Inj 1,000 ML @ 250 mls/hr IV 1999 / 1999 .CONT .Q4H [facility] Rx#:[id number] KCl 20 mEq Premix Inj 20 meq In 100 / 100 100 ml @ 50 mls/hr IV.SIG Q2H PRN Rx#:[id number] NS Inj 1,000 ML @ 2000 mls/hr 1000 / 1000 1000 / 1000 IV.SIG Q30M [facility] Rx#:[id number] NS Inj 500 ML @ 1000 mls/hr IV. 500 / 500 SIG BOLUS [facility] Rx#:[id number] Oral 0 / 0 Output: Urine 400 / 400 Other: Date of Last Bowel Movement 11/13/18 # Bowel Movements 0 Weight On Admission 61.2 kg Results - Lab Results 11/14/18 03:20 11/14/18 06:17 Most recent lab results Calcium 7.4 mg/dL (8.5-10.1) L* 11/14/18 06:17 Phosphorus 1.4 mg/dL (2.5-4.9) L 11/14/18 03:20 Magnesium 1.4 mg/dL (1.5-2.5) L 11/14/18 03:20 Assessment and Plan - Assessment (1) Acute kidney injury Code(s): N17.9 - Acute kidney failure, unspecified Status: Acute Plan: Patient seen and examined, agree with above. Patient has chronic kidney disease and develop CYNTHIA. Continue IVF, Renal U/S noted. Avoid Nephrotoxins. (2) Hypertension Code(s): I10 - Essential (primary) hypertension Status: Chronic (3) Diabetes mellitus, insulin dependent (IDDM), controlled Code(s): E11.9 - Type 2 diabetes mellitus without complications; Z79.4 - roasterman (current) use of insulin Status: Acute (4) Elevated troponin Code(s): R74.8 - Abnormal levels of other serum enzymes Status: Acute
--- NOTE | 2018-11-14 17:40 | ECHRPT ---
Indication: Cardiomyopathy CONCLUSIONS Normal left ventricular size. Wall thickness is normal. The left ventricular systolic function is low normal with an estimated ejection fraction in the rang e of 50- 55%. [id number] mitral valve regurgitation. The estimated pulmonary arterial pressure is 29 mmHg. There is mild tricuspid valve regurgitation. BP: / HR: Rhythm: MEASUREMENTS (Male / Female) Normal Values Technical Quality: 2D ECHO LV Diastolic Diameter PLAX 3.8 cm 4.2 - 5.9 / 3.9 - 5.3 cm LV Systolic Diameter PLAX 3.0 cm IVS Diastolic Thickness 1.0 cm 0.6 - 1.0 / 0.6 - 0.9 cm LVPW Diastolic Thickness 0.8 cm 0.6 - 1.0 / 0.6 - 0.9 cm LV Relative Wall Thickness 0.5 RV Internal Dim ED PLAX 1.6 cm LVOT Diameter 1.8 cm Aortic Root Diameter 2.5 cm LA Systolic Diameter LX 3.2 cm 3.0 - 4.0 / 2.7 - 3.8 cm M-MODE Aortic Root Diameter MM 3.0 cm LA Systolic Diameter MM 3.3 cm LA Ao Ratio MM 1.1 AV Cusp Separation MM 2.1 cm DOPPLER AV Peak Velocity 129.0 cm/s AV Peak Gradient 6.7 mmHg LVOT Peak Velocity 112.0 cm/s LVOT Peak Gradient 5.0 mmHg AV Area Cont Eq pk 2.2 cm Mitral E Point Velocity 60.2 cm/s Mitral A Point Velocity 61.2 cm/s Mitral E to A Ratio 1.0 TR Peak Velocity 220.0 cm/s TR Peak Gradient 19.4 mmHg Right Atrial Pressure 10.0 mmHg Pulmonary Artery Systolic Pressu 29.4 mmHg Right Ventricular Systolic Press 29.4 mmHg PV Peak Velocity 97.7 cm/s PV Peak Gradient 3.8 mmHg FINDINGS LEFT VENTRICLE Normal left ventricular size. Wall thickness is normal. The left ventricular systolic function is low normal with an estimated ejection fraction in the rang e of 50- 55%. RIGHT VENTRICLE Normal right ventricular size and systolic function. LEFT ATRIUM The left atrial size is normal. RIGHT ATRIUM The right atrial size is normal. ATRIAL SEPTUM Normal atrial septal thickness without atrial level shunting by limited color doppler interrogation. AORTA The aortic root and proximal ascending aorta are normal in size on limited imaging. MITRAL VALVE [id number] mitral valve regurgitation. AORTIC VALVE Trileaflet aortic valve. No aortic valve stenosis or regurgitation. TRICUSPID VALVE The estimated pulmonary arterial pressure is 29 mmHg. There is mild tricuspid valve regurgitation. PULMONARY VALVE No pulmonary valve regurgitation or stenosis. VESSELS The inferior vena cava is normal in size. PERICARDIUM No pericardial effusion. Delbert Choi MD (Electronically Signed) Final Date:14 November 2018 17:39
[2018-11-14 18:27] LABS: Calcium 6.9 mg/dL (8.5-10.1); Carbon Dioxide 27.8 meq/L (21.0-32.0); Chol/HDL Ratio 1.32 Ratio; HDL Cholesterol 109.7 mg/dL (40.0-60.0); Potassium 4.2 meq/L (3.5-5.1)
[2018-11-14 19:21] LABS: Albumin 2.7 g/dL (3.4-5.0); Calcium-Albumin Corrected 7.9 mg/dL (8.5-10.1)
[2018-11-14 19:45] LABS: Troponin I 4.45 ng/mL (0.02-0.05)
[2018-11-14] MEDS ORDERED: Metoprolol Tartrate 25 MG Tablet PO SCH (21:00)
[2018-11-14] MEDS: Metoprolol Tartrate 25 MG Tablet PO SCH (22:38)
[2018-11-15] MEDS: Sod Chloride 0.9% Inj 1,000 ML IV.CONT SCH ×6 (03:52→23:12)
[2018-11-15] MEDS: Dextrose 5%/NaCl 0.9% Inj 1,000 ML IV.CONT SCH ×2 (03:52→10:43)
[2018-11-15] MEDS: Chlorhexidine Gluconate 2% 1 Pack (2 Cloths) TOPICAL SCH (04:06)
[2018-11-15 06:40] LABS: Baso % (Auto) 0.2 % (0.0-2.0); Eos % (Auto) 0.1 % (0.0-4.0); Hematocrit 32.4 % (39.0-51.0); Hemoglobin 10.7 gm/dL (13.0-17.0); Lymph # (Auto) 1.2 th/mm3 (1.0-4.8); Lymph % (Auto) 9.2 % (9.0-44.0); Mean Corpuscular HGB Conc 33.1 % (32.0-36.0); Mean Corpuscular Hemoglobin 32.7 pg (27.0-34.0); Mean Corpuscular Volume 98.8 fL (80.0-100.0); Mean Platelet Volume 9.7 fL (7.0-11.0); Mono # (Auto) 0.9 th/mm3 (0.0-0.9); Mono % (Auto) 7.5 % (0.0-8.0); Neut # (Auto) 10.5 th/mm3 (1.8-7.7); Platelet Count 111 th/mm3 (150-450); Red Blood Count 3.28 mil/mm3 (4.50-5.90); Red Cell Distribution Width 14.9 % (11.6-17.2); White Blood Count 12.6 th/mm3 (4.0-11.0)
[2018-11-15 07:09] LABS: Albumin 2.7 g/dL (3.4-5.0); Carbon Dioxide 19.8 meq/L (21.0-32.0); Phosphorus 1.8 mg/dL (2.5-4.9); Potassium 4.2 meq/L (3.5-5.1)
[2018-11-15 07:13] LABS: Calcium 7.4 mg/dL (8.5-10.1)
[2018-11-15] MEDS: Insulin NovoLOG Aspart Correctional Sugar Inj SQ SCH ×4 (07:38→20:54)
[2018-11-15] MEDS: Insulin Detemir Inj 1,000 UNIT/10 ML Vial SQ SCH (08:06)
[2018-11-15] MEDS: Senna/Docusate Sodium 8.6/50 MG Tablet PO SCH ×2 (08:07→20:46)
--- NOTE | 2018-11-15 08:37 | P.PNIM ---
Subjective Interval history: f/u; DKA.CYNTHIA,elevated troponin in no acute distress. had some nausea earlier today. still with on and off low grade fever. denies chest pain or sob. BP trend noted. d/w the RN at the bedside. Physical Exam Vital signs: Vital Signs 11/14/18 08:47 11/14/18 09:00 11/14/18 09:32 Temperature Pulse Rate 99 H 99 H 104 H Respiratory Rate 17 18 30 H Blood Pressure 147/75 H 127/73 Pulse Oximetry 97 98 93 L 11/14/18 10:00 11/14/18 10:32 11/14/18 11:00 Temperature Pulse Rate 103 H 108 H 104 H Respiratory Rate 25 H 28 H 26 H Blood Pressure 133/85 Pulse Oximetry 98 96 100 11/14/18 11:32 11/14/18 12:00 11/14/18 12:32 Temperature Pulse Rate 103 H 101 H 94 H Respiratory Rate 32 H 26 H 26 H Blood Pressure 118/62 100/62 Pulse Oximetry 98 100 98 11/14/18 13:00 11/14/18 13:32 11/14/18 14:00 Temperature Pulse Rate 100 H 96 H 96 H Respiratory Rate 26 H 23 23 Blood Pressure 139/75 Pulse Oximetry 100 99 92 L 11/14/18 14:32 11/14/18 15:00 11/14/18 15:32 Temperature Pulse Rate 101 H 102 H 93 H Respiratory Rate 37 H 29 H 16 Blood Pressure 120/66 98/55 L Pulse Oximetry 98 96 99 11/14/18 16:00 11/14/18 16:32 11/14/18 17:00 Temperature Pulse Rate 94 H 95 H 94 H Respiratory Rate 17 12 16 Blood Pressure 119/65 Pulse Oximetry 99 99 99 11/14/18 17:32 11/14/18 17:40 11/14/18 18:00 Temperature Pulse Rate 93 H 92 H 92 H Respiratory Rate 18 18 17 Blood Pressure 86/55 L 100/59 L Pulse Oximetry 98 98 99 11/14/18 19:00 11/14/18 19:10 11/14/18 19:32 Temperature 99.9 F H Pulse Rate 102 H 101 H 102 H Respiratory Rate 21 22 22 Blood Pressure 145/73 H 122/68 Pulse Oximetry 96 100 100 11/14/18 20:00 11/14/18 20:32 11/14/18 21:00 Temperature Pulse Rate 100 H 99 H 99 H Respiratory Rate 21 15 20 Blood Pressure 93/55 L Pulse Oximetry 99 99 99 11/14/18 21:32 11/14/18 22:00 11/14/18 22:36 Temperature Pulse Rate 96 H 100 H 106 H Respiratory Rate 15 19 24 Blood Pressure 117/62 138/73 Pulse Oximetry 97 99 98 11/14/18 23:00 11/14/18 23:32 11/15/18 00:00 Temperature 98.9 F Pulse Rate 89 81 79 Respiratory Rate 19 24 21 Blood Pressure 124/76 Pulse Oximetry 96 93 L 99 11/15/18 00:32 11/15/18 01:00 11/15/18 01:32 Temperature Pulse Rate 81 83 87 Respiratory Rate 21 20 12 Blood Pressure 125/69 129/74 Pulse Oximetry 100 98 97 11/15/18 02:00 11/15/18 02:32 11/15/18 03:00 Temperature Pulse Rate 87 88 85 Respiratory Rate 19 18 22 Blood Pressure 113/66 Pulse Oximetry 97 95 98 11/15/18 03:32 11/15/18 04:00 11/15/18 04:32 Temperature 98.9 F Pulse Rate 87 86 84 Respiratory Rate 23 23 23 Blood Pressure 127/68 136/80 Pulse Oximetry 96 100 100 11/15/18 05:00 11/15/18 05:32 11/15/18 06:00 Temperature Pulse Rate 84 91 H 102 H Respiratory Rate 23 23 19 Blood Pressure 124/68 Pulse Oximetry 98 99 97 11/15/18 07:00 11/15/18 07:10 11/15/18 07:12 Temperature 100.4 F H Pulse Rate 103 H 103 H 103 H Respiratory Rate 25 H 33 H 23 Blood Pressure 90/52 L 84/49 L Pulse Oximetry 97 96 95 11/15/18 07:19 11/15/18 07:32 11/15/18 08:00 Temperature Pulse Rate 102 H 105 H 100 H Respiratory Rate 22 22 29 H Blood Pressure 85/46 L 93/50 L Pulse Oximetry 95 95 98 Intake & Output 11/14/18 11/15/18 11/15/18 18:59 06:59 18:59 Intake Total 4360 / 4360 1000 / 1000 Output Total 450 / 450 450 / 450 Balance 3910 / 3910 550 / 550 Intake: IV 4000 / 4000 1000 / 1000 D5W/Normal Saline Inj 1,000 ML 200 / 200 1000 / 1000 @ 100 mls/hr IV.CONT .Q10H MARK Rx#:[id number] NovoLIN-R 100 UNITS/NS 100 ML ( 100 / 100 for ED) 100 unit In 100 ml @ Per Protocol IV.CONT TITRATE ONE Rx#:[id number] NovoLIN R (IV Infusion) 100 100 / 100 UNIT In NS Inj 99 ML @ Per Protocol IV.CONT TITRATE PRN Rx #:[id number] NS Inj 1,000 ML @ 250 mls/hr IV 1999 / 1999 .CONT .Q4H MARK Rx#:[id number] KCl 20 mEq Premix Inj 20 meq In 100 / 100 100 ml @ 50 mls/hr IV.SIG Q2H PRN Rx#:[id number] NS Inj 1,000 ML @ 2000 mls/hr 1000 / 1000 IV.SIG Q30M MARK Rx#:[id number] NS Inj 500 ML @ 1000 mls/hr IV. 500 / 500 SIG BOLUS MARK Rx#:[id number] Oral 360 / 360 Output: Urine 450 / 450 450 / 450 Other: # Voids 3 Date of Last Bowel Movement 11/14/18 # Bowel Movements 1 Constitutional no acute distress Routine Respiratory Exam Present CTA bilaterally Routine Cardiovascular Exam Present RRR Routine Abdominal Exam Present soft Routine Extremities Exam Comments: no pedal edema. Routine Skin Exam Present erythema Comments: erythema noted around the right elbow. Routine Neurological Exam Present alert and oriented X3 Results Labs CBC & Chem 7: 11/15/18 05:44 11/15/18 05:44 Imaging Imaging: Impressions Abdomen/Bladder Ultrasound 11/14/18 00:00 CONCLUSION: 1. Mild dilatation upper pole calyx without obvious stone otherwise normal kidneys 2. Multiple gallstones. Assessment and Plan (1) Acute kidney injury: Code(s): N17.9 - Acute kidney failure, unspecified Status: Acute (2) Hypertension: Code(s): I10 - Essential (primary) hypertension Status: Chronic (3) Diabetes mellitus, insulin dependent (IDDM), controlled: Code(s): E11.9 - Type 2 diabetes mellitus without complications; Z79.4 - detention ( current) use of insulin Status: Acute (4) Elevated troponin: Code(s): R74.8 - Abnormal levels of other serum enzymes Status: Acute Plan A/P DKA- resolved. - off the insulin drip -started on diabetic diet. -will increase Levemir along with SSI -critical care educator consulted. -A1c pending. fever/possible cellulitis of the right elbow -UA and CXR not impressive and the patient asymptomatic -start on IV Ancef - will follow the blood and urine cultures and monitor temps. elevated troponin -EKG with no acute St-T changes and the patient denies pain. -cardiology consult appreciated; cardiac cath when the renal function has improved. -continue with aspirin and BB -echo with EF 50% acute kidney injury- improving. - continue IV fluid - nephrology consult appreciated. Hypertension -hold Lisinopril for now due to CYNTHIA -continue BB with close monitoring of BP and HR. -continue to monitor BP. Neuropathy -Gabapentin as needed DVT GI prophylaxis -Teds SCDs -Lovenox transfer to floor within the next 24 hrs if stable. Discharge Planning: home - pending the clinical course and work-up. Progress Note: Quality VTE Deep Vein Thrombosis/Pulmonary Embolism Present on Admission: No _ (1) Hypertension Qualifiers: Hypertension type:
[2018-11-15] MEDS: Metoprolol Tartrate 25 MG Tablet PO SCH ×2 (08:41→20:45)
[2018-11-15] MEDS ORDERED: Dextrose 50% in Water 50 ML Vial IV.PUSH PRN (08:44)
[2018-11-15] MEDS: ceFAZolin Inj 1 GM in Sodium Chlor 0.9% Inj 100 ML IV.SIG SCH ×2 (09:35→22:33)
[2018-11-15] MEDS ORDERED: Regadenoson Inj 0.4 MG/5 ML Syringe IV.PUSH ONE (12:16)
--- NOTE | 2018-11-15 12:16 | P.PNCA ---
Subjective Interval history: No angina Medications and Allergies Active Medications: Active Medications Acetaminophen (Tylenol) 650 mg PO Q6H PRN PRN Reason: PAIN 1-5 AND/OR FEVER >101F Al Hydroxide/Mg Hydroxide (Milk Of [place]) 30 ml PO Q12H PRN PRN Reason: Mild Constipation Albuterol (Duoneb Neb (Prn)) 1 ampul NEB Q2HR NEB PRN PRN Reason: WHEEZING Aspirin (Ecotrin) 162 mg PO DAILY [facility] Last Admin: 11/15/18 08:08 Dose: 162 mg Atorvastatin Calcium (Lipitor) 40 mg PO DAILY [facility] Last Admin: 11/15/18 08:06 Dose: 40 mg Bisacodyl (Dulcolax Supp) 10 mg RECTAL DAILY PRN PRN Reason: SEVERE CONSITIPATION Chlorhexidine Gluconate (Chlorhexidine 2% Cloth) 3 pack TOPICAL DAILY@0400 [facility] Stop: 11/19/18 03:59 Last Admin: 11/15/18 04:06 Dose: Not Given Chlorhexidine Gluconate (Chlorhexidine 2% Cloth) 3 pack TOPICAL DAILY@0400 PRN PRN Reason: Extra cloth needed Stop: 11/19/18 03:59 Dextrose (D50w Vial) 50 ml IV.PUSH UNSCH PRN PRN Reason: PER HYPOGLYCEMIA PROTOCOL Enoxaparin Sodium (Lovenox Inj) 40 mg SQ Q24H [facility] Last Admin: 11/14/18 08:45 Dose: 40 mg Glucagon (Glucagon Inj) 1 mg OTHER PRN PRN PRN Reason: for Hypoglycemia Protocol Sodium Chloride (Ns Inj) 1,000 mls @ 250 mls/hr IV.CONT .Q4H [facility] Last Admin: 11/15/18 11:37 Dose: 250 mls/hr Potassium Chloride (Kcl 40 Meq Premix Inj) 40 meq in 100 mls @ 100 mls/hr IV.SIG Q1H PRN PRN Reason: for Initial K+ ONLY < 3.5 Potassium Chloride (Kcl 40 Meq Premix Inj) 40 meq in 100 mls @ 50 mls/hr IV.SIG Q2H PRN PRN Reason: for Subsequent K+ < 3.5 Potassium Chloride (Kcl 20 Meq Premix Inj) 20 meq in 100 mls @ 100 mls/hr IV.SIG Q1H PRN PRN Reason: for K+ 4.5 to 5 Potassium Chloride (Kcl 20 Meq Premix Inj) 20 meq in 100 mls @ 50 mls/hr IV.SIG Q2H PRN PRN Reason: for Initial K+ ONLY < 3.5 Potassium Chloride (Kcl 20 Meq Premix Inj) 20 meq in 100 mls @ 50 mls/hr IV.SIG Q2H PRN PRN Reason: for Subsequent K+ < 3.5 Potassium Chloride (Kcl 20 Meq Premix Inj) 20 meq in 100 mls @ 50 mls/hr IV.SIG Q2H PRN PRN Reason: for K+ 3.5 to 4.4 Potassium Chloride (Kcl 20 Meq Premix Inj) 20 meq in 100 mls @ 50 mls/hr IV.SIG Q2H PRN PRN Reason: for K+ 4.5 to 5 Last Infusion: 11/14/18 08:01 Dose: Infused Potassium Chloride (Kcl 20 Meq Premix Inj) 20 meq in 100 mls @ 100 mls/hr IV.SIG Q1H PRN PRN Reason: for K+ 3.5 to 4.4 Sodium Phosphate 15 mmol/ (Sodium Chloride) 105 mls @ 25 mls/hr IV.SIG UNSCH PRN PRN Reason: for Phosphate Level < 1.0 Dextrose/Sodium Chloride (D5w/Normal Saline Inj) 1,000 mls @ 100 mls/hr IV.CONT .Q10H [facility] Last Admin: 11/15/18 10:43 Dose: Not Given Cefazolin Sodium 1 gm/ Sodium (Chloride) 100 mls @ 200 mls/hr IV.SIG Q12H [facility] Last Infusion: 11/15/18 10:19 Dose: Infused Insulin Aspart (Novolog Insulin Correctional Sugar Inj) 0 unit SQ ACHS [facility]; Protocol Last Admin: 11/15/18 11:36 Dose: 7 unit Insulin Detemir (Levemir Inj) 10 unit SQ BID [facility] Lactulose (Lactulose Liq) 30 ml PO DAILY PRN PRN Reason: SEVERE CONSITIPATION Lisinopril (Prinivil) 20 mg PO DAILY [facility] Last Admin: 11/14/18 08:45 Dose: 20 mg Metoprolol Tartrate (Lopressor) 25 mg PO BID [facility] Last Admin: 11/15/18 08:41 Dose: Not Given Morphine Sulfate (Morphine Inj) 2 mg IV.PUSH Q2H PRN PRN Reason: PAIN SCALE 6 TO 10 Nitroglycerin (Nitro-Bid 2% Oint) 0.5 inch TOPICAL Q6HR [facility] Last Admin: 11/15/18 11:36 Dose: 0.5 inch Ondansetron HCl (Zofran Inj) 4 mg IV.PUSH Q6H PRN PRN Reason: NAUSEA OR VOMITING Last Admin: 11/15/18 11:49 Dose: 4 mg Senna/Docusate Sodium (Dayna-Colace) 1 tab PO BID [facility] Last Admin: 11/15/18 08:07 Dose: 1 tab Sennosides (Senokot) 17.2 mg PO Q12H PRN PRN Reason: Moderate Constipation Sodium Bicarbonate (Sodium Bicarbonate 8.4% Inj) 50 meq IV.PUSH UNSCH PRN PRN Reason: for pH 6.9 to 7.0 Sodium Bicarbonate (Sodium Bicarbonate 8.4% Inj) 100 meq IV.PUSH UNSCH PRN PRN Reason: for pH less than 6.9 Sodium Chloride (Ns Flush) 2 ml IV.FLUSH BID [facility] Last Admin: 11/15/18 08:08 Dose: 2 ml Sodium Chloride (Ns Flush) 2 ml IV.FLUSH PRN PRN PRN Reason: FLUSH AFTER USING IV ACCESS Temazepam (Restoril) 15 mg PO HS PRN PRN Reason: INSOMNIA Allergies Allergy/AdvReac Type Severity Reaction Status Date / Time No Known Allergies Allergy Verified 11/13/18 21:34 Home Medications Medication Instructions Recorded Confirmed Type insulin pump cartridge 06/24/18 11/13/18 History insulin glargine [Lantus U-100 50 unit SUBCUT DAILY 11/13/18 11/13/18 History Insulin] insulin regular human [Novolin R 1 sliding scale dose SUBCUT UD 11/13/18 History Regular U-100 Insuln] Physical Exam Vital signs: Vital Signs 11/14/18 12:32 11/14/18 13:00 11/14/18 13:32 Temperature Pulse Rate 94 H 100 H 96 H Respiratory Rate 26 H 26 H 23 Blood Pressure 100/62 139/75 Pulse Oximetry 98 100 99 11/14/18 14:00 11/14/18 14:32 11/14/18 15:00 Temperature Pulse Rate 96 H 101 H 102 H Respiratory Rate 23 37 H 29 H Blood Pressure 120/66 Pulse Oximetry 92 L 98 96 11/14/18 15:32 11/14/18 16:00 11/14/18 16:32 Temperature Pulse Rate 93 H 94 H 95 H Respiratory Rate 16 17 12 Blood Pressure 98/55 L 119/65 Pulse Oximetry 99 99 99 11/14/18 17:00 11/14/18 17:32 11/14/18 17:40 Temperature Pulse Rate 94 H 93 H 92 H Respiratory Rate 16 18 18 Blood Pressure 86/55 L 100/59 L Pulse Oximetry 99 98 98 11/14/18 18:00 11/14/18 19:00 11/14/18 19:10 Temperature 99.9 F H Pulse Rate 92 H 102 H 101 H Respiratory Rate 17 21 22 Blood Pressure 145/73 H Pulse Oximetry 99 96 100 11/14/18 19:32 11/14/18 20:00 11/14/18 20:32 Temperature Pulse Rate 102 H 100 H 99 H Respiratory Rate 22 21 15 Blood Pressure 122/68 93/55 L Pulse Oximetry 100 99 99 11/14/18 21:00 11/14/18 21:32 11/14/18 22:00 Temperature Pulse Rate 99 H 96 H 100 H Respiratory Rate 20 15 19 Blood Pressure 117/62 Pulse Oximetry 99 97 99 11/14/18 22:36 11/14/18 23:00 11/14/18 23:32 Temperature Pulse Rate 106 H 89 81 Respiratory Rate 24 19 24 Blood Pressure 138/73 124/76 Pulse Oximetry 98 96 93 L 11/15/18 00:00 11/15/18 00:32 11/15/18 01:00 Temperature 98.9 F Pulse Rate 79 81 83 Respiratory Rate 21 21 20 Blood Pressure 125/69 Pulse Oximetry 99 100 98 11/15/18 01:32 11/15/18 02:00 11/15/18 02:32 Temperature Pulse Rate 87 87 88 Respiratory Rate 12 19 18 Blood Pressure 129/74 113/66 Pulse Oximetry 97 97 95 11/15/18 03:00 11/15/18 03:32 11/15/18 04:00 Temperature Pulse Rate 85 87 86 Respiratory Rate 22 23 23 Blood Pressure 127/68 Pulse Oximetry 98 96 100 11/15/18 04:32 11/15/18 05:00 11/15/18 05:32 Temperature 98.9 F Pulse Rate 84 84 91 H Respiratory Rate 23 23 23 Blood Pressure 136/80 124/68 Pulse Oximetry 100 98 99 11/15/18 06:00 11/15/18 07:00 11/15/18 07:10 Temperature Pulse Rate 102 H 103 H 103 H Respiratory Rate 19 25 H 33 H Blood Pressure 90/52 L Pulse Oximetry 97 97 96 11/15/18 07:12 11/15/18 07:19 11/15/18 07:32 Temperature 100.4 F H Pulse Rate 103 H 102 H 105 H Respiratory Rate 23 22 22 Blood Pressure 84/49 L 85/46 L 93/50 L Pulse Oximetry 95 95 95 11/15/18 08:00 11/15/18 08:32 11/15/18 09:00 Temperature Pulse Rate 100 H 101 H 114 H Respiratory Rate 29 H 29 H 40 H Blood Pressure 98/60 L Pulse Oximetry 98 98 98 11/15/18 09:32 11/15/18 10:00 11/15/18 10:32 Temperature Pulse Rate 93 H 94 H 87 Respiratory Rate 91 H 21 23 Blood Pressure 140/78 154/83 H Pulse Oximetry 99 100 100 11/15/18 11:00 11/15/18 11:32 Temperature 99.4 F Pulse Rate 89 87 Respiratory Rate 21 19 Blood Pressure 146/80 H Pulse Oximetry 96 97 Intake & Output 11/14/18 11/15/18 11/15/18 18:59 06:59 18:59 Intake Total 4360 / 4360 1000 / 1000 1100 / 1100 Output Total 450 / 450 450 / 450 Balance 3910 / 3910 550 / 550 1100 / 1100 Intake: IV 4000 / 4000 1000 / 1000 1100 / 1100 D5W/Normal Saline Inj 1,000 ML 200 / 200 1000 / 1000 @ 100 mls/hr IV.CONT .Q10H MARK Rx#:[id number] NovoLIN-R 100 UNITS/NS 100 ML ( 100 / 100 for ED) 100 unit In 100 ml @ Per Protocol IV.CONT TITRATE ONE Rx#:[id number] NovoLIN R (IV Infusion) 100 100 / 100 UNIT In NS Inj 99 ML @ Per Protocol IV.CONT TITRATE PRN Rx #:[id number] NS Inj 1,000 ML @ 250 mls/hr IV 2000 / 2000 1000 / 1000 .CONT .Q4H MARK Rx#:[id number] KCl 20 mEq Premix Inj 20 meq In 100 / 100 100 ml @ 50 mls/hr IV.SIG Q2H PRN Rx#:[id number] NS Inj 1,000 ML @ 2000 mls/hr 1000 / 1000 IV.SIG Q30M MARK Rx#:[id number] NS Inj 500 ML @ 1000 mls/hr IV. 500 / 500 SIG BOLUS MARK Rx#:[id number] Ancef Inj 1 GM In NS Inj 100 ML 100 / 100 @ 200 mls/hr IV.SIG Q12H MARK Rx#:[id number] Oral 360 / 360 Output: Urine 450 / 450 450 / 450 Other: # Voids 3 Date of Last Bowel Movement 11/14/18 11/14/18 # Bowel Movements 1 Narrative: GENERAL: Alert and oriented. SKIN: Warm and dry. NECK: Supple, trachea midline. No JVD or lymphadenopathy. CARDIOVASCULAR: Regular rate and rhythm without murmurs, gallops, or rubs. RESPIRATORY: Breath sounds equal bilaterally. No accessory muscle use. GASTROINTESTINAL: Abdomen soft, non-tender, nondistended. +BS MUSCULOSKELETAL: No cyanosis, or edema. BACK: Nontender without obvious deformity. No CVA tenderness. Results 11/15/18 05:44 11/15/18 05:44 Cardiac Enzymes 11/13/18 11/14/18 11/14/18 Range/Units 21:30 00:05 03:20 AST 90 H 84 H (15-37) U/L CK-MB (CK-2) (0.5-3.6) ng/mL Troponin I 0.11 H 1.85 H* (0.02-0.05) ng/mL 11/14/18 11/14/18 11/14/18 Range/Units 10:31 10:31 17:05 AST (15-37) U/L CK-MB (CK-2) 10.6 H (0.5-3.6) ng/mL Troponin I 6.56 H* 4.45 H* (0.02-0.05) ng/mL 11/14/18 Range/Units 22:50 AST (15-37) U/L CK-MB (CK-2) (0.5-3.6) ng/mL Troponin I 3.21 H* (0.02-0.05) ng/mL Coagulation 11/14/18 Range/Units 03:20 PT 10.7 (9.8-11.6) sec APTT 27.5 (23.4-31.7) sec Lipids 11/14/18 Range/Units 17:05 Triglycerides 96 (42-150) mg/dL Cholesterol 145 (120-200) mg/dL HDL Cholesterol 109.7 H (40.0-60.0) mg/dL Cholesterol/HDL Ratio 1.32 Ratio CBC 11/13/18 11/14/18 11/15/18 Range/Units 21:30 03:20 05:44 WBC 17.7 H 10.5 12.6 H (4.0-11.0) th/mm3 RBC 3.73 L 3.32 L 3.28 L (4.50-5.90) mil/mm3 Hgb 12.0 L 11.2 L 10.7 L (13.0-17.0) gm/dL Hct 37.9 L 32.1 L 32.4 L (39.0-51.0) % Plt Count 190 132 L D 111 L (150-450) th/mm3 Neut # (Auto) 9.4 H 10.5 H (1.8-7.7) th/mm3 Lymph # (Auto) 0.4 L 1.2 (1.0-4.8) th/mm3 [place] # (Auto) 0.7 0.9 (0.0-0.9) th/mm3 Eos # (Auto) 0.0 0.0 (0.0-0.4) th/mm3 Baso # (Auto) 0.0 0.0 (0.0-0.2) th/mm3 Comprehensive Metabolic Panel 11/13/18 11/13/18 11/14/18 Range/Units 21:30 21:30 00:05 Sodium 135 L 137 139 (136-145) meq/L Potassium 4.9 5.0 4.7 (3.5-5.1) meq/L Chloride 91 L 91 L 98 (98-107) meq/L Carbon Dioxide 7.8 L Less than 5.0 L 8.5 L (21.0-32.0) meq/L BUN 26 H 26 H 28 H (7-18) mg/dL Creatinine 3.53 H 3.53 H 3.75 H (0.60-1.30) mg/dL Calcium 8.6 8.5 7.2 L* D (8.5-10.1) mg/dL AST 90 H (15-37) U/L ALT 34 (12-78) U/L Alkaline Phosphatase 100 (45-117) U/L Total Protein 7.4 (6.4-8.2) g/dL Albumin 3.5 3.3 L (3.4-5.0) g/dL 11/14/18 11/14/18 11/14/18 Range/Units 03:20 06:17 17:05 Sodium 142 143 140 (136-145) meq/L Potassium 4.0 3.7 4.2 (3.5-5.1) meq/L Chloride 103 107 105 (98-107) meq/L Carbon Dioxide 24.1 D 28.3 27.8 (21.0-32.0) meq/L BUN 29 H 30 H 29 H (7-18) mg/dL Creatinine 3.35 H 3.11 H 2.61 H (0.60-1.30) mg/dL Calcium 7.2 L* 7.4 L* 6.9 L* (8.5-10.1) mg/dL AST 84 H (15-37) U/L ALT 34 (12-78) U/L Alkaline Phosphatase 78 (45-117) U/L Total Protein 6.7 D (6.4-8.2) g/dL Albumin 3.0 L 3.0 L 2.7 L (3.4-5.0) g/dL 11/15/18 Range/Units 05:44 Sodium 136 (136-145) meq/L Potassium 4.2 (3.5-5.1) meq/L Chloride 102 (98-107) meq/L Carbon Dioxide 19.8 L (21.0-32.0) meq/L BUN 26 H (7-18) mg/dL Creatinine 2.11 H (0.60-1.30) mg/dL Calcium 7.4 L* (8.5-10.1) mg/dL AST (15-37) U/L ALT (12-78) U/L Alkaline Phosphatase (45-117) U/L Total Protein (6.4-8.2) g/dL Albumin 2.7 L (3.4-5.0) g/dL Intake and Output 11/14/18 11/15/18 11/15/18 22:59 06:59 14:59 Intake Total 1360 / 1360 1000 / 1000 1100 / 1100 Output Total 450 / 450 450 / 450 Balance 910 / 910 550 / 550 1100 / 1100 Intake: IV 1000 / 1000 1000 / 1000 1100 / 1100 D5W/Normal Saline Inj 1,000 ML 1000 / 1000 @ 100 mls/hr IV.CONT .Q10H MARK Rx#:[id number] NS Inj 1,000 ML @ 250 mls/hr IV 1000 / 1000 1000 / 1000 .CONT .Q4H MARK Rx#:[id number] Ancef Inj 1 GM In NS Inj 100 ML 100 / 100 @ 200 mls/hr IV.SIG Q12H MARK Rx#:[id number] Oral 360 / 360 Output: Urine 450 / 450 450 / 450 Other: # Voids 3 Date of Last Bowel Movement 11/14/18 11/14/18 # Bowel Movements 1 - Imaging and Cardiology Imaging: Impressions Abdomen/Bladder Ultrasound 11/14/18 00:00 CONCLUSION: 1. Mild dilatation upper pole calyx without obvious stone otherwise normal kidneys 2. Multiple gallstones. Chest X-Ray 11/14/18 00:00 CONCLUSION: Mild diffuse symmetric interstitial thickening Assessment and Plan - Assessment (1) Non-STEMI (non-ST elevated myocardial infarction) Code(s): I21.4 - Non-ST elevation (NSTEMI) myocardial infarction Status: Acute (2) Hypertension Code(s): I10 - Essential (primary) hypertension Status: Chronic (3) Acute kidney injury Code(s): N17.9 - Acute kidney failure, unspecified Status: Acute - Plan VT was clearly Type 2 event. Since creat high will get vicky SPECT
--- NOTE | 2018-11-15 14:59 | P.PNNP ---
Subjective Interval history: Seen in AM. Blood sugar has been labile and having some nausea. Creatinine has improved at 2.1 today. <Betzaida Fernando - Last Filed: 11/15/18 14:50> Physical Exam Vital signs: Vital Signs 11/14/18 15:00 11/14/18 15:32 11/14/18 16:00 Temperature Pulse Rate 102 H 93 H 94 H Respiratory Rate 29 H 16 17 Blood Pressure 98/55 L Pulse Oximetry 96 99 99 11/14/18 16:32 11/14/18 17:00 11/14/18 17:32 Temperature Pulse Rate 95 H 94 H 93 H Respiratory Rate 12 16 18 Blood Pressure 119/65 86/55 L Pulse Oximetry 99 99 98 11/14/18 17:40 11/14/18 18:00 11/14/18 19:00 Temperature Pulse Rate 92 H 92 H 102 H Respiratory Rate 18 17 21 Blood Pressure 100/59 L Pulse Oximetry 98 99 96 11/14/18 19:10 11/14/18 19:32 11/14/18 20:00 Temperature 99.9 F H Pulse Rate 101 H 102 H 100 H Respiratory Rate 22 22 21 Blood Pressure 145/73 H 122/68 Pulse Oximetry 100 100 99 11/14/18 20:32 11/14/18 21:00 11/14/18 21:32 Temperature Pulse Rate 99 H 99 H 96 H Respiratory Rate 15 20 15 Blood Pressure 93/55 L 117/62 Pulse Oximetry 99 99 97 11/14/18 22:00 11/14/18 22:36 11/14/18 23:00 Temperature Pulse Rate 100 H 106 H 89 Respiratory Rate 19 24 19 Blood Pressure 138/73 Pulse Oximetry 99 98 96 11/14/18 23:32 11/15/18 00:00 11/15/18 00:32 Temperature 98.9 F Pulse Rate 81 79 81 Respiratory Rate 24 21 21 Blood Pressure 124/76 125/69 Pulse Oximetry 93 L 99 100 11/15/18 01:00 11/15/18 01:32 11/15/18 02:00 Temperature Pulse Rate 83 87 87 Respiratory Rate 20 12 19 Blood Pressure 129/74 Pulse Oximetry 98 97 97 11/15/18 02:32 11/15/18 03:00 11/15/18 03:32 Temperature Pulse Rate 88 85 87 Respiratory Rate 18 22 23 Blood Pressure 113/66 127/68 Pulse Oximetry 95 98 96 11/15/18 04:00 11/15/18 04:32 11/15/18 05:00 Temperature 98.9 F Pulse Rate 86 84 84 Respiratory Rate 23 23 23 Blood Pressure 136/80 Pulse Oximetry 100 100 98 11/15/18 05:32 11/15/18 06:00 11/15/18 07:00 Temperature Pulse Rate 91 H 102 H 103 H Respiratory Rate 23 19 25 H Blood Pressure 124/68 Pulse Oximetry 99 97 97 11/15/18 07:10 11/15/18 07:12 11/15/18 07:19 Temperature 100.4 F H Pulse Rate 103 H 103 H 102 H Respiratory Rate 33 H 23 22 Blood Pressure 90/52 L 84/49 L 85/46 L Pulse Oximetry 96 95 95 11/15/18 07:32 11/15/18 08:00 11/15/18 08:32 Temperature Pulse Rate 105 H 100 H 101 H Respiratory Rate 22 29 H 29 H Blood Pressure 93/50 L 98/60 L Pulse Oximetry 95 98 98 11/15/18 09:00 11/15/18 09:32 11/15/18 10:00 Temperature Pulse Rate 114 H 93 H 94 H Respiratory Rate 40 H 91 H 21 Blood Pressure 140/78 Pulse Oximetry 98 99 100 11/15/18 10:32 11/15/18 11:00 11/15/18 11:32 Temperature 99.4 F Pulse Rate 87 89 87 Respiratory Rate 23 21 19 Blood Pressure 154/83 H 146/80 H Pulse Oximetry 100 96 97 11/15/18 12:00 11/15/18 12:32 11/15/18 13:05 Temperature Pulse Rate 87 90 90 Respiratory Rate 21 21 27 H Blood Pressure 130/95 H 130/95 H Pulse Oximetry 99 99 Intake & Output 11/14/18 11/15/18 11/15/18 18:59 06:59 18:59 Intake Total 4360 / 4360 1000 / 1000 1100 / 1100 Output Total 450 / 450 450 / 450 Balance 3910 / 3910 550 / 550 1100 / 1100 Intake: IV 4000 / 4000 1000 / 1000 1100 / 1100 D5W/Normal Saline Inj 1,000 ML 200 / 200 1000 / 1000 @ 100 mls/hr IV.CONT .Q10H [facility] Rx#:[id number] NovoLIN-R 100 UNITS/NS 100 ML ( 100 / 100 for ED) 100 unit In 100 ml @ Per Protocol IV.CONT TITRATE ONE Rx#:[id number] NovoLIN R (IV Infusion) 100 100 / 100 UNIT In NS Inj 99 ML @ Per Protocol IV.CONT TITRATE PRN Rx #:[id number] NS Inj 1,000 ML @ 250 mls/hr IV 2000 / 2000 1000 / 1000 .CONT .Q4H [facility] Rx#:[id number] KCl 20 mEq Premix Inj 20 meq In 100 / 100 100 ml @ 50 mls/hr IV.SIG Q2H PRN Rx#:[id number] NS Inj 1,000 ML @ 2000 mls/hr 1000 / 1000 IV.SIG Q30M [facility] Rx#:[id number] NS Inj 500 ML @ 1000 mls/hr IV. 500 / 500 SIG BOLUS [facility] Rx#:[id number] Ancef Inj 1 GM In NS Inj 100 ML 100 / 100 @ 200 mls/hr IV.SIG Q12H [facility] Rx#:[id number] Oral 360 / 360 Output: Urine 450 / 450 450 / 450 Other: # Voids 3 Date of Last Bowel Movement 11/14/18 11/14/18 # Bowel Movements 1 Narrative: GENERAL: Alert and oriented. SKIN: Warm and dry. NECK: Supple, trachea midline. No JVD CARDIOVASCULAR: Tachycardia Regular rate and rhythm without murmurs, gallops, or rubs. RESPIRATORY: Breath sounds equal bilaterally. No accessory muscle use. GASTROINTESTINAL: Abdomen soft, non-tender, nondistended. +BS MUSCULOSKELETAL: No cyanosis, or edema. BACK: Nontender without obvious deformity. No CVA tenderness. <Betzaida Fernando - Last Filed: 11/15/18 14:50> Vital signs: Vital Signs 11/14/18 19:00 11/14/18 19:10 11/14/18 19:32 Temperature 99.9 F H Pulse Rate 102 H 101 H 102 H Respiratory Rate 21 22 22 Blood Pressure 145/73 H 122/68 Pulse Oximetry 96 100 100 11/14/18 20:00 11/14/18 20:32 11/14/18 21:00 Temperature Pulse Rate 100 H 99 H 99 H Respiratory Rate 21 15 20 Blood Pressure 93/55 L Pulse Oximetry 99 99 99 11/14/18 21:32 11/14/18 22:00 11/14/18 22:36 Temperature Pulse Rate 96 H 100 H 106 H Respiratory Rate 15 19 24 Blood Pressure 117/62 138/73 Pulse Oximetry 97 99 98 11/14/18 23:00 11/14/18 23:32 11/15/18 00:00 Temperature 98.9 F Pulse Rate 89 81 79 Respiratory Rate 19 24 21 Blood Pressure 124/76 Pulse Oximetry 96 93 L 99 11/15/18 00:32 11/15/18 01:00 11/15/18 01:32 Temperature Pulse Rate 81 83 87 Respiratory Rate 21 20 12 Blood Pressure 125/69 129/74 Pulse Oximetry 100 98 97 11/15/18 02:00 11/15/18 02:32 11/15/18 03:00 Temperature Pulse Rate 87 88 85 Respiratory Rate 19 18 22 Blood Pressure 113/66 Pulse Oximetry 97 95 98 11/15/18 03:32 11/15/18 04:00 11/15/18 04:32 Temperature 98.9 F Pulse Rate 87 86 84 Respiratory Rate 23 23 23 Blood Pressure 127/68 136/80 Pulse Oximetry 96 100 100 11/15/18 05:00 11/15/18 05:32 11/15/18 06:00 Temperature Pulse Rate 84 91 H 102 H Respiratory Rate 23 23 19 Blood Pressure 124/68 Pulse Oximetry 98 99 97 11/15/18 07:00 11/15/18 07:10 11/15/18 07:12 Temperature 100.4 F H Pulse Rate 103 H 103 H 103 H Respiratory Rate 25 H 33 H 23 Blood Pressure 90/52 L 84/49 L Pulse Oximetry 97 96 95 11/15/18 07:19 11/15/18 07:32 11/15/18 08:00 Temperature Pulse Rate 102 H 105 H 100 H Respiratory Rate 22 22 29 H Blood Pressure 85/46 L 93/50 L Pulse Oximetry 95 95 98 11/15/18 08:32 11/15/18 09:00 11/15/18 09:32 Temperature Pulse Rate 101 H 114 H 93 H Respiratory Rate 29 H 40 H 91 H Blood Pressure 98/60 L 140/78 Pulse Oximetry 98 98 99 11/15/18 10:00 11/15/18 10:32 11/15/18 11:00 Temperature Pulse Rate 94 H 87 89 Respiratory Rate 21 23 21 Blood Pressure 154/83 H Pulse Oximetry 100 100 96 11/15/18 11:32 11/15/18 12:00 11/15/18 12:32 Temperature 99.4 F Pulse Rate 87 87 90 Respiratory Rate 19 21 21 Blood Pressure 146/80 H 130/95 H Pulse Oximetry 97 99 99 11/15/18 13:05 11/15/18 13:32 11/15/18 14:00 Temperature Pulse Rate 90 85 87 Respiratory Rate 27 H 21 18 Blood Pressure 130/95 H 156/81 H Pulse Oximetry 98 96 11/15/18 14:32 11/15/18 14:52 11/15/18 14:53 Temperature Pulse Rate 92 H Respiratory Rate 20 Blood Pressure 131/63 153/80 H 159/84 H Pulse Oximetry 97 98 99 11/15/18 14:54 11/15/18 15:00 11/15/18 15:32 Temperature Pulse Rate 95 H 90 Respiratory Rate 23 19 Blood Pressure 157/86 H 129/68 Pulse Oximetry 99 97 99 11/15/18 16:00 11/15/18 16:02 11/15/18 16:32 Temperature Pulse Rate 88 109 H 87 Respiratory Rate 27 H 23 Blood Pressure 177/93 H Pulse Oximetry 97 100 11/15/18 17:00 11/15/18 17:32 11/15/18 18:00 Temperature Pulse Rate 87 92 H 90 Respiratory Rate 25 H 34 H 17 Blood Pressure 141/81 H 141/81 H Pulse Oximetry 98 100 97 Intake & Output 11/14/18 11/15/18 11/15/18 18:59 06:59 18:59 Intake Total 4360 / 4360 1000 / 1000 1580 / 1580 Output Total 450 / 450 450 / 450 600 / 600 Balance 3910 / 3910 550 / 550 980 / 980 Intake: IV 4000 / 4000 1000 / 1000 1100 / 1100 D5W/Normal Saline Inj 1,000 ML 200 / 200 1000 / 1000 @ 100 mls/hr IV.CONT .Q10H [facility] Rx#:[id number] NovoLIN-R 100 UNITS/NS 100 ML ( 100 / 100 for ED) 100 unit In 100 ml @ Per Protocol IV.CONT TITRATE ONE Rx#:[id number] NovoLIN R (IV Infusion) 100 100 / 100 UNIT In NS Inj 99 ML @ Per Protocol IV.CONT TITRATE PRN Rx #:[id number] NS Inj 1,000 ML @ 250 mls/hr IV 1999 / 2000 1000 / 1000 .CONT .Q4H [facility] Rx#:[id number] KCl 20 mEq Premix Inj 20 meq In 100 / 100 100 ml @ 50 mls/hr IV.SIG Q2H [facility] Rx#:[id number] NS Inj 1,000 ML @ 2000 mls/hr 1000 / 1000 IV.SIG Q30M [facility] Rx#:[id number] NS Inj 500 ML @ 1000 mls/hr IV. 500 / 500 SIG BOLUS [facility] Rx#:[id number] Ancef Inj 1 GM In NS Inj 100 ML 100 / 100 @ 200 mls/hr IV.SIG Q12H [facility] Rx#:[id number] Oral 360 / 360 480 / 480 Output: Urine 450 / 450 450 / 450 600 / 600 Other: # Voids 3 3 Date of Last Bowel Movement 11/14/18 11/15/18 # Bowel Movements 1 2 <Johana Emmanuel Q - Last Filed: 11/15/18 18:16> Assessment and Plan - Assessment (1) Acute kidney injury Code(s): N17.9 - Acute kidney failure, unspecified Status: Acute Plan: Acute kidney injury with a creatinine of 3.1 which has improved from admission creatinine of 3.5. On day of consult. CYNTHIA with FeNA of 0.8 % suggestive of prerenal azotemia. Baseline creatinine 06/25/18 at 1.24. Chronic kidney disease most likely related to diabetes. Renal ultrasound with Right Kidney: Mild dilatation of an upper pole calyx without obvious stone.Left Kidney: Normal echogenicity and cortical thickness. No mass or hydronephrosis. No shortness of breath, nausea and vomiting has resolved today, no diarrhea. Continue IVF, oral fluids encouraged Avoid nephrotoxins including NSAIDS and IV contrast C3 low, C4 normal, CORNELIA and ANCA pending. creatinine improving at 2.1 and fluids and electrolytes stable Will continue to follow urinary output and BMP (2) Hypertension Code(s): I10 - Essential (primary) hypertension Status: Chronic Plan: On lower side. JEFFREY on hold. (3) Diabetes mellitus, insulin dependent (IDDM), controlled Code(s): E11.9 - Type 2 diabetes mellitus without complications; Z79.4 - [employer] (current) use of insulin Status: Acute Plan: Maintain blood sugars between 140 mg/dl to 180 mg/dl while hospitalized. Elevated today (4) Elevated troponin Code(s): R74.8 - Abnormal levels of other serum enzymes Status: Acute Plan: Cardiology consulted. Plan for lexispect <Betzaida Fernando - Last Filed: 11/15/18 14:50> - Assessment (1) Acute kidney injury Code(s): N17.9 - Acute kidney failure, unspecified Status: Acute Plan: Patient seen and examined, agree with above. Creatinine is improving, Cardiac stress test is negative for ischemia. Has chronic kidney disease and develop CYNTHIA. (2) Hypertension Code(s): I10 - Essential (primary) hypertension Status: Chronic (3) Diabetes mellitus, insulin dependent (IDDM), controlled Code(s): E11.9 - Type 2 diabetes mellitus without complications; Z79.4 - [employer] (current) use of insulin Status: Acute (4) Elevated troponin Code(s): R74.8 - Abnormal levels of other serum enzymes Status: Acute <Dorcas Emmanuel - Last Filed: 11/15/18 18:16>
--- NOTE | 2018-11-15 15:59 | NM ---
EXAM DATE: 11/15/2018 3:46 PM EST AGE/SEX: 48 years / Male INDICATIONS:Abnormal EKG. . CLINICAL DATA: This is the patient's initial encounter. Patient reports that signs and symptoms have been present for 1 day and indicates a pain score of 5/10. MEDICAL/SURGICAL HISTORY: Diabetes mellitus type II. Hypertension. . Finer amputation. COMPARISON: [facility], CT CARDIAC CALCIUM SCORE, 09/18/2014. . DOSE: 8.4 mCi Tc 99m Myoview at rest 25.4 mCi [id number] at stress 0.4 mg Lexiscan STRESS SYMPTOMS: Asymptomatic. EJECTION FRACTION: 62 % TECHNIQUE: The patient underwent pharmacologic stress with infusion of prescribed dose. Continuous ECG tracing was monitored during stress. Gated SPECT imaging was performed after stress and conventi onal SPECT imaging was performed at rest. The examination was performed on a SPECT/CT scanner, both attenuation and non-corrected datasets were reviewed. FINDINGS: Distribution: The maximum perfused segment at stress is in the anterior lateral wall. Perfusion Study: The pattern of perfusion at stress is within normal limits, with regional variatio ns perfusion within 25%. Apparent perfusion at stress and rest is unchanged. There is no evidence of redistribution. The sum stress score is 0. Gated Study: There are intact wall motion and wall thickening without hypokinetic or dyskinetic segm ents. The ejection fraction is calculated at 62%. RISK CATEGORY: Low (<1% Annual Mortality Rate) CONCLUSION: 1. No evidence of stress-induced ischemia. 2. Intact wall motion with 62% ejection fraction. Electronically signed by: Trever Garsia MD Board Certified Radiologist 11/15/2018 3:58 PM EST
[2018-11-15] MEDS ORDERED: Insulin Detemir Inj 1,000 UNIT/10 ML Vial SQ SCH (21:00)
[2018-11-16] MEDS: Sod Chloride 0.9% Inj 1,000 ML IV.CONT SCH (04:00)
[2018-11-16] MEDS: Chlorhexidine Gluconate 2% 1 Pack (2 Cloths) TOPICAL SCH (04:01)
[2018-11-16 07:45] LABS: Albumin 2.8 g/dL (3.4-5.0); Carbon Dioxide 25.1 meq/L (21.0-32.0); Phosphorus 1.6 mg/dL (2.5-4.9); Potassium 3.3 meq/L (3.5-5.1)
[2018-11-16 07:52] LABS: Calcium 7.2 mg/dL (8.5-10.1)
--- NOTE | 2018-11-16 07:53 | P.PNIM ---
Subjective Interval history: f/u; DKA/CYNTHIA/elevated troponin in no acute distress. feels and looks better today. has mild stomach upset. temps are better. had a low blood sugar earlier today. d/w the RN and no other acute issues over night reported. Physical Exam Vital signs: Vital Signs 11/15/18 08:00 11/15/18 08:32 11/15/18 09:00 Temperature Pulse Rate 100 H 101 H 114 H Respiratory Rate 29 H 29 H 40 H Blood Pressure 98/60 L Pulse Oximetry 98 98 98 11/15/18 09:32 11/15/18 10:00 11/15/18 10:32 Temperature Pulse Rate 93 H 94 H 87 Respiratory Rate 91 H 21 23 Blood Pressure 140/78 154/83 H Pulse Oximetry 99 100 100 11/15/18 11:00 11/15/18 11:32 11/15/18 12:00 Temperature 99.4 F Pulse Rate 89 87 87 Respiratory Rate 21 19 21 Blood Pressure 146/80 H Pulse Oximetry 96 97 99 11/15/18 12:32 11/15/18 13:05 11/15/18 13:32 Temperature Pulse Rate 90 90 85 Respiratory Rate 21 27 H 21 Blood Pressure 130/95 H 130/95 H 156/81 H Pulse Oximetry 99 98 11/15/18 14:00 11/15/18 14:32 11/15/18 14:52 Temperature Pulse Rate 87 92 H Respiratory Rate 18 20 Blood Pressure 131/63 153/80 H Pulse Oximetry 96 97 98 11/15/18 14:53 11/15/18 14:54 11/15/18 15:00 Temperature Pulse Rate 95 H Respiratory Rate 23 Blood Pressure 159/84 H 157/86 H Pulse Oximetry 99 99 97 11/15/18 15:32 11/15/18 16:00 11/15/18 16:02 Temperature Pulse Rate 90 88 109 H Respiratory Rate 19 27 H Blood Pressure 129/68 Pulse Oximetry 99 97 11/15/18 16:32 11/15/18 17:00 11/15/18 17:32 Temperature Pulse Rate 87 87 92 H Respiratory Rate 23 25 H 34 H Blood Pressure 177/93 H 141/81 H 141/81 H Pulse Oximetry 100 98 100 11/15/18 18:00 11/15/18 18:32 02/12/19 19:00 Temperature Pulse Rate 90 89 84 Respiratory Rate 17 5 L 19 Blood Pressure 114/62 Pulse Oximetry 97 97 98 11/15/18 19:32 11/15/18 20:00 11/15/18 20:32 Temperature 99.3 F Pulse Rate 78 79 80 Respiratory Rate 21 11 L 24 Blood Pressure 148/77 H 146/79 H Pulse Oximetry 98 99 99 11/15/18 21:00 11/15/18 21:32 11/15/18 22:00 Temperature Pulse Rate 77 71 75 Respiratory Rate 22 20 Blood Pressure 148/87 H Pulse Oximetry 98 99 11/15/18 22:09 11/15/18 22:32 11/15/18 23:00 Temperature Pulse Rate 84 73 73 Respiratory Rate 29 H 20 19 Blood Pressure 145/82 H Pulse Oximetry 94 L 98 11/15/18 23:32 11/16/18 00:00 11/16/18 00:32 Temperature Pulse Rate 78 77 78 Respiratory Rate 18 24 20 Blood Pressure 141/84 H 171/94 H Pulse Oximetry 98 99 93 L 11/16/18 01:00 11/16/18 01:32 11/16/18 02:00 Temperature Pulse Rate 78 79 79 Respiratory Rate 18 13 19 Blood Pressure 138/85 Pulse Oximetry 98 94 L 95 11/16/18 02:32 11/16/18 02:55 11/16/18 03:00 Temperature Pulse Rate 71 71 72 Respiratory Rate 20 24 21 Blood Pressure 176/103 H 169/95 H Pulse Oximetry 98 98 97 11/16/18 03:51 11/16/18 03:53 11/16/18 04:00 Temperature Pulse Rate 70 73 69 Respiratory Rate 22 21 16 Blood Pressure 183/93 H 154/82 H Pulse Oximetry 100 100 100 11/16/18 04:32 11/16/18 05:00 11/16/18 05:32 Temperature Pulse Rate 70 78 77 Respiratory Rate 21 19 18 Blood Pressure 160/85 H 148/76 H Pulse Oximetry 99 96 94 L 11/16/18 06:00 Temperature Pulse Rate 78 Respiratory Rate 17 Blood Pressure Pulse Oximetry 96 Intake & Output 11/15/18 11/16/18 11/16/18 18:59 06:59 18:59 Intake Total 2580 / 2580 2820 / 2820 Output Total 600 / 600 Balance 1979 / 1979 2820 / 2820 Intake: IV 2099 / 2099 NS Inj 1,000 ML @ 250 mls/hr IV 1999 / 1999 .CONT .Q4H [facility] Rx#:[id number] Ancef Inj 1 GM In NS Inj 100 ML 100 / 100 100 / 100 @ 200 mls/hr IV.SIG Q12H [facility] Rx#:[id number] Oral 480 / 480 720 / 720 Output: Urine 600 / 600 Other: # Voids 3 4 Date of Last Bowel Movement 11/15/18 11/16/18 # Bowel Movements 2 2 Constitutional no acute distress Routine Respiratory Exam Present CTA bilaterally Routine Cardiovascular Exam Present RRR Routine Abdominal Exam Present soft Routine Extremities Exam Comments: no pedal edema. Routine Neurological Exam Present alert and oriented X3 Results Labs CBC & Chem 7: 11/15/18 05:44 11/15/18 05:44 Labs: Microbiology 11/14/18 04:00 Clean Catch Urine Urine Culture - Preliminary <10,000 cfu/mL mixed gram positive corbin - no further workup 11/14/18 01:20 Blood - Peripheral Aerobic Blood Culture - Preliminary No growth in 1 day 11/14/18 01:20 Blood - Peripheral Anaerobic Blood Culture - Preliminary No growth in 1 day 11/14/18 01:15 Blood - Peripheral Aerobic Blood Culture - Preliminary No growth in 1 day 11/14/18 01:15 Blood - Peripheral Anaerobic Blood Culture - Preliminary No growth in 1 day Imaging Imaging: Impressions Myocardial Perfusion Scan Nuc Med 11/15/18 00:00 CONCLUSION: 1. No evidence of stress-induced ischemia. 2. Intact wall motion with 62% ejection fraction. Assessment and Plan (1) Non-STEMI (non-ST elevated myocardial infarction): Code(s): I21.4 - Non-ST elevation (NSTEMI) myocardial infarction Status: Acute (2) Hypertension: Code(s): I10 - Essential (primary) hypertension Status: Chronic (3) Acute kidney injury: Code(s): N17.9 - Acute kidney failure, unspecified Status: Acute Plan A/P DKA- resolved hypoglycemic episode this morning. - off the insulin drip -started on diabetic diet. -will decrease Levemir to 8 units subq bid- continue with SSI; change to low scale. -furrier designer consulted. -A1c pending. fever/possible cellulitis of the right elbow -UA and CXR not impressive and the patient asymptomatic -started on IV Ancef - temps better. -blood cultures negative so far. elevated troponin -EKG with no acute St-T changes and the patient denies pain. -cardiology consult appreciated;stress test with no evidence of ischemia. -continue with aspirin and BB -echo with EF 50% acute kidney injury- improving. Hypokalemia/Hypophosphatemia - continue IV fluid -electrolyte replacement as needed. - nephrology following. Hypertension -hold Lisinopril for now due to CYNTHIA -continue BB with close monitoring of BP and HR. -continue to monitor BP. Neuropathy -Gabapentin as needed DVT GI prophylaxis -Teds SCDs -Lovenox transfer to floor today. Discharge Planning: home - pending the clinical course and work-up. Progress Note: Quality VTE Deep Vein Thrombosis/Pulmonary Embolism Present on Admission: No _ (1) Hypertension Qualifiers: Hypertension type:
[2018-11-16] MEDS: Dextrose 50% in Water 50 ML Vial IV.PUSH PRN (09:19)
[2018-11-16] MEDS: Dextrose 5%/NaCl 0.9% Inj 1,000 ML IV.CONT SCH ×3 (09:25→20:15)
[2018-11-16] MEDS: Insulin NovoLOG Aspart Correctional Sugar Inj SQ SCH ×4 (09:27→22:14)
[2018-11-16] MEDS: Senna/Docusate Sodium 8.6/50 MG Tablet PO SCH ×2 (09:31→22:01)
[2018-11-16] MEDS: Metoprolol Tartrate 25 MG Tablet PO SCH ×2 (09:31→22:01)
[2018-11-16] MEDS: ceFAZolin Inj 1 GM in Sodium Chlor 0.9% Inj 100 ML IV.SIG SCH ×2 (09:31→22:02)
[2018-11-16] MEDS: Potassium Phos/Sodium Phos 250 MG Tablet PO SCH ×3 (09:43→18:07)
[2018-11-16 16:49] LABS: Hemoglobin A1c 8.1 % (4.3-6.0)
[2018-11-16 17:35] LABS: Anti-Nuclear Antibody Screen Pos (Neg)
--- NOTE | 2018-11-16 17:43 | P.PNNP ---
Subjective Interval history: Reports increased abdominal pain each time he takes anything to eat. No shortness of breath. Creatinine has improved at 1.3 today. <Betzaida Fernando - Last Filed: 11/16/18 17:39> Physical Exam Vital signs: Vital Signs 11/15/18 18:00 11/15/18 18:32 11/15/18 19:00 Temperature Pulse Rate 90 89 84 Respiratory Rate 17 5 L 19 Blood Pressure 114/62 Pulse Oximetry 97 97 98 11/15/18 19:32 11/15/18 20:00 11/15/18 20:32 Temperature 99.3 F Pulse Rate 78 79 80 Respiratory Rate 21 11 L 24 Blood Pressure 148/77 H 146/79 H Pulse Oximetry 98 99 99 11/15/18 21:00 11/15/18 21:32 11/15/18 22:00 Temperature Pulse Rate 77 71 75 Respiratory Rate 22 20 Blood Pressure 148/87 H Pulse Oximetry 98 99 11/15/18 22:09 11/15/18 22:32 11/15/18 23:00 Temperature Pulse Rate 84 73 73 Respiratory Rate 29 H 20 19 Blood Pressure 145/82 H Pulse Oximetry 94 L 98 11/15/18 23:32 11/16/18 00:00 11/16/18 00:32 Temperature Pulse Rate 78 77 78 Respiratory Rate 18 24 20 Blood Pressure 141/84 H 171/94 H Pulse Oximetry 98 99 93 L 11/16/18 01:00 11/16/18 01:32 11/16/18 02:00 Temperature Pulse Rate 78 79 79 Respiratory Rate 18 13 19 Blood Pressure 138/85 Pulse Oximetry 98 94 L 95 11/16/18 02:32 11/16/18 02:55 11/16/18 03:00 Temperature Pulse Rate 71 71 72 Respiratory Rate 20 24 21 Blood Pressure 176/103 H 169/95 H Pulse Oximetry 98 98 97 11/16/18 03:51 11/16/18 03:53 11/16/18 04:00 Temperature Pulse Rate 70 73 69 Respiratory Rate 22 21 16 Blood Pressure 183/93 H 154/82 H Pulse Oximetry 100 100 100 11/16/18 04:32 11/16/18 05:00 11/16/18 05:32 Temperature Pulse Rate 70 78 77 Respiratory Rate 21 19 18 Blood Pressure 160/85 H 148/76 H Pulse Oximetry 99 96 94 L 0213/19 06:00 11/16/18 07:00 11/16/18 07:32 Temperature Pulse Rate 78 79 Respiratory Rate 17 28 H Blood Pressure 163/86 H Pulse Oximetry 96 97 11/16/18 08:00 11/16/18 08:32 11/16/18 09:00 Temperature 99.9 F H Pulse Rate 69 77 Respiratory Rate 22 28 H Blood Pressure 155/92 H Pulse Oximetry 99 100 11/16/18 09:32 11/16/18 09:39 11/16/18 10:00 Temperature Pulse Rate 71 80 80 Respiratory Rate 23 23 26 H Blood Pressure 200/103 H 162/90 H Pulse Oximetry 94 L 96 89 L 11/16/18 10:32 11/16/18 11:00 11/16/18 11:32 Temperature Pulse Rate 73 73 74 Respiratory Rate 20 11 L 23 Blood Pressure 155/83 H 171/83 H Pulse Oximetry 99 99 100 11/16/18 12:00 11/16/18 12:32 11/16/18 13:00 Temperature 99.3 F Pulse Rate 72 69 74 Respiratory Rate 21 19 27 H Blood Pressure 152/87 H Pulse Oximetry 98 98 93 L 11/16/18 13:32 11/16/18 13:35 11/16/18 14:00 Temperature Pulse Rate 66 66 71 Respiratory Rate 21 21 21 Blood Pressure 195/107 H 177/100 H Pulse Oximetry 99 98 93 L 11/16/18 14:11 11/16/18 14:32 11/16/18 15:00 Temperature Pulse Rate 70 70 Respiratory Rate 15 10 L Blood Pressure 174/98 H 160/88 H Pulse Oximetry 99 99 11/16/18 15:32 11/16/18 16:00 Temperature 99.7 F H Pulse Rate 69 68 Respiratory Rate 20 20 Blood Pressure 154/88 H Pulse Oximetry 98 97 Intake & Output 11/15/18 11/16/18 11/16/18 18:59 06:59 18:59 Intake Total 2580 / 2580 2820 / 2820 1350 / 1350 Output Total 600 / 600 Balance 1979 / 1979 2820 / 2820 1350 / 1350 Intake: IV 2099 / 2099 2099 / 2099 1350 / 1350 D5W/Normal Saline Inj 1,000 ML 350 / 350 @ 100 mls/hr IV.CONT .Q10H MARK Rx#:[id number] NS Inj 1,000 ML @ As Directed 1999 900 / 900 IV.CONT .Q4H MARK Rx#:[id number] Ancef Inj 1 GM In NS Inj 100 ML 100 / 100 100 / 100 100 / 100 @ 200 mls/hr IV.SIG Q12H MARK Rx#:[id number] Oral 480 / 480 720 / 720 Output: Urine 600 / 600 Other: # Voids 3 4 Date of Last Bowel Movement 11/15/18 11/16/18 11/16/18 # Bowel Movements 2 2 Narrative: GENERAL: Alert and oriented. SKIN: Warm and dry. NECK: Supple, trachea midline. No JVD CARDIOVASCULAR: Regular rate and rhythm without murmurs, gallops, or rubs. RESPIRATORY: Breath sounds equal bilaterally. No accessory muscle use. GASTROINTESTINAL: Abdomen soft, non-tender, nondistended. +BS MUSCULOSKELETAL: No cyanosis, or edema. BACK: Nontender without obvious deformity. No CVA tenderness. <Betzaida Fernando - Last Filed: 11/16/18 17:39> Vital signs: Vital Signs 11/15/18 21:32 11/15/18 22:00 11/15/18 22:09 Temperature Pulse Rate 71 75 84 Respiratory Rate 20 29 H Blood Pressure 148/87 H Pulse Oximetry 99 11/15/18 22:32 11/15/18 23:00 11/15/18 23:32 Temperature Pulse Rate 73 73 78 Respiratory Rate 20 19 18 Blood Pressure 145/82 H 141/84 H Pulse Oximetry 94 L 98 98 11/16/18 00:00 11/16/18 00:32 11/16/18 01:00 Temperature Pulse Rate 77 78 78 Respiratory Rate 24 20 18 Blood Pressure 171/94 H Pulse Oximetry 99 93 L 98 11/16/18 01:32 11/16/18 02:00 11/16/18 02:32 Temperature Pulse Rate 79 79 71 Respiratory Rate 13 19 20 Blood Pressure 138/85 176/103 H Pulse Oximetry 94 L 95 98 11/16/18 02:55 11/16/18 03:00 11/16/18 03:51 Temperature Pulse Rate 71 72 70 Respiratory Rate 24 21 22 Blood Pressure 169/95 H 183/93 H Pulse Oximetry 98 97 100 11/16/18 03:53 11/16/18 04:00 11/16/18 04:32 Temperature Pulse Rate 73 69 70 Respiratory Rate 21 16 21 Blood Pressure 154/82 H 160/85 H Pulse Oximetry 100 100 99 11/16/18 05:00 11/16/18 05:32 11/16/18 06:00 Temperature Pulse Rate 78 77 78 Respiratory Rate 19 18 17 Blood Pressure 148/76 H Pulse Oximetry 96 94 L 96 11/16/18 07:00 11/16/18 07:32 11/16/18 08:00 Temperature 99.9 F H Pulse Rate 79 68 Respiratory Rate 28 H 22 Blood Pressure 163/86 H Pulse Oximetry 97 99 11/16/18 08:32 11/16/18 09:00 11/16/18 09:32 Temperature Pulse Rate 77 71 Respiratory Rate 28 H 23 Blood Pressure 155/92 H 200/103 H Pulse Oximetry 100 94 L 11/16/18 09:39 11/16/18 10:00 11/16/18 10:32 Temperature Pulse Rate 80 80 73 Respiratory Rate 23 26 H 20 Blood Pressure 162/90 H 155/83 H Pulse Oximetry 96 89 L 99 11/16/18 11:00 11/16/18 11:32 11/16/18 12:00 Temperature 99.3 F Pulse Rate 73 74 72 Respiratory Rate 11 L 23 21 Blood Pressure 171/83 H Pulse Oximetry 99 100 98 11/16/18 12:32 11/16/18 13:00 11/16/18 13:32 Temperature Pulse Rate 69 74 66 Respiratory Rate 19 27 H 21 Blood Pressure 152/87 H 195/107 H Pulse Oximetry 98 93 L 99 11/16/18 13:35 11/16/18 14:00 11/16/18 14:11 Temperature Pulse Rate 66 70 70 Respiratory Rate 21 21 15 Blood Pressure 177/100 H 174/98 H Pulse Oximetry 98 93 L 99 11/16/18 14:32 11/16/18 15:00 11/16/18 15:32 Temperature Pulse Rate 70 69 Respiratory Rate 10 L 20 Blood Pressure 160/88 H 154/88 H Pulse Oximetry 99 98 11/16/18 16:00 11/16/18 16:02 11/16/18 17:00 Temperature 99.7 F H Pulse Rate 68 63 66 Respiratory Rate 20 22 22 Blood Pressure 163/87 H 164/85 H Pulse Oximetry 97 97 97 02/13/19 18:00 11/16/18 19:00 Temperature Pulse Rate 67 79 Respiratory Rate 31 H 19 Blood Pressure 157/80 H 129/70 Pulse Oximetry 98 96 Intake & Output 11/16/18 11/16/18 11/17/18 06:59 18:59 06:59 Intake Total 2820 / 2820 2350 / 2350 1000 / 1000 Output Total 2575 / 2575 Balance 2820 / 2820 -225 / -225 1000 / 1000 Intake: IV 2100 / 2100 1350 / 1350 1000 / 1000 D5W/Normal Saline Inj 1,000 ML 350 / 350 1000 / 1000 @ 100 mls/hr IV.CONT .Q10H [facility] Rx#:[id number] NS Inj 1,000 ML @ As Directed 2000 / 1999 900 / 900 IV.CONT .Q4H MARK Rx#:[id number] Ancef Inj 1 GM In NS Inj 100 ML 100 / 100 100 / 100 @ 200 mls/hr IV.SIG Q12H MARK Rx#:[id number] Oral 720 / 720 1000 / 1000 Output: Urine 2575 / 2575 Other: # Voids 4 5 Date of Last Bowel Movement 11/16/18 11/16/18 # Bowel Movements 2 1 <Johana Emmanuel Q - Last Filed: 11/16/18 21:20> Assessment and Plan - Assessment (1) Acute kidney injury Code(s): N17.9 - Acute kidney failure, unspecified Status: Acute Plan: Acute kidney injury with a creatinine of 3.1 which has improved from admission creatinine of 3.5. On day of consult. CYNTHIA with FeNA of 0.8 % suggestive of prerenal azotemia. Baseline creatinine 06/25/18 at 1.24. Chronic kidney disease most likely related to diabetes. Renal ultrasound with Right Kidney: Mild dilatation of an upper pole calyx without obvious stone.Left Kidney: Normal echogenicity and cortical thickness. No mass or hydronephrosis. No shortness of breath, nausea and vomiting has resolved today, no diarrhea. Oral fluids encouraged Avoid nephrotoxins including NSAIDS and IV contrast C3 low, C4 normal, CORNELIA positive, AntiDNA DS ordered creatinine improving at 1.3 and fluids and electrolytes stable Will continue to follow urinary output and BMP (2) Hypertension Code(s): I10 - Essential (primary) hypertension Status: Chronic Plan: Will monitor. On metoprolol (3) Diabetes mellitus, insulin dependent (IDDM), controlled Code(s): E11.9 - Type 2 diabetes mellitus without complications; Z79.4 - terminal computer operator (current) use of insulin Status: Acute Plan: Maintain blood sugars between 140 mg/dl to 180 mg/dl while hospitalized. Hypoglycemic today (4) Elevated troponin Code(s): R74.8 - Abnormal levels of other serum enzymes Status: Acute Plan: Cardiology consulted. stress test negative for ischemia. <Betzaida Fernando - Last Filed: 11/16/18 17:39> - Assessment (1) Acute kidney injury Code(s): N17.9 - Acute kidney failure, unspecified Status: Acute Plan: Patient seen and examined, agree with above. Creatinine is improving. Work up in progress. Follow the urine out put and BMP. 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
[2018-11-16] MEDS: Insulin Detemir Inj 1,000 UNIT/10 ML Vial SQ SCH (22:00)
[2018-11-17] MEDS: Chlorhexidine Gluconate 2% 1 Pack (2 Cloths) TOPICAL SCH (04:25)
[2018-11-17 07:12] LABS: Calcium 6.9 mg/dL (8.5-10.1); Carbon Dioxide 29.9 meq/L (21.0-32.0); Phosphorus 2.2 mg/dL (2.5-4.9)
[2018-11-17 07:24] LABS: Albumin 2.6 g/dL (3.4-5.0)
[2018-11-17 07:31] LABS: Potassium 2.8 meq/L (3.5-5.1)
--- NOTE | 2018-11-17 09:33 | P.PNCA ---
Subjective Interval history: No angina Medications and Allergies Active Medications: Active Medications Acetaminophen (Tylenol) 650 mg PO Q6H PRN PRN Reason: PAIN 1-5 AND/OR FEVER >101F Al Hydroxide/Mg Hydroxide (Milk Of [place]) 30 ml PO Q12H PRN PRN Reason: Mild Constipation Albuterol (Duoneb Neb (Prn)) 1 ampul NEB Q2HR NEB PRN PRN Reason: WHEEZING Albuterol (Albuterol Neb (Prn)) 2.5 mg NEB UNSCH PRN PRN Reason: SHORTNESS OF BREATH/WHEEZING Albuterol (Duoneb Neb (Prn)) 1 ampul NEB UNSCH PRN PRN Reason: SHORTNESS OF BREATH/WHEEZING Aspirin (Ecotrin) 162 mg PO DAILY [facility] Last Admin: 11/16/18 09:30 Dose: 162 mg Atorvastatin Calcium (Lipitor) 40 mg PO DAILY [facility] Last Admin: 11/16/18 09:31 Dose: 40 mg Bisacodyl (Dulcolax Supp) 10 mg RECTAL DAILY PRN PRN Reason: SEVERE CONSITIPATION Chlorhexidine Gluconate (Chlorhexidine 2% Cloth) 3 pack TOPICAL DAILY@0400 [facility] Stop: 11/19/18 03:59 Last Admin: 11/17/18 04:25 Dose: Not Given Chlorhexidine Gluconate (Chlorhexidine 2% Cloth) 3 pack TOPICAL DAILY@0400 PRN PRN Reason: Extra cloth needed Stop: 11/19/18 03:59 Dextrose (D50w Vial) 50 ml IV.PUSH UNSCH PRN PRN Reason: PER HYPOGLYCEMIA PROTOCOL Last Admin: 11/16/18 09:19 Dose: 50 ml Enoxaparin Sodium (Lovenox Inj) 40 mg SQ Q24H [facility] Last Admin: 11/14/18 08:45 Dose: 40 mg Glucagon (Glucagon Inj) 1 mg OTHER PRN PRN PRN Reason: for Hypoglycemia Protocol Sodium Chloride (Ns Inj) 1,000 mls @ 0 mls/hr IV.CONT .Q4H [facility] Last Infusion: 11/16/18 08:36 Dose: Infused Potassium Chloride (Kcl 40 Meq Premix Inj) 40 meq in 100 mls @ 100 mls/hr IV.SIG Q1H PRN PRN Reason: for Initial K+ ONLY < 3.5 Potassium Chloride (Kcl 40 Meq Premix Inj) 40 meq in 100 mls @ 50 mls/hr IV.SIG Q2H PRN PRN Reason: for Subsequent K+ < 3.5 Potassium Chloride (Kcl 20 Meq Premix Inj) 20 meq in 100 mls @ 100 mls/hr IV.SIG Q1H PRN PRN Reason: for K+ 4.5 to 5 Potassium Chloride (Kcl 20 Meq Premix Inj) 20 meq in 100 mls @ 50 mls/hr IV.SIG Q2H PRN PRN Reason: for Initial K+ ONLY < 3.5 Potassium Chloride (Kcl 20 Meq Premix Inj) 20 meq in 100 mls @ 50 mls/hr IV.SIG Q2H PRN PRN Reason: for Subsequent K+ < 3.5 Potassium Chloride (Kcl 20 Meq Premix Inj) 20 meq in 100 mls @ 50 mls/hr IV.SIG Q2H PRN PRN Reason: for K+ 3.5 to 4.4 Potassium Chloride (Kcl 20 Meq Premix Inj) 20 meq in 100 mls @ 50 mls/hr IV.SIG Q2H PRN PRN Reason: for K+ 4.5 to 5 Last Infusion: 11/14/18 08:01 Dose: Infused Potassium Chloride (Kcl 20 Meq Premix Inj) 20 meq in 100 mls @ 100 mls/hr IV.SIG Q1H PRN PRN Reason: for K+ 3.5 to 4.4 Sodium Phosphate 15 mmol/ (Sodium Chloride) 105 mls @ 25 mls/hr IV.SIG UNSCH PRN PRN Reason: for Phosphate Level < 1.0 Dextrose/Sodium Chloride (D5w/Normal Saline Inj) 1,000 mls @ 100 mls/hr IV.CONT .Q10H [facility] Last Admin: 11/16/18 20:15 Dose: 100 mls/hr Cefazolin Sodium 1 gm/ Sodium (Chloride) 100 mls @ 200 mls/hr IV.SIG Q12H [facility] Last Admin: 11/16/18 22:02 Dose: 200 mls/hr Insulin Aspart (Novolog Insulin Correctional Sugar Inj) 0 unit SQ ACHS [facility]; Protocol Last Admin: 11/16/18 22:14 Dose: 3 unit Insulin Detemir (Levemir Inj) 8 unit SQ BID [facility] Last Admin: 11/16/18 22:00 Dose: 8 unit Lactulose (Lactulose Liq) 30 ml PO DAILY PRN PRN Reason: SEVERE CONSITIPATION Lisinopril (Prinivil) 20 mg PO DAILY [facility] Last Admin: 11/14/18 08:45 Dose: 20 mg Metoclopramide HCl (Reglan Inj) 5 mg IV.PUSH Q8H PRN PRN Reason: NAUSEA OR VOMITING Last Admin: 11/16/18 18:00 Dose: 5 mg Metoprolol Tartrate (Lopressor) 25 mg PO BID [facility] Last Admin: 11/16/18 22:01 Dose: 25 mg Morphine Sulfate (Morphine Inj) 2 mg IV.PUSH Q2H PRN PRN Reason: PAIN SCALE 6 TO 10 Nitroglycerin (Nitro-Bid 2% Oint) 0.5 inch TOPICAL Q6HR [facility] Last Admin: 11/17/18 06:48 Dose: Not Given Ondansetron HCl (Zofran Inj) 4 mg IV.PUSH Q6H PRN PRN Reason: NAUSEA OR VOMITING Last Admin: 11/15/18 20:46 Dose: 4 mg Pantoprazole Sodium (Protonix) 40 mg PO DAILY [facility] Last Admin: 11/16/18 09:31 Dose: 40 mg Potassium Phos/Sodium Phos (K-Phos Neutral) 250 mg PO TID [facility] Last Admin: 11/16/18 18:07 Dose: 250 mg Senna/Docusate Sodium (Dayna-Colace) 1 tab PO BID [facility] Last Admin: 11/16/18 22:01 Dose: Not Given Sennosides (Senokot) 17.2 mg PO Q12H PRN PRN Reason: Moderate Constipation Sodium Bicarbonate (Sodium Bicarbonate 8.4% Inj) 50 meq IV.PUSH UNSCH PRN PRN Reason: for pH 6.9 to 7.0 Sodium Bicarbonate (Sodium Bicarbonate 8.4% Inj) 100 meq IV.PUSH UNSCH PRN PRN Reason: for pH less than 6.9 Sodium Chloride (Ns Flush) 2 ml IV.FLUSH BID [facility] Last Admin: 11/16/18 22:01 Dose: 2 ml Sodium Chloride (Ns Flush) 2 ml IV.FLUSH PRN PRN PRN Reason: FLUSH AFTER USING IV ACCESS Temazepam (Restoril) 15 mg PO HS PRN PRN Reason: INSOMNIA Allergies Allergy/AdvReac Type Severity Reaction Status Date / Time No Known Allergies Allergy Verified 11/13/18 21:34 Home Medications Medication Instructions Recorded Confirmed Type insulin pump cartridge 06/24/18 11/13/18 History insulin glargine [Lantus U-100 50 unit SUBCUT DAILY 11/13/18 11/13/18 History Insulin] insulin regular human [Novolin R 1 sliding scale dose SUBCUT UD 11/13/18 History Regular U-100 Insuln] Physical Exam Vital signs: Vital Signs 11/16/18 09:39 11/16/18 10:00 11/16/18 10:32 Temperature Pulse Rate 80 80 73 Respiratory Rate 23 26 H 20 Blood Pressure 162/90 H 155/83 H Pulse Oximetry 96 89 L 99 11/16/18 11:00 11/16/18 11:32 11/16/18 12:00 Temperature 99.3 F Pulse Rate 73 74 72 Respiratory Rate 11 L 23 21 Blood Pressure 171/83 H Pulse Oximetry 99 100 98 11/16/18 12:32 11/16/18 13:00 11/16/18 13:32 Temperature Pulse Rate 69 74 66 Respiratory Rate 19 27 H 21 Blood Pressure 152/87 H 195/107 H Pulse Oximetry 98 93 L 99 11/16/18 13:35 11/16/18 14:00 11/16/18 14:11 Temperature Pulse Rate 66 70 70 Respiratory Rate 21 21 15 Blood Pressure 177/100 H 174/98 H Pulse Oximetry 98 93 L 99 11/16/18 14:32 11/16/18 15:00 11/16/18 15:32 Temperature Pulse Rate 70 69 Respiratory Rate 10 L 20 Blood Pressure 160/88 H 154/88 H Pulse Oximetry 99 98 11/16/18 16:00 11/16/18 16:02 11/16/18 17:00 Temperature 99.7 F H Pulse Rate 68 63 66 Respiratory Rate 20 22 22 Blood Pressure 163/87 H 164/85 H Pulse Oximetry 97 97 97 11/16/18 18:00 11/16/18 19:00 11/16/18 20:00 Temperature 99.5 F Pulse Rate 67 79 70 Respiratory Rate 31 H 19 14 Blood Pressure 157/80 H 129/70 150/81 H Pulse Oximetry 98 96 96 11/16/18 21:00 11/16/18 22:00 11/16/18 22:01 Temperature Pulse Rate 66 66 67 Respiratory Rate 16 11 L Blood Pressure 137/75 Pulse Oximetry 96 99 11/16/18 22:05 11/16/18 23:00 11/17/18 00:00 Temperature Pulse Rate 75 68 72 Respiratory Rate 32 H 17 15 Blood Pressure 157/73 H 166/78 H 113/55 L Pulse Oximetry 100 99 95 11/17/18 01:00 11/17/18 02:00 11/17/18 03:00 Temperature Pulse Rate 76 60 61 Respiratory Rate 18 16 16 Blood Pressure 155/84 H 142/73 H 167/79 H Pulse Oximetry 92 L 97 96 11/17/18 04:00 11/17/18 05:00 11/17/18 06:00 Temperature Pulse Rate 64 67 78 Respiratory Rate 18 17 13 Blood Pressure 141/76 H 143/76 H 134/82 Pulse Oximetry 96 96 99 Intake & Output 11/16/18 11/17/18 11/17/18 18:59 06:59 18:59 Intake Total 2350 / 2350 1240 / 1240 Output Total 2575 / 2575 880 / 880 Balance -225 / -225 360 / 360 Intake: IV 1350 / 1350 1000 / 1000 D5W/Normal Saline Inj 1,000 ML 350 / 350 1000 / 1000 @ 100 mls/hr IV.CONT .Q10H [facility] Rx#:[id number] NS Inj 1,000 ML @ As Directed 900 / 900 IV.CONT .Q4H MARK Rx#:[id number] Ancef Inj 1 GM In NS Inj 100 ML 100 / 100 @ 200 mls/hr IV.SIG Q12H MARK Rx#:[id number] Oral 1000 / 1000 240 / 240 Output: Urine 2575 / 2575 880 / 880 Other: # Voids 5 2 Date of Last Bowel Movement 11/16/18 11/16/18 # Bowel Movements 1 1 Narrative: GENERAL: Alert and oriented. SKIN: Warm and dry. NECK: Supple, trachea midline. No JVD CARDIOVASCULAR: Regular rate and rhythm without murmurs, gallops, or rubs. RESPIRATORY: Breath sounds equal bilaterally. No accessory muscle use. GASTROINTESTINAL: Abdomen soft, non-tender, nondistended. +BS MUSCULOSKELETAL: No cyanosis, or edema. BACK: Nontender without obvious deformity. No CVA tenderness. Results 11/15/18 05:44 11/17/18 05:55 Comprehensive Metabolic Panel 11/16/18 11/17/18 Range/Units 07:01 05:55 Sodium 141 141 (136-145) meq/L Potassium 3.3 L D 2.8 L* (3.5-5.1) meq/L Chloride 107 103 (98-107) meq/L Carbon Dioxide 25.1 29.9 (21.0-32.0) meq/L BUN 14 7 (7-18) mg/dL Creatinine 1.38 H 1.05 (0.60-1.30) mg/dL Calcium 7.2 L* 6.9 L* (8.5-10.1) mg/dL Albumin 2.8 L 2.6 L (3.4-5.0) g/dL Intake and Output 11/16/18 11/17/18 11/17/18 22:59 06:59 14:59 Intake Total 1999 / 1999 240 / 240 Output Total 2575 / 2575 880 / 880 Balance -575 / -575 -640 / -640 Intake: IV 1000 / 1000 D5W/Normal Saline Inj 1,000 ML 1000 / 1000 @ 100 mls/hr IV.CONT .Q10H MARK Rx#:[id number] Oral 1000 / 1000 240 / 240 Output: Urine 2575 / 2575 880 / 880 Other: # Voids 5 2 Date of Last Bowel Movement 11/16/18 11/16/18 # Bowel Movements 1 1 - Imaging and Cardiology Imaging: Impressions Myocardial Perfusion Scan Nuc Med 11/15/18 00:00 CONCLUSION: 1. No evidence of stress-induced ischemia. 2. Intact wall motion with 62% ejection fraction. Assessment and Plan - Assessment (1) Non-STEMI (non-ST elevated myocardial infarction) Code(s): I21.4 - Non-ST elevation (NSTEMI) myocardial infarction Status: Acute (2) Hypertension Code(s): I10 - Essential (primary) hypertension Status: Chronic (3) Acute kidney injury Code(s): N17.9 - Acute kidney failure, unspecified Status: Acute - Plan AR was clearly Type 2 event. Since creat high will get vicky SPECT 11/17/2018: SPECT showed no ischemia. Cont. Medical therapy in view of renal disease. F/U prn.
[2018-11-17] MEDS: Insulin NovoLOG Aspart Correctional Sugar Inj SQ SCH ×4 (09:42→20:53)
[2018-11-17] MEDS: Insulin Detemir Inj 1,000 UNIT/10 ML Vial SQ SCH ×2 (09:42→20:52)
[2018-11-17] MEDS: Potassium Phos/Sodium Phos 250 MG Tablet PO SCH ×3 (09:42→17:57)
[2018-11-17] MEDS: Metoprolol Tartrate 25 MG Tablet PO SCH (09:42)
[2018-11-17] MEDS: Senna/Docusate Sodium 8.6/50 MG Tablet PO SCH ×2 (09:43→20:53)
[2018-11-17] MEDS: ceFAZolin Inj 1 GM in Sodium Chlor 0.9% Inj 100 ML IV.SIG SCH ×2 (09:44→21:01)
[2018-11-17] MEDS: Potassium Chlor 20 mEq Premix 20 MEQ/100 ML PIGGYBACK IV.SIG PRN ×4 (09:48→21:02)
--- NOTE | 2018-11-17 09:59 | P.PNIM ---
Subjective Interval history: f/u; uncontrolled DM in no acute distress. looks much better today. blood sugar trend noted. no new complaints. d/w the RN at the bedside. Physical Exam Vital signs: Vital Signs 11/16/18 10:00 11/16/18 10:32 11/16/18 11:00 Temperature Pulse Rate 80 73 73 Respiratory Rate 26 H 20 11 L Blood Pressure 155/83 H Pulse Oximetry 89 L 99 99 11/16/18 11:32 11/16/18 12:00 11/16/18 12:32 Temperature 99.3 F Pulse Rate 74 72 69 Respiratory Rate 23 21 19 Blood Pressure 171/83 H 152/87 H Pulse Oximetry 100 98 98 11/16/18 13:00 11/16/18 13:32 11/16/18 13:35 Temperature Pulse Rate 74 66 66 Respiratory Rate 27 H 21 21 Blood Pressure 195/107 H 177/100 H Pulse Oximetry 93 L 99 98 11/16/18 14:00 11/16/18 14:11 11/16/18 14:32 Temperature Pulse Rate 70 70 Respiratory Rate 21 15 Blood Pressure 174/98 H 160/88 H Pulse Oximetry 93 L 99 11/16/18 15:00 11/16/18 15:32 11/16/18 16:00 Temperature 99.7 F H Pulse Rate 70 69 68 Respiratory Rate 10 L 20 20 Blood Pressure 154/88 H Pulse Oximetry 99 98 97 11/16/18 16:02 11/16/18 17:00 11/16/18 18:00 Temperature Pulse Rate 63 66 67 Respiratory Rate 22 22 31 H Blood Pressure 163/87 H 164/85 H 157/80 H Pulse Oximetry 97 97 98 11/16/18 19:00 11/16/18 20:00 11/16/18 21:00 Temperature 99.5 F Pulse Rate 79 70 66 Respiratory Rate 19 14 16 Blood Pressure 129/70 150/81 H 137/75 Pulse Oximetry 96 96 96 11/16/18 22:00 11/16/18 22:01 11/16/18 22:05 Temperature Pulse Rate 66 67 75 Respiratory Rate 11 L 32 H Blood Pressure 157/73 H Pulse Oximetry 99 100 11/16/18 23:00 11/17/18 00:00 11/17/18 01:00 Temperature Pulse Rate 68 72 76 Respiratory Rate 17 15 18 Blood Pressure 166/78 H 113/55 L 155/84 H Pulse Oximetry 99 95 92 L 11/17/18 02:00 11/17/18 03:00 11/17/18 04:00 Temperature Pulse Rate 60 61 64 Respiratory Rate 16 16 18 Blood Pressure 142/73 H 167/79 H 141/76 H Pulse Oximetry 97 96 96 11/17/18 05:00 11/17/18 06:00 Temperature Pulse Rate 67 78 Respiratory Rate 17 13 Blood Pressure 143/76 H 134/82 Pulse Oximetry 96 99 Intake & Output 11/16/18 11/17/18 11/17/18 18:59 06:59 18:59 Intake Total 2350 / 2350 1340 / 1340 Output Total 2575 / 2575 880 / 880 Balance -225 / -225 460 / 460 Intake: IV 1350 / 1350 1100 / 1100 D5W/Normal Saline Inj 1,000 ML 350 / 350 1000 / 1000 @ 100 mls/hr IV.CONT .Q10H MARK Rx#:[id number] NS Inj 1,000 ML @ As Directed 900 / 900 IV.CONT .Q4H MARK Rx#:[id number] Ancef Inj 1 GM In NS Inj 100 ML 100 / 100 100 / 100 @ 200 mls/hr IV.SIG Q12H MARK Rx#:[id number] Oral 1000 / 1000 240 / 240 Output: Urine 2575 / 2575 880 / 880 Other: # Voids 5 2 Date of Last Bowel Movement 11/16/18 11/16/18 # Bowel Movements 1 1 Constitutional no acute distress Routine Respiratory Exam Present CTA bilaterally Routine Cardiovascular Exam Present RRR Routine Abdominal Exam Present soft Routine Extremities Exam Comments: no pedal edema. Routine Neurological Exam Present alert and oriented X3 Results Labs CBC & Chem 7: 11/15/18 05:44 11/17/18 05:55 Labs: Microbiology 11/14/18 01:20 Blood - Peripheral Aerobic Blood Culture - Preliminary No growth in 2 days 11/14/18 01:20 Blood - Peripheral Anaerobic Blood Culture - Preliminary No growth in 2 days 11/14/18 01:15 Blood - Peripheral Aerobic Blood Culture - Preliminary No growth in 2 days 11/14/18 01:15 Blood - Peripheral Anaerobic Blood Culture - Preliminary No growth in 2 days 11/14/18 04:00 Clean Catch Urine Urine Culture - Final 10-50,000 cfu/mL mixed gram positive corbin (probable contaminants) Assessment and Plan (1) Non-STEMI (non-ST elevated myocardial infarction): Code(s): I21.4 - Non-ST elevation (NSTEMI) myocardial infarction Status: Acute (2) Hypertension: Code(s): I10 - Essential (primary) hypertension Status: Chronic (3) Acute kidney injury: Code(s): N17.9 - Acute kidney failure, unspecified Status: Acute Plan A/P DKA- resolved hypoglycemic episode yesterday with no recurrence. -started on diabetic diet. -will decrease Levemir to 12 units subq qhs- continue with SSI; changed to low scale. -breastfeeding educator consulted. -A1c 8.1. fever/possible cellulitis of the right elbow- has improved. -UA and CXR not impressive . -started on IV Ancef - temps better. -blood cultures negative so far. elevated troponin -EKG with no acute St-T changes and the patient denies pain. -cardiology consult appreciated;stress test with no evidence of ischemia. -continue with aspirin and BB -echo with EF 50% acute kidney injury-has much improved. Hypokalemia/Hypophosphatemia -electrolyte replacement as needed. - nephrology following. Hypertension -hold Lisinopril for now due to CYNTHIA -continue BB with close monitoring of BP and HR. -continue to monitor BP. Neuropathy -Gabapentin as needed DVT GI prophylaxis -Teds SCDs -Lovenox for transfer to floor. Discharge Planning: home - tomorrow if stable. Progress Note: Quality VTE Deep Vein Thrombosis/Pulmonary Embolism Present on Admission: No _ (1) Hypertension Qualifiers: Hypertension type:
--- NOTE | 2018-11-17 14:40 | P.PNNP ---
Subjective Interval history: Feeling better today. Abdominal discomfort improving. Creatinine is now at 1.05. Blood sugars better controlled. <Betzaida Fernando - Last Filed: 11/17/18 14:40> Physical Exam Vital signs: Vital Signs 11/16/18 15:00 11/16/18 15:32 11/16/18 16:00 Temperature 99.7 F H Pulse Rate 70 69 68 Respiratory Rate 10 L 20 20 Blood Pressure 154/88 H Pulse Oximetry 99 98 97 11/16/18 16:02 11/16/18 17:00 11/16/18 18:00 Temperature Pulse Rate 63 66 67 Respiratory Rate 22 22 31 H Blood Pressure 163/87 H 164/85 H 157/80 H Pulse Oximetry 97 97 98 11/16/18 19:00 11/16/18 20:00 11/16/18 21:00 Temperature 99.5 F Pulse Rate 79 70 66 Respiratory Rate 19 14 16 Blood Pressure 129/70 150/81 H 137/75 Pulse Oximetry 96 96 96 11/16/18 22:00 11/16/18 22:01 11/16/18 22:05 Temperature Pulse Rate 66 67 75 Respiratory Rate 11 L 32 H Blood Pressure 157/73 H Pulse Oximetry 99 100 11/16/18 23:00 11/17/18 00:00 11/17/18 01:00 Temperature Pulse Rate 68 72 76 Respiratory Rate 17 15 18 Blood Pressure 166/78 H 113/55 L 155/84 H Pulse Oximetry 99 95 92 L 11/17/18 02:00 11/17/18 03:00 11/17/18 04:00 Temperature Pulse Rate 60 61 64 Respiratory Rate 16 16 18 Blood Pressure 142/73 H 167/79 H 141/76 H Pulse Oximetry 97 96 96 11/17/18 05:00 11/17/18 06:00 11/17/18 07:00 Temperature Pulse Rate 67 78 67 Respiratory Rate 17 13 26 H Blood Pressure 143/76 H 134/82 140/73 Pulse Oximetry 96 99 98 11/17/18 08:00 11/17/18 09:00 11/17/18 10:00 Temperature 99.7 F H Pulse Rate 70 68 76 Respiratory Rate 15 18 21 Blood Pressure 124/64 154/79 H 164/86 H Pulse Oximetry 95 98 99 11/17/18 11:00 11/17/18 12:00 Temperature 99.4 F Pulse Rate 71 75 Respiratory Rate 25 H 28 H Blood Pressure 148/84 H 172/86 H Pulse Oximetry 98 96 Intake & Output 11/16/18 11/17/18 11/17/18 18:59 06:59 18:59 Intake Total 2350 / 2350 1340 / 1340 100 / 100 Output Total 2575 / 2575 880 / 880 Balance -225 / -225 460 / 460 100 / 100 Intake: IV 1350 / 1350 1100 / 1100 100 / 100 D5W/Normal Saline Inj 1,000 ML 350 / 350 1000 / 1000 @ 100 mls/hr IV.CONT .Q10H MARK Rx#:[id number] NS Inj 1,000 ML @ As Directed 900 / 900 IV.CONT .Q4H MARK Rx#:[id number] Ancef Inj 1 GM In NS Inj 100 ML 100 / 100 100 / 100 100 / 100 @ 200 mls/hr IV.SIG Q12H MARK Rx#:[id number] Oral 1000 / 1000 240 / 240 Output: Urine 2575 / 2575 880 / 880 Other: # Voids 5 2 Date of Last Bowel Movement 11/16/18 11/16/18 # Bowel Movements 1 1 Narrative: GENERAL: Alert and oriented. SKIN: Warm and dry. NECK: Supple, trachea midline. No JVD CARDIOVASCULAR: Regular rate and rhythm without murmurs, gallops, or rubs. RESPIRATORY: Breath sounds equal bilaterally. No accessory muscle use. GASTROINTESTINAL: Abdomen soft, non-tender, nondistended. +BS MUSCULOSKELETAL: No cyanosis, or edema. BACK: Nontender without obvious deformity. No CVA tenderness. <Betzaida Fernando - Last Filed: 11/17/18 14:40> Vital signs: Vital Signs 11/18/18 16:00 11/18/18 20:00 11/19/18 00:00 Temperature 98.5 F 98.2 F 98.2 F Pulse Rate 72 76 73 Respiratory Rate 18 18 18 Blood Pressure 152/80 H 161/89 H 149/84 H Pulse Oximetry 98 99 99 11/19/18 08:00 Temperature 98.4 F Pulse Rate 74 Respiratory Rate 17 Blood Pressure 117/68 Pulse Oximetry 98 Intake & Output 11/18/18 11/19/18 11/19/18 18:59 06:59 18:59 Intake Total 1168.1 / 1168.1 340 / 340 Balance 1168.1 / 1168.1 340 / 340 Weight 63.9 kg Intake: IV 448.1 / 448.1 100 / 100 Magnesium Sulfate 1 gm/D5W 100 200 / 200 ml Premix 100 ML @ 100 mls/hr IV.SIG Q1H MARK Rx#:[id number] KCl 20 mEq Premix Inj 20 meq In 148.1 / 148.1 100 ml @ 50 mls/hr IV.SIG Q2H PRN Rx#:[id number] Ancef Inj 1 GM In NS Inj 100 ML 100 / 100 100 / 100 @ 200 mls/hr IV.SIG Q12H MARK Rx#:[id number] Oral 720 / 720 240 / 240 Other: # Voids 2 Date of Last Bowel Movement 11/18/18 <Dorcas Emmanuel - Last Filed: 11/19/18 14:30> Assessment and Plan - Assessment (1) Acute kidney injury Code(s): N17.9 - Acute kidney failure, unspecified Status: Acute Plan: Acute kidney injury with a creatinine of 3.1 which has improved from admission creatinine of 3.5. On day of consult. CYNTHIA with FeNA of 0.8 % suggestive of prerenal azotemia. Baseline creatinine 06/25/18 at 1.24. Chronic kidney disease most likely related to diabetes. Renal ultrasound with Right Kidney: Mild dilatation of an upper pole calyx without obvious stone.Left Kidney: Normal echogenicity and cortical thickness. No mass or hydronephrosis. No shortness of breath, nausea and vomiting has resolved today, no diarrhea. Oral fluids encouraged Avoid nephrotoxins including NSAIDS and IV contrast C3 low, C4 normal, CORNELIA positive, AntiDNA DS pending Creatinine at baseline Fluids and electrolytes stable (2) Hypertension Code(s): I10 - Essential (primary) hypertension Status: Chronic Plan: Elevated. On metoprolol, will increase dose. (3) Diabetes mellitus, insulin dependent (IDDM), controlled Code(s): E11.9 - Type 2 diabetes mellitus without complications; Z79.4 - termite control service representative (current) use of insulin Status: Acute Plan: Maintain blood sugars between 140 mg/dl to 180 mg/dl while hospitalized. Better controlled. (4) Elevated troponin Code(s): R74.8 - Abnormal levels of other serum enzymes Status: Acute Plan: Cardiology consulted. stress test negative for ischemia. <Betzaida Fernando - Last Filed: 11/17/18 14:40> - Assessment (1) Acute kidney injury Code(s): N17.9 - Acute kidney failure, unspecified Status: Acute Plan: Patient sen and examined, agree with above. Has CYNTHIA, and Creatinine continue to improve. CORNELIA was positive, Anti DNA send , awaiting result. (2) Hypertension Code(s): I10 - Essential (primary) hypertension Status: Chronic (3) Diabetes mellitus, insulin dependent (IDDM), controlled Code(s): E11.9 - Type 2 diabetes mellitus without complications; Z79.4 - [facility] (current) use of insulin Status: Acute (4) Elevated troponin Code(s): R74.8 - Abnormal levels of other serum enzymes Status: Acute <Dorcas Emmanuel - Last Filed: 11/19/18 14:30>
[2018-11-17] MEDS: Metoprolol Tartrate 50 MG Tablet PO SCH (20:53)
[2018-11-18] MEDS: Dextrose 50% in Water 50 ML Vial IV.PUSH PRN (02:40)
[2018-11-18] MEDS: Chlorhexidine Gluconate 2% 1 Pack (2 Cloths) TOPICAL SCH (04:48)
[2018-11-18 05:24] LABS: Calcium 7.3 mg/dL (8.5-10.1); Carbon Dioxide 33.3 meq/L (21.0-32.0); Phosphorus 2.5 mg/dL (2.5-4.9)
[2018-11-18 05:28] LABS: Potassium 2.9 meq/L (3.5-5.1)
[2018-11-18 05:48] LABS: Albumin 2.8 g/dL (3.4-5.0); Calcium-Albumin Corrected 8.3 mg/dL (8.5-10.1)
[2018-11-18] MEDS: Potassium Chlor 20 mEq Premix 20 MEQ/100 ML PIGGYBACK IV.SIG PRN ×2 (06:50→11:19)
[2018-11-18] MEDS: Metoprolol Tartrate 50 MG Tablet PO SCH ×2 (08:03→20:42)
[2018-11-18] MEDS: Insulin NovoLOG Aspart Correctional Sugar Inj SQ SCH ×4 (08:03→20:42)
[2018-11-18] MEDS: Potassium Phos/Sodium Phos 250 MG Tablet PO SCH ×3 (08:13→17:16)
[2018-11-18] MEDS: Senna/Docusate Sodium 8.6/50 MG Tablet PO SCH ×2 (08:13→20:42)
--- NOTE | 2018-11-18 09:16 | P.PNCA ---
Subjective Interval history: Has never had angina. No SOB Medications and Allergies Active Medications: Active Medications Acetaminophen (Tylenol) 650 mg PO Q6H PRN PRN Reason: PAIN 1-5 AND/OR FEVER >101F Al Hydroxide/Mg Hydroxide (Milk Of Magnteresa Liq) 30 ml PO Q12H PRN PRN Reason: Mild Constipation Albuterol (Duoneb Neb (Prn)) 1 ampul NEB Q2HR NEB PRN PRN Reason: WHEEZING Albuterol (Albuterol Neb (Prn)) 2.5 mg NEB UNSCH PRN PRN Reason: SHORTNESS OF BREATH/WHEEZING Albuterol (Duoneb Neb (Prn)) 1 ampul NEB UNSCH PRN PRN Reason: SHORTNESS OF BREATH/WHEEZING Aspirin (Ecotrin) 162 mg PO DAILY [facility] Last Admin: 11/18/18 08:03 Dose: 162 mg Atorvastatin Calcium (Lipitor) 40 mg PO DAILY [facility] Last Admin: 11/18/18 08:03 Dose: 40 mg Bisacodyl (Dulcolax Supp) 10 mg RECTAL DAILY PRN PRN Reason: SEVERE CONSITIPATION Chlorhexidine Gluconate (Chlorhexidine 2% Cloth) 3 pack TOPICAL DAILY@0400 [facility] Stop: 11/19/18 03:59 Last Admin: 11/18/18 04:48 Dose: Not Given Chlorhexidine Gluconate (Chlorhexidine 2% Cloth) 3 pack TOPICAL DAILY@0400 PRN PRN Reason: Extra cloth needed Stop: 11/19/18 03:59 Dextrose (D50w Vial) 50 ml IV.PUSH UNSCH PRN PRN Reason: PER HYPOGLYCEMIA PROTOCOL Last Admin: 11/18/18 02:40 Dose: 50 ml Enalaprilat (Vasotec Inj) 1.25 mg IV.PUSH Q8H PRN PRN Reason: SBP>180 OR DBP>100 Enoxaparin Sodium (Lovenox Inj) 40 mg SQ Q24H [facility] Last Admin: 11/14/18 08:45 Dose: 40 mg Glucagon (Glucagon Inj) 1 mg OTHER PRN PRN PRN Reason: for Hypoglycemia Protocol Potassium Chloride (Kcl 40 Meq Premix Inj) 40 meq in 100 mls @ 100 mls/hr IV.SIG Q1H PRN PRN Reason: for Initial K+ ONLY < 3.5 Potassium Chloride (Kcl 40 Meq Premix Inj) 40 meq in 100 mls @ 50 mls/hr IV.SIG Q2H PRN PRN Reason: for Subsequent K+ < 3.5 Potassium Chloride (Kcl 20 Meq Premix Inj) 20 meq in 100 mls @ 100 mls/hr IV.SIG Q1H PRN PRN Reason: for K+ 4.5 to 5 Last Infusion: 11/18/18 07:00 Dose: 30 mls/hr Potassium Chloride (Kcl 20 Meq Premix Inj) 20 meq in 100 mls @ 50 mls/hr IV.SIG Q2H PRN PRN Reason: for Initial K+ ONLY < 3.5 Last Infusion: 11/17/18 22:17 Dose: Infused Potassium Chloride (Kcl 20 Meq Premix Inj) 20 meq in 100 mls @ 50 mls/hr IV.SIG Q2H PRN PRN Reason: for Subsequent K+ < 3.5 Last Infusion: 11/17/18 22:17 Dose: Infused Potassium Chloride (Kcl 20 Meq Premix Inj) 20 meq in 100 mls @ 50 mls/hr IV.SIG Q2H PRN PRN Reason: for K+ 3.5 to 4.4 Potassium Chloride (Kcl 20 Meq Premix Inj) 20 meq in 100 mls @ 50 mls/hr IV.SIG Q2H PRN PRN Reason: for K+ 4.5 to 5 Last Infusion: 11/14/18 08:01 Dose: Infused Potassium Chloride (Kcl 20 Meq Premix Inj) 20 meq in 100 mls @ 100 mls/hr IV.SIG Q1H PRN PRN Reason: for K+ 3.5 to 4.4 Sodium Phosphate 15 mmol/ (Sodium Chloride) 105 mls @ 25 mls/hr IV.SIG UNSCH PRN PRN Reason: for Phosphate Level < 1.0 Cefazolin Sodium 1 gm/ Sodium (Chloride) 100 mls @ 200 mls/hr IV.SIG Q12H MARK Last Infusion: 11/17/18 22:17 Dose: Infused Insulin Aspart (Novolog Insulin Correctional Sugar Inj) 0 unit SQ ACHS MARK; Protocol Last Admin: 11/18/18 08:03 Dose: Not Given Insulin Detemir (Levemir Inj) 12 unit SQ HS MARK Last Admin: 11/17/18 20:52 Dose: 12 unit Lactulose (Lactulose Liq) 30 ml PO DAILY PRN PRN Reason: SEVERE CONSITIPATION Lisinopril (Prinivil) 20 mg PO DAILY [facility] Last Admin: 11/14/18 08:45 Dose: 20 mg Metoclopramide HCl (Reglan Inj) 5 mg IV.PUSH Q8H PRN PRN Reason: NAUSEA OR VOMITING Last Admin: 11/18/18 08:03 Dose: 5 mg Metoprolol Tartrate (Lopressor) 50 mg PO BID [facility] Last Admin: 11/18/18 08:03 Dose: 50 mg Morphine Sulfate (Morphine Inj) 2 mg IV.PUSH Q2H PRN PRN Reason: PAIN SCALE 6 TO 10 Nitroglycerin (Nitro-Bid 2% Oint) 0.5 inch TOPICAL Q6HR [facility] Last Admin: 11/18/18 06:56 Dose: 0.5 inch Ondansetron HCl (Zofran Inj) 4 mg IV.PUSH Q6H PRN PRN Reason: NAUSEA OR VOMITING Last Admin: 11/15/18 20:46 Dose: 4 mg Pantoprazole Sodium (Protonix) 40 mg PO DAILY [facility] Last Admin: 11/18/18 08:03 Dose: 40 mg Potassium Phos/Sodium Phos (K-Phos Neutral) 250 mg PO TID [facility] Last Admin: 11/18/18 08:13 Dose: 250 mg Senna/Docusate Sodium (Dayna-Colace) 1 tab PO BID [facility] Last Admin: 11/18/18 08:13 Dose: 1 tab Sennosides (Senokot) 17.2 mg PO Q12H PRN PRN Reason: Moderate Constipation Sodium Bicarbonate (Sodium Bicarbonate 8.4% Inj) 50 meq IV.PUSH UNSCH PRN PRN Reason: for pH 6.9 to 7.0 Sodium Bicarbonate (Sodium Bicarbonate 8.4% Inj) 100 meq IV.PUSH UNSCH PRN PRN Reason: for pH less than 6.9 Sodium Chloride (Ns Flush) 2 ml IV.FLUSH BID [facility] Last Admin: 11/18/18 08:04 Dose: 2 ml Sodium Chloride (Ns Flush) 2 ml IV.FLUSH PRN PRN PRN Reason: FLUSH AFTER USING IV ACCESS Temazepam (Restoril) 15 mg PO HS PRN PRN Reason: INSOMNIA Allergies Allergy/AdvReac Type Severity Reaction Status Date / Time No Known Allergies Allergy Verified 11/13/18 21:34 Home Medications Medication Instructions Recorded Confirmed Type insulin pump cartridge 06/24/18 11/13/18 History insulin glargine [Lantus U-100 50 unit SUBCUT DAILY 11/13/18 11/13/18 History Insulin] insulin regular human [Novolin R 1 sliding scale dose SUBCUT UD 11/13/18 History Regular U-100 Insuln] Physical Exam Vital signs: Vital Signs 11/17/18 10:00 11/17/18 11:00 11/17/18 12:00 Temperature 99.4 F Pulse Rate 76 71 74 Respiratory Rate 21 25 H 28 H Blood Pressure 164/86 H 148/84 H 172/86 H Pulse Oximetry 99 98 96 11/17/18 13:00 11/17/18 14:00 11/17/18 15:00 Temperature Pulse Rate 72 78 74 Respiratory Rate 34 H 37 H 38 H Blood Pressure 162/91 H 175/97 H 178/91 H Pulse Oximetry 99 97 98 11/17/18 15:25 11/17/18 16:00 11/17/18 16:21 Temperature 99.0 F Pulse Rate 78 70 70 Respiratory Rate 43 H 22 25 H Blood Pressure 155/75 H 181/96 H 185/100 H Pulse Oximetry 95 99 99 11/17/18 16:23 11/17/18 17:00 11/17/18 17:14 Temperature Pulse Rate 69 75 72 Respiratory Rate 21 20 21 Blood Pressure 175/93 H 197/88 H 160/78 H Pulse Oximetry 99 97 97 11/17/18 18:00 11/17/18 18:06 11/17/18 19:00 Temperature Pulse Rate 79 76 73 Respiratory Rate 21 19 22 Blood Pressure 166/101 H 153/83 H 167/88 H Pulse Oximetry 98 97 99 11/17/18 20:00 11/17/18 21:00 11/17/18 22:00 Temperature 98.9 F Pulse Rate 74 69 73 Respiratory Rate 24 24 17 Blood Pressure 168/91 H 188/95 H 128/80 Pulse Oximetry 97 98 98 11/17/18 23:00 11/18/18 00:00 11/18/18 01:00 Temperature 99.7 F H Pulse Rate 68 78 67 Respiratory Rate 17 19 15 Blood Pressure 122/62 Pulse Oximetry 98 96 97 11/18/18 01:06 11/18/18 02:00 11/18/18 03:00 Temperature Pulse Rate 67 69 70 Respiratory Rate 15 23 Blood Pressure 141/81 H Pulse Oximetry 97 96 99 11/18/18 03:05 11/18/18 04:00 11/18/18 05:00 Temperature Pulse Rate 71 68 68 Respiratory Rate 26 H 16 18 Blood Pressure 187/87 H 141/82 H 161/84 H Pulse Oximetry 97 97 99 11/18/18 06:00 11/18/18 07:00 11/18/18 08:00 Temperature 99.0 F Pulse Rate 70 72 69 Respiratory Rate 21 19 Blood Pressure 155/81 H 146/80 H 150/81 H Pulse Oximetry 98 99 97 Intake & Output 11/17/18 11/18/18 11/18/18 18:59 06:59 18:59 Intake Total 1400 / 1400 1200 / 1200 Output Total 2350 / 2350 2450 / 2450 Balance -950 / -950 -1250 / -1250 Intake: IV 200 / 200 400 / 400 KCl 20 mEq Premix Inj 20 meq In 100 / 100 300 / 300 100 ml @ 50 mls/hr IV.SIG Q2H PRN Rx#:[id number] Ancef Inj 1 GM In NS Inj 100 ML 100 / 100 100 / 100 @ 200 mls/hr IV.SIG Q12H MARK Rx#:[id number] Oral 1200 / 1200 800 / 800 Output: Urine 2350 / 2350 2450 / 2450 Other: # Voids 5 3 Date of Last Bowel Movement 11/17/18 11/17/18 # Bowel Movements 1 Narrative: GENERAL: Alert and oriented. SKIN: Warm and dry. NECK: Supple, trachea midline. No JVD CARDIOVASCULAR: Regular rate and rhythm without murmurs, gallops, or rubs. RESPIRATORY: Breath sounds equal bilaterally. No accessory muscle use. GASTROINTESTINAL: Abdomen soft, non-tender, nondistended. +BS MUSCULOSKELETAL: No cyanosis, or edema. BACK: Nontender without obvious deformity. No CVA tenderness. Results 11/15/18 05:44 11/18/18 04:30 Comprehensive Metabolic Panel 11/17/18 11/18/18 Range/Units 05:55 04:30 Sodium 141 139 (136-145) meq/L Potassium 2.8 L* 2.9 L* (3.5-5.1) meq/L Chloride 103 100 (98-107) meq/L Carbon Dioxide 29.9 33.3 H (21.0-32.0) meq/L BUN 7 5 L (7-18) mg/dL Creatinine 1.05 0.97 (0.60-1.30) mg/dL Calcium 6.9 L* 7.3 L* (8.5-10.1) mg/dL Albumin 2.6 L 2.8 L (3.4-5.0) g/dL Intake and Output 11/17/18 11/18/18 11/18/18 22:59 06:59 14:59 Intake Total 1600 / 1600 800 / 800 Output Total 2350 / 2350 2450 / 2450 Balance -750 / -750 -1650 / -1650 Intake: IV 400 / 400 KCl 20 mEq Premix Inj 20 meq In 300 / 300 100 ml @ 50 mls/hr IV.SIG Q2H PRN Rx#:[id number] Ancef Inj 1 GM In NS Inj 100 ML 100 / 100 @ 200 mls/hr IV.SIG Q12H MARK Rx#:[id number] Oral 1200 / 1200 800 / 800 Output: Urine 2350 / 2350 2450 / 2450 Other: # Voids 5 3 Date of Last Bowel Movement 11/17/18 11/17/18 # Bowel Movements 1 Assessment and Plan - Assessment (1) Non-STEMI (non-ST elevated myocardial infarction) Code(s): I21.4 - Non-ST elevation (NSTEMI) myocardial infarction Status: Acute (2) Hypertension Code(s): I10 - Essential (primary) hypertension Status: Chronic (3) Acute kidney injury Code(s): N17.9 - Acute kidney failure, unspecified Status: Acute - Plan KS was clearly Type 2 event. Since creat high will get vicky SPECT 11/17/2018: SPECT showed no ischemia. Cont. Medical therapy in view of renal disease. F/U prn. 11/18/2018: Discussed management with pt. KS was Type 2 secondary to acidosis. No ischemia by SPECT. Discussed cath vs med therapy. Decided on medical tx. Change NTP to Imdur.
[2018-11-18] MEDS: ceFAZolin Inj 1 GM in Sodium Chlor 0.9% Inj 100 ML IV.SIG SCH ×2 (10:24→23:07)
[2018-11-18] MEDS: Mag Sulf 1 gm/100 ml Premix 100 ML IV.SIG SCH ×2 (13:25→14:49)
[2018-11-18] MEDS: Magnesium Oxide 400 MG Tablet PO SCH ×2 (13:26→20:41)
--- NOTE | 2018-11-18 14:08 | P.PNNP ---
Subjective Interval history: Sitting up in bed, abdominal pain has improved and eating better. No SOB, chest pain, nausea, or vomiting. <Betzaida Fernando - Last Filed: 11/18/18 14:05> Physical Exam Vital signs: Vital Signs 11/17/18 15:00 11/17/18 15:25 11/17/18 16:00 Temperature 99.0 F Pulse Rate 74 78 70 Respiratory Rate 38 H 43 H 22 Blood Pressure 178/91 H 155/75 H 181/96 H Pulse Oximetry 98 95 99 11/17/18 16:21 11/17/18 16:23 11/17/18 17:00 Temperature Pulse Rate 70 69 75 Respiratory Rate 25 H 21 20 Blood Pressure 185/100 H 175/93 H 197/88 H Pulse Oximetry 99 99 97 11/17/18 17:14 11/17/18 18:00 11/17/18 18:06 Temperature Pulse Rate 72 79 76 Respiratory Rate 21 21 19 Blood Pressure 160/78 H 166/101 H 153/83 H Pulse Oximetry 97 98 97 11/17/18 19:00 11/17/18 20:00 11/17/18 21:00 Temperature 98.9 F Pulse Rate 73 74 69 Respiratory Rate 22 24 24 Blood Pressure 167/88 H 168/91 H 188/95 H Pulse Oximetry 99 97 98 11/17/18 22:00 11/17/18 23:00 11/18/18 00:00 Temperature 99.7 F H Pulse Rate 73 68 78 Respiratory Rate 17 17 19 Blood Pressure 128/80 122/62 Pulse Oximetry 98 98 96 11/18/18 01:00 11/18/18 01:06 11/18/18 02:00 Temperature Pulse Rate 67 67 69 Respiratory Rate 15 15 23 Blood Pressure 141/81 H Pulse Oximetry 97 97 96 11/18/18 03:00 11/18/18 03:05 11/18/18 04:00 Temperature Pulse Rate 70 71 68 Respiratory Rate 26 H 16 Blood Pressure 187/87 H 141/82 H Pulse Oximetry 99 97 97 11/18/18 05:00 11/18/18 06:00 11/18/18 07:00 Temperature Pulse Rate 68 70 72 Respiratory Rate 18 21 Blood Pressure 161/84 H 155/81 H 146/80 H Pulse Oximetry 99 98 99 11/18/18 08:00 11/18/18 12:00 Temperature 99.0 F 99.1 F Pulse Rate 69 72 Respiratory Rate 19 23 Blood Pressure 150/81 H 156/86 H Pulse Oximetry 97 99 Intake & Output 11/17/18 11/18/18 11/18/18 18:59 06:59 18:59 Intake Total 1400 / 1400 1200 / 1200 248.1 / 248.1 Output Total 2350 / 2350 2450 / 2450 Balance -950 / -950 -1250 / -1250 248.1 / 248.1 Intake: IV 200 / 200 400 / 400 248.1 / 248.1 KCl 20 mEq Premix Inj 20 meq In 100 / 100 300 / 300 148.1 / 148.1 100 ml @ 50 mls/hr IV.SIG Q2H PRN Rx#:[id number] Ancef Inj 1 GM In NS Inj 100 ML 100 / 100 100 / 100 100 / 100 @ 200 mls/hr IV.SIG Q12H MARK Rx#:[id number] Oral 1200 / 1200 800 / 800 Output: Urine 2350 / 2350 2450 / 2450 Other: # Voids 5 3 Date of Last Bowel Movement 11/17/18 11/17/18 # Bowel Movements 1 Narrative: GENERAL: Alert and oriented. SKIN: Warm and dry. NECK: Supple, trachea midline. No JVD CARDIOVASCULAR: Regular rate and rhythm without murmurs, gallops, or rubs. RESPIRATORY: Breath sounds equal bilaterally. No accessory muscle use. GASTROINTESTINAL: Abdomen soft, non-tender, nondistended. +BS MUSCULOSKELETAL: No cyanosis, or edema. BACK: Nontender without obvious deformity. No CVA tenderness. <Betzaida Fernando - Last Filed: 11/18/18 14:05> Vital signs: Vital Signs 11/18/18 00:00 11/18/18 01:00 11/18/18 01:06 Temperature 99.7 F H Pulse Rate 78 67 67 Respiratory Rate 19 15 15 Blood Pressure 141/81 H Pulse Oximetry 96 97 97 11/18/18 02:00 11/18/18 03:00 11/18/18 03:05 Temperature Pulse Rate 69 70 71 Respiratory Rate 23 26 H Blood Pressure 187/87 H Pulse Oximetry 96 99 97 11/18/18 04:00 11/18/18 05:00 11/18/18 06:00 Temperature Pulse Rate 68 68 70 Respiratory Rate 16 18 21 Blood Pressure 141/82 H 161/84 H 155/81 H Pulse Oximetry 97 99 98 11/18/18 07:00 11/18/18 08:00 11/18/18 12:00 Temperature 99.0 F 99.1 F Pulse Rate 72 69 72 Respiratory Rate 19 23 Blood Pressure 146/80 H 150/81 H 156/86 H Pulse Oximetry 99 97 99 11/18/18 14:15 11/18/18 16:00 11/18/18 20:00 Temperature 98.4 F 98.5 F 98.2 F Pulse Rate 75 72 76 Respiratory Rate 16 18 18 Blood Pressure 141/82 H 152/80 H 161/89 H Pulse Oximetry 100 98 99 Intake & Output 11/18/18 11/18/18 11/19/18 06:59 18:59 06:59 Intake Total 1200 / 1200 1168.1 / 1168.1 Output Total 2450 / 2450 Balance -1250 / -1250 1168.1 / 1168.1 Intake: IV 400 / 400 448.1 / 448.1 Magnesium Sulfate 1 gm/D5W 100 200 / 200 ml Premix 100 ML @ 100 mls/hr IV.SIG Q1H MARK Rx#:[id number] KCl 20 mEq Premix Inj 20 meq In 300 / 300 148.1 / 148.1 100 ml @ 50 mls/hr IV.SIG Q2H PRN Rx#:[id number] Ancef Inj 1 GM In NS Inj 100 ML 100 / 100 100 / 100 @ 200 mls/hr IV.SIG Q12H MARK Rx#:[id number] Oral 800 / 800 720 / 720 Output: Urine 2450 / 2450 Other: # Voids 3 Date of Last Bowel Movement 11/17/18 <Dorcas Emmanuel - Last Filed: 11/18/18 23:15> Assessment and Plan - Assessment (1) Acute kidney injury Code(s): N17.9 - Acute kidney failure, unspecified Status: Acute Plan: Acute kidney injury with a creatinine of 3.1 which has improved from admission creatinine of 3.5. On day of consult. CYNTHIA with FeNA of 0.8 % suggestive of prerenal azotemia. Renal ultrasound with Right Kidney: Mild dilatation of an upper pole calyx without obvious stone.Left Kidney: Normal echogenicity and cortical thickness. No mass or hydronephrosis. No shortness of breath, nausea and vomiting has resolved today, no diarrhea. Oral fluids encouraged Avoid nephrotoxins including NSAIDS and IV contrast C3 low, C4 normal, CORNELIA positive, AntiDNA DS pending Creatinine at baseline Hypokalemia, replacement has been given with improvement in kidney indices nephrology will sign off (2) Hypertension Code(s): I10 - Essential (primary) hypertension Status: Chronic Plan: On metoprolol. (3) Diabetes mellitus, insulin dependent (IDDM), controlled Code(s): E11.9 - Type 2 diabetes mellitus without complications; Z79.4 - snf (current) use of insulin Status: Acute Plan: Maintain blood sugars between 140 mg/dl to 180 mg/dl while hospitalized. Better controlled. (4) Elevated troponin Code(s): R74.8 - Abnormal levels of other serum enzymes Status: Acute Plan: Cardiology consulted. stress test negative for ischemia. <Betzaida Fernando - Last Filed: 11/18/18 14:05> - Assessment (1) Acute kidney injury Code(s): N17.9 - Acute kidney failure, unspecified Status: Acute Plan: Patient seen and examined, agree with above. Creatinine is normalize now. CORNELIA was positive and Anti DNA is pending, unlikely Lupus. (2) Hypertension Code(s): I10 - Essential (primary) hypertension Status: Chronic (3) Diabetes mellitus, insulin dependent (IDDM), controlled Code(s): E11.9 - Type 2 diabetes mellitus without complications; Z79.4 - snf (current) use of insulin Status: Acute (4) Elevated troponin Code(s): R74.8 - Abnormal levels of other serum enzymes Status: Acute <Dorcas Emmanuel - Last Filed: 11/18/18 23:15>
--- NOTE | 2018-11-18 17:18 | P.PNIM ---
Subjective Interval history: Reports tolerating diet. No nausea or vomiting, loose stools. No abdominal pain. Physical Exam Vital signs: Vital Signs 11/17/18 17:14 11/17/18 18:00 11/17/18 18:06 Temperature Pulse Rate 72 79 76 Respiratory Rate 21 21 19 Blood Pressure 160/78 H 166/101 H 153/83 H Pulse Oximetry 97 98 97 11/17/18 19:00 11/17/18 20:00 11/17/18 21:00 Temperature 98.9 F Pulse Rate 73 74 69 Respiratory Rate 22 24 24 Blood Pressure 167/88 H 168/91 H 188/95 H Pulse Oximetry 99 97 98 11/17/18 22:00 11/17/18 23:00 11/18/18 00:00 Temperature 99.7 F H Pulse Rate 73 68 78 Respiratory Rate 17 17 19 Blood Pressure 128/80 122/62 Pulse Oximetry 98 98 96 11/18/18 01:00 11/18/18 01:06 11/18/18 02:00 Temperature Pulse Rate 67 67 69 Respiratory Rate 15 15 23 Blood Pressure 141/81 H Pulse Oximetry 97 97 96 11/18/18 03:00 11/18/18 03:05 11/18/18 04:00 Temperature Pulse Rate 70 71 68 Respiratory Rate 26 H 16 Blood Pressure 187/87 H 141/82 H Pulse Oximetry 99 97 97 11/18/18 05:00 11/18/18 06:00 11/18/18 07:00 Temperature Pulse Rate 68 70 72 Respiratory Rate 18 21 Blood Pressure 161/84 H 155/81 H 146/80 H Pulse Oximetry 99 98 99 11/18/18 08:00 11/18/18 12:00 11/18/18 14:15 Temperature 99.0 F 99.1 F 98.4 F Pulse Rate 69 72 75 Respiratory Rate 19 23 16 Blood Pressure 150/81 H 156/86 H 141/82 H Pulse Oximetry 97 99 100 11/18/18 16:00 Temperature 98.5 F Pulse Rate 72 Respiratory Rate 18 Blood Pressure 152/80 H Pulse Oximetry 98 Intake & Output 11/17/18 11/18/18 11/18/18 18:59 06:59 18:59 Intake Total 1400 / 1400 1200 / 1200 348.1 / 348.1 Output Total 2350 / 2350 2450 / 2450 Balance -950 / -950 -1250 / -1250 348.1 / 348.1 Intake: IV 200 / 200 400 / 400 348.1 / 348.1 Magnesium Sulfate 1 gm/D5W 100 100 / 100 ml Premix 100 ML @ 100 mls/hr IV.SIG Q1H MARK Rx#:[id number] KCl 20 mEq Premix Inj 20 meq In 100 / 100 300 / 300 148.1 / 148.1 100 ml @ 50 mls/hr IV.SIG Q2H PRN Rx#:[id number] Ancef Inj 1 GM In NS Inj 100 ML 100 / 100 100 / 100 100 / 100 @ 200 mls/hr IV.SIG Q12H MARK Rx#:[id number] Oral 1200 / 1200 800 / 800 Output: Urine 2350 / 2350 2450 / 2450 Other: # Voids 5 3 Date of Last Bowel Movement 11/17/18 11/17/18 # Bowel Movements 1 Narrative: GENERAL: This is a well-nourished, well-developed patient, in no apparent distress. CARDIOVASCULAR: Regular rate and rhythm RESPIRATORY: Clear to auscultation. Breath sounds equal bilaterally. No wheezes , rales, or rhonchi. GASTROINTESTINAL: Abdomen soft, non-tender, nondistended. Normal active bowel sounds MUSCULOSKELETAL: Extremities without clubbing, cyanosis, or edema. NEURO: Alert & Oriented x4 to person, place, time, situation. Moves all ext x4 Results Labs CBC & Chem 7: 11/15/18 05:44 11/18/18 04:30 Labs: Microbiology 11/14/18 01:20 Blood - Peripheral Aerobic Blood Culture - Preliminary No growth in 4 days 11/14/18 01:20 Blood - Peripheral Anaerobic Blood Culture - Preliminary No growth in 4 days 11/14/18 01:15 Blood - Peripheral Aerobic Blood Culture - Preliminary No growth in 4 days 11/14/18 01:15 Blood - Peripheral Anaerobic Blood Culture - Preliminary No growth in 4 days Assessment and Plan (1) Acute kidney injury: Code(s): N17.9 - Acute kidney failure, unspecified Status: Acute (2) Hypertension: Code(s): I10 - Essential (primary) hypertension Status: Chronic (3) Diabetes mellitus, insulin dependent (IDDM), controlled: Code(s): E11.9 - Type 2 diabetes mellitus without complications; Z79.4 - long term care administrator ( current) use of insulin Status: Acute (4) Elevated troponin: Code(s): R74.8 - Abnormal levels of other serum enzymes Status: Acute Plan DKA- resolved tolerating diabetic diet. -No further hypoglycemic episodes after decreasing Levemir to 12 units subq qhs - continue with SSI; changed to low scale. -manufacturing controls engineer consulted. -A1c 8.1. fever/possible cellulitis of the right elbow- has improved. -UA and CXR not impressive . -started on IV Ancef since 11/15 - temps better. -blood cultures negative so far. Repeat CBC in the morning, if leukocytosis resolves, consider discontinuing antibiotics. elevated troponin with type II PR -EKG with no acute St-T changes and the patient denies pain. -cardiology consult appreciated;stress test with no evidence of ischemia. -continue with aspirin and BB, cardiology added Imdur to her regimen -echo with EF 50% acute kidney injury-has much improved. Hypokalemia/Hypophosphatemia -replete today Severe hypomagnesium -replete today - nephrology following. Hypertension Can restart lisinopril now that acute kidney injury resolved -continue BB with close monitoring of BP and HR. Neuropathy -Gabapentin as needed DVT GI prophylaxis -Teds SCDs -Lovenox Transfer out of the intensive care unit Likely discharge home in the morning if electrolytes improve Progress Note: Quality VTE Deep Vein Thrombosis/Pulmonary Embolism Present on Admission: No _ (1) Hypertension Qualifiers: Hypertension type:
[2018-11-18] MEDS: Lactobacillus Acidophilus/L. Spores Tablet PO SCH (20:41)
[2018-11-18] MEDS: Insulin Detemir Inj 1,000 UNIT/10 ML Vial SQ SCH (20:42)
[2018-11-19] MEDS: Isosorbide Mononitrate 30 MG ER 24HR Tablet (Imdur) PO SCH ×2 (05:51→06:21)
[2018-11-19] MEDS: Magnesium Oxide 400 MG Tablet PO SCH (09:28)
[2018-11-19] MEDS: Potassium Phos/Sodium Phos 250 MG Tablet PO SCH ×2 (09:28→12:47)
[2018-11-19] MEDS: ceFAZolin Inj 1 GM in Sodium Chlor 0.9% Inj 100 ML IV.SIG SCH (09:28)
[2018-11-19] MEDS: Lactobacillus Acidophilus/L. Spores Tablet PO SCH (09:29)
[2018-11-19] MEDS: Senna/Docusate Sodium 8.6/50 MG Tablet PO SCH (09:30)
[2018-11-19] MEDS: Metoprolol Tartrate 50 MG Tablet PO SCH (09:30)
[2018-11-19] MEDS: Insulin NovoLOG Aspart Correctional Sugar Inj SQ SCH ×2 (09:31→12:46)
[2018-11-19 09:35] LABS: Baso % (Auto) 0.6 % (0.0-2.0); Eos # (Auto) 0.1 th/mm3 (0.0-0.4); Eos % (Auto) 2.3 % (0.0-4.0); Hematocrit 34.7 % (39.0-51.0); Hemoglobin 11.7 gm/dL (13.0-17.0); Lymph # (Auto) 1.1 th/mm3 (1.0-4.8); Lymph % (Auto) 22.3 % (9.0-44.0); Mean Corpuscular HGB Conc 33.7 % (32.0-36.0); Mean Corpuscular Hemoglobin 32.2 pg (27.0-34.0); Mean Corpuscular Volume 95.6 fL (80.0-100.0); Mean Platelet Volume 11.3 fL (7.0-11.0); Mono # (Auto) 0.7 th/mm3 (0.0-0.9); Neut % (Auto) 60.8 % (16.0-70.0); Platelet Count 148 th/mm3 (150-450); Red Blood Count 3.63 mil/mm3 (4.50-5.90); Red Cell Distribution Width 14.3 % (11.6-17.2); White Blood Count 4.9 th/mm3 (4.0-11.0)
[2018-11-19 10:19] LABS: Calcium 7.9 mg/dL (8.5-10.1); Carbon Dioxide 35.5 meq/L (21.0-32.0); Magnesium 1.7 mg/dL (1.5-2.5); Potassium 4.4 meq/L (3.5-5.1)
[2018-11-19 10:28] LABS: Eosinophils 3 % (0-4); Lymphocytes 20 % (9-44); Metamyelocytes 4 % (0-1); Monocytes 14 % (0-8); Myelocytes 1 % (0-0)
[2018-11-19 10:29] LABS: Platelet Morphology Normal (Normal); RBC Morphology Normal (Normal)
--- NOTE | 2018-11-19 11:03 | P.DS ---
DS: Providers Date of admission: 11/13/18 23:27 Primary care physician: Nannette Benjamin Consults: 11/13/18 23:52 Consult to Hospitalist Routine Consulting Provider: Jaleesa Israel Reason for Consultation: DKA Notified:: Service Spoke with:: shaq Date Notified:: 11/14/18 Time Notified:: 00:05 Ordering Provider: LACY 11/14/18 08:55 Consult to Nephrology Routine Consulting Provider: Dorcas Emmanuel Does the patient have a Crate Liner who follows them?: No Preferred Nephrology Oil Expert:: Corporate Bond Trader Physician Reason for Consultation: acute kidney injury. Notified:: Service Spoke with:: Marichuy Date Notified:: 11/14/18 Time Notified:: 09:01 Ordering Provider: GILBERTO 11/14/18 11:41 Consult to Cardiology Routine Consulting Provider: Delbert Choi Does the patient have a Perishable Freight Inspector who follows them?: No Preferred Agricultural Economics Teacher:: Corporate Bond Trader Physician Reason for Consultation: elevated troponin. Notified:: Office Spoke with:: Nisa Date Notified:: 11/14/18 Time Notified:: 12:20 Ordering Provider: GILBERTO Brief History from admission: 48-year-old male came to the emergency room brought by EMS for possible DKA. Patient is an insulin-dependent diabetic and says that there is a stomach bug going around in his household. He caught it yesterday and has been vomiting since. He tried to stay caught up with his blood sugar and insulin but today he continued to have nonstop vomiting and finally got extremely tired and called 911. His blood glucose level was in the 400s by EMS. Patient is tachycardic upon arrival. He says that he has had multiple times DKA and knows that he feels as if he is currently having DKA as well. No diarrhea. No blood in his vomit. No history of fever or chills. DS: Diagnosis Discharge Diagnosis (1) Acute kidney injury: Status: Acute (2) Hypertension: Status: Chronic (3) Elevated troponin: Status: Acute (4) DKA (diabetic ketoacidoses): Status: Acute (5) Electrolyte imbalance: Status: Acute (6) Type I diabetes mellitus with complication, uncontrolled: Status: Acute (7) Non-STEMI (non-ST elevated myocardial infarction): Status: Acute DS: Summary Patient admitted to critical care service in DKA and was started on insulin drip per protocol. Once his blood sugars improved, he was transitioned to long- acting insulin. Patient developed a fever due to suspected right elbow cellulitis and patient was started on IV antibiotic therapy. Patient was found to have elevated troponins likely due to type II DC secondary to DKA. EKG did not show any acute ST/T changes. Echocardiogram was obtained which revealed EF 50%. Patient was seen in consultation by cardiology. He developed acute kidney injury and was started on IV fluids. He was seen in consultation by nephrology. Renal ultrasound showed mild dilatation of the upper pole calyx otherwise unremarkable. Patient's kidney function improved. Patient underwent stress test which revealed no evidence of stress-induced ischemia. Cardiology added Imdur to his medication regimen of aspirin, ACEI and beta-rachel. Blood cultures failed to show any growth in 5 days. Urine culture grew 10-50,000 mixed gram-positive corbin likely contaminants. Patient defervesced. His leukocytosis resolved. His electrolyte imbalance was corrected. Patient improved clinically. He reached the maximal benefit from his hospitalization. He was cleared for discharge from cardiology and nephrology specialty services. Time Spent with Patient Total time spent providing and/or coordinating discharge services: Greater than 30 minutes Status at Discharge Functional status at discharge: independent ambulation Overall status at discharge: patient is back to baseline Quality: VTE Deep Vein Thrombosis/Pulmonary Embolism Present on Admission: No Exam Narrative Exam Narrative: GENERAL: Well-developed well-nourished male in no acute distress. Awake and alert. Appears comfortable. SKIN: Warm and dry. HEENT: Atraumatic. Normocephalic. Pupils equal and round. No scleral icterus. No nasal discharge. Mucous membranes pink and moist. NECK: Trachea midline. CARDIOVASCULAR: Regular rate and rhythm. RESPIRATORY: No accessory muscle use. Clear to auscultation. Breath sounds equal bilaterally. GASTROINTESTINAL: Abdomen soft, non-tender, nondistended. MUSCULOSKELETAL: Extremities without clubbing, cyanosis, or edema. NEUROLOGICAL: Awake and alert. No obvious cranial nerve deficits. Motor grossly within normal limits. Normal speech. PSYCHIATRIC: Appropriate mood and affect; insight and judgment normal. Results Labs on day of discharge: Labs from last 24 hours 11/19/18 11/19/18 11/19/18 08:17 08:01 08:01 WBC 4.9 RBC 3.63 L Hgb 11.7 L Hct 34.7 L MCV 95.6 MCH 32.2 MCHC 33.7 RDW 14.3 Plt Count 148 L D MPV 11.3 H Prelim Diff (Auto) Slide review pending Neut % (Auto) 60.8 Lymph % (Auto) 22.3 [place] % (Auto) 14.0 H Eos % (Auto) 2.3 Baso % (Auto) 0.6 Neut # (Auto) 3.0 Lymph # (Auto) 1.1 [place] # (Auto) 0.7 Eos # (Auto) 0.1 Baso # (Auto) 0.0 WBC Differential Manual diff final Seg Neuts % (Manual) 55 Band Neuts % (Manual) 3 Lymphocytes % (Manual) 20 Monocytes % (Manual) 14 H Eosinophils % (Manual) 3 Metamyelocytes % (Man) 4 H Myelocytes % (Man) 1 H Abs Neuts (Manual) 3.1 Differential Comment . Platelet Estimate Low L Platelet Morphology Normal RBC Morphology Normal Sodium 134 L Potassium 4.4 D Chloride 97 L Carbon Dioxide 35.5 H Anion Gap 2 L BUN 7 Creatinine 1.18 Estimated GFR 66 L POC Glucose 239 H Random Glucose 228 H D Calcium 7.9 L Magnesium 1.7 CORNELIA Titer CORNELIA Pattern CORNELIA Interpretation Double Strand DNA Ab 11/19/18 11/19/18 11/19/18 06:49 06:20 05:53 WBC RBC Hgb Hct MCV MCH MCHC RDW Plt Count MPV Prelim Diff (Auto) Neut % (Auto) Lymph % (Auto) [place] % (Auto) Eos % (Auto) Baso % (Auto) Neut # (Auto) Lymph # (Auto) [place] # (Auto) Eos # (Auto) Baso # (Auto) WBC Differential Seg Neuts % (Manual) Band Neuts % (Manual) Lymphocytes % (Manual) Monocytes % (Manual) Eosinophils % (Manual) Metamyelocytes % (Man) Myelocytes % (Man) Abs Neuts (Manual) Differential Comment Platelet Estimate Platelet Morphology RBC Morphology Sodium Potassium Chloride Carbon Dioxide Anion Gap BUN Creatinine Estimated GFR POC Glucose 106 55 L 50 L Random Glucose Calcium Magnesium CORNELIA Titer CORNELIA Pattern CORNELIA Interpretation Double Strand DNA Ab 11/18/18 11/18/18 11/18/18 19:31 16:38 12:14 WBC RBC Hgb Hct MCV MCH MCHC RDW Plt Count MPV Prelim Diff (Auto) Neut % (Auto) Lymph % (Auto) [place] % (Auto) Eos % (Auto) Baso % (Auto) Neut # (Auto) Lymph # (Auto) [place] # (Auto) Eos # (Auto) Baso # (Auto) WBC Differential Seg Neuts % (Manual) Band Neuts % (Manual) Lymphocytes % (Manual) Monocytes % (Manual) Eosinophils % (Manual) Metamyelocytes % (Man) Myelocytes % (Man) Abs Neuts (Manual) Differential Comment Platelet Estimate Platelet Morphology RBC Morphology Sodium Potassium Chloride Carbon Dioxide Anion Gap BUN Creatinine Estimated GFR POC Glucose 292 H 225 H 210 H Random Glucose Calcium Magnesium CORNELIA Titer CORNELIA Pattern CORNELIA Interpretation Double Strand DNA Ab 11/17/18 11/15/18 05:55 05:44 WBC RBC Hgb Hct MCV MCH MCHC RDW Plt Count MPV Prelim Diff (Auto) Neut % (Auto) Lymph % (Auto) [place] % (Auto) Eos % (Auto) Baso % (Auto) Neut # (Auto) Lymph # (Auto) [place] # (Auto) Eos # (Auto) Baso # (Auto) WBC Differential Seg Neuts % (Manual) Band Neuts % (Manual) Lymphocytes % (Manual) Monocytes % (Manual) Eosinophils % (Manual) Metamyelocytes % (Man) Myelocytes % (Man) Abs Neuts (Manual) Differential Comment Platelet Estimate Platelet Morphology RBC Morphology Sodium Potassium Chloride Carbon Dioxide Anion Gap BUN Creatinine Estimated GFR POC Glucose Random Glucose Calcium Magnesium CORNELIA Titer 1:80 H CORNELIA Pattern Diffuse H CORNELIA Interpretation Double Strand DNA Ab Less than 12.3 Impressions ITS Impressions Abdomen/Bladder Ultrasound 11/14/18 00:00 CONCLUSION: 1. Mild dilatation upper pole calyx without obvious stone otherwise normal kidneys 2. Multiple gallstones. Chest X-Ray 11/14/18 00:00 CONCLUSION: Mild diffuse symmetric interstitial thickening Myocardial Perfusion Scan Nuc Med 11/15/18 00:00 CONCLUSION: 1. No evidence of stress-induced ischemia. 2. Intact wall motion with 62% ejection fraction. Discharge Plan Discharge Disposition Patient Disposition: 01 Discharge Home Discharge Condition Condition: Stable Discharge Order Discharge Orders: Discharge Order (Routine); Ordered 11/19/18 Ordered By: Sia Snow Discharge Details Anticipated Discharge Date: 11/19/18 Physicians Team Primary Care Provider: [facility], Attending Provider: Dhruv Araujo Other Providers: Dorcas Emmanuel ; Delbert Choi Rxs /Orders / Referrals /Forms Prescriptions: New isosorbide mononitrate 30 mg Tablet Extended Release 24 Hr 30 mg PO DAILY@0700 Qty: 30 RF: 0 metoprolol tartrate 50 mg Tablet 50 mg PO BID Qty: 60 RF: 0 magnesium oxide 400 mg (241.3 mg magnesium) Tablet 800 mg PO BID Qty: 4 RF: 0 insulin aspart U-100 [Novolog U-100 Insulin aspart] 100 unit/mL Solution 3 unit subcut TIDAC Qty: 10 RF: 0 aspirin 81 mg tablet,delayed release (DR/EC) 81 mg PO DAILY Qty: 30 RF: 0 atorvastatin [Lipitor] 10 mg tablet 10 mg PO DAILY Qty: 30 RF: 0 Continue lisinopril 20 mg Tablet 20 mg PO DAILY Qty: 30 RF: 0 Changed insulin glargine [Lantus U-100 Insulin] 100 unit/mL Solution 5 unit SUBCUT DAILY Qty: 10 RF: 0 Discontinued insulin pump cartridge Cartridge RF: 0 insulin regular human [Novolin R Regular U-100 Insuln] 100 unit/mL Solution 1 sliding scale dose SUBCUT UD RF: 0 Referrals: [facility] [Outside] - See Instructions ( Please call the physician's office to book the appointment to be seen within one week.) [facility], [Primary [facility] - See Instructions Status ED Status: Left Department Discharge Information Discharge Date/Time: 11/19/18 17:32
--- NOTE | 2018-11-19 14:31 | P.PNNP ---
Subjective Interval history: Patient is alert, now getting ready for discharge, eating better. Physical Exam Vital signs: Vital Signs 11/18/18 16:00 11/18/18 20:00 11/19/18 00:00 Temperature 98.5 F 98.2 F 98.2 F Pulse Rate 72 76 73 Respiratory Rate 18 18 18 Blood Pressure 152/80 H 161/89 H 149/84 H Pulse Oximetry 98 99 99 11/19/18 08:00 Temperature 98.4 F Pulse Rate 74 Respiratory Rate 17 Blood Pressure 117/68 Pulse Oximetry 98 Intake & Output 11/18/18 11/19/18 11/19/18 18:59 06:59 18:59 Intake Total 1168.1 / 1168.1 340 / 340 Balance 1168.1 / 1168.1 340 / 340 Weight 63.9 kg Intake: IV 448.1 / 448.1 100 / 100 Magnesium Sulfate 1 gm/D5W 100 200 / 200 ml Premix 100 ML @ 100 mls/hr IV.SIG Q1H MARK Rx#:[id number] KCl 20 mEq Premix Inj 20 meq In 148.1 / 148.1 100 ml @ 50 mls/hr IV.SIG Q2H PRN Rx#:[id number] Ancef Inj 1 GM In NS Inj 100 ML 100 / 100 100 / 100 @ 200 mls/hr IV.SIG Q12H MARK Rx#:[id number] Oral 720 / 720 240 / 240 Other: # Voids 2 Date of Last Bowel Movement 11/18/18 Narrative: GENERAL: Alert and oriented. SKIN: Warm and dry. NECK: Supple, trachea midline. No JVD CARDIOVASCULAR: Regular rate and rhythm without murmurs, gallops, or rubs. RESPIRATORY: Breath sounds equal bilaterally. No accessory muscle use. GASTROINTESTINAL: Abdomen soft, non-tender, nondistended. +BS MUSCULOSKELETAL: No cyanosis, or edema. BACK: Nontender without obvious deformity. No CVA tenderness. Assessment and Plan - Assessment (1) Acute kidney injury Code(s): N17.9 - Acute kidney failure, unspecified Status: Acute Plan: Patient with CYNTHIA, and Creatinine continue to improve. CORNELIA was positive, Anti DNA is negative. Patient for discharge. Told to drink more fluid. To follow with his PCP. (2) Hypertension Code(s): I10 - Essential (primary) hypertension Status: Chronic Plan: On metoprolol. (3) Diabetes mellitus, insulin dependent (IDDM), controlled Code(s): E11.9 - Type 2 diabetes mellitus without complications; Z79.4 - engine setter (current) use of insulin Status: Acute Plan: Maintain blood sugars between 140 mg/dl to 180 mg/dl while hospitalized. Better controlled. (4) Elevated troponin Code(s): R74.8 - Abnormal levels of other serum enzymes Status: Acute Plan: Cardiology consulted. stress test negative for ischemia.
== END 2018-11-19 17:32 | disposition home or self-care (01) | DRG 637 ==
LOC: NEPC 21:09 → NEDA 23:27 → N03 11-14 01:25 → N07 11-18 13:56
PROVIDERS: ADMIT Hospitalist; ATTEND Hospitalist
DX: Z87.891 Personal history of nicotine dependence; I21.A1 Myocardial infarction type 2; Z82.49 Family history of ischemic heart disease and other diseases of the circulatory system; E83.42 Hypomagnesemia; Z79.4 Long term (current) use of insulin; E10.40 Type 1 diabetes mellitus with diabetic neuropathy, unspecified; Z96.41 Presence of insulin pump (external) (internal); E10.649 Type 1 diabetes mellitus with hypoglycemia without coma; N18.9 Chronic kidney disease, unspecified; E87.6 Hypokalemia; L03.113 Cellulitis of right upper limb; E10.10 Type 1 diabetes mellitus with ketoacidosis without coma; E10.22 Type 1 diabetes mellitus with diabetic chronic kidney disease; N17.9 Acute kidney failure, unspecified; I12.9 Hypertensive chronic kidney disease with stage 1 through stage 4 chronic kidney disease, or unspecified chronic kidney disease; E83.39 Other disorders of phosphorus metabolism
CPT/HCPCS: 71010; 71045; 76775; 78452; 80048; 80053; 80061; 80069; 81001; 82010; 82040; 82550; 82552; 82570; 82803; 82805; 82947; 82948; 82962; 83036; 83605; 83735; 83935; 84100; 84300; 84484; 85025; 85027; 85610; 85730; 86021; 86038; 86039; 86160; 86225; 87040; 87086; 87641; 90774; 90784; 93005; 93017; 93306; 96374; 99291; A9502; C8952; J0690; J1650; J1815; J1817; J2405; J2765; J2785; J3475; J3480; J7030; J7040; J7042